=== PATIENT | female | born 1945 | race African-American/Black ===

== ENCOUNTER 2016-12-30 11:14 | Inpatient (IN) | payer MEDICARE, OTHER ==
[~2016-12-30] VITALS: Ht 170.2 cm; Wt 107.0 kg
[~2016-12-30 11:14] MED LIST: ACET325T9 PO; AMLO10TA4 PO; BENZ100C PO; CALC200T23 PO; CARV12.5 PO; CARV25TA PO; CEFP200T PO; CETI10TA16 PO; CLON0.1T PO; DEXT1DRO7 OP; DOCU100C5 PO; FLUT1DIS3 IH; FURO40TA4 PO; GUAI-66 PO; HYDR-2869 PO; HYDR12.58 PO; IPRA3AMP IH; ISOS20TA4 PO; ISOS30TA4 PO; LATA2.5D3 EACHEYE; LEVO150T PO; LORA0.5T PO; MAGN400O4 PO; METH5TAB12 PO; MULT-208 PO; NITR0.4T SL; NYST1POW2 PO; NYST1POW2 TOP; OMEP20CA9 PO; ONDA4TAB7 PO; OXYC-323 PO; PANT40TA3 PO; POLY17PO5 PO; PREG150C PO; PREG75CA PO; PROP1DRO OP; RIVA15TA PO; RIVA20TA2 PO; SENN-6 PO; SPIR25TA PO; TRAV5DRO EACHEYE; TRAZ150T55 PO; TRAZ50TA15 PO; VALS320T9 PO; VENL150C PO; VENL37.56 PO; VENTOLIN HFA18 GM IH; ZINC30OI TP
--- NOTE | 2016-12-30 11:26 | PHYS DOC ---
Past Medical History Past Medical History: COPD, GERD, Glaucoma, Hypertension, UTI Additional Past Medical Histor: pneumonia, conjunctivitis, MRSA, PVD, lymphedema, thyroid, Past Surgical History: Other Additional Past Surgical Histo: unknown Alcohol Use: None Drug Use: None Adult General Chief Complaint Chief Complaint: ALTERED MENTAL STATUS HPI HPI 71-year-old female presents from medical [place] for altered mental status that was noted yesterday. EMS also stated she may have had a low-grade temperature. Patient is normally alert and oriented 4 but today appears confused. She can answer all questions but is not oriented to place or time. She appears in no acute distress. She is satting appropriately on her usual 3 L of oxygen due to the fact that she has history of COPD. She denies any specific complaints. Review of Systems Review of Systems Constitutional: Denies fever or chills [] Eyes: Denies change in visual acuity, redness, or eye pain [] HENT: Denies nasal congestion or sore throat [] Respiratory: Denies cough or shortness of breath [] Cardiovascular: No additional information not addressed in HPI [] GI: Denies abdominal pain, nausea, vomiting, bloody stools or diarrhea [] : Denies dysuria or hematuria [] Musculoskeletal: Denies back pain or joint pain [] Integument: Denies rash or skin lesions [] Neurologic: Denies headache, focal weakness or sensory changes [] Endocrine: Denies polyuria or polydipsia [] Current Medications Current Medications Current Medications Medications (Trade) Dose Ordered Sig/Liban Start Time Stop Time Status Last Admin Dose Admin Acetaminophen (Tylenol) 650 mg PRN Q4HRS PRN 12/30/16 12:45 12/31/16 12:44 Ceftriaxone Sodium (Rocephin 1gm Ivpb For Omni) 50 ml @ 100 mls/hr 1X ONCE 12/30/16 12:30 12/30/16 12:59 Dextrose 25 gm 25 gm 1X ONCE 12/30/16 12:30 12/30/16 12:31 DC Insulin Human Regular (Novolin R Vial) 10 unit 1X ONCE 12/30/16 12:30 12/30/16 12:31 DC Ondansetron HCl 4 mg 4 mg PRN Q8HRS PRN 12/30/16 12:45 12/31/16 12:44 Sodium Bicarbonate 50 meq/Dextrose 1,050 ml @ 125 mls/hr Q8H24M 12/30/16 12:45 Sodium Chloride (Iv Sodium Chloride 0.9% 1000ml Bag) 1,000 ml @ 125 mls/hr Q8H 12/30/16 12:43 12/31/16 12:42 Allergies Allergies Allergies Coded Allergies Type Severity Reaction Last Updated Verified adhesive Allergy Intermediate 05/17/15 Yes ciprofloxacin Allergy Intermediate 05/17/15 Yes clarithromycin Allergy Intermediate 05/17/15 Yes codeine Allergy Intermediate 05/17/15 Yes fentanyl Allergy Intermediate 05/17/15 Yes meperidine Allergy Intermediate 05/17/15 Yes oyster extract Allergy Intermediate 05/17/15 Yes shellfish derived Allergy Intermediate 05/17/15 Yes strawberry Allergy Intermediate 05/17/15 Yes sulfur dioxide Allergy Intermediate 05/17/15 Yes tetracycline Allergy Intermediate 05/17/15 Yes I S O L A T I O N *CONTACT* Allergy Unknown 05/17/15 Yes Physical Exam Physical Exam Constitutional: Well developed, well nourished, no acute distress, non-toxic appearance, morbidly obese. [] HENT: Normocephalic, atraumatic, bilateral external ears normal, oropharynx moist, no oral exudates, nose normal. [] Eyes: PERRLA, EOMI, conjunctiva normal, no discharge. [] Neck: Normal range of motion, no tenderness, supple, no stridor. [] Cardiovascular:Heart rate regular rhythm, no murmur [] Lungs & Thorax: Bilateral breath sounds clear to auscultation [] Abdomen: Bowel sounds normal, soft, no tenderness, no masses, no pulsatile masses. [] Skin: Warm, dry, no erythema, no rash. [] Back: No tenderness, no CVA tenderness. [] Extremities: No tenderness, no cyanosis, no clubbing, ROM intact, bilateral 1+ edema of upper and lower extremities. [] Neurologic: Alert and oriented X 1 (person), normal motor function, normal sensory function, no focal deficits noted. [] Psychologic: Affect normal, judgement normal, mood normal. [] Current Patient Data Vital Signs Vital Signs Date Time Temp Pulse Resp B/P Pulse Ox O2 Delivery O2 Flow Rate FiO2 12/30/16 11:14 98.7 85 20 143/75 98 Nasal Cannula 3 98.7 Lab Values Laboratory Tests Test 12/30/16 11:28 12/30/16 11:43 White Blood Count 5.9x10^3/uL (4.0-11.0) Red Blood Count 3.29x10^6/uL (3.50-5.40) L Hemoglobin 9.7g/dL (12.0-15.5) L Hematocrit 30.8% (36.0-47.0) L Mean Corpuscular Volume 94fL (79-100) Mean Corpuscular Hemoglobin 30pg (25-35) Mean Corpuscular Hemoglobin Concent 32g/dL (31-37) Red Cell Distribution Width 15.4% (11.5-14.5) H Platelet Count 101x10^3/uL (140-400) L Neutrophils (%) (Auto) 43% (31-73) Lymphocytes (%) (Auto) 39% (24-48) Monocytes (%) (Auto) 14% (0-9) H Eosinophils (%) (Auto) 2% (0-3) Basophils (%) (Auto) 1% (0-3) Neutrophils # (Auto) 2.5x10^3uL (1.8-7.7) Lymphocytes # (Auto) 2.3x10^3/uL (1.0-4.8) Monocytes # (Auto) 0.8x10^3/uL (0.0-1.1) Eosinophils # (Auto) 0.1x10^3/uL (0.0-0.7) Basophils # (Auto) 0.0x10^3/uL (0.0-0.2) Sodium Level 145mmol/L (136-145) Potassium Level 5.5mmol/L (3.5-5.1) H Chloride Level 104mmol/L (98-107) Carbon Dioxide Level 40mmol/L (21-32) H Anion Gap 1 (6-14) L Blood Urea Nitrogen 31mg/dL (7-20) H Creatinine 1.1mg/dL (0.6-1.0) H Estimated GFR (Cockcroft-Gault) 59.4 Glucose Level 128mg/dL (70-99) H Lactic Acid Level 0.8mmol/L (0.4-2.0) Calcium Level 8.7mg/dL (8.5-10.1) Troponin I Quantitative < 0.017ng/mL (0.000-0.055) Urine Collection Type U cath Urine Color Yellow Urine Clarity Clear Urine pH 5.0 Urine Specific [place] 1.010 Urine Protein Negativemg/dL (NEG-TRACE) Urine Glucose (UA) Negativemg/dL (NEG) Urine Ketones (Stick) Negativemg/dL (NEG) Urine Blood Negative (NEG) Urine Nitrite Positive (NEG) Urine Bilirubin Negative (NEG) Urine Urobilinogen Dipstick 0.2mg/dL (0.2 mg/dL) Urine Leukocyte Esterase Moderate (NEG) Urine RBC 0/HPF (0-2) Urine WBC 5-10/HPF (0-4) Urine Squamous Epithelial Cells Few/LPF Urine Bacteria Moderate/HPF (0-FEW) Urine Hyaline Casts Occasional/HPF Urine Mucus Slight/LPF Laboratory Tests 12/30/16 11:28 Laboratory Tests 12/30/16 11:28 EKG EKG KG as interpreted by me showed a sinus rhythm with a leftward axis with an approximate rate of 79 bpm. There are no acute ischemic findings seen. This EKG does not meet STEMI criteria. Radiology/Procedures Radiology/Procedures CT of the head without contrast demonstrated the following: CT of the head without contrast, 12/30/2016: History: Altered mental status Comparison is made to a study from 11/07/2016. There are moderate patchy lucencies in the deep white matter bilaterally compatible with chronic ischemic change. The ventricles are within normal limits in size. There is no shift of the midline structures. There is no evidence of acute intracranial hemorrhage or mass effect. IMPRESSION: 1. Unchanged moderate bilateral deep white matter lucencies compatible with chronic ischemic change. 2. No acute intracranial abnormality is detected. Portable view of the chest demonstrates the following: Portable chest, 12/30/2016: History: Altered mental status, COPD Comparison is made to a study from 11/10/2016. The right PICC has been removed. The patient is rotated to the right. The heart is enlarged. There is tortuosity of the thoracic aorta. The pulmonary vascularity is normal. There are ongoing basilar opacities, most prominent medially. The findings suggest chronic or recurrent atelectasis/infiltrate. No pleural fluid is seen. 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 Course & Med Decision Making Course & Med Decision Making Pertinent Labs and Imaging studies reviewed. (See chart for details) This 71-year-old female has a laboratory workup that is significant for a hyperkalemia with a slightly increased BUN/creatinine as well. Patient was given a fluid bolus as well as doses of insulin and dextrose for the hyperkalemia. Her EKG was not concerning. Her chest film shows continued by basilar atelectasis. CT of her head was negative for any acute abnormality. Urinalysis was positive for nitrites. A dose of IV Rocephin was given. Patient continues to have some mild confusion and will be admitted to the hospital for her ongoing mental status changes, hyperkalemia, and UTI with nephrology consult as well. I discussed the need to admit the patient with the hospitalist , Dr. Rudolph, who agrees with this assessment and plan and will accept the patient for further evaluation and treatment. Dragon Disclaimer Dragon Disclaimer This electronic medical record was generated, in whole or in part, using a voice recognition dictation system. Departure Departure Impression: Primary Impression: Urinary tract infection Additional Impressions: Altered mental status Hyperkalemia Disposition: 09 ADMITTED INPATIENT Admitting Physician: Philomena Rudolph Condition: STABLE Referrals: ZABRINA BETANCOURT MD (PCP) Problem Qualifiers RHINA LOCO DO Dec 30, 2016 11:26
[2016-12-30] MEDS ORDERED: IV NORMAL SALINE 1000ML BAG 1,000 ML IV ONE (11:30)
[2016-12-30 11:47] LABS: BASO % 1 % (0-3); EOS % 2 % (0-3); HEMATOCRIT 30.8 % (36.0-47.0); HEMOGLOBIN 9.7 g/dL (12.0-15.5); LYMPH # 2.3 x10^3/uL (1.0-4.8); LYMPH % 39 % (24-48); MEAN CORPUSCULAR HEMOGLOBIN 30 pg (25-35); MEAN CORPUSCULAR HGB CONC 32 g/dL (31-37); MEAN CORPUSCULAR VOLUME 94 fL (79-100); MONO % 14 % (0-9); NEUT % 43 % (31-73); PLATELET COUNT 101 x10^3/uL (140-400); RED BLOOD COUNT 3.29 x10^6/uL (3.50-5.40); RED CELL DISTRIBUTION WIDTH 15.4 % (11.5-14.5); WHITE BLOOD COUNT 5.9 x10^3/uL (4.0-11.0)
[2016-12-30 11:56] LABS: BILIRUBIN,URINE NEGATIVE (NEG); GLUCOSE,URINE NEGATIVE (NEG); NITRITE,URINE POSITIVE (NEG); PROTEIN,URINE NEGATIVE (NEG-TRACE); UROBILINOGEN,URINE 0.2 mg/dL (0.2 mg/dL)
[2016-12-30 12:07] LABS: CALCIUM 8.7 mg/dL (8.5-10.1); CREATININE 1.1 mg/dL (0.6-1.0); GFR 59.4
[2016-12-30 12:09] LABS: BACTERIA,URINE MODERATE /HPF (0-FEW); RBC,URINE 0 /HPF (0-2); SQUAMOUS EPITHELIAL CELL,UR FEW /LPF
[2016-12-30 12:09] LABS: POTASSIUM 5.5 mmol/L (3.5-5.1)
--- NOTE | 2016-12-30 12:13 | EKG ---
[facility] [address] [place] [address] Test Date: 2016-12-30 Test Time: 11:21:10 Pat Name: TRAVIS SANCHEZ Department: Room: Gender: F High Value Associate: : 1945 Requested By: RHINA LOCO Order Number: [id number] Reading MD: Measurements Intervals Sand[place] Rate: 79 P: 25 NH: 174 QRS: -40 QRSD: 96 T: 31 QT: 330 QTc: 379 Interpretive Statements SINUS RHYTHM ABNORMAL LEFT AXIS DEVIATION R-S TRANSITION ZONE IN V LEADS DISPLACED TO THE LEFT LEFT ANTERIOR FASCICULAR BLOCK QRS(T) CONTOUR ABNORMALITY CONSIDER ANTEROLATERAL MYOCARDIAL DAMAGE ABNORMAL ECG RI6.01 No previous ECG available for comparison
[2016-12-30] MEDS ORDERED: DEXTROSE 50% 25 GM / 50ML DISP.SYRIN. IV ONE (12:30)
[2016-12-30] MEDS ORDERED: CEFTRIAXONE 1GM IVPB FOR OMNI 50 ML IV ONE (12:30)
[2016-12-30] MEDS ORDERED: INSULIN REGULAR 100 UNIT/ML 10ML VIAL. IV ONE (12:30)
--- NOTE | 2016-12-30 12:35 | RAD ---
CT of the head without contrast, 12/30/2016: History: Altered mental status Comparison is made to a study from 11/07/2016. There are moderate patchy lucencies in the deep white matter bilaterally compatible with chronic ischemic change. The ventricles are within normal limits in size. There is no shift of the midline structures. There is no evidence of acute intracranial hemorrhage or mass effect. IMPRESSION: 1. Unchanged moderate bilateral deep white matter lucencies compatible with chronic ischemic change. 2. No acute intracranial abnormality is detected. PQRS Compliance Statement: One or more of the following individualized dose reduction techniques were utilized for this examination: 1. Automated exposure control 2. Adjustment of the mA and/or kV according to patient size 3. Use of iterative reconstruction technique
--- NOTE | 2016-12-30 12:38 | RAD ---
Portable chest, 12/30/2016: History: Altered mental status, COPD Comparison is made to a study from 11/10/2016. The right PICC has been removed. The patient is rotated to the right. The heart is enlarged. There is tortuosity of the thoracic aorta. The pulmonary vascularity is normal. There are ongoing basilar opacities, most prominent medially. The findings suggest chronic or recurrent atelectasis/infiltrate. No pleural fluid is seen. 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 IMPRESSION: 1. Cardiomegaly. 2. Ongoing or recurrent bibasilar atelectasis/infiltrate.
[2016-12-30] MEDS ORDERED: IV NORMAL SALINE 1000ML BAG 1,000 ML IV SCH (12:43)
[2016-12-30] MEDS ORDERED: ACETAMINOPHEN 325 MG TABLET. PO PRN (12:45)
[2016-12-30] MEDS ORDERED: SODIUM BICARBONATE VIAL 50 MEQ in IV DEXTROSE 5% 1,000 ML IV SCH (12:45)
[2016-12-30] MEDS ORDERED: ONDANSETRON PF 4 MG/2 ML VIAL. IV PRN (12:45)
--- NOTE | 2016-12-30 13:14 | PHYS DOC ---
Past Medical History Past Medical History: Anemia, Anxiety, COPD, Depression, GERD, Glaucoma, Hypertension, Hypothyroid, Pneumonia, UTI, Vascular Disease Additional Past Medical Histor: conjunctivitis, MRSA, lymphedema, Acute and Chronic Respiratory Failure Past Surgical History: Other Additional Past Surgical Histo: unknown Alcohol Use: None Drug Use: None Adult General Chief Complaint Chief Complaint: ALTERED MENTAL STATUS HPI HPI Patient is a 71 year old [f__sex] who presents with [] Review of Systems Review of Systems Constitutional: Denies fever or chills [] Eyes: Denies change in visual acuity, redness, or eye pain [] HENT: Denies nasal congestion or sore throat [] Respiratory: Denies cough or shortness of breath [] Cardiovascular: No additional information not addressed in HPI [] GI: Denies abdominal pain, nausea, vomiting, bloody stools or diarrhea [] : Denies dysuria or hematuria [] Musculoskeletal: Denies back pain or joint pain [] Integument: Denies rash or skin lesions [] Neurologic: Denies headache, focal weakness or sensory changes [] Endocrine: Denies polyuria or polydipsia [] Current Medications Current Medications Current Medications Medications (Trade) Dose Ordered Sig/Liban Start Time Stop Time Status Last Admin Dose Admin Ceftriaxone Sodium (Rocephin 1gm Ivpb For Omni) 50 ml @ 100 mls/hr 1X ONCE 12/30/16 12:30 12/30/16 12:59 DC 12/30/16 13:20 100 MLS/HR Dextrose 25 gm 25 gm 1X ONCE 12/30/16 12:30 12/30/16 12:31 DC 12/30/16 13:14 25 GM Insulin Human Regular (Novolin R Vial) 10 unit 1X ONCE 12/30/16 12:30 12/30/16 12:31 DC 12/30/16 13:17 10 UNIT Sodium Chloride (Iv Sodium Chloride 0.9% 1000ml Bag) 1,000 ml @ 1,000 mls/hr 1X ONCE 12/30/16 11:30 12/30/16 12:29 DC 12/30/16 12:00 1,000 MLS/HR Allergies Allergies Allergies Coded Allergies Type Severity Reaction Last Updated Verified adhesive Allergy Intermediate 05/17/15 Yes ciprofloxacin Allergy Intermediate 05/17/15 Yes clarithromycin Allergy Intermediate 05/17/15 Yes codeine Allergy Intermediate 05/17/15 Yes fentanyl Allergy Intermediate 05/17/15 Yes meperidine Allergy Intermediate 05/17/15 Yes oyster extract Allergy Intermediate 05/17/15 Yes shellfish derived Allergy Intermediate 05/17/15 Yes strawberry Allergy Intermediate 05/17/15 Yes sulfur dioxide Allergy Intermediate 05/17/15 Yes tetracycline Allergy Intermediate 05/17/15 Yes I S O L A T I O N *CONTACT* Allergy Unknown 05/17/15 Yes Physical Exam Physical Exam Constitutional: Well developed, well nourished, no acute distress, non-toxic appearance. [] HENT: Normocephalic, atraumatic, bilateral external ears normal, oropharynx moist, no oral exudates, nose normal. [] Eyes: PERRLA, EOMI, conjunctiva normal, no discharge. [] Neck: Normal range of motion, no tenderness, supple, no stridor. [] Cardiovascular:Heart rate regular rhythm, no murmur [] Lungs & Thorax: Bilateral breath sounds clear to auscultation [] Abdomen: Bowel sounds normal, soft, no tenderness, no masses, no pulsatile masses. [] Skin: Warm, dry, no erythema, no rash. [] Back: No tenderness, no CVA tenderness. [] Extremities: No tenderness, no cyanosis, no clubbing, ROM intact, no edema. [] Neurologic: Alert and oriented X 3, normal motor function, normal sensory function, no focal deficits noted. [] Psychologic: Affect normal, judgement normal, mood normal. [] Current Patient Data Vital Signs Vital Signs Date Time Temp Pulse Resp B/P Pulse Ox O2 Delivery O2 Flow Rate FiO2 12/30/16 12:17 81 24 123/73 98 Nasal Cannula 3 12/30/16 11:14 98.7 98.7 Lab Values Laboratory Tests Test 12/30/16 11:28 12/30/16 11:43 White Blood Count 5.9x10^3/uL (4.0-11.0) Red Blood Count 3.29x10^6/uL (3.50-5.40) L Hemoglobin 9.7g/dL (12.0-15.5) L Hematocrit 30.8% (36.0-47.0) L Mean Corpuscular Volume 94fL (79-100) Mean Corpuscular Hemoglobin 30pg (25-35) Mean Corpuscular Hemoglobin Concent 32g/dL (31-37) Red Cell Distribution Width 15.4% (11.5-14.5) H Platelet Count 101x10^3/uL (140-400) L Neutrophils (%) (Auto) 43% (31-73) Lymphocytes (%) (Auto) 39% (24-48) Monocytes (%) (Auto) 14% (0-9) H Eosinophils (%) (Auto) 2% (0-3) Basophils (%) (Auto) 1% (0-3) Neutrophils # (Auto) 2.5x10^3uL (1.8-7.7) Lymphocytes # (Auto) 2.3x10^3/uL (1.0-4.8) Monocytes # (Auto) 0.8x10^3/uL (0.0-1.1) Eosinophils # (Auto) 0.1x10^3/uL (0.0-0.7) Basophils # (Auto) 0.0x10^3/uL (0.0-0.2) Sodium Level 145mmol/L (136-145) Potassium Level 5.5mmol/L (3.5-5.1) H Chloride Level 104mmol/L (98-107) Carbon Dioxide Level 40mmol/L (21-32) H Anion Gap 1 (6-14) L Blood Urea Nitrogen 31mg/dL (7-20) H Creatinine 1.1mg/dL (0.6-1.0) H Estimated GFR (Cockcroft-Gault) 59.4 Glucose Level 128mg/dL (70-99) H Lactic Acid Level 0.8mmol/L (0.4-2.0) Calcium Level 8.7mg/dL (8.5-10.1) Troponin I Quantitative < 0.017ng/mL (0.000-0.055) Urine Collection Type U cath Urine Color Yellow Urine Clarity Clear Urine pH 5.0 Urine Specific [place] 1.010 Urine Protein Negativemg/dL (NEG-TRACE) Urine Glucose (UA) Negativemg/dL (NEG) Urine Ketones (Stick) Negativemg/dL (NEG) Urine Blood Negative (NEG) Urine Nitrite Positive (NEG) Urine Bilirubin Negative (NEG) Urine Urobilinogen Dipstick 0.2mg/dL (0.2 mg/dL) Urine Leukocyte Esterase Moderate (NEG) Urine RBC 0/HPF (0-2) Urine WBC 5-10/HPF (0-4) Urine Squamous Epithelial Cells Few/LPF Urine Bacteria Moderate/HPF (0-FEW) Urine Hyaline Casts Occasional/HPF Urine Mucus Slight/LPF Laboratory Tests 12/30/16 11:28 Laboratory Tests 12/30/16 11:28 EKG EKG [] Radiology/Procedures Radiology/Procedures [] Course & Med Decision Making Course & Med Decision Making Pertinent Labs and Imaging studies reviewed. (See chart for details) This note was created in error and will not be completed. Please see the other note on this patient for coding purposes. Dragon Disclaimer Dragon Disclaimer This electronic medical record was generated, in whole or in part, using a voice recognition dictation system. Departure Departure Impression: Primary Impression: Urinary tract infection Additional Impressions: Altered mental status Hyperkalemia Disposition: ADMITTED INPATIENT Condition: STABLE Referrals: ZABRINA BETANCOURT MD (PCP) Problem Qualifiers RHINA LOCO DO Dec 30, 2016 13:14
[2016-12-30] MEDS ORDERED: SODIUM BICARB ADULT 8.4% 50 MEQ/50 ML DISP.SYRIN. IV ONE (13:15)
[2016-12-30] MEDS ORDERED: IV DEXTROSE 5 %-0.45 % NACL 1,000 ML IV ONE (13:15)
--- NOTE | 2016-12-30 14:43 | ACF ---
Admission Forms Criteria URINARY COMPLICATIONS Clinical Indications for Inpatient Care (Place 'X' for any and all applicable criteria): Ongoing inpatient care may be indicated for urinary complications with ANY ONE of the following: [X]I. Urinary tract infection requiring inpatient care as indicated by ANY ONE of the following(8)(19)(20): [ ]a) Severe symptoms (eg, high fever, severe pain) [ ]b) Vomiting or dehydration requiring ongoing inpatient care [X]c) IV antibiotic needs that cannot be managed at lower level of care [ ]d) Hemodynamic instability [ ]e) Obstruction of collecting system by stone or tumor [ ]II. Urinary retention requiring drainage or surgery (3)(4)(5)(17)(18) [ ]III. Renal failure (Use Renal Failure Criteria for further information.) [ ]IV. Oliguria(30) [ ]V. Post obstructive diuresis requiring close monitoring of urine output and intravenous compensation for excessive fluid losses(33) Extended stay beyond goal length of stay for primary condition may be needed until ALL of the following are present(3)(4)(5)(8): [ ]a) Renal function (creatinine) at baseline, or daily decreases in creatinine consistent with renal function return [ ]b) Voiding adequately or with urinary catheter or percutaneous suprapubic tube and management regimen in place that is performable at lower level of care. [ ]c) Urine output adequate [ ]d) Fever absent or resolving [ ]e) Infection absent or treatable at next level of care The original [employer] content created by [employer] has been revised. The portions of the content which have been revised are identified through the use of italic text or in bold, and [facility] has neither reviewed nor approved the modified material. All other unmodified content is copyright [facility] Please see references footnoted in the original [facility] edition 2016 Admission Criteria Met?: Yes SATNAM MONTANO Dec 30, 2016 14:43
[2016-12-30] MEDS ORDERED: DEXT15DR5 EACHEYE (14:56)
[2016-12-30] MEDS ORDERED: BUDE0.5A NEB (14:56)
[2016-12-30 14:58] VITALS: BP 102/49
[2016-12-30] MEDS ORDERED: CARV12.5 PO (14:59)
[2016-12-30] MEDS ORDERED: PREG50CA PO (15:01)
[2016-12-30] MEDS ORDERED: FURO-69 PO (15:01)
[2016-12-30] MEDS ORDERED: FERR-26 PO (15:01)
[2016-12-30] MEDS ORDERED: LATA2.5D2 EACHEYE (15:05)
[2016-12-30] MEDS ORDERED: OXYC-323 PO (15:05)
[2016-12-30] MEDS ORDERED: AMLO5TAB2 PO (15:05)
[2016-12-30] MEDS ORDERED: POTA20PA8 PO (15:05)
[2016-12-30] MEDS ORDERED: ONDA4TAB10 SL (15:05)
[2016-12-30] MEDS ORDERED: ZINC30OI TP (15:07)
[2016-12-30] MEDS ORDERED: PREG75CA PO (15:07)
--- NOTE | 2016-12-30 16:19 | PDOC1 ---
History and Physical Date of Admission Date of Admission DATE: 12/30/16 TIME: 16:12 Identification/Chief Complaint Chief Complaint confusion Source Source: Caregiver, Chart review, Patient History of Present Illness History of Present Illness Ms. Vergara, is [id number] female admit from ER for altered mental status. Change was noted yesterday at [facility],. . Patient is normally alert and oriented 4 but today appears confused. She answers questions in repetive manner, is more oriented than reported a few hours ago in ER She appears in no acute distress, and she reports feeling well currently On 3 L of oxygen due to the fact that she has history of COPD. Past Medical History Cardiovascular: AFIB, CHF, HTN GI: No pertinent hx Heme/Onc: No pertinent hx Psych: Anxiety Musculoskeletal: low back pain ENT: No pertinent hx Endocrine: No pertinent hx Family History Family History: No Significant Social History Smoke: No ALCOHOL: none Drugs: None Current Problem List Problem List Problems Medical Problems: (1) Altered mental status Status: Acute (2) Hyperkalemia Status: Acute (3) Urinary tract infection Status: Acute Problems: Current Medications Current Medications Current Medications Sodium Chloride (Iv Sodium Chloride 0.9% 1000ml Bag) 1,000 ml @ 1,000 mls/hr 1X ONCE IV Last administered on 12/30/16 12:00; Start 12/30/16 at 11:30; Stop 12/30/16 at 12:29; Status DC Insulin Human Regular (Novolin R Vial) 10 unit 1X ONCE IV Last administered on 12/30/16 13:17; Start 12/30/16 at 12:30; Stop 12/30/16 at 12:31; Status DC Dextrose 25 gm 25 gm 1X ONCE IV Last administered on 12/30/16 13:14; Start at 12:30; Stop 12/30/16 at 12:31; Status DC Sodium Bicarbonate 50 meq/Dextrose 1,050 ml @ 125 mls/hr Q8H24M IV ; Start at 12:45; Status Cancel Ceftriaxone Sodium (Rocephin 1gm Ivpb For Omni) 50 ml @ 100 mls/hr 1X ONCE IV Last administered on 12/30/16 13:20; Start 12/30/16 at 12:30; Stop 3/21/17 at 12:59; Status DC Ondansetron HCl 4 mg 4 mg PRN Q8HRS PRN IV NAUSEA/VOMITING; Start 12/30/16 at 12:45; Stop 12/31/16 at 12:44 Sodium Chloride (Iv Sodium Chloride 0.9% 1000ml Bag) 1,000 ml @ 125 mls/hr Q8H IV ; Start 12/30/16 at 12:43; Stop 12/30/16 at 13:15; Status DC Acetaminophen (Tylenol) 650 mg PRN Q4HRS PRN PO FEVER; Start 12/30/16 at 12:45 ; Stop 12/31/16 at 12:44 Sodium Bicarbonate 50 meq 50 meq 1X ONCE IV Last administered on 12/30/16t 13: 19; Start 12/30/16 at 13:15; Stop 12/30/16 at 13:16; Status DC Dextrose/Sodium Chloride (Iv D5% - 1/2 NS) 1,000 ml @ 100 mls/hr 1X ONCE IV Last administered on 12/30/16t 15:37; Start 12/30/16 at 13:15; Stop 12/30/16 at 23:14 Active Scripts Active Reported Zinc Oxide 30 Gm Oint...g. 30 Gm TP Lyrica (Pregabalin) 75 Mg Capsule 1 Cap PO BID Xalatan (Latanoprost) 2.5 Ml Drops 1 Drop EACHEYE QHS Potassium Chloride Packet (Potassium Chloride) 20 Meq Packet 20 Meq PO BID Percocet 5-325 Mg Tablet (Oxycodone/Acetaminophen) 1 Each Tablet 1 Tab PO PRN Q6HRS PRN Zofran Odt (Ondansetron) 4 Mg Tab.rapdis 1 Tab SL BID Amlodipine Besylate 5 Mg Tablet 5 Mg PO DAILY Lasix (Furosemide) 20 Mg Tablet 1 Tab PO DAILY Ferrous Sulfate 325 Mg Tablet 1 Tab PO DAILY Coreg (Carvedilol) 12.5 Mg Tablet 1 Tab PO BID Budesonide 0.5 Mg/2 Ml Ampul.neb 1 Vial NEB BID Artificial Tears Eye Drops (Dextran 70/Hypromellose) 15 Ml Drops 1 Drop EACHEYE PRN QID PRN Xarelto (Rivaroxaban) 20 Mg Tablet 20 Mg PO DAILY Cetirizine Hcl 10 Mg Tablet 1 Tab PO HS Tessalon Perle (Benzonatate) 100 Mg Capsule 100 Mg PO TID PRN Multi-Day Vitamins (Multivitamin) 1 Each Tablet 1 Tab PO DAILY Milk Of Magnesia (Magnesium Hydroxide) 400 Mg/5 Ml Oral.susp 30 Ml PO Q2HR PRN Protonix (Pantoprazole Sodium) 40 Mg Tablet.dr 1 Tab PO DAILY Duoneb 0.5-3(2.5) Mg/3 Ml (Albuterol/Ipratropium) 3 Ml Ampul.neb 3 Ml IH Q4HRS PRN Nystatin 1 Each Powder.ea. 1 Each TOP BID to groin and inner thighs, apply barrier cream with zinc and nystatin powder after cleanse with warm water and pat dry Travatan Z (Travoprost) 5 Ml Drops 1 Drop EACHEYE QHS Synthroid (Levothyroxine Sodium) 150 Mcg Tablet 1 Tab PO DAILY Senna S Tablet (Sennosides/Docusate Sodium) 1 Each Tablet 1 Each PO BID Miralax (Polyethylene Glycol 3350) 17 Gm Powd.pack 1 Packet PO DAILY Methylphenidate Hcl 5 Mg Tablet 1 Tab PO BID Docusate Sodium 100 Mg Capsule 1 Cap PO BID Calcium Carbonate 200 Mg Tab.chew 200 Mg PO PRN Q4HRS PRN Tylenol (Acetaminophen) 325 Mg Tablet 2 Tab PO PRN Q4HRS PRN for headache, generalized pain or elevated temperature Allergies Allergies: Coded Allergies: adhesive (Verified Allergy, Intermediate, 05/17/15) ciprofloxacin (Verified Allergy, Intermediate, 05/17/15) clarithromycin (Verified Allergy, Intermediate, 05/17/15) codeine (Verified Allergy, Intermediate, 05/17/15) fentanyl (Verified Allergy, Intermediate, 05/17/15) meperidine (Verified Allergy, Intermediate, 05/17/15) oyster extract (Verified Allergy, Intermediate, 05/17/15) shellfish derived (Verified Allergy, Intermediate, 05/17/15) strawberry (Verified Allergy, Intermediate, 05/17/15) sulfur dioxide (Verified Allergy, Intermediate, 05/17/15) tetracycline (Verified Allergy, Intermediate, 05/17/15) I S O L A T I O N *CONTACT* (Verified Allergy, Unknown, 05/17/15) mrsa + ROS General: No: Appetite, Chills, Fatigue, Malaise, Night Sweats, Other PSYCHOLOGICAL ROS: No: Anxiety, Behavioral Disorder, Concentration difficultie , Decreased libido, Depression, Disorientation, Hallucinations, Hostility, Irritablity, Memory difficulties, Mood Swings, Obsessive thoughts, Other, Physical abuse, Sexual abuse, Sleep disturbances, Suicidal ideation Eyes: No Blurry vision, No Decreased vision, No Double vision, No Dry eyes, No Excessive tearing, No Eye Pain, No Itchy Eyes, No Loss of vision, No Other, No Photophobia, No Scotomata, No Uses contacts, No Uses glasses HEENT: YES: Heacaches Respiratory: No: Cough, Hemoptysis, Orthopnea, Other, Pleuritic Pain, SOB with excertion, Shortness of breath, Sputum Changes, Stridor, Tachypnea, Wheezing Cardiovascular: No Chest Pain, No Edema, No Lt Headedness, No Orthopnea, No Other, No Palpitations, No Paroxysmal Noc. Dyspnea Gastrointestinal: Yes Nausea, No Abdominal Pain, No Constipation, No Diarrhea, No Hematochezia, No Melena, No Other, No Vomiting Genitourinary: No , No , No , No , No , No , No , No Discharge, No Dysuria, No Flank Pain, No Frequency, No Hematuria, No Incontinence, No Other, No Pain, No Retention, No Urgency Musculoskeletal: Yes Joint Pain, Yes Joint Stiffness, No Gait Disturbance, No Joint Swelling, No Muscle Pain, No Muscular Weakness , No Other, No Pain In:, No Swelling In: Neurological: Yes Confusion Skin: Yes Dry Skin Physical Exam General: Alert, Cooperative, mild distress, Other (2/4 oriented) HEENT: Atraumatic, PERRLA Lungs: Clear to auscultation Heart: S1S2, no murmurs Rectal Exam: deferred Extremities: Normal pulses, Other (2+ LE edema) Skin: No breakdown Neuro: Normal speech, Normal tone Psych/Mental Status: Other Vitals Vitals Vital Signs Date Time Temp Pulse Resp B/P Pulse Ox O2 Delivery O2 Flow Rate FiO2 12/30/16 14:58 99.5 78 17 102/49 94 Nasal Cannula 3.0 99.5 Labs Labs Laboratory Tests Test 12/30/16 11:28 12/30/16 11:43 White Blood Count 5.9x10^3/uL (4.0-11.0) Red Blood Count 3.29x10^6/uL (3.50-5.40) Hemoglobin 9.7g/dL (12.0-15.5) Hematocrit 30.8% (36.0-47.0) Mean Corpuscular Volume 94fL (79-100) Mean Corpuscular Hemoglobin 30pg (25-35) Mean Corpuscular Hemoglobin Concent 32g/dL (31-37) Red Cell Distribution Width 15.4% (11.5-14.5) Platelet Count 101x10^3/uL (140-400) Neutrophils (%) (Auto) 43% (31-73) Lymphocytes (%) (Auto) 39% (24-48) Monocytes (%) (Auto) 14% (0-9) Eosinophils (%) (Auto) 2% (0-3) Basophils (%) (Auto) 1% (0-3) Neutrophils # (Auto) 2.5x10^3uL (1.8-7.7) Lymphocytes # (Auto) 2.3x10^3/uL (1.0-4.8) Monocytes # (Auto) 0.8x10^3/uL (0.0-1.1) Eosinophils # (Auto) 0.1x10^3/uL (0.0-0.7) Basophils # (Auto) 0.0x10^3/uL (0.0-0.2) Sodium Level 145mmol/L (136-145) Potassium Level 5.5mmol/L (3.5-5.1) Chloride Level 104mmol/L (98-107) Carbon Dioxide Level 40mmol/L (21-32) Anion Gap 1 (6-14) Blood Urea Nitrogen 31mg/dL (7-20) Creatinine 1.1mg/dL (0.6-1.0) Estimated GFR (Cockcroft-Gault) 59.4 Glucose Level 128mg/dL (70-99) Lactic Acid Level 0.8mmol/L (0.4-2.0) Calcium Level 8.7mg/dL (8.5-10.1) Troponin I Quantitative < 0.017ng/mL (0.000-0.055) Urine Collection Type U cath Urine Color Yellow Urine Clarity Clear Urine pH 5.0 Urine Specific [place] 1.010 Urine Protein Negativemg/dL (NEG-TRACE) Urine Glucose (UA) Negativemg/dL (NEG) Urine Ketones (Stick) Negativemg/dL (NEG) Urine Blood Negative (NEG) Urine Nitrite Positive (NEG) Urine Bilirubin Negative (NEG) Urine Urobilinogen Dipstick 0.2mg/dL (0.2 mg/dL) Urine Leukocyte Esterase Moderate (NEG) Urine RBC 0/HPF (0-2) Urine WBC 5-10/HPF (0-4) Urine Squamous Epithelial Cells Few/LPF Urine Bacteria Moderate/HPF (0-FEW) Urine Hyaline Casts Occasional/HPF Urine Mucus Slight/LPF Laboratory Tests Test 12/30/16 11:28 12/30/16 11:43 White Blood Count 5.9x10^3/uL (4.0-11.0) Red Blood Count 3.29x10^6/uL (3.50-5.40) Hemoglobin 9.7g/dL (12.0-15.5) Hematocrit 30.8% (36.0-47.0) Mean Corpuscular Volume 94fL (79-100) Mean Corpuscular Hemoglobin 30pg (25-35) Mean Corpuscular Hemoglobin Concent 32g/dL (31-37) Red Cell Distribution Width 15.4% (11.5-14.5) Platelet Count 101x10^3/uL (140-400) Neutrophils (%) (Auto) 43% (31-73) Lymphocytes (%) (Auto) 39% (24-48) Monocytes (%) (Auto) 14% (0-9) Eosinophils (%) (Auto) 2% (0-3) Basophils (%) (Auto) 1% (0-3) Neutrophils # (Auto) 2.5x10^3uL (1.8-7.7) Lymphocytes # (Auto) 2.3x10^3/uL (1.0-4.8) Monocytes # (Auto) 0.8x10^3/uL (0.0-1.1) Eosinophils # (Auto) 0.1x10^3/uL (0.0-0.7) Basophils # (Auto) 0.0x10^3/uL (0.0-0.2) Sodium Level 145mmol/L (136-145) Potassium Level 5.5mmol/L (3.5-5.1) Chloride Level 104mmol/L (98-107) Carbon Dioxide Level 40mmol/L (21-32) Anion Gap 1 (6-14) Blood Urea Nitrogen 31mg/dL (7-20) Creatinine 1.1mg/dL (0.6-1.0) Estimated GFR (Cockcroft-Gault) 59.4 Glucose Level 128mg/dL (70-99) Lactic Acid Level 0.8mmol/L (0.4-2.0) Calcium Level 8.7mg/dL (8.5-10.1) Troponin I Quantitative < 0.017ng/mL (0.000-0.055) Urine Collection Type U cath Urine Color Yellow Urine Clarity Clear Urine pH 5.0 Urine Specific [place] 1.010 Urine Protein Negativemg/dL (NEG-TRACE) Urine Glucose (UA) Negativemg/dL (NEG) Urine Ketones (Stick) Negativemg/dL (NEG) Urine Blood Negative (NEG) Urine Nitrite Positive (NEG) Urine Bilirubin Negative (NEG) Urine Urobilinogen Dipstick 0.2mg/dL (0.2 mg/dL) Urine Leukocyte Esterase Moderate (NEG) Urine RBC 0/HPF (0-2) Urine WBC 5-10/HPF (0-4) Urine Squamous Epithelial Cells Few/LPF Urine Bacteria Moderate/HPF (0-FEW) Urine Hyaline Casts Occasional/HPF Urine Mucus Slight/LPF VTE Prophylaxis Ordered VTE Prophylaxis Devices: No VTE Pharmacological Prophylaxi: Yes Assessment/Plan Assessment/Plan Acute metabolic encephalopathy on chronic dementia, (may be mild) UTI obesity, BMI 35 weakness and debility ankle pain, bilat, consult physiatry hypothyroid chronic diastolic CHF, with LE edema afib, rate controlled CKD 2, w. hyperkalemia, IV fluid, recheck, renal consulted MICHEAL DAVIS MD Dec 30, 2016 16:18
[2016-12-30] MEDS ORDERED: SODIUM POLYSTYRENE SULFONATE 15 GM/60 ML ORAL.SUSP. PO PRN (18:00)
[2016-12-30 19:00] VITALS: BP 126/70
[2016-12-30 23:00] VITALS: BP 146/78
--- NOTE | 2016-12-31 02:15 | CONS ---
DATE OF CONSULTATION: 12/30/2016 ATTENDING PHYSICIAN: Dr. Rudolph. The patient was seen at the request of Dr. Rudolph for rehab evaluation. HISTORY OF PRESENT ILLNESS: This is a 71-year-old female admitted through the Emergency Room with altered mental status from residential care unit. The patient is normally awake and oriented, but appeared to be confused and answered questions in a repetitive manner. The patient uses oxygen at 3 liters per minute for her chronic obstructive pulmonary disease. Past medical history also includes atrial fibrillation, congestive heart failure, hypertension, anxiety and low back pain. The patient is status post left rotator cuff repair in the past. The patient also had surgery on her ankles. The patient admits some pain in her ankles. She apparently had left ankle foot brace, but she does not use it anymore as she does not walk. The patient since admission was found with hyperkalemia and urinary tract infection and being treated for it. She had CT scan of the brain, which revealed unchanged moderate bilateral deep white matter lucencies compatible with chronic ischemic change. Chest x-ray revealed cardiomegaly, ongoing or recurrent bibasilar atelectasis or infiltrate. PHYSICAL EXAMINATION: Today revealed an elderly female, she is awake, oriented to place, follows commands appropriately, moves all 4 extremities voluntarily where she had generalized muscle weakness. She had significant weakness of rotator cuff muscles, hand intrinsic muscles and no ____ left foot dorsiflexion. She had her right knee in a portion of hyperextension and right ankle in a portion of lateral rotation. She had tenderness to palpation over tendo Achilles bilaterally. She had a crepitus on range of motion of both knee and ankle joints. She had painful limited movements of both shoulders and hip joints and also knee joints, especially on the right side. She had decreased touch and pinprick sensation over left L5 dermatome area. Deep tendon reflexes are absent at both knees and ankles. She had deformities of both thumbs secondary to degenerative changes of thumb carpometacarpal joints and probable associated bilateral carpal tunnel syndrome as she had positive Tinel sign over median nerve at the wrist. I have not tested her mobility skills at this time. She seems to be requiring Becky lift for transfers. 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 The patient with chronic obstructive pulmonary disease, oxygen dependent, atrial fibrillation, congestive heart failure, hypertension, chronic lower back pain and anxiety. RECOMMENDATIONS: She is not a candidate for any rehab. When medically stable, transferred back to group home for continued care. Dr. Rudolph, I appreciate asking me to participate in the care of this interesting patient. I will be glad to follow her with you as needed for her rehabilitation. EMERALD NINO MD DR: TSERING/mary JOB#: [id number] / [id number]
[2016-12-31 03:00] VITALS: BP 137/71
[2016-12-31] MEDS ORDERED: ALBUTEROL SULFATE 2.5 MG/3 ML NEBU. NEB PRN (03:45)
[2016-12-31 05:49] LABS: BASO % 0 % (0-3); EOS % 3 % (0-3); HEMATOCRIT 28.2 % (36.0-47.0); HEMOGLOBIN 8.8 g/dL (12.0-15.5); LYMPH # 1.8 x10^3/uL (1.0-4.8); LYMPH % 38 % (24-48); MEAN CORPUSCULAR HEMOGLOBIN 29 pg (25-35); MEAN CORPUSCULAR HGB CONC 31 g/dL (31-37); MEAN CORPUSCULAR VOLUME 93 fL (79-100); MONO % 16 % (0-9); NEUT % 42 % (31-73); PLATELET COUNT 87 x10^3/uL (140-400); RED BLOOD COUNT 3.04 x10^6/uL (3.50-5.40); RED CELL DISTRIBUTION WIDTH 14.8 % (11.5-14.5); WHITE BLOOD COUNT 4.7 x10^3/uL (4.0-11.0)
[2016-12-31 06:05] LABS: CALCIUM 8.3 mg/dL (8.5-10.1); CREATININE 0.8 mg/dL (0.6-1.0); GFR 85.8; POTASSIUM 4.6 mmol/L (3.5-5.1)
[2016-12-31 07:00] VITALS: BP 92/47
[2016-12-31] MEDS ORDERED: MAGNESIUM HYDROXIDE 2,400 MG/30 ML ORAL.SUSP. PO PRN (09:00)
[2016-12-31] MEDS: BUDESONIDE 0.5 MG/2 ML NEBU NEB SCH ×2 (09:00→19:40)
[2016-12-31] MEDS ORDERED: ACETAMINOPHEN 325 MG TABLET. PO PRN (09:00)
[2016-12-31] MEDS ORDERED: IPRATRPIUM/ALBUTEROL 0.5/2.5MG 3 ML NEBU. IH PRN (09:00)
[2016-12-31] MEDS ORDERED: CALCIUM CARBONATE 500 MG TAB.CHEW PO PRN (09:00)
[2016-12-31] MEDS ORDERED: BENZONATATE 100 MG CAPSULE. PO PRN (09:00)
[2016-12-31] MEDS ORDERED: ONDANSETRON PF 4 MG/2 ML VIAL. IV PRN (09:15)
[2016-12-31] MEDS ORDERED: IV 1/2 NORMAL SALINE 1,000 ML IV ONE (09:15)
[2016-12-31] MEDS ORDERED: HYDROCODONE/APAP 5/325MG TABLET. PO PRN (09:15)
[2016-12-31] MEDS ORDERED: FUROSEMIDE 20 MG TABLET PO SCH (09:30)
[2016-12-31] MEDS ORDERED: POLYVINYL ALCOHOL 1.4% OPHTH SOLUTION 15ML BOTTLE. OU PRN (09:45)
[2016-12-31] MEDS: NYSTATIN TOPICAL POWDER 15GM BOTTLE. TP SCH ×2 (10:00→21:00)
[2016-12-31] MEDS ORDERED: POTASSIUM CHLORIDE 20 MEQ TABLET.ER. PO SCH (10:00)
[2016-12-31] MEDS: CEFTRIAXONE SODIUM 1 GM in IV NORMAL SALINE 50ML 50 ML IV SCH (10:08)
[2016-12-31] MEDS: MULTIVITAMIN with MINERAL TABLET. PO SCH (10:10)
[2016-12-31] MEDS: LEVOTHYROXINE 150 MCG TABLET PO SCH (10:11)
[2016-12-31] MEDS: METHYLPHENIDATE HCL 5 MG TABLET PO SCH ×2 (10:12→21:25)
[2016-12-31] MEDS: PREGABALIN 75 MG CAPSULE PO SCH ×2 (10:12→11:56)
[2016-12-31] MEDS: CARVEDILOL 12.5 MG TABLET PO SCH ×2 (10:13→17:17)
[2016-12-31] MEDS: AMLODIPINE BESYLATE 5 MG TABLET PO SCH (10:14)
[2016-12-31] MEDS: SENNOSIDES/DOCUSATE 8.6/50MG TABLET. PO SCH ×2 (10:14→21:25)
[2016-12-31] MEDS: DOCUSATE SODIUM 100 MG CAPSULE PO SCH ×2 (10:17→21:25)
[2016-12-31 10:33] VITALS: BP 149/65
--- NOTE | 2016-12-31 10:58 | PDOC ---
PROGRESS NOTES Subjective Subjective She denies any pain. Objective Objective Vital Signs Date Time Temp Pulse Resp B/P Pulse Ox O2 Delivery O2 Flow Rate FiO2 12/31/16 10:33 99.0 73 18 149/65 97 Nasal Cannula 3.0 99.0 Intake and Output 12/31/16 07:00 Intake Total 1850 ml Balance 1850 ml Intake Oral 800 ml IV Total 1050 ml # Voids 5 Physical Exam Physical Exam She is supine in bed and seems comfortable but continues with stiffness and pain on ROM of extremity joints,especially in her lower extremities and tenderness to palpation around ankles. Assessment Assessment Problems Medical Problems: (1) Altered mental status Status: Acute (2) Hyperkalemia Status: Acute (3) Urinary tract infection Status: Acute Plan Plan of Care To try diclofenac cream and to NH when medically stable. Comment Review of Relevant I have reviewed the following items vivian (where applicable) has been applied. Labs Laboratory Tests Test 12/30/16 11:28 12/30/16 11:43 12/30/16 18:10 12/31/16 05:20 White Blood Count 5.9x10^3/uL (4.0-11.0) 4.7x10^3/uL (4.0-11.0) Red Blood Count 3.29x10^6/uL (3.50-5.40) 3.04x10^6/uL (3.50-5.40) Hemoglobin 9.7g/dL (12.0-15.5) 8.8g/dL (12.0-15.5) Hematocrit 30.8% (36.0-47.0) 28.2% (36.0-47.0) Mean Corpuscular Volume 94fL (79-100) 93fL (79-100) Mean Corpuscular Hemoglobin 30pg (25-35) 29pg (25-35) Mean Corpuscular Hemoglobin Concent 32g/dL (31-37) 31g/dL (31-37) Red Cell Distribution Width 15.4% (11.5-14.5) 14.8% (11.5-14.5) Platelet Count 101x10^3/uL (140-400) 87x10^3/uL (140-400) Neutrophils (%) (Auto) 43% (31-73) 42% (31-73) Lymphocytes (%) (Auto) 39% (24-48) 38% (24-48) Monocytes (%) (Auto) 14% (0-9) 16% (0-9) Eosinophils (%) (Auto) 2% (0-3) 3% (0-3) Basophils (%) (Auto) 1% (0-3) 0% (0-3) Neutrophils # (Auto) 2.5x10^3uL (1.8-7.7) 2.0x10^3uL (1.8-7.7) Lymphocytes # (Auto) 2.3x10^3/uL (1.0-4.8) 1.8x10^3/uL (1.0-4.8) Monocytes # (Auto) 0.8x10^3/uL (0.0-1.1) 0.8x10^3/uL (0.0-1.1) Eosinophils # (Auto) 0.1x10^3/uL (0.0-0.7) 0.2x10^3/uL (0.0-0.7) Basophils # (Auto) 0.0x10^3/uL (0.0-0.2) 0.0x10^3/uL (0.0-0.2) Sodium Level 145mmol/L (136-145) 146mmol/L (136-145) Potassium Level 5.5mmol/L (3.5-5.1) 5.2mmol/L (3.5-5.1) 4.6mmol/L (3.5-5.1) Chloride Level 104mmol/L (98-107) 105mmol/L (98-107) Carbon Dioxide Level 40mmol/L (21-32) 38mmol/L (21-32) Anion Gap 1 (6-14) 3 (6-14) Blood Urea Nitrogen 31mg/dL (7-20) 24mg/dL (7-20) Creatinine 1.1mg/dL (0.6-1.0) 0.8mg/dL (0.6-1.0) Estimated GFR (Cockcroft-Gault) 59.4 85.8 Glucose Level 128mg/dL (70-99) 118mg/dL (70-99) Lactic Acid Level 0.8mmol/L (0.4-2.0) Calcium Level 8.7mg/dL (8.5-10.1) 8.3mg/dL (8.5-10.1) Troponin I Quantitative < 0.017ng/mL (0.000-0.055) Urine Collection Type U cath Urine Color Yellow Urine Clarity Clear Urine pH 5.0 Urine Specific Campbell 1.010 Urine Protein Negativemg/dL (NEG-TRACE) Urine Glucose (UA) Negativemg/dL (NEG) Urine Ketones (Stick) Negativemg/dL (NEG) Urine Blood Negative (NEG) Urine Nitrite Positive (NEG) Urine Bilirubin Negative (NEG) Urine Urobilinogen Dipstick 0.2mg/dL (0.2 mg/dL) Urine Leukocyte Esterase Moderate (NEG) Urine RBC 0/HPF (0-2) Urine WBC 5-10/HPF (0-4) Urine Squamous Epithelial Cells Few/LPF Urine Bacteria Moderate/HPF (0-FEW) Urine Hyaline Casts Occasional/HPF Urine Mucus Slight/LPF Laboratory Tests Test 12/30/16 11:28 12/30/16 11:43 12/30/16 18:10 12/31/16 05:20 White Blood Count 5.9x10^3/uL (4.0-11.0) 4.7x10^3/uL (4.0-11.0) Red Blood Count 3.29x10^6/uL (3.50-5.40) 3.04x10^6/uL (3.50-5.40) Hemoglobin 9.7g/dL (12.0-15.5) 8.8g/dL (12.0-15.5) Hematocrit 30.8% (36.0-47.0) 28.2% (36.0-47.0) Mean Corpuscular Volume 94fL (79-100) 93fL (79-100) Mean Corpuscular Hemoglobin 30pg (25-35) 29pg (25-35) Mean Corpuscular Hemoglobin Concent 32g/dL (31-37) 31g/dL (31-37) Red Cell Distribution Width 15.4% (11.5-14.5) 14.8% (11.5-14.5) Platelet Count 101x10^3/uL (140-400) 87x10^3/uL (140-400) Neutrophils (%) (Auto) 43% (31-73) 42% (31-73) Lymphocytes (%) (Auto) 39% (24-48) 38% (24-48) Monocytes (%) (Auto) 14% (0-9) 16% (0-9) Eosinophils (%) (Auto) 2% (0-3) 3% (0-3) Basophils (%) (Auto) 1% (0-3) 0% (0-3) Neutrophils # (Auto) 2.5x10^3uL (1.8-7.7) 2.0x10^3uL (1.8-7.7) Lymphocytes # (Auto) 2.3x10^3/uL (1.0-4.8) 1.8x10^3/uL (1.0-4.8) Monocytes # (Auto) 0.8x10^3/uL (0.0-1.1) 0.8x10^3/uL (0.0-1.1) Eosinophils # (Auto) 0.1x10^3/uL (0.0-0.7) 0.2x10^3/uL (0.0-0.7) Basophils # (Auto) 0.0x10^3/uL (0.0-0.2) 0.0x10^3/uL (0.0-0.2) Sodium Level 145mmol/L (136-145) 146mmol/L (136-145) Potassium Level 5.5mmol/L (3.5-5.1) 5.2mmol/L (3.5-5.1) 4.6mmol/L (3.5-5.1) Chloride Level 104mmol/L (98-107) 105mmol/L (98-107) Carbon Dioxide Level 40mmol/L (21-32) 38mmol/L (21-32) Anion Gap 1 (6-14) 3 (6-14) Blood Urea Nitrogen 31mg/dL (7-20) 24mg/dL (7-20) Creatinine 1.1mg/dL (0.6-1.0) 0.8mg/dL (0.6-1.0) Estimated GFR (Cockcroft-Gault) 59.4 85.8 Glucose Level 128mg/dL (70-99) 118mg/dL (70-99) Lactic Acid Level 0.8mmol/L (0.4-2.0) Calcium Level 8.7mg/dL (8.5-10.1) 8.3mg/dL (8.5-10.1) Troponin I Quantitative < 0.017ng/mL (0.000-0.055) Urine Collection Type U cath Urine Color Yellow Urine Clarity Clear Urine pH 5.0 Urine Specific Campbell 1.010 Urine Protein Negativemg/dL (NEG-TRACE) Urine Glucose (UA) Negativemg/dL (NEG) Urine Ketones (Stick) Negativemg/dL (NEG) Urine Blood Negative (NEG) Urine Nitrite Positive (NEG) Urine Bilirubin Negative (NEG) Urine Urobilinogen Dipstick 0.2mg/dL (0.2 mg/dL) Urine Leukocyte Esterase Moderate (NEG) Urine RBC 0/HPF (0-2) Urine WBC 5-10/HPF (0-4) Urine Squamous Epithelial Cells Few/LPF Urine Bacteria Moderate/HPF (0-FEW) Urine Hyaline Casts Occasional/HPF Urine Mucus Slight/LPF Medications Current Medications Sodium Chloride (Iv Sodium Chloride 0.9% 1000ml Bag) 1,000 ml @ 1,000 mls/hr 1X ONCE IV Last administered on 12/30/16 12:00; Start 12/30/16 at 11:30; Stop 12/30/16 at 12:29; Status DC Insulin Human Regular (Novolin R Vial) 10 unit 1X ONCE IV Last administered on 12/30/16 13:17; Start 12/30/16 at 12:30; Stop 12/30/16 at 12:31; Status DC Dextrose 25 gm 25 gm 1X ONCE IV Last administered on 12/30/16 13:14; Start at 12:30; Stop 12/30/16 at 12:31; Status DC Sodium Bicarbonate 50 meq/Dextrose 1,050 ml @ 125 mls/hr Q8H24M IV ; Start at 12:45; Status Cancel Ceftriaxone Sodium (Rocephin 1gm Ivpb For Omni) 50 ml @ 100 mls/hr 1X ONCE IV Last administered on 12/30/16 13:20; Start 12/30/16 at 12:30; Stop 12/30/16 at 12:59; Status DC Ondansetron HCl 4 mg 4 mg PRN Q8HRS PRN IV NAUSEA/VOMITING; Start 12/30/16 at 12:45; Stop 12/31/16 at 12:44 Sodium Chloride (Iv Sodium Chloride 0.9% 1000ml Bag) 1,000 ml @ 125 mls/hr Q8H IV ; Start 12/30/16 at 12:43; Stop 12/30/16 at 13:15; Status DC Acetaminophen (Tylenol) 650 mg PRN Q4HRS PRN PO FEVER; Start 12/30/16 at 12:45 ; Stop 12/31/16 at 12:44 Sodium Bicarbonate 50 meq 50 meq 1X ONCE IV Last administered on 12/30/16 13: 19; Start 12/30/16 at 13:15; Stop 12/30/16 at 13:16; Status DC Dextrose/Sodium Chloride (Iv D5% - 1/2 NS) 1,000 ml @ 100 mls/hr 1X ONCE IV Last administered on 12/30/16 15:37; Start 12/30/16 at 13:15; Stop 12/30/16 at 23:14; Status DC Sodium Polystyrene Sulfonate (Kayexalate) 30 gm 1X PRN PRN PO if repeat K > 5.2 ; Start 12/30/16 at 18:00 Albuterol Sulfate (Ventolin Neb Soln) 2.5 mg PRN Q6HRS PRN NEB SHORTNESS OF BREATH Last administered on 12/31/16 03:51; Start 12/31/16 at 03:45 Acetaminophen (Tylenol) 325 mg PRN Q4HRS PRN PO FEVER; Start 12/31/16 at 09:00 Amlodipine Besylate (Norvasc) 5 mg DAILY PO Last administered on 12/31/16 10: 14; Start 12/31/16 at 09:00 Benzonatate (Tessalon Perle) 100 mg PRN TID PRN PO COUGH; Start 12/31/16 at 09: 00 Budesonide (Pulmicort) 0.5 mg BID NEB ; Start 12/31/16 at 09:00 Calcium Carbonate/ Glycine (Tums) 250 mg PRN Q4HRS PRN PO HEARTBURN / GAS; Start 12/31/16 at 09:00 Carvedilol (Coreg) 12.5 mg BIDWMEALS PO Last administered on 12/31/16 10:13; Start 12/31/16 at 09:30 Cetirizine HCl (Zyrtec) 10 mg HS PO ; Start 12/31/16 at 21:00 Docusate Sodium (Colace) 100 mg BID PO Last administered on 12/31/16 10:17; Start 12/31/16 at 09:30 Ferrous Sulfate (Feosol) 325 mg DAILYWBKFT PO ; Start 12/31/16 at 12:00 Furosemide (Lasix) 20 mg DAILY PO Last administered on 12/31/16 10:11; Start 12/31/16 at 09:30 Albuterol/ Ipratropium (Duoneb) 3 ml PRN Q4HRS PRN IH WHEEZING; Start 12/31/16 at 09:00 Latanoprost (Xalatan) 1 drop QHS OU ; Start 12/31/16 at 21:00; Status Cancel Levothyroxine Sodium (Synthroid) 150 mcg DAILY07 PO Last administered on 10:11; Start 12/31/16 at 10:30 Magnesium Hydroxide (Milk Of Magnesia) 2,400 mg PRN Q2HR PRN PO DYSPEPSIA; Start 12/31/16 at 09:00 Methylphenidate HCl (Ritalin) 5 mg BID PO Last administered on 12/31/16 10:12 ; Start 12/31/16 at 09:30 Pantoprazole Sodium (Protonix) 40 mg DAILYAC PO ; Start 12/31/16 at 11:30 Pregabalin (Lyrica) 75 mg BID PO Last administered on 12/31/16 10:12; Start at 09:30 Senna/Docusate Sodium (Senna Plus) 1 tab BID PO Last administered on 12/31/16 10:14; Start 12/31/16 at 09:30 Artificial Tears (Artificial Tears) 1 drop PRN QID PRN OU DRY EYE; Start at 09:45 Multivitamins (Thera M Plus) 1 tab DAILY PO Last administered on 12/31/16 10: 10; Start 12/31/16 at 10:00 Nystatin (Nystop) 1 angela BID TP Last administered on 12/31/16 10:00; Start at 10:00 Potassium Chloride (Klor-Con) 20 meq BIDWMEALS PO Last administered on 10:00; Start 12/31/16 at 10:00 Rivaroxaban (Xarelto) 20 mg DAILYWSUP PO ; Start 12/31/16 at 17:00 Latanoprost 1 drop 1 drop QHS OU ; Start 12/31/16 at 21:00 Sodium Chloride 1,000 ml @ 75 mls/hr 1X ONCE IV Last administered on 10:08; Start 12/31/16 at 09:15; Stop 12/31/16 at 22:34 Ceftriaxone Sodium/Sodium Chloride (Rocephin/Iv Sodium Chloride 0.9% 50ml) 50 ml @ 100 mls/hr Q24H IV Last administered on 12/31/16 10:08; Start 12/31/16 at 10:00 Ondansetron HCl (Zofran) 4 mg PRN Q6HRS PRN IV NAUSEA/VOMITING; Start 12/31/16 at 09:15 Acetaminophen/ Hydrocodone Bitart (Lortab 5/325) 1 tab PRN Q4HRS PRN PO PAIN; Start 12/31/16 at 09:15 Info (Anti-Coagulation Monitoring By Pharmacy) 1 each PRN DAILY PRN MC SEE COMMENTS; Start 12/31/16 at 09:45 Diclofenac Sodium (Voltaren) 1 angela BID TP ; Start 12/31/16 at 21:00; Status UNV Active Scripts Active Reported Zinc Oxide 30 Gm Oint...g. 30 Gm TP Xalatan (Latanoprost) 2.5 Ml Drops 1 Drop EACHEYE QHS Potassium Chloride Packet (Potassium Chloride) 20 Meq Packet 20 Meq PO BID Percocet 5-325 Mg Tablet (Oxycodone/Acetaminophen) 1 Each Tablet 1 Tab PO PRN Q6HRS PRN Zofran Odt (Ondansetron) 4 Mg Tab.rapdis 1 Tab SL BID Amlodipine Besylate 5 Mg Tablet 5 Mg PO DAILY Lasix (Furosemide) 20 Mg Tablet 1 Tab PO DAILY Ferrous Sulfate 325 Mg Tablet 1 Tab PO DAILY Coreg (Carvedilol) 12.5 Mg Tablet 1 Tab PO BID Budesonide 0.5 Mg/2 Ml Ampul.neb 1 Vial NEB BID Artificial Tears Eye Drops (Dextran 70/Hypromellose) 15 Ml Drops 1 Drop EACHEYE PRN QID PRN Xarelto (Rivaroxaban) 20 Mg Tablet 20 Mg PO DAILY Cetirizine Hcl 10 Mg Tablet 1 Tab PO HS Tessalon Perle (Benzonatate) 100 Mg Capsule 100 Mg PO TID PRN Multi-Day Vitamins (Multivitamin) 1 Each Tablet 1 Tab PO DAILY Milk Of Magnesia (Magnesium Hydroxide) 400 Mg/5 Ml Oral.susp 30 Ml PO Q2HR PRN Protonix (Pantoprazole Sodium) 40 Mg Tablet.dr 1 Tab PO DAILY Duoneb 0.5-3(2.5) Mg/3 Ml (Albuterol/Ipratropium) 3 Ml Ampul.neb 3 Ml IH Q4HRS PRN Nystatin 1 Each Powder.ea. 1 Each TOP BID to groin and inner thighs, apply barrier cream with zinc and nystatin powder after cleanse with warm water and pat dry Travatan Z (Travoprost) 5 Ml Drops 1 Drop EACHEYE QHS Synthroid (Levothyroxine Sodium) 150 Mcg Tablet 1 Tab PO DAILY Senna S Tablet (Sennosides/Docusate Sodium) 1 Each Tablet 1 Each PO BID Miralax (Polyethylene Glycol 3350) 17 Gm Powd.pack 1 Packet PO DAILY Methylphenidate Hcl 5 Mg Tablet 1 Tab PO BID Docusate Sodium 100 Mg Capsule 1 Cap PO BID Calcium Carbonate 200 Mg Tab.chew 200 Mg PO PRN Q4HRS PRN Tylenol (Acetaminophen) 325 Mg Tablet 2 Tab PO PRN Q4HRS PRN for headache, generalized pain or elevated temperature Vitals/I & O Vital Sign - Last 24 Hours 12/30/16 12/30/16 12/30/16 12/30/16 11:14 11:36 11:47 12:17 Temp 98.7 98.7 Pulse 85 84 90 81 Resp 20 25 24 B/P 143/75 129/89 139/80 123/73 Pulse Ox 98 90 98 O2 Delivery Nasal Cannula Nasal Cannula Nasal Cannula Nasal Cannula O2 Flow Rate 3 3 3 3 12/30/16 12/30/16 12/30/1621/17 12:47 13:17 13:47 14:17 Pulse 78 87 91 87 Resp B/P 125/62 138/66 126/60 117/59 Pulse Ox 99 3 O2 Delivery Nasal Cannula Nasal Cannula Nasal Cannula Nasal Cannula O2 Flow Rate 3 3 3 12/30/16 12/30/16 12/30/16 12/30/16 14:58 15:53 19:00 20:00 Temp 99.5 98.8 99.5 98.8 Pulse 78 94 Resp 20 B/P 102/49 126/70 Pulse Ox 94 96 O2 Delivery Nasal Cannula Nasal Cannula Nasal Cannula Nasal Cannula O2 Flow Rate 3.0 3.0 2.5 3.0 12/30/16 12/31/16 12/31/16 12/31/16 23:00 03:00 03:59 04:02 Temp 98.7 98.4 98.7 98.4 Pulse 75 77 Resp 20 B/P 146/78 137/71 Pulse Ox 97 94 O2 Delivery Nasal Cannula Nasal Cannula Nasal Cannula Nasal Cannula O2 Flow Rate 4.0 3.0 3.0 12/31/16 12/31/16 12/31/16 12/31/16 07:00 08:00 10:13 10:14 Temp 97.5 97.5 Pulse 71 73 73 Resp 18 B/P 92/47 149/65 149/65 Pulse Ox 93 O2 Delivery Nasal Cannula Nasal Cannula O2 Flow Rate 3.0 3.0 12/31/16 10:33 Temp 99.0 99.0 Pulse 73 Resp 18 B/P 149/65 Pulse Ox 97 O2 Delivery Nasal Cannula O2 Flow Rate 3.0 Intake and Output 12/30/16 12/30/16 12/31/16 15:00 23:00 07:00 Intake Total 1050 ml 240 ml 560 ml Balance 1050 ml 240 ml 560 ml EMERALD NINO MD Dec 31, 2016 10:58
--- NOTE | 2016-12-31 11:30 | PDOC ---
PROGRESS NOTES Chief Complaint Chief Complaint AMS with baseline dementia, likely fluctuating dementia possible UTI obesity, BMI 35 weakness and debility ankle pain, bilat, OA hypothyroidism chronic diastolic CHF, with LE edema mild afib, rate controlled, on xarelto CIERA, vasomotor hypernatremia chronic resp failure on NC 3L SNF resident plan: 1. get neuro consult, check tsh, vitb12 fu with dr. briseno, cannot do PTOT, baseline wheel chair bound 2., cont home meds 3. on xarelto 4. cont ceftriaxone for now 1/2 NS for 1L labs tmr pt possibly has dr. Santillan as pcp, will sign off tmr History of Present Illness History of Present Illness looks calm, on NC 3 L as baseline looks demented , cannot tell me where she is and the year, doesnot complain anything tho Vitals Vitals Vital Signs Date Time Temp Pulse Resp B/P Pulse Ox O2 Delivery O2 Flow Rate FiO2 12/31/16 10:33 99.0 73 18 149/65 97 Nasal Cannula 3.0 99.0 Physical Exam Physical Exam aaox1 to person only General: Alert, Cooperative, mild distress, Other Heart: Regular rate, Normal S1, Normal S2 Lungs: Clear, Other Abdomen: Normal bowel sounds, Soft Extremities: No clubbing, No cyanosis, Normal pulses, Other Skin: No breakdown Labs LABS Laboratory Tests Test 12/30/16 11:28 12/30/16 11:43 12/30/16 18:10 12/31/16 05:20 White Blood Count 5.9x10^3/uL (4.0-11.0) 4.7x10^3/uL (4.0-11.0) Red Blood Count 3.29x10^6/uL (3.50-5.40) 3.04x10^6/uL (3.50-5.40) Hemoglobin 9.7g/dL (12.0-15.5) 8.8g/dL (12.0-15.5) Hematocrit 30.8% (36.0-47.0) 28.2% (36.0-47.0) Mean Corpuscular Volume 94fL (79-100) 93fL (79-100) Mean Corpuscular Hemoglobin 30pg (25-35) 29pg (25-35) Mean Corpuscular Hemoglobin Concent 32g/dL (31-37) 31g/dL (31-37) Red Cell Distribution Width 15.4% (11.5-14.5) 14.8% (11.5-14.5) Platelet Count 101x10^3/uL (140-400) 87x10^3/uL (140-400) Neutrophils (%) (Auto) 43% (31-73) 42% (31-73) Lymphocytes (%) (Auto) 39% (24-48) 38% (24-48) Monocytes (%) (Auto) 14% (0-9) 16% (0-9) Eosinophils (%) (Auto) 2% (0-3) 3% (0-3) Basophils (%) (Auto) 1% (0-3) 0% (0-3) Neutrophils # (Auto) 2.5x10^3uL (1.8-7.7) 2.0x10^3uL (1.8-7.7) Lymphocytes # (Auto) 2.3x10^3/uL (1.0-4.8) 1.8x10^3/uL (1.0-4.8) Monocytes # (Auto) 0.8x10^3/uL (0.0-1.1) 0.8x10^3/uL (0.0-1.1) Eosinophils # (Auto) 0.1x10^3/uL (0.0-0.7) 0.2x10^3/uL (0.0-0.7) Basophils # (Auto) 0.0x10^3/uL (0.0-0.2) 0.0x10^3/uL (0.0-0.2) Sodium Level 145mmol/L (136-145) 146mmol/L (136-145) Potassium Level 5.5mmol/L (3.5-5.1) 5.2mmol/L (3.5-5.1) 4.6mmol/L (3.5-5.1) Chloride Level 104mmol/L (98-107) 105mmol/L (98-107) Carbon Dioxide Level 40mmol/L (21-32) 38mmol/L (21-32) Anion Gap 1 (6-14) 3 (6-14) Blood Urea Nitrogen 31mg/dL (7-20) 24mg/dL (7-20) Creatinine 1.1mg/dL (0.6-1.0) 0.8mg/dL (0.6-1.0) Estimated GFR (Cockcroft-Gault) 59.4 85.8 Glucose Level 128mg/dL (70-99) 118mg/dL (70-99) Lactic Acid Level 0.8mmol/L (0.4-2.0) Calcium Level 8.7mg/dL (8.5-10.1) 8.3mg/dL (8.5-10.1) Troponin I Quantitative < 0.017ng/mL (0.000-0.055) Urine Collection Type U cath Urine Color Yellow Urine Clarity Clear Urine pH 5.0 Urine Specific Stafford 1.010 Urine Protein Negativemg/dL (NEG-TRACE) Urine Glucose (UA) Negativemg/dL (NEG) Urine Ketones (Stick) Negativemg/dL (NEG) Urine Blood Negative (NEG) Urine Nitrite Positive (NEG) Urine Bilirubin Negative (NEG) Urine Urobilinogen Dipstick 0.2mg/dL (0.2 mg/dL) Urine Leukocyte Esterase Moderate (NEG) Urine RBC 0/HPF (0-2) Urine WBC 5-10/HPF (0-4) Urine Squamous Epithelial Cells Few/LPF Urine Bacteria Moderate/HPF (0-FEW) Urine Hyaline Casts Occasional/HPF Urine Mucus Slight/LPF Review of Systems Review of Systems no fever, chills, sob or chest pain Assessment and Plan Assessmemt and Plan Problems Medical Problems: (1) Altered mental status Status: Acute (2) Hyperkalemia Status: Acute (3) Urinary tract infection Status: Acute Problems: Comment Review of Relevant I have reviewed the following items vivian (where applicable) has been applied. Labs Laboratory Tests Test 12/30/16 11:28 12/30/16 11:43 12/30/16 18:10 12/31/16 05:20 White Blood Count 5.9x10^3/uL (4.0-11.0) 4.7x10^3/uL (4.0-11.0) Red Blood Count 3.29x10^6/uL (3.50-5.40) 3.04x10^6/uL (3.50-5.40) Hemoglobin 9.7g/dL (12.0-15.5) 8.8g/dL (12.0-15.5) Hematocrit 30.8% (36.0-47.0) 28.2% (36.0-47.0) Mean Corpuscular Volume 94fL (79-100) 93fL (79-100) Mean Corpuscular Hemoglobin 30pg (25-35) 29pg (25-35) Mean Corpuscular Hemoglobin Concent 32g/dL (31-37) 31g/dL (31-37) Red Cell Distribution Width 15.4% (11.5-14.5) 14.8% (11.5-14.5) Platelet Count 101x10^3/uL (140-400) 87x10^3/uL (140-400) Neutrophils (%) (Auto) 43% (31-73) 42% (31-73) Lymphocytes (%) (Auto) 39% (24-48) 38% (24-48) Monocytes (%) (Auto) 14% (0-9) 16% (0-9) Eosinophils (%) (Auto) 2% (0-3) 3% (0-3) Basophils (%) (Auto) 1% (0-3) 0% (0-3) Neutrophils # (Auto) 2.5x10^3uL (1.8-7.7) 2.0x10^3uL (1.8-7.7) Lymphocytes # (Auto) 2.3x10^3/uL (1.0-4.8) 1.8x10^3/uL (1.0-4.8) Monocytes # (Auto) 0.8x10^3/uL (0.0-1.1) 0.8x10^3/uL (0.0-1.1) Eosinophils # (Auto) 0.1x10^3/uL (0.0-0.7) 0.2x10^3/uL (0.0-0.7) Basophils # (Auto) 0.0x10^3/uL (0.0-0.2) 0.0x10^3/uL (0.0-0.2) Sodium Level 145mmol/L (136-145) 146mmol/L (136-145) Potassium Level 5.5mmol/L (3.5-5.1) 5.2mmol/L (3.5-5.1) 4.6mmol/L (3.5-5.1) Chloride Level 104mmol/L (98-107) 105mmol/L (98-107) Carbon Dioxide Level 40mmol/L (21-32) 38mmol/L (21-32) Anion Gap 1 (6-14) 3 (6-14) Blood Urea Nitrogen 31mg/dL (7-20) 24mg/dL (7-20) Creatinine 1.1mg/dL (0.6-1.0) 0.8mg/dL (0.6-1.0) Estimated GFR (Cockcroft-Gault) 59.4 85.8 Glucose Level 128mg/dL (70-99) 118mg/dL (70-99) Lactic Acid Level 0.8mmol/L (0.4-2.0) Calcium Level 8.7mg/dL (8.5-10.1) 8.3mg/dL (8.5-10.1) Troponin I Quantitative < 0.017ng/mL (0.000-0.055) Urine Collection Type U cath Urine Color Yellow Urine Clarity Clear Urine pH 5.0 Urine Specific Stafford 1.010 Urine Protein Negativemg/dL (NEG-TRACE) Urine Glucose (UA) Negativemg/dL (NEG) Urine Ketones (Stick) Negativemg/dL (NEG) Urine Blood Negative (NEG) Urine Nitrite Positive (NEG) Urine Bilirubin Negative (NEG) Urine Urobilinogen Dipstick 0.2mg/dL (0.2 mg/dL) Urine Leukocyte Esterase Moderate (NEG) Urine RBC 0/HPF (0-2) Urine WBC 5-10/HPF (0-4) Urine Squamous Epithelial Cells Few/LPF Urine Bacteria Moderate/HPF (0-FEW) Urine Hyaline Casts Occasional/HPF Urine Mucus Slight/LPF Laboratory Tests Test 12/30/16 11:28 12/30/16 11:43 12/30/16 18:10 12/31/16 05:20 White Blood Count 5.9x10^3/uL (4.0-11.0) 4.7x10^3/uL (4.0-11.0) Red Blood Count 3.29x10^6/uL (3.50-5.40) 3.04x10^6/uL (3.50-5.40) Hemoglobin 9.7g/dL (12.0-15.5) 8.8g/dL (12.0-15.5) Hematocrit 30.8% (36.0-47.0) 28.2% (36.0-47.0) Mean Corpuscular Volume 94fL (79-100) 93fL (79-100) Mean Corpuscular Hemoglobin 30pg (25-35) 29pg (25-35) Mean Corpuscular Hemoglobin Concent 32g/dL (31-37) 31g/dL (31-37) Red Cell Distribution Width 15.4% (11.5-14.5) 14.8% (11.5-14.5) Platelet Count 101x10^3/uL (140-400) 87x10^3/uL (140-400) Neutrophils (%) (Auto) 43% (31-73) 42% (31-73) Lymphocytes (%) (Auto) 39% (24-48) 38% (24-48) Monocytes (%) (Auto) 14% (0-9) 16% (0-9) Eosinophils (%) (Auto) 2% (0-3) 3% (0-3) Basophils (%) (Auto) 1% (0-3) 0% (0-3) Neutrophils # (Auto) 2.5x10^3uL (1.8-7.7) 2.0x10^3uL (1.8-7.7) Lymphocytes # (Auto) 2.3x10^3/uL (1.0-4.8) 1.8x10^3/uL (1.0-4.8) Monocytes # (Auto) 0.8x10^3/uL (0.0-1.1) 0.8x10^3/uL (0.0-1.1) Eosinophils # (Auto) 0.1x10^3/uL (0.0-0.7) 0.2x10^3/uL (0.0-0.7) Basophils # (Auto) 0.0x10^3/uL (0.0-0.2) 0.0x10^3/uL (0.0-0.2) Sodium Level 145mmol/L (136-145) 146mmol/L (136-145) Potassium Level 5.5mmol/L (3.5-5.1) 5.2mmol/L (3.5-5.1) 4.6mmol/L (3.5-5.1) Chloride Level 104mmol/L (98-107) 105mmol/L (98-107) Carbon Dioxide Level 40mmol/L (21-32) 38mmol/L (21-32) Anion Gap 1 (6-14) 3 (6-14) Blood Urea Nitrogen 31mg/dL (7-20) 24mg/dL (7-20) Creatinine 1.1mg/dL (0.6-1.0) 0.8mg/dL (0.6-1.0) Estimated GFR (Cockcroft-Gault) 59.4 85.8 Glucose Level 128mg/dL (70-99) 118mg/dL (70-99) Lactic Acid Level 0.8mmol/L (0.4-2.0) Calcium Level 8.7mg/dL (8.5-10.1) 8.3mg/dL (8.5-10.1) Troponin I Quantitative < 0.017ng/mL (0.000-0.055) Urine Collection Type U cath Urine Color Yellow Urine Clarity Clear Urine pH 5.0 Urine Specific Stafford 1.010 Urine Protein Negativemg/dL (NEG-TRACE) Urine Glucose (UA) Negativemg/dL (NEG) Urine Ketones (Stick) Negativemg/dL (NEG) Urine Blood Negative (NEG) Urine Nitrite Positive (NEG) Urine Bilirubin Negative (NEG) Urine Urobilinogen Dipstick 0.2mg/dL (0.2 mg/dL) Urine Leukocyte Esterase Moderate (NEG) Urine RBC 0/HPF (0-2) Urine WBC 5-10/HPF (0-4) Urine Squamous Epithelial Cells Few/LPF Urine Bacteria Moderate/HPF (0-FEW) Urine Hyaline Casts Occasional/HPF Urine Mucus Slight/LPF Medications Current Medications Sodium Chloride (Iv Sodium Chloride 0.9% 1000ml Bag) 1,000 ml @ 1,000 mls/hr 1X ONCE IV Last administered on 12/30/16 12:00; Start 12/30/16 at 11:30; Stop 12/30/16 at 12:29; Status DC Insulin Human Regular (Novolin R Vial) 10 unit 1X ONCE IV Last administered on 12/30/16 13:17; Start 12/30/16 at 12:30; Stop 12/30/16 at 12:31; Status DC Dextrose 25 gm 25 gm 1X ONCE IV Last administered on 12/30/16 13:14; Start at 12:30; Stop 12/30/16 at 12:31; Status DC Sodium Bicarbonate 50 meq/Dextrose 1,050 ml @ 125 mls/hr Q8H24M IV ; Start at 12:45; Status Cancel Ceftriaxone Sodium (Rocephin 1gm Ivpb For Omni) 50 ml @ 100 mls/hr 1X ONCE IV Last administered on 12/30/16 13:20; Start 12/30/16 at 12:30; Stop 12/30/16 at 12:59; Status DC Ondansetron HCl 4 mg 4 mg PRN Q8HRS PRN IV NAUSEA/VOMITING; Start 12/30/16 at 12:45; Stop 12/31/16 at 12:44 Sodium Chloride (Iv Sodium Chloride 0.9% 1000ml Bag) 1,000 ml @ 125 mls/hr Q8H IV ; Start 12/30/16 at 12:43; Stop 12/30/16 at 13:15; Status DC Acetaminophen (Tylenol) 650 mg PRN Q4HRS PRN PO FEVER; Start 12/30/16 at 12:45 ; Stop 12/31/16 at 12:44 Sodium Bicarbonate 50 meq 50 meq 1X ONCE IV Last administered on 12/30/16 13: 19; Start 12/30/16 at 13:15; Stop 12/30/16 at 13:16; Status DC Dextrose/Sodium Chloride (Iv D5% - 1/2 NS) 1,000 ml @ 100 mls/hr 1X ONCE IV Last administered on 12/30/16 15:37; Start 12/30/16 at 13:15; Stop 12/30/16 at 23:14; Status DC Sodium Polystyrene Sulfonate (Kayexalate) 30 gm 1X PRN PRN PO if repeat K > 5.2 ; Start 12/30/16 at 18:00 Albuterol Sulfate (Ventolin Neb Soln) 2.5 mg PRN Q6HRS PRN NEB SHORTNESS OF BREATH Last administered on 12/31/16 03:51; Start 12/31/16 at 03:45 Acetaminophen (Tylenol) 325 mg PRN Q4HRS PRN PO FEVER; Start 12/31/16 at 09:00 Amlodipine Besylate (Norvasc) 5 mg DAILY PO Last administered on 12/31/16 10: 14; Start 12/31/16 at 09:00 Benzonatate (Tessalon Perle) 100 mg PRN TID PRN PO COUGH; Start 12/31/16 at 09: 00 Budesonide (Pulmicort) 0.5 mg BID NEB ; Start 12/31/16 at 09:00 Calcium Carbonate/ Glycine (Tums) 250 mg PRN Q4HRS PRN PO HEARTBURN / GAS; Start 12/31/16 at 09:00 Carvedilol (Coreg) 12.5 mg BIDWMEALS PO Last administered on 12/31/16 10:13; Start 12/31/16 at 09:30 Cetirizine HCl (Zyrtec) 10 mg HS PO ; Start 12/31/16 at 21:00 Docusate Sodium (Colace) 100 mg BID PO Last administered on 12/31/16 10:17; Start 12/31/16 at 09:30 Ferrous Sulfate (Feosol) 325 mg DAILYWBKFT PO ; Start 12/31/16 at 12:00 Furosemide (Lasix) 20 mg DAILY PO Last administered on 12/31/16 10:11; Start 12/31/16 at 09:30 Albuterol/ Ipratropium (Duoneb) 3 ml PRN Q4HRS PRN IH WHEEZING; Start 12/31/16 at 09:00 Latanoprost (Xalatan) 1 drop QHS OU ; Start 12/31/16 at 21:00; Status Cancel Levothyroxine Sodium (Synthroid) 150 mcg DAILY07 PO Last administered on 10:11; Start 12/31/16 at 10:30 Magnesium Hydroxide (Milk Of Magnesia) 2,400 mg PRN Q2HR PRN PO DYSPEPSIA; Start 12/31/16 at 09:00 Methylphenidate HCl (Ritalin) 5 mg BID PO Last administered on 12/31/16 10:12 ; Start 12/31/16 at 09:30 Pantoprazole Sodium (Protonix) 40 mg DAILYAC PO ; Start 12/31/16 at 11:30 Pregabalin (Lyrica) 75 mg BID PO Last administered on 12/31/16 10:12; Start at 09:30 Senna/Docusate Sodium (Senna Plus) 1 tab BID PO Last administered on 12/31/16 10:14; Start 12/31/16 at 09:30 Artificial Tears (Artificial Tears) 1 drop PRN QID PRN OU DRY EYE; Start at 09:45 Multivitamins (Thera M Plus) 1 tab DAILY PO Last administered on 12/31/16 10: 10; Start 12/31/16 at 10:00 Nystatin (Nystop) 1 angela BID TP Last administered on 12/31/16 10:00; Start at 10:00 Potassium Chloride (Klor-Con) 20 meq BIDWMEALS PO Last administered on 10:00; Start 12/31/16 at 10:00 Rivaroxaban (Xarelto) 20 mg DAILYWSUP PO ; Start 12/31/16 at 17:00 Latanoprost 1 drop 1 drop QHS OU ; Start 12/31/16 at 21:00 Sodium Chloride 1,000 ml @ 75 mls/hr 1X ONCE IV Last administered on 10:08; Start 12/31/16 at 09:15; Stop 12/31/16 at 22:34 Ceftriaxone Sodium/Sodium Chloride (Rocephin/Iv Sodium Chloride 0.9% 50ml) 50 ml @ 100 mls/hr Q24H IV Last administered on 12/31/16 10:08; Start 12/31/16 at 10:00 Ondansetron HCl (Zofran) 4 mg PRN Q6HRS PRN IV NAUSEA/VOMITING; Start 12/31/16 at 09:15 Acetaminophen/ Hydrocodone Bitart (Lortab 5/325) 1 tab PRN Q4HRS PRN PO PAIN; Start 12/31/16 at 09:15 Info (Anti-Coagulation Monitoring By Pharmacy) 1 each PRN DAILY PRN MC SEE COMMENTS; Start 12/31/16 at 09:45 Diclofenac Sodium (Voltaren) 1 angela BID TP ; Start 12/31/16 at 11:00 Active Scripts Active Reported Zinc Oxide 30 Gm Oint...g. 30 Gm TP Xalatan (Latanoprost) 2.5 Ml Drops 1 Drop EACHEYE QHS Potassium Chloride Packet (Potassium Chloride) 20 Meq Packet 20 Meq PO BID Percocet 5-325 Mg Tablet (Oxycodone/Acetaminophen) 1 Each Tablet 1 Tab PO PRN Q6HRS PRN Zofran Odt (Ondansetron) 4 Mg Tab.rapdis 1 Tab SL BID Amlodipine Besylate 5 Mg Tablet 5 Mg PO DAILY Lasix (Furosemide) 20 Mg Tablet 1 Tab PO DAILY Ferrous Sulfate 325 Mg Tablet 1 Tab PO DAILY Coreg (Carvedilol) 12.5 Mg Tablet 1 Tab PO BID Budesonide 0.5 Mg/2 Ml Ampul.neb 1 Vial NEB BID Artificial Tears Eye Drops (Dextran 70/Hypromellose) 15 Ml Drops 1 Drop EACHEYE PRN QID PRN Xarelto (Rivaroxaban) 20 Mg Tablet 20 Mg PO DAILY Cetirizine Hcl 10 Mg Tablet 1 Tab PO HS Tessalon Perle (Benzonatate) 100 Mg Capsule 100 Mg PO TID PRN Multi-Day Vitamins (Multivitamin) 1 Each Tablet 1 Tab PO DAILY Milk Of Magnesia (Magnesium Hydroxide) 400 Mg/5 Ml Oral.susp 30 Ml PO Q2HR PRN Protonix (Pantoprazole Sodium) 40 Mg Tablet.dr 1 Tab PO DAILY Duoneb 0.5-3(2.5) Mg/3 Ml (Albuterol/Ipratropium) 3 Ml Ampul.neb 3 Ml IH Q4HRS PRN Nystatin 1 Each Powder.ea. 1 Each TOP BID to groin and inner thighs, apply barrier cream with zinc and nystatin powder after cleanse with warm water and pat dry Travatan Z (Travoprost) 5 Ml Drops 1 Drop EACHEYE QHS Synthroid (Levothyroxine Sodium) 150 Mcg Tablet 1 Tab PO DAILY Senna S Tablet (Sennosides/Docusate Sodium) 1 Each Tablet 1 Each PO BID Miralax (Polyethylene Glycol 3350) 17 Gm Powd.pack 1 Packet PO DAILY Methylphenidate Hcl 5 Mg Tablet 1 Tab PO BID Docusate Sodium 100 Mg Capsule 1 Cap PO BID Calcium Carbonate 200 Mg Tab.chew 200 Mg PO PRN Q4HRS PRN Tylenol (Acetaminophen) 325 Mg Tablet 2 Tab PO PRN Q4HRS PRN for headache, generalized pain or elevated temperature Vitals/I & O Vital Sign - Last 24 Hours 12/30/16 12/30/16 12/30/16 12/30/16 11:36 11:47 12:17 12:47 Pulse 84 90 81 78 Resp B/P 129/89 139/80 123/73 125/62 Pulse Ox 90 98 99 O2 Delivery Nasal Cannula Nasal Cannula Nasal Cannula Nasal Cannula O2 Flow Rate 3 3 3 3 12/30/16 12/30/16 12/30/16 12/30/16 13:17 13:47 14:17 14:58 Temp 99.5 99.5 Pulse 87 91 87 78 Resp B/P 138/66 126/60 117/59 102/49 Pulse Ox 3 94 O2 Delivery Nasal Cannula Nasal Cannula Nasal Cannula Nasal Cannula O2 Flow Rate 3 3 3.0 12/30/16 12/30/16 12/30/16 12/30/16 15:53 19:00 20:00 23:00 Temp 98.8 98.7 98.8 98.7 Pulse 94 75 Resp B/P 126/70 146/78 Pulse Ox 96 O2 Delivery Nasal Cannula Nasal Cannula Nasal Cannula Nasal Cannula O2 Flow Rate 3.0 2.5 3.0 4.0 12/31/16 12/31/16 12/31/16 12/31/16 03:00 03:59 04:02 07:00 Temp 98.4 97.5 98.4 97.5 Pulse 77 71 Resp B/P 137/71 92/47 Pulse Ox 97 94 93 O2 Delivery Nasal Cannula Nasal Cannula Nasal Cannula Nasal Cannula O2 Flow Rate 3.0 3.0 3.0 12/31/16 12/31/16 12/31/16 12/31/16 08:00 10:13 10:14 10:33 Temp 99.0 99.0 Pulse 73 73 73 Resp 18 B/P 149/65 149/65 149/65 Pulse Ox 97 O2 Delivery Nasal Cannula Nasal Cannula O2 Flow Rate 3.0 3.0 Intake and Output 12/30/16 12/30/16 12/31/16 15:00 23:00 07:00 Intake Total 1050 ml 240 ml 560 ml Balance 1050 ml 240 ml 560 ml ROBERT GRAJEDA MD Dec 31, 2016 11:30
[2016-12-31] MEDS: FERROUS SULFATE 325 MG TABLET PO SCH (13:49)
[2016-12-31] MEDS: PANTOPRAZOLE 40 MG TABLET. PO SCH (13:49)
[2016-12-31] MEDS: DICLOFENAC SODIUM 1% TOPICAL GEL 100GM TUBE. TP SCH ×2 (13:49→21:00)
--- NOTE | 2016-12-31 14:49 | PDOC2 ---
CONSULT Date of Consult Date of Consult DATE: 12/31/16 TIME: 14:48 Reason for Consult Reason for Consult: ALBAN and ^ K Referring Physician Referring Physician: Dr Marcum Identification/Chief Complaint Chief Complaint Pt does not k onw why she came to the hospital Problems: Source Source: Chart review, Patient History of Present Illness Reason for Visit: as dictated Past Medical History Cardiovascular: AFIB, CHF, HTN GI: No pertinent hx Heme/Onc: No pertinent hx Psych: Anxiety Musculoskeletal: low back pain ENT: No pertinent hx Endocrine: No pertinent hx Family History Family History: No Significant, Other (non-contributory) Social History No ALCOHOL: none Drugs: None Lives: [facility] Current Problem List Problem List Problems Medical Problems: (1) Altered mental status Status: Acute (2) Hyperkalemia Status: Acute (3) Urinary tract infection Status: Acute Current Medications Current Medications Current Medications Sodium Chloride (Iv Sodium Chloride 0.9% 1000ml Bag) 1,000 ml @ 1,000 mls/hr 1X ONCE IV Last administered on 12/30/16 12:00; Start 12/30/16 at 11:30; Stop 12/30/16 at 12:29; Status DC Insulin Human Regular (Novolin R Vial) 10 unit 1X ONCE IV Last administered on 12/30/16 13:17; Start 12/30/16 at 12:30; Stop 12/30/16 at 12:31; Status DC Dextrose 25 gm 25 gm 1X ONCE IV Last administered on 12/30/16 13:14; Start at 12:30; Stop 12/30/16 at 12:31; Status DC Sodium Bicarbonate 50 meq/Dextrose 1,050 ml @ 125 mls/hr Q8H24M IV ; Start at 12:45; Status Cancel Ceftriaxone Sodium (Rocephin 1gm Ivpb For Omni) 50 ml @ 100 mls/hr 1X ONCE IV Last administered on 12/30/16 13:20; Start 12/30/16 at 12:30; Stop 12/30/16 at 12:59; Status DC Ondansetron HCl 4 mg 4 mg PRN Q8HRS PRN IV NAUSEA/VOMITING; Start 12/30/16 at 12:45; Stop 12/31/16 at 12:44; Status DC Sodium Chloride (Iv Sodium Chloride 0.9% 1000ml Bag) 1,000 ml @ 125 mls/hr Q8H IV ; Start 12/30/16 at 12:43; Stop 12/30/16 at 13:15; Status DC Acetaminophen (Tylenol) 650 mg PRN Q4HRS PRN PO FEVER; Start 12/30/16 at 12:45 ; Stop 12/31/16 at 12:44; Status DC Sodium Bicarbonate 50 meq 50 meq 1X ONCE IV Last administered on 12/30/16 13: 19; Start 12/30/16 at 13:15; Stop 12/30/16 at 13:16; Status DC Dextrose/Sodium Chloride (Iv D5% - 1/2 NS) 1,000 ml @ 100 mls/hr 1X ONCE IV Last administered on 12/30/16 15:37; Start 12/30/16 at 13:15; Stop 12/30/16 at 23:14; Status DC Sodium Polystyrene Sulfonate (Kayexalate) 30 gm 1X PRN PRN PO if repeat K > 5.2 ; Start 12/30/16 at 18:00 Albuterol Sulfate (Ventolin Neb Soln) 2.5 mg PRN Q6HRS PRN NEB SHORTNESS OF BREATH Last administered on 12/31/16 03:51; Start 12/31/16 at 03:45 Acetaminophen (Tylenol) 325 mg PRN Q4HRS PRN PO FEVER; Start 12/31/16 at 09:00 Amlodipine Besylate (Norvasc) 5 mg DAILY PO Last administered on 12/31/16 10: 14; Start 12/31/16 at 09:00 Benzonatate (Tessalon Perle) 100 mg PRN TID PRN PO COUGH; Start 12/31/16 at 09: 00 Budesonide (Pulmicort) 0.5 mg BID NEB ; Start 12/31/16 at 09:00 Calcium Carbonate/ Glycine (Tums) 250 mg PRN Q4HRS PRN PO HEARTBURN / GAS; Start 12/31/16 at 09:00 Carvedilol (Coreg) 12.5 mg BIDWMEALS PO Last administered on 12/31/16 10:13; Start 12/31/16 at 09:30 Cetirizine HCl (Zyrtec) 10 mg HS PO ; Start 12/31/16 at 21:00 Docusate Sodium (Colace) 100 mg BID PO Last administered on 12/31/16 10:17; Start 12/31/16 at 09:30 Ferrous Sulfate (Feosol) 325 mg DAILYWBKFT PO Last administered on 12/31/16 13 :49; Start 12/31/16 at 12:00 Furosemide (Lasix) 20 mg DAILY PO Last administered on 12/31/16 10:11; Start 12/31/16 at 09:30 Albuterol/ Ipratropium (Duoneb) 3 ml PRN Q4HRS PRN IH WHEEZING; Start 12/31/16 at 09:00 Latanoprost (Xalatan) 1 drop QHS OU ; Start 12/31/16 at 21:00; Status Cancel Levothyroxine Sodium (Synthroid) 150 mcg DAILY07 PO Last administered on 10:11; Start 12/31/16 at 10:30 Magnesium Hydroxide (Milk Of Magnesia) 2,400 mg PRN Q2HR PRN PO DYSPEPSIA; Start 12/31/16 at 09:00 Methylphenidate HCl (Ritalin) 5 mg BID PO Last administered on 12/31/16 10:12 ; Start 12/31/16 at 09:30 Pantoprazole Sodium (Protonix) 40 mg DAILYAC PO Last administered on 12/31/16 13:49; Start 12/31/16 at 11:30 Pregabalin (Lyrica) 75 mg BID PO Last administered on 12/31/16 10:12; Start at 09:30 Senna/Docusate Sodium (Senna Plus) 1 tab BID PO Last administered on 12/31/16 10:14; Start 12/31/16 at 09:30 Artificial Tears (Artificial Tears) 1 drop PRN QID PRN OU DRY EYE; Start at 09:45 Multivitamins (Thera M Plus) 1 tab DAILY PO Last administered on 12/31/16 10: 10; Start 12/31/16 at 10:00 Nystatin (Nystop) 1 angela BID TP Last administered on 12/31/16 10:00; Start at 10:00 Potassium Chloride (Klor-Con) 20 meq BIDWMEALS PO Last administered on 10:00; Start 12/31/16 at 10:00 Rivaroxaban (Xarelto) 20 mg DAILYWSUP PO ; Start 12/31/16 at 17:00 Latanoprost 1 drop 1 drop QHS OU ; Start 12/31/16 at 21:00 Sodium Chloride 1,000 ml @ 75 mls/hr 1X ONCE IV Last administered on 10:08; Start 12/31/16 at 09:15; Stop 12/31/16 at 22:34 Ceftriaxone Sodium/Sodium Chloride (Rocephin/Iv Sodium Chloride 0.9% 50ml) 50 ml @ 100 mls/hr Q24H IV Last administered on 12/31/16 10:08; Start 12/31/16 at 10:00 Ondansetron HCl (Zofran) 4 mg PRN Q6HRS PRN IV NAUSEA/VOMITING; Start 12/31/16 at 09:15 Acetaminophen/ Hydrocodone Bitart (Lortab 5/325) 1 tab PRN Q4HRS PRN PO PAIN; Start 12/31/16 at 09:15 Info (Anti-Coagulation Monitoring By Pharmacy) 1 each PRN DAILY PRN MC SEE COMMENTS; Start 12/31/16 at 09:45 Diclofenac Sodium (Voltaren) 1 angela BID TP Last administered on 12/31/16 13:49 ; Start 12/31/16 at 11:00 Active Scripts Active Reported Zinc Oxide 30 Gm Oint...g. 30 Gm TP Xalatan (Latanoprost) 2.5 Ml Drops 1 Drop EACHEYE QHS Potassium Chloride Packet (Potassium Chloride) 20 Meq Packet 20 Meq PO BID Percocet 5-325 Mg Tablet (Oxycodone/Acetaminophen) 1 Each Tablet 1 Tab PO PRN Q6HRS PRN Zofran Odt (Ondansetron) 4 Mg Tab.rapdis 1 Tab SL BID Amlodipine Besylate 5 Mg Tablet 5 Mg PO DAILY Lasix (Furosemide) 20 Mg Tablet 1 Tab PO DAILY Ferrous Sulfate 325 Mg Tablet 1 Tab PO DAILY Coreg (Carvedilol) 12.5 Mg Tablet 1 Tab PO BID Budesonide 0.5 Mg/2 Ml Ampul.neb 1 Vial NEB BID Artificial Tears Eye Drops (Dextran 70/Hypromellose) 15 Ml Drops 1 Drop EACHEYE PRN QID PRN Xarelto (Rivaroxaban) 20 Mg Tablet 20 Mg PO DAILY Cetirizine Hcl 10 Mg Tablet 1 Tab PO HS Tessalon Perle (Benzonatate) 100 Mg Capsule 100 Mg PO TID PRN Multi-Day Vitamins (Multivitamin) 1 Each Tablet 1 Tab PO DAILY Milk Of Magnesia (Magnesium Hydroxide) 400 Mg/5 Ml Oral.susp 30 Ml PO Q2HR PRN Protonix (Pantoprazole Sodium) 40 Mg Tablet.dr 1 Tab PO DAILY Duoneb 0.5-3(2.5) Mg/3 Ml (Albuterol/Ipratropium) 3 Ml Ampul.neb 3 Ml IH Q4HRS PRN Nystatin 1 Each Powder.ea. 1 Each TOP BID to groin and inner thighs, apply barrier cream with zinc and nystatin powder after cleanse with warm water and pat dry Travatan Z (Travoprost) 5 Ml Drops 1 Drop EACHEYE QHS Synthroid (Levothyroxine Sodium) 150 Mcg Tablet 1 Tab PO DAILY Senna S Tablet (Sennosides/Docusate Sodium) 1 Each Tablet 1 Each PO BID Miralax (Polyethylene Glycol 3350) 17 Gm Powd.pack 1 Packet PO DAILY Methylphenidate Hcl 5 Mg Tablet 1 Tab PO BID Docusate Sodium 100 Mg Capsule 1 Cap PO BID Calcium Carbonate 200 Mg Tab.chew 200 Mg PO PRN Q4HRS PRN Tylenol (Acetaminophen) 325 Mg Tablet 2 Tab PO PRN Q4HRS PRN for headache, generalized pain or elevated temperature Allergies Allergies: Coded Allergies: adhesive (Verified Allergy, Intermediate, 05/17/15) ciprofloxacin (Verified Allergy, Intermediate, 05/17/15) clarithromycin (Verified Allergy, Intermediate, 05/17/15) codeine (Verified Allergy, Intermediate, 05/17/15) fentanyl (Verified Allergy, Intermediate, 05/17/15) meperidine (Verified Allergy, Intermediate, 05/17/15) oyster extract (Verified Allergy, Intermediate, 05/17/15) shellfish derived (Verified Allergy, Intermediate, 05/17/15) strawberry (Verified Allergy, Intermediate, 05/17/15) sulfur dioxide (Verified Allergy, Intermediate, 05/17/15) tetracycline (Verified Allergy, Intermediate, 05/17/15) I S O L A T I O N *CONTACT* (Verified Allergy, Unknown, 05/17/15) mrsa + ROS Review of System answers I dont Know to a lot of Qs Physical Exam Physical Exam GEN: Awake, Oriented x 0, In no distress EYES: Vision Unchanged, Conjunctiva Normal EN: No EN Drainage, Mucous Membranes moist NECK: no JVD, no JVP, Supple, no Thyromegaly CVS: S1S2, ? Murmur, No Gallop, No Rub,+ Edema RESP: no Rales, no Rhonchi,no Acc. Muscle Use GI: BS + ve, NO Bruit, Non Tender, Non Distended : no CVA tenderness, no Suprapubic Tenderness Vital Signs Vital Signs Date Time Temp Pulse Resp B/P Pulse Ox O2 Delivery O2 Flow Rate FiO2 12/31/16 10:33 99.0 73 18 149/65 97 Nasal Cannula 3.0 99.0 Assessment & Plan [place] - resolved with IVF ^K - better with IVF ^Na - Hypotonic IVF will follow off and on Labs Labs Laboratory Tests Test 12/30/16 11:28 12/30/16 11:43 12/30/16 18:10 12/31/16 05:20 White Blood Count 5.9x10^3/uL (4.0-11.0) 4.7x10^3/uL (4.0-11.0) Red Blood Count 3.29x10^6/uL (3.50-5.40) 3.04x10^6/uL (3.50-5.40) Hemoglobin 9.7g/dL (12.0-15.5) 8.8g/dL (12.0-15.5) Hematocrit 30.8% (36.0-47.0) 28.2% (36.0-47.0) Mean Corpuscular Volume 94fL (79-100) 93fL (79-100) Mean Corpuscular Hemoglobin 30pg (25-35) 29pg (25-35) Mean Corpuscular Hemoglobin Concent 32g/dL (31-37) 31g/dL (31-37) Red Cell Distribution Width 15.4% (11.5-14.5) 14.8% (11.5-14.5) Platelet Count 101x10^3/uL (140-400) 87x10^3/uL (140-400) Neutrophils (%) (Auto) 43% (31-73) 42% (31-73) Lymphocytes (%) (Auto) 39% (24-48) 38% (24-48) Monocytes (%) (Auto) 14% (0-9) 16% (0-9) Eosinophils (%) (Auto) 2% (0-3) 3% (0-3) Basophils (%) (Auto) 1% (0-3) 0% (0-3) Neutrophils # (Auto) 2.5x10^3uL (1.8-7.7) 2.0x10^3uL (1.8-7.7) Lymphocytes # (Auto) 2.3x10^3/uL (1.0-4.8) 1.8x10^3/uL (1.0-4.8) Monocytes # (Auto) 0.8x10^3/uL (0.0-1.1) 0.8x10^3/uL (0.0-1.1) Eosinophils # (Auto) 0.1x10^3/uL (0.0-0.7) 0.2x10^3/uL (0.0-0.7) Basophils # (Auto) 0.0x10^3/uL (0.0-0.2) 0.0x10^3/uL (0.0-0.2) Sodium Level 145mmol/L (136-145) 146mmol/L (136-145) Potassium Level 5.5mmol/L (3.5-5.1) 5.2mmol/L (3.5-5.1) 4.6mmol/L (3.5-5.1) Chloride Level 104mmol/L (98-107) 105mmol/L (98-107) Carbon Dioxide Level 40mmol/L (21-32) 38mmol/L (21-32) Anion Gap 1 (6-14) 3 (6-14) Blood Urea Nitrogen 31mg/dL (7-20) 24mg/dL (7-20) Creatinine 1.1mg/dL (0.6-1.0) 0.8mg/dL (0.6-1.0) Estimated GFR (Cockcroft-Gault) 59.4 85.8 Glucose Level 128mg/dL (70-99) 118mg/dL (70-99) Lactic Acid Level 0.8mmol/L (0.4-2.0) Calcium Level 8.7mg/dL (8.5-10.1) 8.3mg/dL (8.5-10.1) Troponin I Quantitative < 0.017ng/mL (0.000-0.055) Urine Collection Type U cath Urine Color Yellow Urine Clarity Clear Urine pH 5.0 Urine Specific [place] 1.010 Urine Protein Negativemg/dL (NEG-TRACE) Urine Glucose (UA) Negativemg/dL (NEG) Urine Ketones (Stick) Negativemg/dL (NEG) Urine Blood Negative (NEG) Urine Nitrite Positive (NEG) Urine Bilirubin Negative (NEG) Urine Urobilinogen Dipstick 0.2mg/dL (0.2 mg/dL) Urine Leukocyte Esterase Moderate (NEG) Urine RBC 0/HPF (0-2) Urine WBC 5-10/HPF (0-4) Urine Squamous Epithelial Cells Few/LPF Urine Bacteria Moderate/HPF (0-FEW) Urine Hyaline Casts Occasional/HPF Urine Mucus Slight/LPF Laboratory Tests Test 12/30/16 18:10 12/31/16 05:20 Potassium Level 5.2mmol/L (3.5-5.1) 4.6mmol/L (3.5-5.1) White Blood Count 4.7x10^3/uL (4.0-11.0) Red Blood Count 3.04x10^6/uL (3.50-5.40) Hemoglobin 8.8g/dL (12.0-15.5) Hematocrit 28.2% (36.0-47.0) Mean Corpuscular Volume 93fL (79-100) Mean Corpuscular Hemoglobin 29pg (25-35) Mean Corpuscular Hemoglobin Concent 31g/dL (31-37) Red Cell Distribution Width 14.8% (11.5-14.5) Platelet Count 87x10^3/uL (140-400) Neutrophils (%) (Auto) 42% (31-73) Lymphocytes (%) (Auto) 38% (24-48) Monocytes (%) (Auto) 16% (0-9) Eosinophils (%) (Auto) 3% (0-3) Basophils (%) (Auto) 0% (0-3) Neutrophils # (Auto) 2.0x10^3uL (1.8-7.7) Lymphocytes # (Auto) 1.8x10^3/uL (1.0-4.8) Monocytes # (Auto) 0.8x10^3/uL (0.0-1.1) Eosinophils # (Auto) 0.2x10^3/uL (0.0-0.7) Basophils # (Auto) 0.0x10^3/uL (0.0-0.2) Sodium Level 146mmol/L (136-145) Chloride Level 105mmol/L (98-107) Carbon Dioxide Level 38mmol/L (21-32) Anion Gap 3 (6-14) Blood Urea Nitrogen 24mg/dL (7-20) Creatinine 0.8mg/dL (0.6-1.0) Estimated GFR (Cockcroft-Gault) 85.8 Glucose Level 118mg/dL (70-99) Calcium Level 8.3mg/dL (8.5-10.1) Images Images Portable chest, 12/30/2016: History: Altered mental status, COPD Comparison is made to a study from 11/10/2016. The right PICC has been removed. The patient is rotated to the right. The heart is enlarged. There is tortuosity of the thoracic aorta. The pulmonary vascularity is normal. There are ongoing basilar opacities, most prominent medially. The findings suggest chronic or recurrent atelectasis/infiltrate. No pleural fluid is seen. 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 IMPRESSION: 1. Cardiomegaly. 2. Ongoing or recurrent bibasilar atelectasis/infiltrate. SANDY JOHNSON MD Dec 31, 2016 14:49
--- NOTE | 2016-12-31 14:55 | PDOC2 ---
NEUROLOGY CONSULT Date of Admission Date of Admission DATE: 12/31/16 TIME: 14:34 Reason for Consult Reason for Consult: Altered mental status Referring Physician Referring Physician: Dr. Pagan PCP: Dr. Arroyo Source Source: Caregiver, Chart review, Patient History of Present Illness History of Present Illness The patient is a 71-year-old right-handed female admitted for altered mental status. According to her sister, the patient has at least a 10 year history of dementia. There is no history of stroke, seizure, or head injury. The patient is felt to have a urinary tract infection. I last saw her 10 years ago regarding a transient ischemic attack. At baseline the patient is totally immobile in the bed. 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 I spoke to the sister who says that a physician made this diagnosis based on the fact that she was falling asleep in her wheelchair at the half-way. The patient did not have excessive somnolence beginning in her 20s or 30s. The patient was here in October for encephalopathy due to hypercapnic respiratory failure. Past Medical History Cardiovascular: CAD, HTN, Other (peripheral vascular disease) Pulmonary: Asthma, COPD, Pneumonia, Other (pulmonary embolism) CENTRAL NERVOUS SYSTEM: Dementia, Periperal neuropathy, TIA, Other GI: Constipation, GERD Heme/Onc: Cancer (thyroid) Psych: Anxiety, Depression Musculoskeletal: Osteoarthritis Rheumatologic: Fibromyalgia, Rheumatoid arthritis Renal/: UTI, Urinary Incontinence Dermatology: Cellulitis Past Surgical History Past Surgical History: Cholecystectomy, Total hip replacement, Total knee replacement, Hysterectomy, Other (rotator cuff, thyroid) Family History Family History: Cancer Social History Social History , half-way resident Current Medications Current Medications Current Medications Sodium Chloride (Iv Sodium Chloride 0.9% 1000ml Bag) 1,000 ml @ 1,000 mls/hr 1X ONCE IV Last administered on 12/30/16 12:00; Start 12/30/16 at 11:30; Stop 12/30/16 at 12:29; Status DC Insulin Human Regular (Novolin R Vial) 10 unit 1X ONCE IV Last administered on 12/30/16 13:17; Start 12/30/16 at 12:30; Stop 12/30/16 at 12:31; Status DC Dextrose 25 gm 25 gm 1X ONCE IV Last administered on 12/30/16 13:14; Start at 12:30; Stop 12/30/16 at 12:31; Status DC Sodium Bicarbonate 50 meq/Dextrose 1,050 ml @ 125 mls/hr Q8H24M IV ; Start at 12:45; Status Cancel Ceftriaxone Sodium (Rocephin 1gm Ivpb For Omni) 50 ml @ 100 mls/hr 1X ONCE IV Last administered on 12/30/16 13:20; Start 12/30/16 at 12:30; Stop 12/30/16 at 12:59; Status DC Ondansetron HCl 4 mg 4 mg PRN Q8HRS PRN IV NAUSEA/VOMITING; Start 12/30/16 at 12:45; Stop 12/31/16 at 12:44; Status DC Sodium Chloride (Iv Sodium Chloride 0.9% 1000ml Bag) 1,000 ml @ 125 mls/hr Q8H IV ; Start 12/30/16 at 12:43; Stop 12/30/16 at 13:15; Status DC Acetaminophen (Tylenol) 650 mg PRN Q4HRS PRN PO FEVER; Start 12/30/16 at 12:45 ; Stop 12/31/16 at 12:44; Status DC Sodium Bicarbonate 50 meq 50 meq 1X ONCE IV Last administered on 12/30/16 13: 19; Start 12/30/16 at 13:15; Stop 12/30/16 at 13:16; Status DC Dextrose/Sodium Chloride (Iv D5% - 1/2 NS) 1,000 ml @ 100 mls/hr 1X ONCE IV Last administered on 12/30/16 15:37; Start 12/30/16 at 13:15; Stop 12/30/16 at 23:14; Status DC Sodium Polystyrene Sulfonate (Kayexalate) 30 gm 1X PRN PRN PO if repeat K > 5.2 ; Start 12/30/16 at 18:00 Albuterol Sulfate (Ventolin Neb Soln) 2.5 mg PRN Q6HRS PRN NEB SHORTNESS OF BREATH Last administered on 12/31/16 03:51; Start 12/31/16 at 03:45 Acetaminophen (Tylenol) 325 mg PRN Q4HRS PRN PO FEVER; Start 12/31/16 at 09:00 Amlodipine Besylate (Norvasc) 5 mg DAILY PO Last administered on 12/31/16 10: 14; Start 12/31/16 at 09:00 Benzonatate (Tessalon Perle) 100 mg PRN TID PRN PO COUGH; Start 12/31/16 at 09: 00 Budesonide (Pulmicort) 0.5 mg BID NEB ; Start 12/31/16 at 09:00 Calcium Carbonate/ Glycine (Tums) 250 mg PRN Q4HRS PRN PO HEARTBURN / GAS; Start 12/31/16 at 09:00 Carvedilol (Coreg) 12.5 mg BIDWMEALS PO Last administered on 12/31/16 10:13; Start 12/31/16 at 09:30 Cetirizine HCl (Zyrtec) 10 mg HS PO ; Start 12/31/16 at 21:00 Docusate Sodium (Colace) 100 mg BID PO Last administered on 12/31/16 10:17; Start 12/31/16 at 09:30 Ferrous Sulfate (Feosol) 325 mg DAILYWBKFT PO Last administered on 12/31/16 13 :49; Start 12/31/16 at 12:00 Furosemide (Lasix) 20 mg DAILY PO Last administered on 12/31/16 10:11; Start 12/31/16 at 09:30 Albuterol/ Ipratropium (Duoneb) 3 ml PRN Q4HRS PRN IH WHEEZING; Start 12/31/16 at 09:00 Latanoprost (Xalatan) 1 drop QHS OU ; Start 12/31/16 at 21:00; Status Cancel Levothyroxine Sodium (Synthroid) 150 mcg DAILY07 PO Last administered on 10:11; Start 12/31/16 at 10:30 Magnesium Hydroxide (Milk Of Magnesia) 2,400 mg PRN Q2HR PRN PO DYSPEPSIA; Start 12/31/16 at 09:00 Methylphenidate HCl (Ritalin) 5 mg BID PO Last administered on 12/31/16 10:12 ; Start 12/31/16 at 09:30 Pantoprazole Sodium (Protonix) 40 mg DAILYAC PO Last administered on 12/31/16 13:49; Start 12/31/16 at 11:30 Pregabalin (Lyrica) 75 mg BID PO Last administered on 12/31/16 10:12; Start at 09:30 Senna/Docusate Sodium (Senna Plus) 1 tab BID PO Last administered on 12/31/16 10:14; Start 12/31/16 at 09:30 Artificial Tears (Artificial Tears) 1 drop PRN QID PRN OU DRY EYE; Start at 09:45 Multivitamins (Thera M Plus) 1 tab DAILY PO Last administered on 12/31/16 10: 10; Start 12/31/16 at 10:00 Nystatin (Nystop) 1 angela BID TP Last administered on 12/31/16 10:00; Start at 10:00 Potassium Chloride (Klor-Con) 20 meq BIDWMEALS PO Last administered on 10:00; Start 12/31/16 at 10:00 Rivaroxaban (Xarelto) 20 mg DAILYWSUP PO ; Start 12/31/16 at 17:00 Latanoprost 1 drop 1 drop QHS OU ; Start 12/31/16 at 21:00 Sodium Chloride 1,000 ml @ 75 mls/hr 1X ONCE IV Last administered on 10:08; Start 12/31/16 at 09:15; Stop 12/31/16 at 22:34 Ceftriaxone Sodium/Sodium Chloride (Rocephin/Iv Sodium Chloride 0.9% 50ml) 50 ml @ 100 mls/hr Q24H IV Last administered on 12/31/16 10:08; Start 12/31/16 at 10:00 Ondansetron HCl (Zofran) 4 mg PRN Q6HRS PRN IV NAUSEA/VOMITING; Start 12/31/16 at 09:15 Acetaminophen/ Hydrocodone Bitart (Lortab 5/325) 1 tab PRN Q4HRS PRN PO PAIN; Start 12/31/16 at 09:15 Info (Anti-Coagulation Monitoring By Pharmacy) 1 each PRN DAILY PRN MC SEE COMMENTS; Start 12/31/16 at 09:45 Diclofenac Sodium (Voltaren) 1 angela BID TP Last administered on 12/31/16 13:49 ; Start 12/31/16 at 11:00 Active Scripts Active Reported Zinc Oxide 30 Gm Oint...g. 30 Gm TP Xalatan (Latanoprost) 2.5 Ml Drops 1 Drop EACHEYE QHS Potassium Chloride Packet (Potassium Chloride) 20 Meq Packet 20 Meq PO BID Percocet 5-325 Mg Tablet (Oxycodone/Acetaminophen) 1 Each Tablet 1 Tab PO PRN Q6HRS PRN Zofran Odt (Ondansetron) 4 Mg Tab.rapdis 1 Tab SL BID Amlodipine Besylate 5 Mg Tablet 5 Mg PO DAILY Lasix (Furosemide) 20 Mg Tablet 1 Tab PO DAILY Ferrous Sulfate 325 Mg Tablet 1 Tab PO DAILY Coreg (Carvedilol) 12.5 Mg Tablet 1 Tab PO BID Budesonide 0.5 Mg/2 Ml Ampul.neb 1 Vial NEB BID Artificial Tears Eye Drops (Dextran 70/Hypromellose) 15 Ml Drops 1 Drop EACHEYE PRN QID PRN Xarelto (Rivaroxaban) 20 Mg Tablet 20 Mg PO DAILY Cetirizine Hcl 10 Mg Tablet 1 Tab PO HS Tessalon Perle (Benzonatate) 100 Mg Capsule 100 Mg PO TID PRN Multi-Day Vitamins (Multivitamin) 1 Each Tablet 1 Tab PO DAILY Milk Of Magnesia (Magnesium Hydroxide) 400 Mg/5 Ml Oral.susp 30 Ml PO Q2HR PRN Protonix (Pantoprazole Sodium) 40 Mg Tablet.dr 1 Tab PO DAILY Duoneb 0.5-3(2.5) Mg/3 Ml (Albuterol/Ipratropium) 3 Ml Ampul.neb 3 Ml IH Q4HRS PRN Nystatin 1 Each Powder.ea. 1 Each TOP BID to groin and inner thighs, apply barrier cream with zinc and nystatin powder after cleanse with warm water and pat dry Travatan Z (Travoprost) 5 Ml Drops 1 Drop EACHEYE QHS Synthroid (Levothyroxine Sodium) 150 Mcg Tablet 1 Tab PO DAILY Senna S Tablet (Sennosides/Docusate Sodium) 1 Each Tablet 1 Each PO BID Miralax (Polyethylene Glycol 3350) 17 Gm Powd.pack 1 Packet PO DAILY Methylphenidate Hcl 5 Mg Tablet 1 Tab PO BID Docusate Sodium 100 Mg Capsule 1 Cap PO BID Calcium Carbonate 200 Mg Tab.chew 200 Mg PO PRN Q4HRS PRN Tylenol (Acetaminophen) 325 Mg Tablet 2 Tab PO PRN Q4HRS PRN for headache, generalized pain or elevated temperature Allergies Allergies: Coded Allergies: adhesive (Verified Allergy, Intermediate, 05/17/15) ciprofloxacin (Verified Allergy, Intermediate, 05/17/15) clarithromycin (Verified Allergy, Intermediate, 05/17/15) codeine (Verified Allergy, Intermediate, 05/17/15) fentanyl (Verified Allergy, Intermediate, 05/17/15) meperidine (Verified Allergy, Intermediate, 05/17/15) oyster extract (Verified Allergy, Intermediate, 05/17/15) shellfish derived (Verified Allergy, Intermediate, 05/17/15) strawberry (Verified Allergy, Intermediate, 05/17/15) sulfur dioxide (Verified Allergy, Intermediate, 05/17/15) tetracycline (Verified Allergy, Intermediate, 05/17/15) I S O L A T I O N *CONTACT* (Verified Allergy, Unknown, 05/17/15) mrsa + ROS Review of System Patient denies fevers, chills, weight loss, dyspnea, angina, abdominal pain, change in bowels, or dysuria. 14 point review of systems is negative. Physical Exam Physical Examination PHYSICAL EXAMINATION: Vital signs: see above. General appearance is normal and in no acute distress. HEENT: Normocephalic and nontraumatic. Eyes, nose, ears, and throat are unremarkable. Neck is supple. No lymphadenopathy. No bruits are heard over the carotid artery. No crepitus. NEUROLOGIC: She is alert, does not know the date, location, name of the president, or why she is here. Cranial nerve examination reveals full visual humphreys to threat, equally reactive pupils, and intact extraocular movements. There is no facial asymmetry. Reflexes are 1+ with silent plantar responses. She has difficult range of motion of her shoulders and hips due to arthritis, so strength is no more than 3-4/5. Tone is normal. There are bilateral grasp reflexes. She cannot perform [id number] because of limited range of motion of the shoulder. She has been bedfast for nearly 10 years so I did not check her gait. Sensory exam is intact for light touch and pinprick. Vitals VITALS Vital Signs Date Time Temp Pulse Resp B/P Pulse Ox O2 Delivery O2 Flow Rate FiO2 12/31/16 10:33 99.0 73 18 149/65 97 Nasal Cannula 3.0 99.0 Labs Labs Laboratory Tests Test 12/30/16 11:28 12/30/16 11:43 12/30/16 18:10 12/31/16 05:20 White Blood Count 5.9x10^3/uL (4.0-11.0) 4.7x10^3/uL (4.0-11.0) Red Blood Count 3.29x10^6/uL (3.50-5.40) 3.04x10^6/uL (3.50-5.40) Hemoglobin 9.7g/dL (12.0-15.5) 8.8g/dL (12.0-15.5) Hematocrit 30.8% (36.0-47.0) 28.2% (36.0-47.0) Mean Corpuscular Volume 94fL (79-100) 93fL (79-100) Mean Corpuscular Hemoglobin 30pg (25-35) 29pg (25-35) Mean Corpuscular Hemoglobin Concent 32g/dL (31-37) 31g/dL (31-37) Red Cell Distribution Width 15.4% (11.5-14.5) 14.8% (11.5-14.5) Platelet Count 101x10^3/uL (140-400) 87x10^3/uL (140-400) Neutrophils (%) (Auto) 43% (31-73) 42% (31-73) Lymphocytes (%) (Auto) 39% (24-48) 38% (24-48) Monocytes (%) (Auto) 14% (0-9) 16% (0-9) Eosinophils (%) (Auto) 2% (0-3) 3% (0-3) Basophils (%) (Auto) 1% (0-3) 0% (0-3) Neutrophils # (Auto) 2.5x10^3uL (1.8-7.7) 2.0x10^3uL (1.8-7.7) Lymphocytes # (Auto) 2.3x10^3/uL (1.0-4.8) 1.8x10^3/uL (1.0-4.8) Monocytes # (Auto) 0.8x10^3/uL (0.0-1.1) 0.8x10^3/uL (0.0-1.1) Eosinophils # (Auto) 0.1x10^3/uL (0.0-0.7) 0.2x10^3/uL (0.0-0.7) Basophils # (Auto) 0.0x10^3/uL (0.0-0.2) 0.0x10^3/uL (0.0-0.2) Sodium Level 145mmol/L (136-145) 146mmol/L (136-145) Potassium Level 5.5mmol/L (3.5-5.1) 5.2mmol/L (3.5-5.1) 4.6mmol/L (3.5-5.1) Chloride Level 104mmol/L (98-107) 105mmol/L (98-107) Carbon Dioxide Level 40mmol/L (21-32) 38mmol/L (21-32) Anion Gap 1 (6-14) 3 (6-14) Blood Urea Nitrogen 31mg/dL (7-20) 24mg/dL (7-20) Creatinine 1.1mg/dL (0.6-1.0) 0.8mg/dL (0.6-1.0) Estimated GFR (Cockcroft-Gault) 59.4 85.8 Glucose Level 128mg/dL (70-99) 118mg/dL (70-99) Lactic Acid Level 0.8mmol/L (0.4-2.0) Calcium Level 8.7mg/dL (8.5-10.1) 8.3mg/dL (8.5-10.1) Troponin I Quantitative < 0.017ng/mL (0.000-0.055) Urine Collection Type U cath Urine Color Yellow Urine Clarity Clear Urine pH 5.0 Urine Specific [place] 1.010 Urine Protein Negativemg/dL (NEG-TRACE) Urine Glucose (UA) Negativemg/dL (NEG) Urine Ketones (Stick) Negativemg/dL (NEG) Urine Blood Negative (NEG) Urine Nitrite Positive (NEG) Urine Bilirubin Negative (NEG) Urine Urobilinogen Dipstick 0.2mg/dL (0.2 mg/dL) Urine Leukocyte Esterase Moderate (NEG) Urine RBC 0/HPF (0-2) Urine WBC 5-10/HPF (0-4) Urine Squamous Epithelial Cells Few/LPF Urine Bacteria Moderate/HPF (0-FEW) Urine Hyaline Casts Occasional/HPF Urine Mucus Slight/LPF Laboratory Tests Test 12/30/16 18:10 12/31/16 05:20 Potassium Level 5.2mmol/L (3.5-5.1) 4.6mmol/L (3.5-5.1) White Blood Count 4.7x10^3/uL (4.0-11.0) Red Blood Count 3.04x10^6/uL (3.50-5.40) Hemoglobin 8.8g/dL (12.0-15.5) Hematocrit 28.2% (36.0-47.0) Mean Corpuscular Volume 93fL (79-100) Mean Corpuscular Hemoglobin 29pg (25-35) Mean Corpuscular Hemoglobin Concent 31g/dL (31-37) Red Cell Distribution Width 14.8% (11.5-14.5) Platelet Count 87x10^3/uL (140-400) Neutrophils (%) (Auto) 42% (31-73) Lymphocytes (%) (Auto) 38% (24-48) Monocytes (%) (Auto) 16% (0-9) Eosinophils (%) (Auto) 3% (0-3) Basophils (%) (Auto) 0% (0-3) Neutrophils # (Auto) 2.0x10^3uL (1.8-7.7) Lymphocytes # (Auto) 1.8x10^3/uL (1.0-4.8) Monocytes # (Auto) 0.8x10^3/uL (0.0-1.1) Eosinophils # (Auto) 0.2x10^3/uL (0.0-0.7) Basophils # (Auto) 0.0x10^3/uL (0.0-0.2) Sodium Level 146mmol/L (136-145) Chloride Level 105mmol/L (98-107) Carbon Dioxide Level 38mmol/L (21-32) Anion Gap 3 (6-14) Blood Urea Nitrogen 24mg/dL (7-20) Creatinine 0.8mg/dL (0.6-1.0) Estimated GFR (Cockcroft-Gault) 85.8 Glucose Level 118mg/dL (70-99) Calcium Level 8.3mg/dL (8.5-10.1) Images Images CT head: Comparison is made to a study from 11/07/2016. There are moderate patchy lucencies in the deep white matter bilaterally compatible with chronic ischemic change. The ventricles are within normal limits in size. There is no shift of the midline structures. There is no evidence of acute intracranial hemorrhage or mass effect. IMPRESSION: 1. Unchanged moderate bilateral deep white matter lucencies compatible with chronic ischemic change. 2. No acute intracranial abnormality is detected. Assessment/Plan Assessment/Plan Impression: Long-standing dementia, consistent with Alzheimer's, more than 10 years, with acute changes possibly due to urinary tract infection A diagnosis of narcolepsy, clearly a mistake as narcolepsy does not start an demented people who simply are falling asleep in the wheelchair, but rather is a nearly lifelong condition as diagnosed by a professional sleep specialist. Nearly immobile due to arthritis, she is bedfast. Recommendations: No need to repeat a dementia workup, no treatment possible. The diagnosis of narcolepsy should be stricken from her record I discussed with the patient's sister regarding DO NOT RESUSCITATE and she does not want to change her from full code at this time. Neurology will sign off. Thank you for letting me help with the patient's care. RICHARD SANCHEZ MD Dec 31, 2016 14:55
[2016-12-31 15:00] VITALS: BP 131/73
[2016-12-31] MEDS ORDERED: AA 2.75%/CALCIUM/LYTES/D5W 2,000 ML IV SCH (15:15)
[2016-12-31] MEDS: RIVAROXABAN 10 MG TABLET. PO SCH (17:17)
[2016-12-31 19:00] VITALS: BP 133/75
[2016-12-31] MEDS ORDERED: LATANOPROST 0.005% OPHTH SOLUTION 2.5ML BOTTLE. OU SCH (21:00)
[2016-12-31] MEDS: CETIRIZINE HCL 10 MG TABLET PO SCH (21:26)
[2016-12-31] MEDS: LATANOPROST 0.005% OPHTH SOLUTION 2.5ML BOTTLE. OU SCH (21:27)
[2016-12-31 22:32] VITALS: BP 121/76
[2017-01-01] MEDS: DICLOFENAC SODIUM 1% TOPICAL GEL 100GM TUBE. TP SCH ×2 (01:14→20:22)
[2017-01-01 02:45] VITALS: BP 121/67
--- NOTE | 2017-01-01 04:17 | CONS ---
DATE OF CONSULTATION: HISTORY OF PRESENT ILLNESS: The patient is a 71-year-old -[place] female from [facility], presented for altered mental status and possible low-grade fevers. She was previously noted to be more alert and oriented reportedly times 4 per ER note. She was increasingly confused and was brought to the hospital. We were asked to see her for a potassium of 5.5 and a creatinine of 1.1, her baseline is usually around 0.7 to 0.8. She was given IV fluids and her potassium is down to 4.6. She also got Kayexalate; and potassium supplements and Lasix are noted on our list of medications. After hydration, she is much better. She does have a history of lymphedema. For rest of the details, see electronic renal consult note. SANDY JOHNSON MD DR: BLU/mary JOB#: [id number] / [id number]
[2017-01-01 04:55] LABS: BASO % 1 % (0-3); EOS % 4 % (0-3); HEMATOCRIT 29.1 % (36.0-47.0); HEMOGLOBIN 9.4 g/dL (12.0-15.5); LYMPH # 1.2 x10^3/uL (1.0-4.8); LYMPH % 35 % (24-48); MEAN CORPUSCULAR HEMOGLOBIN 29 pg (25-35); MEAN CORPUSCULAR HGB CONC 32 g/dL (31-37); MEAN CORPUSCULAR VOLUME 91 fL (79-100); MONO % 12 % (0-9); NEUT % 49 % (31-73); PLATELET COUNT 90 x10^3/uL (140-400); WHITE BLOOD COUNT 3.4 x10^3/uL (4.0-11.0)
[2017-01-01 05:04] LABS: CALCIUM 8.5 mg/dL (8.5-10.1); CREATININE 0.7 mg/dL (0.6-1.0); GFR 100.1; POTASSIUM 4.4 mmol/L (3.5-5.1)
[2017-01-01] MEDS: LEVOTHYROXINE 150 MCG TABLET PO SCH (05:59)
[2017-01-01] MEDS: BUDESONIDE 0.5 MG/2 ML NEBU NEB SCH (07:12)
[2017-01-01 07:48] VITALS: BP 157/83
[2017-01-01] MEDS: CYANOCOBALAMIN (VITAMIN B-12) 1,000 MCG TABLET. PO SCH ×2 (09:00→13:59)
[2017-01-01] MEDS ORDERED: IV 1/2 NORMAL SALINE 1,000 ML IV ONE (09:15)
[2017-01-01] MEDS: CARVEDILOL 12.5 MG TABLET PO SCH ×2 (10:22→17:06)
[2017-01-01] MEDS: FERROUS SULFATE 325 MG TABLET PO SCH (10:22)
[2017-01-01] MEDS: PREGABALIN 75 MG CAPSULE PO SCH ×2 (10:23→20:21)
[2017-01-01] MEDS: DOCUSATE SODIUM 100 MG CAPSULE PO SCH ×2 (10:23→20:21)
[2017-01-01] MEDS: AMLODIPINE BESYLATE 5 MG TABLET PO SCH (10:23)
[2017-01-01] MEDS: PANTOPRAZOLE 40 MG TABLET. PO SCH (10:23)
[2017-01-01] MEDS: SENNOSIDES/DOCUSATE 8.6/50MG TABLET. PO SCH ×2 (10:23→20:21)
[2017-01-01] MEDS: METHYLPHENIDATE HCL 5 MG TABLET PO SCH ×2 (10:24→20:21)
[2017-01-01] MEDS: CEFTRIAXONE SODIUM 1 GM in IV NORMAL SALINE 50ML 50 ML IV SCH (10:24)
[2017-01-01] MEDS: MULTIVITAMIN with MINERAL TABLET. PO SCH (10:24)
[2017-01-01] MEDS: NYSTATIN TOPICAL POWDER 15GM BOTTLE. TP SCH ×2 (10:24→20:22)
--- NOTE | 2017-01-01 10:35 | PDOC ---
SUBJECTIVE ROS F/up ^Na Doing Same OBJECTIVE Vital Signs Vital Signs Date Time Temp Pulse Resp B/P Pulse Ox O2 Delivery O2 Flow Rate FiO2 01/01/17 10:23 73 157/83 01/01/17 07:48 98.2 17 95 Nasal Cannula 3.0 98.2 I & 0 Intake and Output 01/01/17 07:00 Intake Total 160 ml Balance 160 ml Intake Oral 160 ml # Voids 6 PHYSICAL EXAM Physical Exam General Appearance: Awake: Alert Oriented x Neck: No JVD or JVP Chest: CTA Benjamin Heart: S1 S2 Abdomen - Soft NTND Extremities - Ch Edema DIAGNOSIS/ASSESSMENT Assessment & Plan ^Na - Ct Hypotonic IVF Problems: COMMENT/RELEVANT DATA Meds Current Medications Medications (Trade) Dose Ordered Sig/Liban Start Time Stop Time Status Last Admin Dose Admin Acetaminophen (Tylenol) 325 mg PRN Q4HRS PRN 12/31/16 09:00 Acetaminophen/ Hydrocodone Bitart (Lortab 5/325) 1 tab PRN Q4HRS PRN 12/31/16 09:15 Albuterol Sulfate (Ventolin Neb Soln) 2.5 mg PRN Q6HRS PRN 12/31/16 03:45 12/31/16 03:51 2.5 MG Albuterol/ Ipratropium (Duoneb) 3 ml PRN Q4HRS PRN 12/31/16 09:00 01/01/17 03:11 3 ML Amino Acids/ Electrolytes (Clinimix E 2.75%-5% Solution) 2,000 ml @ 80 mls/hr Q24H 12/31/16 15:15 01/01/17 16:14 12/31/16 16:09 80 MLS/HR Amlodipine Besylate (Norvasc) 5 mg DAILY 12/31/16 09:00 01/01/17 10:23 5 MG Artificial Tears (Artificial Tears) 1 drop PRN QID PRN 12/31/16 09:45 Benzonatate (Tessalon Perle) 100 mg PRN TID PRN 12/31/16 09:00 Budesonide (Pulmicort) 0.5 mg BID 12/31/16 09:00 01/01/17 07:12 0.5 MG Calcium Carbonate/ Glycine (Tums) 250 mg PRN Q4HRS PRN 12/31/16 09:00 Carvedilol (Coreg) 12.5 mg BIDWMEALS 12/31/16 09:30 01/01/17 10:22 12.5 MG Ceftriaxone Sodium/Sodium Chloride (Rocephin/Iv Sodium Chloride 0.9% 50ml) 50 ml @ 100 mls/hr Q24H 12/31/16 10:00 01/01/17 10:24 100 MLS/HR Ceftriaxone Sodium (Rocephin 1gm Ivpb For Omni) 50 ml @ 100 mls/hr 1X ONCE 12/30/16 12:30 12/30/16 12:59 DC 12/30/16 13:20 100 MLS/HR Cetirizine HCl (Zyrtec) 10 mg HS 12/31/16 21:00 12/31/16 21:26 10 MG Cyanocobalamin 1000 mcg 1,000 mcg DAILY 01/01/17 08:30 Dextrose 25 gm 25 gm 1X ONCE 12/30/16 12:30 12/30/16 12:31 DC 12/30/16 13:14 25 GM Dextrose/Sodium Chloride (Iv D5% - 1/2 NS) 1,000 ml @ 100 mls/hr 1X ONCE 12/30/16 13:15 12/30/16 23:14 DC 12/30/16 15:37 100 MLS/HR Diclofenac Sodium 1 angela 1 angela BID 12/31/16 11:00 01/01/17 01:14 1 ANGELA Docusate Sodium (Colace) 100 mg BID 12/31/16 09:30 01/01/17 10:23 100 MG Ferrous Sulfate (Feosol) 325 mg DAILYWBKFT 12/31/16 12:00 01/01/17 10:22 325 MG Furosemide (Lasix) 20 mg DAILY 12/31/16 09:30 12/31/16 15:01 DC 12/31/16 10:11 20 MG Info (Anti-Coagulation Monitoring By Pharmacy) 1 each PRN DAILY PRN 12/31/16 09:45 Insulin Human Regular (Novolin R Vial) 10 unit 1X ONCE 12/30/16 12:30 12/30/16 12:31 DC 12/30/16 13:17 10 UNIT Latanoprost (Xalatan) 1 drop QHS 12/31/16 21:00 Cancel Latanoprost 1 drop 1 drop QHS 12/31/16 21:00 12/31/16 21:27 1 DROP Levothyroxine Sodium (Synthroid) 150 mcg DAILY07 12/31/16 10:30 01/01/17 05:59 150 MCG Magnesium Hydroxide (Milk Of Magnesia) 2,400 mg PRN Q2HR PRN 12/31/16 09:00 Methylphenidate HCl (Ritalin) 5 mg BID 12/31/16 09:30 01/01/17 10:24 5 MG Multivitamins (Thera M Plus) 1 tab DAILY 12/31/16 10:00 01/01/17 10:24 1 TAB Nystatin (Nystop) 1 angela BID 12/31/16 10:00 01/01/17 10:24 1 ANGELA Ondansetron HCl (Zofran) 4 mg PRN Q6HRS PRN 12/31/16 09:15 Ondansetron HCl 4 mg 4 mg PRN Q8HRS PRN 12/30/16 12:45 12/31/16 12:44 DC Pantoprazole Sodium (Protonix) 40 mg DAILYAC 12/31/16 11:30 01/01/17 10:23 40 MG Potassium Chloride (Klor-Con) 20 meq BIDWMEALS 12/31/16 10:00 12/31/16 15:01 DC 12/31/16 10:00 20 MEQ Pregabalin (Lyrica) 75 mg BID 12/31/16 09:30 01/01/17 10:23 75 MG Rivaroxaban (Xarelto) 20 mg DAILYWSUP 12/31/16 17:00 12/31/16 17:17 20 MG Senna/Docusate Sodium (Senna Plus) 1 tab BID 12/31/16 09:30 01/01/17 10:23 1 TAB Sodium Bicarbonate 50 meq/Dextrose 1,050 ml @ 125 mls/hr Q8H24M 12/30/16 12:45 Cancel Sodium Bicarbonate 50 meq 50 meq 1X ONCE 12/30/16 13:15 12/30/16 13:16 DC 12/30/16 13:19 50 MEQ Sodium Polystyrene Sulfonate (Kayexalate) 30 gm 1X PRN PRN 12/30/16 18:00 Sodium Chloride (Iv Sodium Chloride 0.45%) 1,000 ml @ 75 mls/hr 1X ONCE 01/01/17 09:15 01/01/17 22:34 Sodium Chloride (Iv Sodium Chloride 0.9% 1000ml Bag) 1,000 ml @ 125 mls/hr Q8H 12/30/16 12:43 12/30/16 13:15 DC Lab Laboratory Tests Test 01/01/17 04:20 White Blood Count 3.4x10^3/uL (4.0-11.0) Red Blood Count 3.20x10^6/uL (3.50-5.40) Hemoglobin 9.4g/dL (12.0-15.5) Hematocrit 29.1% (36.0-47.0) Mean Corpuscular Volume 91fL (79-100) Mean Corpuscular Hemoglobin 29pg (25-35) Mean Corpuscular Hemoglobin Concent 32g/dL (31-37) Red Cell Distribution Width 15.0% (11.5-14.5) Platelet Count 90x10^3/uL (140-400) Neutrophils (%) (Auto) 49% (31-73) Lymphocytes (%) (Auto) 35% (24-48) Monocytes (%) (Auto) 12% (0-9) Eosinophils (%) (Auto) 4% (0-3) Basophils (%) (Auto) 1% (0-3) Neutrophils # (Auto) 1.7x10^3uL (1.8-7.7) Lymphocytes # (Auto) 1.2x10^3/uL (1.0-4.8) Monocytes # (Auto) 0.4x10^3/uL (0.0-1.1) Eosinophils # (Auto) 0.1x10^3/uL (0.0-0.7) Basophils # (Auto) 0.0x10^3/uL (0.0-0.2) Sodium Level 146mmol/L (136-145) Potassium Level 4.4mmol/L (3.5-5.1) Chloride Level 103mmol/L (98-107) Carbon Dioxide Level 42mmol/L (21-32) Anion Gap 1 (6-14) Blood Urea Nitrogen 21mg/dL (7-20) Creatinine 0.7mg/dL (0.6-1.0) Estimated GFR (Cockcroft-Gault) 100.1 Glucose Level 167mg/dL (70-99) Calcium Level 8.5mg/dL (8.5-10.1) Vitamin B12 Level 327pg/mL (247-911) Thyroid Stimulating Hormone (TSH) 1.357uIU/mL (0.358-3.74) SANDY JOHNSON MD Jan 01, 2017 10:35
[2017-01-01 11:00] VITALS: BP 142/78
--- NOTE | 2017-01-01 11:58 | PDOC ---
PROGRESS NOTES Chief Complaint Chief Complaint AMS with baseline dementia, likely fluctuating dementia possible UTI obesity, BMI 35 weakness and debility ankle pain, bilat, OA hypothyroidism chronic diastolic CHF, with LE edema mild afib, rate controlled, on xarelto CIERA, vasomotor hypernatremia chronic resp failure on NC 3L SNF resident plan: 1. get neuro consult, check tsh, vitb12 fu with dr. briseno, cannot do PTOT, baseline wheel chair bound 2., cont home meds 3. on xarelto 4. cont ceftriaxone for now, fu ucx 1/2 NS for 1L labs tmr add vitb12 po daily pt possibly has dr. Santillan as pcp, will sign off tmr if they want her back. History of Present Illness History of Present Illness looks calm, on NC 3 L as baseline looks demented , cannot tell me where she is and the year, doesnot complain anything tho as per dpoa from nurse, pt was aaox3, now only to person, more awake , alert today Vitals Vitals Vital Signs Date Time Temp Pulse Resp B/P Pulse Ox O2 Delivery O2 Flow Rate FiO2 01/01/17 11:00 97.6 76 22 142/78 96 Nasal Cannula 3.0 97.6 Physical Exam Physical Exam aaox1 to person only General: Alert, Cooperative, mild distress, Other Heart: Regular rate, Normal S1, Normal S2 Lungs: Clear, Other Abdomen: Normal bowel sounds, Soft Extremities: No clubbing, No cyanosis, Normal pulses, Other Skin: No breakdown Labs LABS Laboratory Tests Test 01/01/17 04:20 White Blood Count 3.4x10^3/uL (4.0-11.0) Red Blood Count 3.20x10^6/uL (3.50-5.40) Hemoglobin 9.4g/dL (12.0-15.5) Hematocrit 29.1% (36.0-47.0) Mean Corpuscular Volume 91fL (79-100) Mean Corpuscular Hemoglobin 29pg (25-35) Mean Corpuscular Hemoglobin Concent 32g/dL (31-37) Red Cell Distribution Width 15.0% (11.5-14.5) Platelet Count 90x10^3/uL (140-400) Neutrophils (%) (Auto) 49% (31-73) Lymphocytes (%) (Auto) 35% (24-48) Monocytes (%) (Auto) 12% (0-9) Eosinophils (%) (Auto) 4% (0-3) Basophils (%) (Auto) 1% (0-3) Neutrophils # (Auto) 1.7x10^3uL (1.8-7.7) Lymphocytes # (Auto) 1.2x10^3/uL (1.0-4.8) Monocytes # (Auto) 0.4x10^3/uL (0.0-1.1) Eosinophils # (Auto) 0.1x10^3/uL (0.0-0.7) Basophils # (Auto) 0.0x10^3/uL (0.0-0.2) Sodium Level 146mmol/L (136-145) Potassium Level 4.4mmol/L (3.5-5.1) Chloride Level 103mmol/L (98-107) Carbon Dioxide Level 42mmol/L (21-32) Anion Gap 1 (6-14) Blood Urea Nitrogen 21mg/dL (7-20) Creatinine 0.7mg/dL (0.6-1.0) Estimated GFR (Cockcroft-Gault) 100.1 Glucose Level 167mg/dL (70-99) Calcium Level 8.5mg/dL (8.5-10.1) Vitamin B12 Level 327pg/mL (247-911) Thyroid Stimulating Hormone (TSH) 1.357uIU/mL (0.358-3.74) Review of Systems Review of Systems no fever, chills, sob or chest pain Assessment and Plan Assessmemt and Plan Problems Medical Problems: (1) Altered mental status Status: Acute (2) Hyperkalemia Status: Acute (3) Urinary tract infection Status: Acute Problems: Comment Review of Relevant I have reviewed the following items vivian (where applicable) has been applied. Labs Laboratory Tests Test 12/30/16 18:10 12/31/16 05:20 01/01/17 04:20 Potassium Level 5.2mmol/L (3.5-5.1) 4.6mmol/L (3.5-5.1) 4.4mmol/L (3.5-5.1) White Blood Count 4.7x10^3/uL (4.0-11.0) 3.4x10^3/uL (4.0-11.0) Red Blood Count 3.04x10^6/uL (3.50-5.40) 3.20x10^6/uL (3.50-5.40) Hemoglobin 8.8g/dL (12.0-15.5) 9.4g/dL (12.0-15.5) Hematocrit 28.2% (36.0-47.0) 29.1% (36.0-47.0) Mean Corpuscular Volume 93fL (79-100) 91fL (79-100) Mean Corpuscular Hemoglobin 29pg (25-35) 29pg (25-35) Mean Corpuscular Hemoglobin Concent 31g/dL (31-37) 32g/dL (31-37) Red Cell Distribution Width 14.8% (11.5-14.5) 15.0% (11.5-14.5) Platelet Count 87x10^3/uL (140-400) 90x10^3/uL (140-400) Neutrophils (%) (Auto) 42% (31-73) 49% (31-73) Lymphocytes (%) (Auto) 38% (24-48) 35% (24-48) Monocytes (%) (Auto) 16% (0-9) 12% (0-9) Eosinophils (%) (Auto) 3% (0-3) 4% (0-3) Basophils (%) (Auto) 0% (0-3) 1% (0-3) Neutrophils # (Auto) 2.0x10^3uL (1.8-7.7) 1.7x10^3uL (1.8-7.7) Lymphocytes # (Auto) 1.8x10^3/uL (1.0-4.8) 1.2x10^3/uL (1.0-4.8) Monocytes # (Auto) 0.8x10^3/uL (0.0-1.1) 0.4x10^3/uL (0.0-1.1) Eosinophils # (Auto) 0.2x10^3/uL (0.0-0.7) 0.1x10^3/uL (0.0-0.7) Basophils # (Auto) 0.0x10^3/uL (0.0-0.2) 0.0x10^3/uL (0.0-0.2) Sodium Level 146mmol/L (136-145) 146mmol/L (136-145) Chloride Level 105mmol/L (98-107) 103mmol/L (98-107) Carbon Dioxide Level 38mmol/L (21-32) 42mmol/L (21-32) Anion Gap 3 (6-14) 1 (6-14) Blood Urea Nitrogen 24mg/dL (7-20) 21mg/dL (7-20) Creatinine 0.8mg/dL (0.6-1.0) 0.7mg/dL (0.6-1.0) Estimated GFR (Cockcroft-Gault) 85.8 100.1 Glucose Level 118mg/dL (70-99) 167mg/dL (70-99) Calcium Level 8.3mg/dL (8.5-10.1) 8.5mg/dL (8.5-10.1) Vitamin B12 Level 327pg/mL (247-911) Thyroid Stimulating Hormone (TSH) 1.357uIU/mL (0.358-3.74) Laboratory Tests Test 01/01/17 04:20 White Blood Count 3.4x10^3/uL (4.0-11.0) Red Blood Count 3.20x10^6/uL (3.50-5.40) Hemoglobin 9.4g/dL (12.0-15.5) Hematocrit 29.1% (36.0-47.0) Mean Corpuscular Volume 91fL (79-100) Mean Corpuscular Hemoglobin 29pg (25-35) Mean Corpuscular Hemoglobin Concent 32g/dL (31-37) Red Cell Distribution Width 15.0% (11.5-14.5) Platelet Count 90x10^3/uL (140-400) Neutrophils (%) (Auto) 49% (31-73) Lymphocytes (%) (Auto) 35% (24-48) Monocytes (%) (Auto) 12% (0-9) Eosinophils (%) (Auto) 4% (0-3) Basophils (%) (Auto) 1% (0-3) Neutrophils # (Auto) 1.7x10^3uL (1.8-7.7) Lymphocytes # (Auto) 1.2x10^3/uL (1.0-4.8) Monocytes # (Auto) 0.4x10^3/uL (0.0-1.1) Eosinophils # (Auto) 0.1x10^3/uL (0.0-0.7) Basophils # (Auto) 0.0x10^3/uL (0.0-0.2) Sodium Level 146mmol/L (136-145) Potassium Level 4.4mmol/L (3.5-5.1) Chloride Level 103mmol/L (98-107) Carbon Dioxide Level 42mmol/L (21-32) Anion Gap 1 (6-14) Blood Urea Nitrogen 21mg/dL (7-20) Creatinine 0.7mg/dL (0.6-1.0) Estimated GFR (Cockcroft-Gault) 100.1 Glucose Level 167mg/dL (70-99) Calcium Level 8.5mg/dL (8.5-10.1) Vitamin B12 Level 327pg/mL (247-911) Thyroid Stimulating Hormone (TSH) 1.357uIU/mL (0.358-3.74) Microbiology 12/30/16 Blood Culture - Preliminary, Resulted NO GROWTH AFTER 2 DAYS 12/30/16 Urine Culture - Preliminary, Resulted 12/30/16 Urine Culture Result 1 (ALISSA) - Preliminary, Resulted Medications Current Medications Sodium Chloride (Iv Sodium Chloride 0.9% 1000ml Bag) 1,000 ml @ 1,000 mls/hr 1X ONCE IV Last administered on 12/30/16 12:00; Start 12/30/16 at 11:30; Stop 12/30/16 at 12:29; Status DC Insulin Human Regular (Novolin R Vial) 10 unit 1X ONCE IV Last administered on 12/30/16 13:17; Start 12/30/16 at 12:30; Stop 12/30/16 at 12:31; Status DC Dextrose 25 gm 25 gm 1X ONCE IV Last administered on 12/30/16 13:14; Start at 12:30; Stop 12/30/16 at 12:31; Status DC Sodium Bicarbonate 50 meq/Dextrose 1,050 ml @ 125 mls/hr Q8H24M IV ; Start at 12:45; Status Cancel Ceftriaxone Sodium (Rocephin 1gm Ivpb For Omni) 50 ml @ 100 mls/hr 1X ONCE IV Last administered on 12/30/16 13:20; Start 12/30/16 at 12:30; Stop 12/30/16 at 12:59; Status DC Ondansetron HCl 4 mg 4 mg PRN Q8HRS PRN IV NAUSEA/VOMITING; Start 12/30/16 at 12:45; Stop 12/31/16 at 12:44; Status DC Sodium Chloride (Iv Sodium Chloride 0.9% 1000ml Bag) 1,000 ml @ 125 mls/hr Q8H IV ; Start 12/30/16 at 12:43; Stop 12/30/16 at 13:15; Status DC Acetaminophen (Tylenol) 650 mg PRN Q4HRS PRN PO FEVER; Start 12/30/16 at 12:45 ; Stop 12/31/16 at 12:44; Status DC Sodium Bicarbonate 50 meq 50 meq 1X ONCE IV Last administered on 12/30/16 13: 19; Start 12/30/16 at 13:15; Stop 12/30/16 at 13:16; Status DC Dextrose/Sodium Chloride (Iv D5% - 1/2 NS) 1,000 ml @ 100 mls/hr 1X ONCE IV Last administered on 12/30/16 15:37; Start 12/30/16 at 13:15; Stop 12/30/16 at 23:14; Status DC Sodium Polystyrene Sulfonate (Kayexalate) 30 gm 1X PRN PRN PO if repeat K > 5.2 ; Start 12/30/16 at 18:00 Albuterol Sulfate (Ventolin Neb Soln) 2.5 mg PRN Q6HRS PRN NEB SHORTNESS OF BREATH Last administered on 12/31/16 03:51; Start 12/31/16 at 03:45 Acetaminophen (Tylenol) 325 mg PRN Q4HRS PRN PO FEVER; Start 12/31/16 at 09:00 Amlodipine Besylate (Norvasc) 5 mg DAILY PO Last administered on 01/01/17 10: 23; Start 12/31/16 at 09:00 Benzonatate (Tessalon Perle) 100 mg PRN TID PRN PO COUGH; Start 12/31/16 at 09: 00 Budesonide (Pulmicort) 0.5 mg BID NEB Last administered on 01/01/17 07:12; Start 12/31/16 at 09:00 Calcium Carbonate/ Glycine (Tums) 250 mg PRN Q4HRS PRN PO HEARTBURN / GAS; Start 12/31/16 at 09:00 Carvedilol (Coreg) 12.5 mg BIDWMEALS PO Last administered on 01/01/17 10:22; Start 12/31/16 at 09:30 Cetirizine HCl (Zyrtec) 10 mg HS PO Last administered on 12/31/16 21:26; Start 12/31/16 at 21:00 Docusate Sodium (Colace) 100 mg BID PO Last administered on 01/01/17 10:23; Start 12/31/16 at 09:30 Ferrous Sulfate (Feosol) 325 mg DAILYWBKFT PO Last administered on 01/01/17 10 :22; Start 12/31/16 at 12:00 Furosemide (Lasix) 20 mg DAILY PO Last administered on 12/31/16 10:11; Start 12/31/16 at 09:30; Stop 12/31/16 at 15:01; Status DC Albuterol/ Ipratropium (Duoneb) 3 ml PRN Q4HRS PRN IH WHEEZING Last administered on 01/01/17 03:11; Start 12/31/16 at 09:00 Latanoprost (Xalatan) 1 drop QHS OU ; Start 12/31/16 at 21:00; Status Cancel Levothyroxine Sodium (Synthroid) 150 mcg DAILY07 PO Last administered on 05:59; Start 12/31/16 at 10:30 Magnesium Hydroxide (Milk Of Magnesia) 2,400 mg PRN Q2HR PRN PO DYSPEPSIA; Start 12/31/16 at 09:00 Methylphenidate HCl (Ritalin) 5 mg BID PO Last administered on 01/01/17 10:24 ; Start 12/31/16 at 09:30 Pantoprazole Sodium (Protonix) 40 mg DAILYAC PO Last administered on 01/01/17 10:23; Start 12/31/16 at 11:30 Pregabalin (Lyrica) 75 mg BID PO Last administered on 01/01/17 10:23; Start at 09:30 Senna/Docusate Sodium (Senna Plus) 1 tab BID PO Last administered on 01/01/17 10:23; Start 12/31/16 at 09:30 Artificial Tears (Artificial Tears) 1 drop PRN QID PRN OU DRY EYE; Start at 09:45 Multivitamins (Thera M Plus) 1 tab DAILY PO Last administered on 01/01/17 10: 24; Start 12/31/16 at 10:00 Nystatin (Nystop) 1 angela BID TP Last administered on 01/01/17 10:24; Start at 10:00 Potassium Chloride (Klor-Con) 20 meq BIDWMEALS PO Last administered on 10:00; Start 12/31/16 at 10:00; Stop 12/31/16 at 15:01; Status DC Rivaroxaban (Xarelto) 20 mg DAILYWSUP PO Last administered on 12/31/16 17:17; Start 12/31/16 at 17:00 Latanoprost 1 drop 1 drop QHS OU Last administered on 12/31/16 21:27; Start at 21:00 Sodium Chloride 1,000 ml @ 75 mls/hr 1X ONCE IV Last administered on 10:08; Start 12/31/16 at 09:15; Stop 12/31/16 at 22:34; Status DC Ceftriaxone Sodium/Sodium Chloride (Rocephin/Iv Sodium Chloride 0.9% 50ml) 50 ml @ 100 mls/hr Q24H IV Last administered on 01/01/17 10:24; Start 12/31/16 at 10:00 Ondansetron HCl (Zofran) 4 mg PRN Q6HRS PRN IV NAUSEA/VOMITING; Start 12/31/16 at 09:15 Acetaminophen/ Hydrocodone Bitart (Lortab 5/325) 1 tab PRN Q4HRS PRN PO PAIN; Start 12/31/16 at 09:15 Info (Anti-Coagulation Monitoring By Pharmacy) 1 each PRN DAILY PRN MC SEE COMMENTS; Start 12/31/16 at 09:45 Diclofenac Sodium 1 angela 1 angela BID TP Last administered on 01/01/17 01:14; Start 12/31/16 at 11:00 Amino Acids/ Electrolytes (Clinimix E 2.75%-5% Solution) 2,000 ml @ 80 mls/hr Q24H IV Last administered on 12/31/16 16:09; Start 12/31/16 at 15:15; Stop at 16:14 Cyanocobalamin 1000 mcg 1,000 mcg DAILY PO ; Start 01/01/17 at 08:30 Sodium Chloride (Iv Sodium Chloride 0.45%) 1,000 ml @ 75 mls/hr 1X ONCE IV ; Start 01/01/17 at 09:15; Stop 01/01/17 at 22:34 Active Scripts Active Reported Zinc Oxide 30 Gm Oint...g. 30 Gm TP Xalatan (Latanoprost) 2.5 Ml Drops 1 Drop EACHEYE QHS Potassium Chloride Packet (Potassium Chloride) 20 Meq Packet 20 Meq PO BID Percocet 5-325 Mg Tablet (Oxycodone/Acetaminophen) 1 Each Tablet 1 Tab PO PRN Q6HRS PRN Zofran Odt (Ondansetron) 4 Mg Tab.rapdis 1 Tab SL BID Amlodipine Besylate 5 Mg Tablet 5 Mg PO DAILY Lasix (Furosemide) 20 Mg Tablet 1 Tab PO DAILY Ferrous Sulfate 325 Mg Tablet 1 Tab PO DAILY Coreg (Carvedilol) 12.5 Mg Tablet 1 Tab PO BID Budesonide 0.5 Mg/2 Ml Ampul.neb 1 Vial NEB BID Artificial Tears Eye Drops (Dextran 70/Hypromellose) 15 Ml Drops 1 Drop EACHEYE PRN QID PRN Xarelto (Rivaroxaban) 20 Mg Tablet 20 Mg PO DAILY Cetirizine Hcl 10 Mg Tablet 1 Tab PO HS Tessalon Perle (Benzonatate) 100 Mg Capsule 100 Mg PO TID PRN Multi-Day Vitamins (Multivitamin) 1 Each Tablet 1 Tab PO DAILY Milk Of Magnesia (Magnesium Hydroxide) 400 Mg/5 Ml Oral.susp 30 Ml PO Q2HR PRN Protonix (Pantoprazole Sodium) 40 Mg Tablet.dr 1 Tab PO DAILY Duoneb 0.5-3(2.5) Mg/3 Ml (Albuterol/Ipratropium) 3 Ml Ampul.neb 3 Ml IH Q4HRS PRN Nystatin 1 Each Powder.ea. 1 Each TOP BID to groin and inner thighs, apply barrier cream with zinc and nystatin powder after cleanse with warm water and pat dry Travatan Z (Travoprost) 5 Ml Drops 1 Drop EACHEYE QHS Synthroid (Levothyroxine Sodium) 150 Mcg Tablet 1 Tab PO DAILY Senna S Tablet (Sennosides/Docusate Sodium) 1 Each Tablet 1 Each PO BID Miralax (Polyethylene Glycol 3350) 17 Gm Powd.pack 1 Packet PO DAILY Methylphenidate Hcl 5 Mg Tablet 1 Tab PO BID Docusate Sodium 100 Mg Capsule 1 Cap PO BID Calcium Carbonate 200 Mg Tab.chew 200 Mg PO PRN Q4HRS PRN Tylenol (Acetaminophen) 325 Mg Tablet 2 Tab PO PRN Q4HRS PRN for headache, generalized pain or elevated temperature Vitals/I & O Vital Sign - Last 24 Hours 12/31/16 12/31/16 12/31/16 12/31/16 15:00 17:17 19:00 20:00 Temp 98.9 98.6 98.9 98.6 Pulse 78 78 77 Resp B/P 131/73 131/73 133/75 Pulse Ox 100 94 O2 Delivery Nasal Cannula Nasal Cannula Nasal Cannula O2 Flow Rate 3.0 3.0 3.0 12/31/16 01/01/17 01/01/17 01/01/17 22:32 02:45 03:12 07:13 Temp 97.1 98.4 97.1 98.4 Pulse 72 77 Resp 18 B/P 121/76 121/67 Pulse Ox 96 98 O2 Delivery Nasal Cannula Nasal Cannula Nasal Cannula Nasal Cannula O2 Flow Rate 3.0 3.0 3.0 3.0 01/01/17 01/01/17 01/01/17 01/01/17 07:48 10:22 10:23 11:00 Temp 98.2 97.6 98.2 97.6 Pulse 73 73 73 76 Resp B/P 157/83 157/83 157/83 142/78 Pulse Ox 95 96 O2 Delivery Nasal Cannula Nasal Cannula O2 Flow Rate 3.0 3.0 Intake and Output 12/31/16 12/31/16 01/01/17 15:00 23:00 07:00 Intake Total 60 ml 100 ml Balance 60 ml 100 ml ROBERT GRAJEDA MD Jan 01, 2017 11:58
[2017-01-01] MEDS ORDERED: BENZONATATE 100 MG CAPSULE. PO PRN (12:30)
[2017-01-01] MEDS: ANTI-COAG MONITOR BY PHARMACY. MC PRN (13:37)
[2017-01-01 15:00] VITALS: BP 146/83
--- NOTE | 2017-01-01 15:41 | PDOC ---
PROGRESS NOTES Subjective Subjective She admits some help with voltaren cream to her ankles. Objective Objective Vital Signs Date Time Temp Pulse Resp B/P Pulse Ox O2 Delivery O2 Flow Rate FiO2 01/01/17 11:00 97.6 76 22 142/78 96 Nasal Cannula 3.0 97.6 Intake and Output 01/01/17 07:00 Intake Total 160 ml Balance 160 ml Intake Oral 160 ml # Voids 6 Physical Exam Physical Exam She is awake and comfortable supine in bed and continues with generalized joint stiffness and pain on ROM. Assessment Assessment Problems Medical Problems: (1) Altered mental status Status: Acute (2) Hyperkalemia Status: Acute (3) Urinary tract infection Status: Acute Plan Plan of Care To [place] when medically stable. Comment Review of Relevant I have reviewed the following items vivian (where applicable) has been applied. Labs Laboratory Tests Test 12/30/16 18:10 12/31/16 05:20 01/01/17 04:20 Potassium Level 5.2mmol/L (3.5-5.1) 4.6mmol/L (3.5-5.1) 4.4mmol/L (3.5-5.1) White Blood Count 4.7x10^3/uL (4.0-11.0) 3.4x10^3/uL (4.0-11.0) Red Blood Count 3.04x10^6/uL (3.50-5.40) 3.20x10^6/uL (3.50-5.40) Hemoglobin 8.8g/dL (12.0-15.5) 9.4g/dL (12.0-15.5) Hematocrit 28.2% (36.0-47.0) 29.1% (36.0-47.0) Mean Corpuscular Volume 93fL (79-100) 91fL (79-100) Mean Corpuscular Hemoglobin 29pg (25-35) 29pg (25-35) Mean Corpuscular Hemoglobin Concent 31g/dL (31-37) 32g/dL (31-37) Red Cell Distribution Width 14.8% (11.5-14.5) 15.0% (11.5-14.5) Platelet Count 87x10^3/uL (140-400) 90x10^3/uL (140-400) Neutrophils (%) (Auto) 42% (31-73) 49% (31-73) Lymphocytes (%) (Auto) 38% (24-48) 35% (24-48) Monocytes (%) (Auto) 16% (0-9) 12% (0-9) Eosinophils (%) (Auto) 3% (0-3) 4% (0-3) Basophils (%) (Auto) 0% (0-3) 1% (0-3) Neutrophils # (Auto) 2.0x10^3uL (1.8-7.7) 1.7x10^3uL (1.8-7.7) Lymphocytes # (Auto) 1.8x10^3/uL (1.0-4.8) 1.2x10^3/uL (1.0-4.8) Monocytes # (Auto) 0.8x10^3/uL (0.0-1.1) 0.4x10^3/uL (0.0-1.1) Eosinophils # (Auto) 0.2x10^3/uL (0.0-0.7) 0.1x10^3/uL (0.0-0.7) Basophils # (Auto) 0.0x10^3/uL (0.0-0.2) 0.0x10^3/uL (0.0-0.2) Sodium Level 146mmol/L (136-145) 146mmol/L (136-145) Chloride Level 105mmol/L (98-107) 103mmol/L (98-107) Carbon Dioxide Level 38mmol/L (21-32) 42mmol/L (21-32) Anion Gap 3 (6-14) 1 (6-14) Blood Urea Nitrogen 24mg/dL (7-20) 21mg/dL (7-20) Creatinine 0.8mg/dL (0.6-1.0) 0.7mg/dL (0.6-1.0) Estimated GFR (Cockcroft-Gault) 85.8 100.1 Glucose Level 118mg/dL (70-99) 167mg/dL (70-99) Calcium Level 8.3mg/dL (8.5-10.1) 8.5mg/dL (8.5-10.1) Vitamin B12 Level 327pg/mL (247-911) Thyroid Stimulating Hormone (TSH) 1.357uIU/mL (0.358-3.74) Laboratory Tests Test 01/01/17 04:20 White Blood Count 3.4x10^3/uL (4.0-11.0) Red Blood Count 3.20x10^6/uL (3.50-5.40) Hemoglobin 9.4g/dL (12.0-15.5) Hematocrit 29.1% (36.0-47.0) Mean Corpuscular Volume 91fL (79-100) Mean Corpuscular Hemoglobin 29pg (25-35) Mean Corpuscular Hemoglobin Concent 32g/dL (31-37) Red Cell Distribution Width 15.0% (11.5-14.5) Platelet Count 90x10^3/uL (140-400) Neutrophils (%) (Auto) 49% (31-73) Lymphocytes (%) (Auto) 35% (24-48) Monocytes (%) (Auto) 12% (0-9) Eosinophils (%) (Auto) 4% (0-3) Basophils (%) (Auto) 1% (0-3) Neutrophils # (Auto) 1.7x10^3uL (1.8-7.7) Lymphocytes # (Auto) 1.2x10^3/uL (1.0-4.8) Monocytes # (Auto) 0.4x10^3/uL (0.0-1.1) Eosinophils # (Auto) 0.1x10^3/uL (0.0-0.7) Basophils # (Auto) 0.0x10^3/uL (0.0-0.2) Sodium Level 146mmol/L (136-145) Potassium Level 4.4mmol/L (3.5-5.1) Chloride Level 103mmol/L (98-107) Carbon Dioxide Level 42mmol/L (21-32) Anion Gap 1 (6-14) Blood Urea Nitrogen 21mg/dL (7-20) Creatinine 0.7mg/dL (0.6-1.0) Estimated GFR (Cockcroft-Gault) 100.1 Glucose Level 167mg/dL (70-99) Calcium Level 8.5mg/dL (8.5-10.1) Vitamin B12 Level 327pg/mL (247-911) Thyroid Stimulating Hormone (TSH) 1.357uIU/mL (0.358-3.74) Microbiology 12/30/16 Blood Culture - Preliminary, Resulted NO GROWTH AFTER 2 DAYS 12/30/16 Urine Culture - Final, Complete 12/30/16 Urine Culture Result 1 (ALISSA) - Final, Complete 12/30/16 Antimicrobic Susceptibility - Final, Complete Medications Current Medications Sodium Chloride (Iv Sodium Chloride 0.9% 1000ml Bag) 1,000 ml @ 1,000 mls/hr 1X ONCE IV Last administered on 12/30/16 12:00; Start 12/30/16 at 11:30; Stop 12/30/16 at 12:29; Status DC Insulin Human Regular (Novolin R Vial) 10 unit 1X ONCE IV Last administered on 12/30/16 13:17; Start 12/30/16 at 12:30; Stop 12/30/16 at 12:31; Status DC Dextrose 25 gm 25 gm 1X ONCE IV Last administered on 12/30/16 13:14; Start at 12:30; Stop 12/30/16 at 12:31; Status DC Sodium Bicarbonate 50 meq/Dextrose 1,050 ml @ 125 mls/hr Q8H24M IV ; Start at 12:45; Status Cancel Ceftriaxone Sodium (Rocephin 1gm Ivpb For Omni) 50 ml @ 100 mls/hr 1X ONCE IV Last administered on 12/30/16 13:20; Start 12/30/16 at 12:30; Stop 12/30/16 at 12:59; Status DC Ondansetron HCl 4 mg 4 mg PRN Q8HRS PRN IV NAUSEA/VOMITING; Start 12/30/16 at 12:45; Stop 12/31/16 at 12:44; Status DC Sodium Chloride (Iv Sodium Chloride 0.9% 1000ml Bag) 1,000 ml @ 125 mls/hr Q8H IV ; Start 12/30/16 at 12:43; Stop 12/30/16 at 13:15; Status DC Acetaminophen (Tylenol) 650 mg PRN Q4HRS PRN PO FEVER; Start 12/30/16 at 12:45 ; Stop 12/31/16 at 12:44; Status DC Sodium Bicarbonate 50 meq 50 meq 1X ONCE IV Last administered on 12/30/16 13: 19; Start 12/30/16 at 13:15; Stop 12/30/16 at 13:16; Status DC Dextrose/Sodium Chloride (Iv D5% - 1/2 NS) 1,000 ml @ 100 mls/hr 1X ONCE IV Last administered on 12/30/16 15:37; Start 12/30/16 at 13:15; Stop 12/30/16 at 23:14; Status DC Sodium Polystyrene Sulfonate (Kayexalate) 30 gm 1X PRN PRN PO if repeat K > 5.2 ; Start 12/30/16 at 18:00 Albuterol Sulfate (Ventolin Neb Soln) 2.5 mg PRN Q6HRS PRN NEB SHORTNESS OF BREATH Last administered on 12/31/16 03:51; Start 12/31/16 at 03:45 Acetaminophen (Tylenol) 325 mg PRN Q4HRS PRN PO FEVER; Start 12/31/16 at 09:00 Amlodipine Besylate (Norvasc) 5 mg DAILY PO Last administered on 01/01/17 10: 23; Start 12/31/16 at 09:00 Benzonatate (Tessalon Perle) 100 mg PRN TID PRN PO COUGH; Start 12/31/16 at 09: 00; Stop 01/01/17 at 12:16; Status DC Budesonide (Pulmicort) 0.5 mg BID NEB Last administered on 01/01/17 07:12; Start 12/31/16 at 09:00; Stop 01/01/17 at 14:21; Status DC Calcium Carbonate/ Glycine (Tums) 250 mg PRN Q4HRS PRN PO HEARTBURN / GAS; Start 12/31/16 at 09:00 Carvedilol (Coreg) 12.5 mg BIDWMEALS PO Last administered on 01/01/17 10:22; Start 12/31/16 at 09:30 Cetirizine HCl (Zyrtec) 10 mg HS PO Last administered on 12/31/16 21:26; Start 12/31/16 at 21:00 Docusate Sodium (Colace) 100 mg BID PO Last administered on 01/01/17 10:23; Start 12/31/16 at 09:30 Ferrous Sulfate (Feosol) 325 mg DAILYWBKFT PO Last administered on 01/01/17 10 :22; Start 12/31/16 at 12:00 Furosemide (Lasix) 20 mg DAILY PO Last administered on 12/31/16 10:11; Start 12/31/16 at 09:30; Stop 12/31/16 at 15:01; Status DC Albuterol/ Ipratropium (Duoneb) 3 ml PRN Q4HRS PRN IH WHEEZING Last administered on 01/01/17 03:11; Start 12/31/16 at 09:00 Latanoprost (Xalatan) 1 drop QHS OU ; Start 12/31/16 at 21:00; Status Cancel Levothyroxine Sodium (Synthroid) 150 mcg DAILY07 PO Last administered on 05:59; Start 12/31/16 at 10:30 Magnesium Hydroxide (Milk Of Magnesia) 2,400 mg PRN Q2HR PRN PO DYSPEPSIA; Start 12/31/16 at 09:00 Methylphenidate HCl (Ritalin) 5 mg BID PO Last administered on 01/01/17 10:24 ; Start 12/31/16 at 09:30 Pantoprazole Sodium (Protonix) 40 mg DAILYAC PO Last administered on 01/01/17 10:23; Start 12/31/16 at 11:30 Pregabalin (Lyrica) 75 mg BID PO Last administered on 01/01/17 10:23; Start at 09:30 Senna/Docusate Sodium (Senna Plus) 1 tab BID PO Last administered on 01/01/17 10:23; Start 12/31/16 at 09:30 Artificial Tears (Artificial Tears) 1 drop PRN QID PRN OU DRY EYE; Start at 09:45 Multivitamins (Thera M Plus) 1 tab DAILY PO Last administered on 01/01/17 10: 24; Start 12/31/16 at 10:00 Nystatin (Nystop) 1 angela BID TP Last administered on 01/01/17 10:24; Start at 10:00 Potassium Chloride (Klor-Con) 20 meq BIDWMEALS PO Last administered on 10:00; Start 12/31/16 at 10:00; Stop 12/31/16 at 15:01; Status DC Rivaroxaban (Xarelto) 20 mg DAILYWSUP PO Last administered on 12/31/16 17:17; Start 12/31/16 at 17:00 Latanoprost 1 drop 1 drop QHS OU Last administered on 12/31/16 21:27; Start at 21:00 Sodium Chloride 1,000 ml @ 75 mls/hr 1X ONCE IV Last administered on 10:08; Start 12/31/16 at 09:15; Stop 12/31/16 at 22:34; Status DC Ceftriaxone Sodium/Sodium Chloride (Rocephin/Iv Sodium Chloride 0.9% 50ml) 50 ml @ 100 mls/hr Q24H IV Last administered on 01/01/17 10:24; Start 12/31/16 at 10:00 Ondansetron HCl (Zofran) 4 mg PRN Q6HRS PRN IV NAUSEA/VOMITING; Start 12/31/16 at 09:15 Acetaminophen/ Hydrocodone Bitart (Lortab 5/325) 1 tab PRN Q4HRS PRN PO PAIN; Start 12/31/16 at 09:15 Info (Anti-Coagulation Monitoring By Pharmacy) 1 each PRN DAILY PRN MC SEE COMMENTS Last administered on 01/01/17 13:37; Start 12/31/16 at 09:45 Diclofenac Sodium 1 angela 1 angela BID TP Last administered on 01/01/17 01:14; Start 12/31/16 at 11:00 Amino Acids/ Electrolytes (Clinimix E 2.75%-5% Solution) 2,000 ml @ 80 mls/hr Q24H IV Last administered on 12/31/16 16:09; Start 12/31/16 at 15:15; Stop at 16:14 Cyanocobalamin 1000 mcg 1,000 mcg DAILY PO Last administered on 01/01/17 09:00 ; Start 01/01/17 at 08:30 Sodium Chloride (Iv Sodium Chloride 0.45%) 1,000 ml @ 75 mls/hr 1X ONCE IV Last administered on 3/23/17at 09:15; Start 01/01/17 at 09:15; Stop 01/01/17 at 22:34 Benzonatate (Tessalon Perle) 100 mg PRN TID PRN PO COUGH; Start 01/01/17 at 12: 30 Budesonide (Pulmicort) 0.5 mg BID NEB ; Start 01/01/17 at 21:00 Active Scripts Active Reported Zinc Oxide 30 Gm Oint...g. 30 Gm TP Xalatan (Latanoprost) 2.5 Ml Drops 1 Drop EACHEYE QHS Potassium Chloride Packet (Potassium Chloride) 20 Meq Packet 20 Meq PO BID Percocet 5-325 Mg Tablet (Oxycodone/Acetaminophen) 1 Each Tablet 1 Tab PO PRN Q6HRS PRN Zofran Odt (Ondansetron) 4 Mg Tab.rapdis 1 Tab SL BID Amlodipine Besylate 5 Mg Tablet 5 Mg PO DAILY Lasix (Furosemide) 20 Mg Tablet 1 Tab PO DAILY Ferrous Sulfate 325 Mg Tablet 1 Tab PO DAILY Coreg (Carvedilol) 12.5 Mg Tablet 1 Tab PO BID Budesonide 0.5 Mg/2 Ml Ampul.neb 1 Vial NEB BID Artificial Tears Eye Drops (Dextran 70/Hypromellose) 15 Ml Drops 1 Drop EACHEYE PRN QID PRN Xarelto (Rivaroxaban) 20 Mg Tablet 20 Mg PO DAILY Cetirizine Hcl 10 Mg Tablet 1 Tab PO HS Tessalon Perle (Benzonatate) 100 Mg Capsule 100 Mg PO TID PRN Multi-Day Vitamins (Multivitamin) 1 Each Tablet 1 Tab PO DAILY Milk Of Magnesia (Magnesium Hydroxide) 400 Mg/5 Ml Oral.susp 30 Ml PO Q2HR PRN Protonix (Pantoprazole Sodium) 40 Mg Tablet.dr 1 Tab PO DAILY Duoneb 0.5-3(2.5) Mg/3 Ml (Albuterol/Ipratropium) 3 Ml Ampul.neb 3 Ml IH Q4HRS PRN Nystatin 1 Each Powder.ea. 1 Each TOP BID to groin and inner thighs, apply barrier cream with zinc and nystatin powder after cleanse with warm water and pat dry Travatan Z (Travoprost) 5 Ml Drops 1 Drop EACHEYE QHS Synthroid (Levothyroxine Sodium) 150 Mcg Tablet 1 Tab PO DAILY Senna S Tablet (Sennosides/Docusate Sodium) 1 Each Tablet 1 Each PO BID Miralax (Polyethylene Glycol 3350) 17 Gm Powd.pack 1 Packet PO DAILY Methylphenidate Hcl 5 Mg Tablet 1 Tab PO BID Docusate Sodium 100 Mg Capsule 1 Cap PO BID Calcium Carbonate 200 Mg Tab.chew 200 Mg PO PRN Q4HRS PRN Tylenol (Acetaminophen) 325 Mg Tablet 2 Tab PO PRN Q4HRS PRN for headache, generalized pain or elevated temperature Vitals/I & O Vital Sign - Last 24 Hours 12/31/16 12/31/16 12/31/16 12/31/16 17:17 19:00 20:00 22:32 Temp 98.6 97.1 98.6 97.1 Pulse 78 77 72 Resp 18 B/P 131/73 133/75 121/76 Pulse Ox 94 96 O2 Delivery Nasal Cannula Nasal Cannula Nasal Cannula O2 Flow Rate 3.0 3.0 3.0 01/01/17 01/01/17 01/01/17 01/01/17 02:45 03:12 07:13 07:48 Temp 98.4 98.2 98.4 98.2 Pulse 77 73 Resp B/P 121/67 157/83 Pulse Ox 98 95 O2 Delivery Nasal Cannula Nasal Cannula Nasal Cannula Nasal Cannula O2 Flow Rate 3.0 3.0 3.0 3.0 01/01/17 01/01/17 01/01/17 01/01/17 08:00 10:22 10:23 11:00 Temp 97.6 97.6 Pulse 73 73 76 Resp 22 B/P 157/83 157/83 142/78 Pulse Ox 96 O2 Delivery Nasal Cannula Nasal Cannula O2 Flow Rate 3.0 3.0 Intake and Output 12/31/16 12/31/16 01/01/17 15:00 23:00 07:00 Intake Total 60 ml 100 ml Balance 60 ml 100 ml EMERALD NINO MD Jan 01, 2017 15:41
[2017-01-01] MEDS: RIVAROXABAN 10 MG TABLET. PO SCH (17:06)
[2017-01-01 19:00] VITALS: BP 131/77
[2017-01-01] MEDS: CETIRIZINE HCL 10 MG TABLET PO SCH (20:21)
[2017-01-01] MEDS: LATANOPROST 0.005% OPHTH SOLUTION 2.5ML BOTTLE. OU SCH (20:22)
[2017-01-01] MEDS: BUDESONIDE 0.5 MG/2 ML NEBU. NEB SCH (20:26)
[2017-01-01 23:00] VITALS: BP 149/83
[2017-01-02 04:39] LABS: BASO % 0 % (0-3); EOS % 4 % (0-3); HEMATOCRIT 28.9 % (36.0-47.0); HEMOGLOBIN 9.1 g/dL (12.0-15.5); LYMPH # 1.3 x10^3/uL (1.0-4.8); LYMPH % 37 % (24-48); MEAN CORPUSCULAR HEMOGLOBIN 29 pg (25-35); MEAN CORPUSCULAR HGB CONC 32 g/dL (31-37); MEAN CORPUSCULAR VOLUME 92 fL (79-100); MONO % 15 % (0-9); NEUT % 44 % (31-73); PLATELET COUNT 86 x10^3/uL (140-400); RED BLOOD COUNT 3.14 x10^6/uL (3.50-5.40); WHITE BLOOD COUNT 3.5 x10^3/uL (4.0-11.0)
[2017-01-02 05:06] LABS: BLOOD UREA NITROGEN 19 mg/dL (7-20); CALCIUM 8.6 mg/dL (8.5-10.1); CARBON DIOXIDE 41 mmol/L (21-32); CHLORIDE 105 mmol/L (98-107); CREATININE 0.6 mg/dL (0.6-1.0); GFR 119.6; GLUCOSE 119 mg/dL (70-99); POTASSIUM 4.5 mmol/L (3.5-5.1); SODIUM 145 mmol/L (136-145)
[2017-01-02] MEDS: LEVOTHYROXINE 150 MCG TABLET PO SCH (05:44)
[2017-01-02 07:50] VITALS: BP 148/71
[2017-01-02] MEDS: BUDESONIDE 0.5 MG/2 ML NEBU. NEB SCH ×3 (07:54→20:41)
[2017-01-02] MEDS: FERROUS SULFATE 325 MG TABLET PO SCH (08:33)
[2017-01-02] MEDS: PANTOPRAZOLE 40 MG TABLET. PO SCH (08:33)
[2017-01-02] MEDS: CYANOCOBALAMIN (VITAMIN B-12) 1,000 MCG TABLET. PO SCH (08:34)
[2017-01-02] MEDS: DOCUSATE SODIUM 100 MG CAPSULE PO SCH ×2 (08:34→21:41)
[2017-01-02] MEDS: AMLODIPINE BESYLATE 5 MG TABLET PO SCH (08:34)
[2017-01-02] MEDS: METHYLPHENIDATE HCL 5 MG TABLET PO SCH ×2 (08:34→21:41)
[2017-01-02] MEDS: MULTIVITAMIN with MINERAL TABLET. PO SCH (08:34)
[2017-01-02] MEDS: SENNOSIDES/DOCUSATE 8.6/50MG TABLET. PO SCH ×2 (08:36→21:41)
[2017-01-02] MEDS: CARVEDILOL 12.5 MG TABLET PO SCH ×2 (08:36→17:19)
[2017-01-02] MEDS: PREGABALIN 75 MG CAPSULE PO SCH ×2 (08:37→21:42)
[2017-01-02] MEDS: DICLOFENAC SODIUM 1% TOPICAL GEL 100GM TUBE. TP SCH ×2 (08:45→21:45)
[2017-01-02] MEDS: NYSTATIN TOPICAL POWDER 15GM BOTTLE. TP SCH ×2 (08:45→21:45)
--- NOTE | 2017-01-02 09:33 | PDOC ---
PROGRESS NOTES Subjective Subjective No new complaints. Objective Objective Vital Signs Date Time Temp Pulse Resp B/P Pulse Ox O2 Delivery O2 Flow Rate FiO2 01/02/17 08:36 75 148/71 01/02/17 07:55 Nasal Cannula 3.0 01/02/17 07:50 98.2 20 95 98.2 Intake and Output 01/02/17 07:00 Intake Total 2620 ml Balance 2620 ml Intake Oral 2620 ml # Voids 11 Physical Exam Physical Exam She is alert and seems to be in no acute distress,supine in bed but continues with stiffness and pain on ROM of extremity joints with generalized muscle weakness. Assessment Assessment Problems Medical Problems: (1) Altered mental status Status: Acute (2) Hyperkalemia Status: Acute (3) Urinary tract infection Status: Acute Plan Plan of Care To NH when medically stable. Comment Review of Relevant I have reviewed the following items vivian (where applicable) has been applied. Labs Laboratory Tests Test 01/01/17 04:20 01/01/17 08:40 01/02/17 04:15 White Blood Count 3.4x10^3/uL (4.0-11.0) 3.5x10^3/uL (4.0-11.0) Red Blood Count 3.20x10^6/uL (3.50-5.40) 3.14x10^6/uL (3.50-5.40) Hemoglobin 9.4g/dL (12.0-15.5) 9.1g/dL (12.0-15.5) Hematocrit 29.1% (36.0-47.0) 28.9% (36.0-47.0) Mean Corpuscular Volume 91fL (79-100) 92fL (79-100) Mean Corpuscular Hemoglobin 29pg (25-35) 29pg (25-35) Mean Corpuscular Hemoglobin Concent 32g/dL (31-37) 32g/dL (31-37) Red Cell Distribution Width 15.0% (11.5-14.5) 15.0% (11.5-14.5) Platelet Count 90x10^3/uL (140-400) 86x10^3/uL (140-400) Neutrophils (%) (Auto) 49% (31-73) 44% (31-73) Lymphocytes (%) (Auto) 35% (24-48) 37% (24-48) Monocytes (%) (Auto) 12% (0-9) 15% (0-9) Eosinophils (%) (Auto) 4% (0-3) 4% (0-3) Basophils (%) (Auto) 1% (0-3) 0% (0-3) Neutrophils # (Auto) 1.7x10^3uL (1.8-7.7) 1.5x10^3uL (1.8-7.7) Lymphocytes # (Auto) 1.2x10^3/uL (1.0-4.8) 1.3x10^3/uL (1.0-4.8) Monocytes # (Auto) 0.4x10^3/uL (0.0-1.1) 0.5x10^3/uL (0.0-1.1) Eosinophils # (Auto) 0.1x10^3/uL (0.0-0.7) 0.1x10^3/uL (0.0-0.7) Basophils # (Auto) 0.0x10^3/uL (0.0-0.2) 0.0x10^3/uL (0.0-0.2) Sodium Level 146mmol/L (136-145) 145mmol/L (136-145) Potassium Level 4.4mmol/L (3.5-5.1) 4.5mmol/L (3.5-5.1) Chloride Level 103mmol/L (98-107) 105mmol/L (98-107) Carbon Dioxide Level 42mmol/L (21-32) 41mmol/L (21-32) Anion Gap 1 (6-14) (6-14) Blood Urea Nitrogen 21mg/dL (7-20) 19mg/dL (7-20) Creatinine 0.7mg/dL (0.6-1.0) 0.6mg/dL (0.6-1.0) Estimated GFR (Cockcroft-Gault) 100.1 119.6 Glucose Level 167mg/dL (70-99) 119mg/dL (70-99) Calcium Level 8.5mg/dL (8.5-10.1) 8.6mg/dL (8.5-10.1) Vitamin B12 Level 327pg/mL (247-911) Thyroid Stimulating Hormone (TSH) 1.357uIU/mL (0.358-3.74) Nasal Screen MRSA (PCR) Negative (Negative) Laboratory Tests Test 01/02/17 04:15 White Blood Count 3.5x10^3/uL (4.0-11.0) Red Blood Count 3.14x10^6/uL (3.50-5.40) Hemoglobin 9.1g/dL (12.0-15.5) Hematocrit 28.9% (36.0-47.0) Mean Corpuscular Volume 92fL (79-100) Mean Corpuscular Hemoglobin 29pg (25-35) Mean Corpuscular Hemoglobin Concent 32g/dL (31-37) Red Cell Distribution Width 15.0% (11.5-14.5) Platelet Count 86x10^3/uL (140-400) Neutrophils (%) (Auto) 44% (31-73) Lymphocytes (%) (Auto) 37% (24-48) Monocytes (%) (Auto) 15% (0-9) Eosinophils (%) (Auto) 4% (0-3) Basophils (%) (Auto) 0% (0-3) Neutrophils # (Auto) 1.5x10^3uL (1.8-7.7) Lymphocytes # (Auto) 1.3x10^3/uL (1.0-4.8) Monocytes # (Auto) 0.5x10^3/uL (0.0-1.1) Eosinophils # (Auto) 0.1x10^3/uL (0.0-0.7) Basophils # (Auto) 0.0x10^3/uL (0.0-0.2) Sodium Level 145mmol/L (136-145) Potassium Level 4.5mmol/L (3.5-5.1) Chloride Level 105mmol/L (98-107) Carbon Dioxide Level 41mmol/L (21-32) Anion Gap (6-14) Blood Urea Nitrogen 19mg/dL (7-20) Creatinine 0.6mg/dL (0.6-1.0) Estimated GFR (Cockcroft-Gault) 119.6 Glucose Level 119mg/dL (70-99) Calcium Level 8.6mg/dL (8.5-10.1) Microbiology 12/30/16 Blood Culture - Preliminary, Resulted NO GROWTH AFTER 2 DAYS 12/30/16 Urine Culture - Final, Complete 12/30/16 Urine Culture Result 1 (ALISSA) - Final, Complete 12/30/16 Antimicrobic Susceptibility - Final, Complete Medications Current Medications Sodium Chloride (Iv Sodium Chloride 0.9% 1000ml Bag) 1,000 ml @ 1,000 mls/hr 1X ONCE IV Last administered on 12/30/16 12:00; Start 12/30/16 at 11:30; Stop 12/30/16 at 12:29; Status DC Insulin Human Regular (Novolin R Vial) 10 unit 1X ONCE IV Last administered on 12/30/16 13:17; Start 12/30/16 at 12:30; Stop 12/30/16 at 12:31; Status DC Dextrose 25 gm 25 gm 1X ONCE IV Last administered on 12/30/16 13:14; Start at 12:30; Stop 12/30/16 at 12:31; Status DC Sodium Bicarbonate 50 meq/Dextrose 1,050 ml @ 125 mls/hr Q8H24M IV ; Start at 12:45; Status Cancel Ceftriaxone Sodium (Rocephin 1gm Ivpb For Omni) 50 ml @ 100 mls/hr 1X ONCE IV Last administered on 12/30/16 13:20; Start 12/30/16 at 12:30; Stop 12/30/16 at 12:59; Status DC Ondansetron HCl 4 mg 4 mg PRN Q8HRS PRN IV NAUSEA/VOMITING; Start 12/30/16 at 12:45; Stop 12/31/16 at 12:44; Status DC Sodium Chloride (Iv Sodium Chloride 0.9% 1000ml Bag) 1,000 ml @ 125 mls/hr Q8H IV ; Start 12/30/16 at 12:43; Stop 12/30/16 at 13:15; Status DC Acetaminophen (Tylenol) 650 mg PRN Q4HRS PRN PO FEVER; Start 12/30/16 at 12:45 ; Stop 12/31/16 at 12:44; Status DC Sodium Bicarbonate 50 meq 50 meq 1X ONCE IV Last administered on 12/30/16 13: 19; Start 12/30/16 at 13:15; Stop 12/30/16 at 13:16; Status DC Dextrose/Sodium Chloride (Iv D5% - 1/2 NS) 1,000 ml @ 100 mls/hr 1X ONCE IV Last administered on 12/30/16 15:37; Start 12/30/16 at 13:15; Stop 12/30/16 at 23:14; Status DC Sodium Polystyrene Sulfonate (Kayexalate) 30 gm 1X PRN PRN PO if repeat K > 5.2 ; Start 12/30/16 at 18:00 Albuterol Sulfate (Ventolin Neb Soln) 2.5 mg PRN Q6HRS PRN NEB SHORTNESS OF BREATH Last administered on 12/31/16 03:51; Start 12/31/16 at 03:45 Acetaminophen (Tylenol) 325 mg PRN Q4HRS PRN PO FEVER; Start 12/31/16 at 09:00 Amlodipine Besylate (Norvasc) 5 mg DAILY PO Last administered on 01/02/17 08: 34; Start 12/31/16 at 09:00 Benzonatate (Tessalon Perle) 100 mg PRN TID PRN PO COUGH; Start 12/31/16 at 09: 00; Stop 01/01/17 at 12:16; Status DC Budesonide (Pulmicort) 0.5 mg BID NEB Last administered on 01/01/17 07:12; Start 12/31/16 at 09:00; Stop 01/01/17 at 14:21; Status DC Calcium Carbonate/ Glycine (Tums) 250 mg PRN Q4HRS PRN PO HEARTBURN / GAS; Start 12/31/16 at 09:00 Carvedilol (Coreg) 12.5 mg BIDWMEALS PO Last administered on 01/02/17 08:36; Start 12/31/16 at 09:30 Cetirizine HCl (Zyrtec) 10 mg HS PO Last administered on 01/01/17 20:21; Start 12/31/16 at 21:00 Docusate Sodium (Colace) 100 mg BID PO Last administered on 01/02/17 08:34; Start 12/31/16 at 09:30 Ferrous Sulfate (Feosol) 325 mg DAILYWBKFT PO Last administered on 01/02/17 08 :33; Start 12/31/16 at 12:00 Furosemide (Lasix) 20 mg DAILY PO Last administered on 12/31/16 10:11; Start 12/31/16 at 09:30; Stop 12/31/16 at 15:01; Status DC Albuterol/ Ipratropium (Duoneb) 3 ml PRN Q4HRS PRN IH WHEEZING Last administered on 01/01/17 03:11; Start 12/31/16 at 09:00 Latanoprost (Xalatan) 1 drop QHS OU ; Start 12/31/16 at 21:00; Status Cancel Levothyroxine Sodium (Synthroid) 150 mcg DAILY07 PO Last administered on 05:44; Start 12/31/16 at 10:30 Magnesium Hydroxide (Milk Of Magnesia) 2,400 mg PRN Q2HR PRN PO DYSPEPSIA; Start 12/31/16 at 09:00 Methylphenidate HCl (Ritalin) 5 mg BID PO Last administered on 01/02/17 08:34 ; Start 12/31/16 at 09:30 Pantoprazole Sodium (Protonix) 40 mg DAILYAC PO Last administered on 01/02/17 08:33; Start 12/31/16 at 11:30 Pregabalin (Lyrica) 75 mg BID PO Last administered on 01/02/17 08:37; Start at 09:30 Senna/Docusate Sodium (Senna Plus) 1 tab BID PO Last administered on 01/02/17 08:36; Start 12/31/16 at 09:30 Artificial Tears (Artificial Tears) 1 drop PRN QID PRN OU DRY EYE; Start at 09:45 Multivitamins (Thera M Plus) 1 tab DAILY PO Last administered on 01/02/17 08: 34; Start 12/31/16 at 10:00 Nystatin (Nystop) 1 angela BID TP Last administered on 01/02/17 08:45; Start at 10:00 Potassium Chloride (Klor-Con) 20 meq BIDWMEALS PO Last administered on 10:00; Start 12/31/16 at 10:00; Stop 12/31/16 at 15:01; Status DC Rivaroxaban (Xarelto) 20 mg DAILYWSUP PO Last administered on 01/01/17 17:06; Start 12/31/16 at 17:00 Latanoprost 1 drop 1 drop QHS OU Last administered on 01/01/17 20:22; Start at 21:00 Sodium Chloride 1,000 ml @ 75 mls/hr 1X ONCE IV Last administered on 10:08; Start 12/31/16 at 09:15; Stop 12/31/16 at 22:34; Status DC Ceftriaxone Sodium/Sodium Chloride (Rocephin/Iv Sodium Chloride 0.9% 50ml) 50 ml @ 100 mls/hr Q24H IV Last administered on 01/01/17 10:24; Start 12/31/16 at 10:00 Ondansetron HCl (Zofran) 4 mg PRN Q6HRS PRN IV NAUSEA/VOMITING; Start 12/31/16 at 09:15 Acetaminophen/ Hydrocodone Bitart (Lortab 5/325) 1 tab PRN Q4HRS PRN PO PAIN; Start 12/31/16 at 09:15 Info (Anti-Coagulation Monitoring By Pharmacy) 1 each PRN DAILY PRN MC SEE COMMENTS Last administered on 01/01/17 13:37; Start 12/31/16 at 09:45 Diclofenac Sodium 1 angela 1 angela BID TP Last administered on 01/02/17 08:45; Start 12/31/16 at 11:00 Amino Acids/ Electrolytes (Clinimix E 2.75%-5% Solution) 2,000 ml @ 80 mls/hr Q24H IV Last administered on 12/31/16 16:09; Start 12/31/16 at 15:15; Stop at 16:14; Status DC Cyanocobalamin 1000 mcg 1,000 mcg DAILY PO Last administered on 01/02/17 08:34 ; Start 01/01/17 at 08:30 Sodium Chloride (Iv Sodium Chloride 0.45%) 1,000 ml @ 75 mls/hr 1X ONCE IV Last administered on 01/01/17 09:15; Start 01/01/17 at 09:15; Stop 3/23/17 at 22:34; Status DC Benzonatate (Tessalon Perle) 100 mg PRN TID PRN PO COUGH; Start 01/01/17 at 12: 30 Budesonide (Pulmicort) 0.5 mg BID NEB Last administered on 01/02/17t 07:54; Start 01/01/17 at 21:00 Active Scripts Active Reported Zinc Oxide 30 Gm Oint...g. 30 Gm TP Xalatan (Latanoprost) 2.5 Ml Drops 1 Drop EACHEYE QHS Potassium Chloride Packet (Potassium Chloride) 20 Meq Packet 20 Meq PO BID Percocet 5-325 Mg Tablet (Oxycodone/Acetaminophen) 1 Each Tablet 1 Tab PO PRN Q6HRS PRN Zofran Odt (Ondansetron) 4 Mg Tab.rapdis 1 Tab SL BID Amlodipine Besylate 5 Mg Tablet 5 Mg PO DAILY Lasix (Furosemide) 20 Mg Tablet 1 Tab PO DAILY Ferrous Sulfate 325 Mg Tablet 1 Tab PO DAILY Coreg (Carvedilol) 12.5 Mg Tablet 1 Tab PO BID Budesonide 0.5 Mg/2 Ml Ampul.neb 1 Vial NEB BID Artificial Tears Eye Drops (Dextran 70/Hypromellose) 15 Ml Drops 1 Drop EACHEYE PRN QID PRN Xarelto (Rivaroxaban) 20 Mg Tablet 20 Mg PO DAILY Cetirizine Hcl 10 Mg Tablet 1 Tab PO HS Tessalon Perle (Benzonatate) 100 Mg Capsule 100 Mg PO TID PRN Multi-Day Vitamins (Multivitamin) 1 Each Tablet 1 Tab PO DAILY Milk Of Magnesia (Magnesium Hydroxide) 400 Mg/5 Ml Oral.susp 30 Ml PO Q2HR PRN Protonix (Pantoprazole Sodium) 40 Mg Tablet.dr 1 Tab PO DAILY Duoneb 0.5-3(2.5) Mg/3 Ml (Albuterol/Ipratropium) 3 Ml Ampul.neb 3 Ml IH Q4HRS PRN Nystatin 1 Each Powder.ea. 1 Each TOP BID to groin and inner thighs, apply barrier cream with zinc and nystatin powder after cleanse with warm water and pat dry Travatan Z (Travoprost) 5 Ml Drops 1 Drop EACHEYE QHS Synthroid (Levothyroxine Sodium) 150 Mcg Tablet 1 Tab PO DAILY Senna S Tablet (Sennosides/Docusate Sodium) 1 Each Tablet 1 Each PO BID Miralax (Polyethylene Glycol 3350) 17 Gm Powd.pack 1 Packet PO DAILY Methylphenidate Hcl 5 Mg Tablet 1 Tab PO BID Docusate Sodium 100 Mg Capsule 1 Cap PO BID Calcium Carbonate 200 Mg Tab.chew 200 Mg PO PRN Q4HRS PRN Tylenol (Acetaminophen) 325 Mg Tablet 2 Tab PO PRN Q4HRS PRN for headache, generalized pain or elevated temperature Vitals/I & O Vital Sign - Last 24 Hours 01/01/17 01/01/17 01/01/17 01/01/17 10:22 10:23 11:00 15:00 Temp 97.6 98.4 97.6 98.4 Pulse 73 73 76 86 Resp 24 B/P 157/83 157/83 142/78 146/83 Pulse Ox 96 97 O2 Delivery Nasal Cannula Nasal Cannula O2 Flow Rate 3.0 3.0 01/01/17 01/01/17 01/01/17 01/01/17 17:06 19:00 20:25 20:41 Temp 97.6 97.6 Pulse 86 75 Resp 20 B/P 146/83 131/77 Pulse Ox 99 O2 Delivery Nasal Cannula Nasal Cannula Nasal Cannula O2 Flow Rate 3.0 3.0 3.0 01/01/17 01/02/17 01/02/17 01/02/17 23:00 07:50 07:55 08:34 Temp 98.2 98.2 98.2 98.2 Pulse 74 75 75 Resp 20 20 B/P 149/83 148/71 148/71 Pulse Ox 100 95 O2 Delivery Room Air Nasal Cannula Nasal Cannula O2 Flow Rate 3.0 3.0 01/02/17 08:36 Pulse 75 B/P 148/71 Intake and Output 01/01/17 01/01/17 01/02/17 15:00 23:00 07:00 Intake Total 360 ml 1560 ml 700 ml Balance 360 ml 1560 ml 700 ml EMERALD NINO MD Jan 02, 2017 09:33
--- NOTE | 2017-01-02 10:05 | PDOC ---
PROGRESS NOTES Assessment Problems Medical Problems: (1) Altered mental status Status: Acute (2) Hyperkalemia Status: Acute (3) Urinary tract infection Status: Acute Long-standing dementia, consistent with Alzheimer's, more than 10 years, with acute changes possibly due to urinary tract infection A diagnosis of narcolepsy, clearly a mistake as narcolepsy does not start an demented people who simply are falling asleep in the wheelchair, but rather is a nearly lifelong condition as diagnosed by a professional sleep specialist. Nearly immobile due to arthritis, she is bedfast. Plan Discussed with Latasha No additional neurological studies needed Okay for discharge back to [place] Subjective no complaints Objective Vital Signs Date Time Temp Pulse Resp B/P Pulse Ox O2 Delivery O2 Flow Rate FiO2 01/02/17 08:36 75 148/71 01/02/17 07:55 Nasal Cannula 3.0 01/02/17 07:50 98.2 20 95 98.2 Intake and Output 01/02/17 07:00 Intake Total 2620 ml Balance 2620 ml Intake Oral 2620 ml # Voids 11 PHYSICAL EXAM Alert. Oriented to person, remembers seeing me. PERRL. EOMI. CN: no focal findings. Muscle tone: normal. Muscle strength: 4/5 DTR: 1+ Plantar reflex: flexor Gait: not examined in bed. Sensory exam: no abnormal findings. No cerebellar signs elicited. Review of Relevant I have reviewed the following items vivian (where applicable) has been applied. Labs Laboratory Tests Test 01/01/17 04:20 01/01/17 08:40 01/02/17 04:15 White Blood Count 3.4x10^3/uL (4.0-11.0) 3.5x10^3/uL (4.0-11.0) Red Blood Count 3.20x10^6/uL (3.50-5.40) 3.14x10^6/uL (3.50-5.40) Hemoglobin 9.4g/dL (12.0-15.5) 9.1g/dL (12.0-15.5) Hematocrit 29.1% (36.0-47.0) 28.9% (36.0-47.0) Mean Corpuscular Volume 91fL (79-100) 92fL (79-100) Mean Corpuscular Hemoglobin 29pg (25-35) 29pg (25-35) Mean Corpuscular Hemoglobin Concent 32g/dL (31-37) 32g/dL (31-37) Red Cell Distribution Width 15.0% (11.5-14.5) 15.0% (11.5-14.5) Platelet Count 90x10^3/uL (140-400) 86x10^3/uL (140-400) Neutrophils (%) (Auto) 49% (31-73) 44% (31-73) Lymphocytes (%) (Auto) 35% (24-48) 37% (24-48) Monocytes (%) (Auto) 12% (0-9) 15% (0-9) Eosinophils (%) (Auto) 4% (0-3) 4% (0-3) Basophils (%) (Auto) 1% (0-3) 0% (0-3) Neutrophils # (Auto) 1.7x10^3uL (1.8-7.7) 1.5x10^3uL (1.8-7.7) Lymphocytes # (Auto) 1.2x10^3/uL (1.0-4.8) 1.3x10^3/uL (1.0-4.8) Monocytes # (Auto) 0.4x10^3/uL (0.0-1.1) 0.5x10^3/uL (0.0-1.1) Eosinophils # (Auto) 0.1x10^3/uL (0.0-0.7) 0.1x10^3/uL (0.0-0.7) Basophils # (Auto) 0.0x10^3/uL (0.0-0.2) 0.0x10^3/uL (0.0-0.2) Sodium Level 146mmol/L (136-145) 145mmol/L (136-145) Potassium Level 4.4mmol/L (3.5-5.1) 4.5mmol/L (3.5-5.1) Chloride Level 103mmol/L (98-107) 105mmol/L (98-107) Carbon Dioxide Level 42mmol/L (21-32) 41mmol/L (21-32) Anion Gap 1 (6-14) (6-14) Blood Urea Nitrogen 21mg/dL (7-20) 19mg/dL (7-20) Creatinine 0.7mg/dL (0.6-1.0) 0.6mg/dL (0.6-1.0) Estimated GFR (Cockcroft-Gault) 100.1 119.6 Glucose Level 167mg/dL (70-99) 119mg/dL (70-99) Calcium Level 8.5mg/dL (8.5-10.1) 8.6mg/dL (8.5-10.1) Vitamin B12 Level 327pg/mL (247-911) Thyroid Stimulating Hormone (TSH) 1.357uIU/mL (0.358-3.74) Nasal Screen MRSA (PCR) Negative (Negative) Laboratory Tests Test 01/02/17 04:15 White Blood Count 3.5x10^3/uL (4.0-11.0) Red Blood Count 3.14x10^6/uL (3.50-5.40) Hemoglobin 9.1g/dL (12.0-15.5) Hematocrit 28.9% (36.0-47.0) Mean Corpuscular Volume 92fL (79-100) Mean Corpuscular Hemoglobin 29pg (25-35) Mean Corpuscular Hemoglobin Concent 32g/dL (31-37) Red Cell Distribution Width 15.0% (11.5-14.5) Platelet Count 86x10^3/uL (140-400) Neutrophils (%) (Auto) 44% (31-73) Lymphocytes (%) (Auto) 37% (24-48) Monocytes (%) (Auto) 15% (0-9) Eosinophils (%) (Auto) 4% (0-3) Basophils (%) (Auto) 0% (0-3) Neutrophils # (Auto) 1.5x10^3uL (1.8-7.7) Lymphocytes # (Auto) 1.3x10^3/uL (1.0-4.8) Monocytes # (Auto) 0.5x10^3/uL (0.0-1.1) Eosinophils # (Auto) 0.1x10^3/uL (0.0-0.7) Basophils # (Auto) 0.0x10^3/uL (0.0-0.2) Sodium Level 145mmol/L (136-145) Potassium Level 4.5mmol/L (3.5-5.1) Chloride Level 105mmol/L (98-107) Carbon Dioxide Level 41mmol/L (21-32) Anion Gap (6-14) Blood Urea Nitrogen 19mg/dL (7-20) Creatinine 0.6mg/dL (0.6-1.0) Estimated GFR (Cockcroft-Gault) 119.6 Glucose Level 119mg/dL (70-99) Calcium Level 8.6mg/dL (8.5-10.1) Microbiology 12/30/16 Blood Culture - Preliminary, Resulted NO GROWTH AFTER 2 DAYS 12/30/16 Urine Culture - Final, Complete 12/30/16 Urine Culture Result 1 (ALISSA) - Final, Complete 12/30/16 Antimicrobic Susceptibility - Final, Complete Medications Current Medications Sodium Chloride (Iv Sodium Chloride 0.9% 1000ml Bag) 1,000 ml @ 1,000 mls/hr 1X ONCE IV Last administered on 12/30/16 12:00; Start 12/30/16 at 11:30; Stop 12/30/16 at 12:29; Status DC Insulin Human Regular (Novolin R Vial) 10 unit 1X ONCE IV Last administered on 12/30/16 13:17; Start 12/30/16 at 12:30; Stop 12/30/16 at 12:31; Status DC Dextrose 25 gm 25 gm 1X ONCE IV Last administered on 12/30/16 13:14; Start at 12:30; Stop 12/30/16 at 12:31; Status DC Sodium Bicarbonate 50 meq/Dextrose 1,050 ml @ 125 mls/hr Q8H24M IV ; Start at 12:45; Status Cancel Ceftriaxone Sodium (Rocephin 1gm Ivpb For Omni) 50 ml @ 100 mls/hr 1X ONCE IV Last administered on 12/30/16 13:20; Start 12/30/16 at 12:30; Stop 12/30/16 at 12:59; Status DC Ondansetron HCl 4 mg 4 mg PRN Q8HRS PRN IV NAUSEA/VOMITING; Start 12/30/16 at 12:45; Stop 12/31/16 at 12:44; Status DC Sodium Chloride (Iv Sodium Chloride 0.9% 1000ml Bag) 1,000 ml @ 125 mls/hr Q8H IV ; Start 12/30/16 at 12:43; Stop 12/30/16 at 13:15; Status DC Acetaminophen (Tylenol) 650 mg PRN Q4HRS PRN PO FEVER; Start 12/30/16 at 12:45 ; Stop 12/31/16 at 12:44; Status DC Sodium Bicarbonate 50 meq 50 meq 1X ONCE IV Last administered on 12/30/16 13: 19; Start 12/30/16 at 13:15; Stop 12/30/16 at 13:16; Status DC Dextrose/Sodium Chloride (Iv D5% - 1/2 NS) 1,000 ml @ 100 mls/hr 1X ONCE IV Last administered on 12/30/16 15:37; Start 12/30/16 at 13:15; Stop 12/30/16 at 23:14; Status DC Sodium Polystyrene Sulfonate (Kayexalate) 30 gm 1X PRN PRN PO if repeat K > 5.2 ; Start 12/30/16 at 18:00 Albuterol Sulfate (Ventolin Neb Soln) 2.5 mg PRN Q6HRS PRN NEB SHORTNESS OF BREATH Last administered on 12/31/16 03:51; Start 12/31/16 at 03:45 Acetaminophen (Tylenol) 325 mg PRN Q4HRS PRN PO FEVER; Start 12/31/16 at 09:00 Amlodipine Besylate (Norvasc) 5 mg DAILY PO Last administered on 01/02/17 08: 34; Start 12/31/16 at 09:00 Benzonatate (Tessalon Perle) 100 mg PRN TID PRN PO COUGH; Start 12/31/16 at 09: 00; Stop 01/01/17 at 12:16; Status DC Budesonide (Pulmicort) 0.5 mg BID NEB Last administered on 01/01/17 07:12; Start 12/31/16 at 09:00; Stop 01/01/17 at 14:21; Status DC Calcium Carbonate/ Glycine (Tums) 250 mg PRN Q4HRS PRN PO HEARTBURN / GAS; Start 12/31/16 at 09:00 Carvedilol (Coreg) 12.5 mg BIDWMEALS PO Last administered on 01/02/17 08:36; Start 12/31/16 at 09:30 Cetirizine HCl (Zyrtec) 10 mg HS PO Last administered on 01/01/17 20:21; Start 12/31/16 at 21:00 Docusate Sodium (Colace) 100 mg BID PO Last administered on 01/02/17 08:34; Start 12/31/16 at 09:30 Ferrous Sulfate (Feosol) 325 mg DAILYWBKFT PO Last administered on 01/02/17 08 :33; Start 12/31/16 at 12:00 Furosemide (Lasix) 20 mg DAILY PO Last administered on 12/31/16 10:11; Start 12/31/16 at 09:30; Stop 12/31/16 at 15:01; Status DC Albuterol/ Ipratropium (Duoneb) 3 ml PRN Q4HRS PRN IH WHEEZING Last administered on 01/01/17 03:11; Start 12/31/16 at 09:00 Latanoprost (Xalatan) 1 drop QHS OU ; Start 12/31/16 at 21:00; Status Cancel Levothyroxine Sodium (Synthroid) 150 mcg DAILY07 PO Last administered on 05:44; Start 12/31/16 at 10:30 Magnesium Hydroxide (Milk Of Magnesia) 2,400 mg PRN Q2HR PRN PO DYSPEPSIA; Start 12/31/16 at 09:00 Methylphenidate HCl (Ritalin) 5 mg BID PO Last administered on 01/02/17 08:34 ; Start 12/31/16 at 09:30 Pantoprazole Sodium (Protonix) 40 mg DAILYAC PO Last administered on 01/02/17 08:33; Start 12/31/16 at 11:30 Pregabalin (Lyrica) 75 mg BID PO Last administered on 01/02/17 08:37; Start at 09:30 Senna/Docusate Sodium (Senna Plus) 1 tab BID PO Last administered on 01/02/17 08:36; Start 12/31/16 at 09:30 Artificial Tears (Artificial Tears) 1 drop PRN QID PRN OU DRY EYE; Start at 09:45 Multivitamins (Thera M Plus) 1 tab DAILY PO Last administered on 01/02/17 08: 34; Start 12/31/16 at 10:00 Nystatin (Nystop) 1 angela BID TP Last administered on 01/02/17 08:45; Start at 10:00 Potassium Chloride (Klor-Con) 20 meq BIDWMEALS PO Last administered on 10:00; Start 12/31/16 at 10:00; Stop 12/31/16 at 15:01; Status DC Rivaroxaban (Xarelto) 20 mg DAILYWSUP PO Last administered on 01/01/17 17:06; Start 12/31/16 at 17:00 Latanoprost 1 drop 1 drop QHS OU Last administered on 01/01/17 20:22; Start at 21:00 Sodium Chloride 1,000 ml @ 75 mls/hr 1X ONCE IV Last administered on 10:08; Start 12/31/16 at 09:15; Stop 12/31/16 at 22:34; Status DC Ceftriaxone Sodium/Sodium Chloride (Rocephin/Iv Sodium Chloride 0.9% 50ml) 50 ml @ 100 mls/hr Q24H IV Last administered on 01/01/17 10:24; Start 12/31/16 at 10:00 Ondansetron HCl (Zofran) 4 mg PRN Q6HRS PRN IV NAUSEA/VOMITING; Start 12/31/16 at 09:15 Acetaminophen/ Hydrocodone Bitart (Lortab 5/325) 1 tab PRN Q4HRS PRN PO PAIN; Start 12/31/16 at 09:15 Info (Anti-Coagulation Monitoring By Pharmacy) 1 each PRN DAILY PRN MC SEE COMMENTS Last administered on 01/01/17 13:37; Start 12/31/16 at 09:45 Diclofenac Sodium 1 angela 1 angela BID TP Last administered on 01/02/17 08:45; Start 12/31/16 at 11:00 Amino Acids/ Electrolytes (Clinimix E 2.75%-5% Solution) 2,000 ml @ 80 mls/hr Q24H IV Last administered on 12/31/16 16:09; Start 12/31/16 at 15:15; Stop at 16:14; Status DC Cyanocobalamin 1000 mcg 1,000 mcg DAILY PO Last administered on 01/02/17 08:34 ; Start 01/01/17 at 08:30 Sodium Chloride (Iv Sodium Chloride 0.45%) 1,000 ml @ 75 mls/hr 1X ONCE IV Last administered on 01/01/17 09:15; Start 01/01/17 at 09:15; Stop 01/01/17 at 22:34; Status DC Benzonatate (Tessalon Perle) 100 mg PRN TID PRN PO COUGH; Start 01/01/17 at 12: 30 Budesonide (Pulmicort) 0.5 mg BID NEB Last administered on 01/02/17 07:54; Start 01/01/17 at 21:00 Active Scripts Active Reported Zinc Oxide 30 Gm Oint...g. 30 Gm TP Xalatan (Latanoprost) 2.5 Ml Drops 1 Drop EACHEYE QHS Potassium Chloride Packet (Potassium Chloride) 20 Meq Packet 20 Meq PO BID Percocet 5-325 Mg Tablet (Oxycodone/Acetaminophen) 1 Each Tablet 1 Tab PO PRN Q6HRS PRN Zofran Odt (Ondansetron) 4 Mg Tab.rapdis 1 Tab SL BID Amlodipine Besylate 5 Mg Tablet 5 Mg PO DAILY Lasix (Furosemide) 20 Mg Tablet 1 Tab PO DAILY Ferrous Sulfate 325 Mg Tablet 1 Tab PO DAILY Coreg (Carvedilol) 12.5 Mg Tablet 1 Tab PO BID Budesonide 0.5 Mg/2 Ml Ampul.neb 1 Vial NEB BID Artificial Tears Eye Drops (Dextran 70/Hypromellose) 15 Ml Drops 1 Drop EACHEYE PRN QID PRN Xarelto (Rivaroxaban) 20 Mg Tablet 20 Mg PO DAILY Cetirizine Hcl 10 Mg Tablet 1 Tab PO HS Tessalon Perle (Benzonatate) 100 Mg Capsule 100 Mg PO TID PRN Multi-Day Vitamins (Multivitamin) 1 Each Tablet 1 Tab PO DAILY Milk Of Magnesia (Magnesium Hydroxide) 400 Mg/5 Ml Oral.susp 30 Ml PO Q2HR PRN Protonix (Pantoprazole Sodium) 40 Mg Tablet.dr 1 Tab PO DAILY Duoneb 0.5-3(2.5) Mg/3 Ml (Albuterol/Ipratropium) 3 Ml Ampul.neb 3 Ml IH Q4HRS PRN Nystatin 1 Each Powder.ea. 1 Each TOP BID to groin and inner thighs, apply barrier cream with zinc and nystatin powder after cleanse with warm water and pat dry Travatan Z (Travoprost) 5 Ml Drops 1 Drop EACHEYE QHS Synthroid (Levothyroxine Sodium) 150 Mcg Tablet 1 Tab PO DAILY Senna S Tablet (Sennosides/Docusate Sodium) 1 Each Tablet 1 Each PO BID Miralax (Polyethylene Glycol 3350) 17 Gm Powd.pack 1 Packet PO DAILY Methylphenidate Hcl 5 Mg Tablet 1 Tab PO BID Docusate Sodium 100 Mg Capsule 1 Cap PO BID Calcium Carbonate 200 Mg Tab.chew 200 Mg PO PRN Q4HRS PRN Tylenol (Acetaminophen) 325 Mg Tablet 2 Tab PO PRN Q4HRS PRN for headache, generalized pain or elevated temperature Vitals/I & O Vital Sign - Last 24 Hours 01/01/17 01/01/17 01/01/17 01/01/17 10:22 10:23 11:00 15:00 Temp 97.6 98.4 97.6 98.4 Pulse 73 73 76 86 Resp 24 B/P 157/83 157/83 142/78 146/83 Pulse Ox 96 97 O2 Delivery Nasal Cannula Nasal Cannula O2 Flow Rate 3.0 3.0 01/01/17 01/01/17 01/01/17 01/01/17 17:06 19:00 20:25 20:41 Temp 97.6 97.6 Pulse 86 75 Resp 20 B/P 146/83 131/77 Pulse Ox 99 O2 Delivery Nasal Cannula Nasal Cannula Nasal Cannula O2 Flow Rate 3.0 3.0 3.0 01/01/17 01/02/17 01/02/17 01/02/17 23:00 07:50 07:55 08:34 Temp 98.2 98.2 98.2 98.2 Pulse 74 75 75 Resp 20 20 B/P 149/83 148/71 148/71 Pulse Ox 100 95 O2 Delivery Room Air Nasal Cannula Nasal Cannula O2 Flow Rate 3.0 3.0 01/02/17 08:36 Pulse 75 B/P 148/71 Intake and Output 01/01/17 01/01/17 01/02/17 15:00 23:00 07:00 Intake Total 360 ml 1560 ml 700 ml Balance 360 ml 1560 ml 700 ml RICHARD SANCHEZ MD Jan 02, 2017 10:05
--- NOTE | 2017-01-02 10:16 | PDOC ---
PROGRESS NOTES Chief Complaint Chief Complaint AMS with baseline dementia, likely fluctuating dementia possible UTI obesity, BMI 35 weakness and debility ankle pain, bilat, OA hypothyroidism chronic diastolic CHF, with LE edema mild afib, rate controlled, on xarelto CIERA, vasomotor hypernatremia chronic resp failure on NC 3L SNF resident plan: 1. get neuro consult, check tsh, vitb12 fu with dr. briseno, cannot do PTOT, baseline wheel chair bound 2., cont home meds 3. on xarelto 4. cont ceftriaxone for now, fu ucx labs tmr add vitb12 po daily dc tmr History of Present Illness History of Present Illness looks calm, on NC 3 L as baseline as per dpoa from nurse, pt was aaox4 more awake ,alert today, aaox3 Vitals Vitals Vital Signs Date Time Temp Pulse Resp B/P Pulse Ox O2 Delivery O2 Flow Rate FiO2 01/02/17 08:36 75 148/71 01/02/17 07:55 Nasal Cannula 3.0 01/02/17 07:50 98.2 20 95 98.2 Physical Exam Physical Exam aaox1 to person only General: Alert, Cooperative, mild distress, Other Heart: Regular rate, Normal S1, Normal S2 Lungs: Clear, Other Abdomen: Normal bowel sounds, Soft Extremities: No clubbing, No cyanosis, Normal pulses, Other Skin: No breakdown Labs LABS Laboratory Tests Test 01/02/17 04:15 White Blood Count 3.5x10^3/uL (4.0-11.0) Red Blood Count 3.14x10^6/uL (3.50-5.40) Hemoglobin 9.1g/dL (12.0-15.5) Hematocrit 28.9% (36.0-47.0) Mean Corpuscular Volume 92fL (79-100) Mean Corpuscular Hemoglobin 29pg (25-35) Mean Corpuscular Hemoglobin Concent 32g/dL (31-37) Red Cell Distribution Width 15.0% (11.5-14.5) Platelet Count 86x10^3/uL (140-400) Neutrophils (%) (Auto) 44% (31-73) Lymphocytes (%) (Auto) 37% (24-48) Monocytes (%) (Auto) 15% (0-9) Eosinophils (%) (Auto) 4% (0-3) Basophils (%) (Auto) 0% (0-3) Neutrophils # (Auto) 1.5x10^3uL (1.8-7.7) Lymphocytes # (Auto) 1.3x10^3/uL (1.0-4.8) Monocytes # (Auto) 0.5x10^3/uL (0.0-1.1) Eosinophils # (Auto) 0.1x10^3/uL (0.0-0.7) Basophils # (Auto) 0.0x10^3/uL (0.0-0.2) Sodium Level 145mmol/L (136-145) Potassium Level 4.5mmol/L (3.5-5.1) Chloride Level 105mmol/L (98-107) Carbon Dioxide Level 41mmol/L (21-32) Anion Gap (6-14) Blood Urea Nitrogen 19mg/dL (7-20) Creatinine 0.6mg/dL (0.6-1.0) Estimated GFR (Cockcroft-Gault) 119.6 Glucose Level 119mg/dL (70-99) Calcium Level 8.6mg/dL (8.5-10.1) Review of Systems Review of Systems no fever, chills, sob or chest pain Assessment and Plan Assessmemt and Plan Problems Medical Problems: (1) Altered mental status Status: Acute (2) Hyperkalemia Status: Acute (3) Urinary tract infection Status: Acute Problems: Comment Review of Relevant I have reviewed the following items vivian (where applicable) has been applied. Labs Laboratory Tests Test 01/01/17 04:20 01/01/17 08:40 01/02/17 04:15 White Blood Count 3.4x10^3/uL (4.0-11.0) 3.5x10^3/uL (4.0-11.0) Red Blood Count 3.20x10^6/uL (3.50-5.40) 3.14x10^6/uL (3.50-5.40) Hemoglobin 9.4g/dL (12.0-15.5) 9.1g/dL (12.0-15.5) Hematocrit 29.1% (36.0-47.0) 28.9% (36.0-47.0) Mean Corpuscular Volume 91fL (79-100) 92fL (79-100) Mean Corpuscular Hemoglobin 29pg (25-35) 29pg (25-35) Mean Corpuscular Hemoglobin Concent 32g/dL (31-37) 32g/dL (31-37) Red Cell Distribution Width 15.0% (11.5-14.5) 15.0% (11.5-14.5) Platelet Count 90x10^3/uL (140-400) 86x10^3/uL (140-400) Neutrophils (%) (Auto) 49% (31-73) 44% (31-73) Lymphocytes (%) (Auto) 35% (24-48) 37% (24-48) Monocytes (%) (Auto) 12% (0-9) 15% (0-9) Eosinophils (%) (Auto) 4% (0-3) 4% (0-3) Basophils (%) (Auto) 1% (0-3) 0% (0-3) Neutrophils # (Auto) 1.7x10^3uL (1.8-7.7) 1.5x10^3uL (1.8-7.7) Lymphocytes # (Auto) 1.2x10^3/uL (1.0-4.8) 1.3x10^3/uL (1.0-4.8) Monocytes # (Auto) 0.4x10^3/uL (0.0-1.1) 0.5x10^3/uL (0.0-1.1) Eosinophils # (Auto) 0.1x10^3/uL (0.0-0.7) 0.1x10^3/uL (0.0-0.7) Basophils # (Auto) 0.0x10^3/uL (0.0-0.2) 0.0x10^3/uL (0.0-0.2) Sodium Level 146mmol/L (136-145) 145mmol/L (136-145) Potassium Level 4.4mmol/L (3.5-5.1) 4.5mmol/L (3.5-5.1) Chloride Level 103mmol/L (98-107) 105mmol/L (98-107) Carbon Dioxide Level 42mmol/L (21-32) 41mmol/L (21-32) Anion Gap 1 (6-14) (6-14) Blood Urea Nitrogen 21mg/dL (7-20) 19mg/dL (7-20) Creatinine 0.7mg/dL (0.6-1.0) 0.6mg/dL (0.6-1.0) Estimated GFR (Cockcroft-Gault) 100.1 119.6 Glucose Level 167mg/dL (70-99) 119mg/dL (70-99) Calcium Level 8.5mg/dL (8.5-10.1) 8.6mg/dL (8.5-10.1) Vitamin B12 Level 327pg/mL (247-911) Thyroid Stimulating Hormone (TSH) 1.357uIU/mL (0.358-3.74) Nasal Screen MRSA (PCR) Negative (Negative) Laboratory Tests Test 01/02/17 04:15 White Blood Count 3.5x10^3/uL (4.0-11.0) Red Blood Count 3.14x10^6/uL (3.50-5.40) Hemoglobin 9.1g/dL (12.0-15.5) Hematocrit 28.9% (36.0-47.0) Mean Corpuscular Volume 92fL (79-100) Mean Corpuscular Hemoglobin 29pg (25-35) Mean Corpuscular Hemoglobin Concent 32g/dL (31-37) Red Cell Distribution Width 15.0% (11.5-14.5) Platelet Count 86x10^3/uL (140-400) Neutrophils (%) (Auto) 44% (31-73) Lymphocytes (%) (Auto) 37% (24-48) Monocytes (%) (Auto) 15% (0-9) Eosinophils (%) (Auto) 4% (0-3) Basophils (%) (Auto) 0% (0-3) Neutrophils # (Auto) 1.5x10^3uL (1.8-7.7) Lymphocytes # (Auto) 1.3x10^3/uL (1.0-4.8) Monocytes # (Auto) 0.5x10^3/uL (0.0-1.1) Eosinophils # (Auto) 0.1x10^3/uL (0.0-0.7) Basophils # (Auto) 0.0x10^3/uL (0.0-0.2) Sodium Level 145mmol/L (136-145) Potassium Level 4.5mmol/L (3.5-5.1) Chloride Level 105mmol/L (98-107) Carbon Dioxide Level 41mmol/L (21-32) Anion Gap (6-14) Blood Urea Nitrogen 19mg/dL (7-20) Creatinine 0.6mg/dL (0.6-1.0) Estimated GFR (Cockcroft-Gault) 119.6 Glucose Level 119mg/dL (70-99) Calcium Level 8.6mg/dL (8.5-10.1) Microbiology 12/30/16 Blood Culture - Preliminary, Resulted NO GROWTH AFTER 2 DAYS 12/30/16 Urine Culture - Final, Complete 12/30/16 Urine Culture Result 1 (ALISSA) - Final, Complete 12/30/16 Antimicrobic Susceptibility - Final, Complete Medications Current Medications Sodium Chloride (Iv Sodium Chloride 0.9% 1000ml Bag) 1,000 ml @ 1,000 mls/hr 1X ONCE IV Last administered on 12/30/16 12:00; Start 12/30/16 at 11:30; Stop 12/30/16 at 12:29; Status DC Insulin Human Regular (Novolin R Vial) 10 unit 1X ONCE IV Last administered on 12/30/16 13:17; Start 12/30/16 at 12:30; Stop 12/30/16 at 12:31; Status DC Dextrose 25 gm 25 gm 1X ONCE IV Last administered on 12/30/16 13:14; Start at 12:30; Stop 12/30/16 at 12:31; Status DC Sodium Bicarbonate 50 meq/Dextrose 1,050 ml @ 125 mls/hr Q8H24M IV ; Start at 12:45; Status Cancel Ceftriaxone Sodium (Rocephin 1gm Ivpb For Omni) 50 ml @ 100 mls/hr 1X ONCE IV Last administered on 12/30/16 13:20; Start 12/30/16 at 12:30; Stop 12/30/16 at 12:59; Status DC Ondansetron HCl 4 mg 4 mg PRN Q8HRS PRN IV NAUSEA/VOMITING; Start 12/30/16 at 12:45; Stop 12/31/16 at 12:44; Status DC Sodium Chloride (Iv Sodium Chloride 0.9% 1000ml Bag) 1,000 ml @ 125 mls/hr Q8H IV ; Start 12/30/16 at 12:43; Stop 12/30/16 at 13:15; Status DC Acetaminophen (Tylenol) 650 mg PRN Q4HRS PRN PO FEVER; Start 12/30/16 at 12:45 ; Stop 12/31/16 at 12:44; Status DC Sodium Bicarbonate 50 meq 50 meq 1X ONCE IV Last administered on 12/30/16 13: 19; Start 12/30/16 at 13:15; Stop 12/30/16 at 13:16; Status DC Dextrose/Sodium Chloride (Iv D5% - 1/2 NS) 1,000 ml @ 100 mls/hr 1X ONCE IV Last administered on 12/30/16 15:37; Start 12/30/16 at 13:15; Stop 12/30/16 at 23:14; Status DC Sodium Polystyrene Sulfonate (Kayexalate) 30 gm 1X PRN PRN PO if repeat K > 5.2 ; Start 12/30/16 at 18:00 Albuterol Sulfate (Ventolin Neb Soln) 2.5 mg PRN Q6HRS PRN NEB SHORTNESS OF BREATH Last administered on 12/31/16 03:51; Start 12/31/16 at 03:45 Acetaminophen (Tylenol) 325 mg PRN Q4HRS PRN PO FEVER; Start 12/31/16 at 09:00 Amlodipine Besylate (Norvasc) 5 mg DAILY PO Last administered on 01/02/17 08: 34; Start 12/31/16 at 09:00 Benzonatate (Tessalon Perle) 100 mg PRN TID PRN PO COUGH; Start 12/31/16 at 09: 00; Stop 01/01/17 at 12:16; Status DC Budesonide (Pulmicort) 0.5 mg BID NEB Last administered on 01/01/17 07:12; Start 12/31/16 at 09:00; Stop 01/01/17 at 14:21; Status DC Calcium Carbonate/ Glycine (Tums) 250 mg PRN Q4HRS PRN PO HEARTBURN / GAS; Start 12/31/16 at 09:00 Carvedilol (Coreg) 12.5 mg BIDWMEALS PO Last administered on 01/02/17 08:36; Start 12/31/16 at 09:30 Cetirizine HCl (Zyrtec) 10 mg HS PO Last administered on 01/01/17 20:21; Start 12/31/16 at 21:00 Docusate Sodium (Colace) 100 mg BID PO Last administered on 01/02/17 08:34; Start 12/31/16 at 09:30 Ferrous Sulfate (Feosol) 325 mg DAILYWBKFT PO Last administered on 01/02/17 08 :33; Start 12/31/16 at 12:00 Furosemide (Lasix) 20 mg DAILY PO Last administered on 12/31/16 10:11; Start 12/31/16 at 09:30; Stop 12/31/16 at 15:01; Status DC Albuterol/ Ipratropium (Duoneb) 3 ml PRN Q4HRS PRN IH WHEEZING Last administered on 01/01/17 03:11; Start 12/31/16 at 09:00 Latanoprost (Xalatan) 1 drop QHS OU ; Start 12/31/16 at 21:00; Status Cancel Levothyroxine Sodium (Synthroid) 150 mcg DAILY07 PO Last administered on 05:44; Start 12/31/16 at 10:30 Magnesium Hydroxide (Milk Of Magnesia) 2,400 mg PRN Q2HR PRN PO DYSPEPSIA; Start 12/31/16 at 09:00 Methylphenidate HCl (Ritalin) 5 mg BID PO Last administered on 01/02/17 08:34 ; Start 12/31/16 at 09:30 Pantoprazole Sodium (Protonix) 40 mg DAILYAC PO Last administered on 01/02/17 08:33; Start 12/31/16 at 11:30 Pregabalin (Lyrica) 75 mg BID PO Last administered on 01/02/17 08:37; Start at 09:30 Senna/Docusate Sodium (Senna Plus) 1 tab BID PO Last administered on 01/02/17 08:36; Start 12/31/16 at 09:30 Artificial Tears (Artificial Tears) 1 drop PRN QID PRN OU DRY EYE; Start at 09:45 Multivitamins (Thera M Plus) 1 tab DAILY PO Last administered on 01/02/17 08: 34; Start 12/31/16 at 10:00 Nystatin (Nystop) 1 angela BID TP Last administered on 01/02/17 08:45; Start at 10:00 Potassium Chloride (Klor-Con) 20 meq BIDWMEALS PO Last administered on 10:00; Start 12/31/16 at 10:00; Stop 12/31/16 at 15:01; Status DC Rivaroxaban (Xarelto) 20 mg DAILYWSUP PO Last administered on 01/01/17 17:06; Start 12/31/16 at 17:00 Latanoprost 1 drop 1 drop QHS OU Last administered on 01/01/17 20:22; Start at 21:00 Sodium Chloride 1,000 ml @ 75 mls/hr 1X ONCE IV Last administered on 10:08; Start 12/31/16 at 09:15; Stop 12/31/16 at 22:34; Status DC Ceftriaxone Sodium/Sodium Chloride (Rocephin/Iv Sodium Chloride 0.9% 50ml) 50 ml @ 100 mls/hr Q24H IV Last administered on 01/01/17 10:24; Start 12/31/16 at 10:00 Ondansetron HCl (Zofran) 4 mg PRN Q6HRS PRN IV NAUSEA/VOMITING; Start 12/31/16 at 09:15 Acetaminophen/ Hydrocodone Bitart (Lortab 5/325) 1 tab PRN Q4HRS PRN PO PAIN; Start 12/31/16 at 09:15 Info (Anti-Coagulation Monitoring By Pharmacy) 1 each PRN DAILY PRN MC SEE COMMENTS Last administered on 01/01/17 13:37; Start 12/31/16 at 09:45 Diclofenac Sodium 1 angela 1 angela BID TP Last administered on 01/02/17 08:45; Start 12/31/16 at 11:00 Amino Acids/ Electrolytes (Clinimix E 2.75%-5% Solution) 2,000 ml @ 80 mls/hr Q24H IV Last administered on 12/31/16 16:09; Start 12/31/16 at 15:15; Stop at 16:14; Status DC Cyanocobalamin 1000 mcg 1,000 mcg DAILY PO Last administered on 01/02/17 08:34 ; Start 01/01/17 at 08:30 Sodium Chloride (Iv Sodium Chloride 0.45%) 1,000 ml @ 75 mls/hr 1X ONCE IV Last administered on 01/01/17 09:15; Start 01/01/17 at 09:15; Stop 01/01/17 at 22:34; Status DC Benzonatate (Tessalon Perle) 100 mg PRN TID PRN PO COUGH; Start 01/01/17 at 12: 30 Budesonide (Pulmicort) 0.5 mg BID NEB Last administered on 01/02/17 07:54; Start 01/01/17 at 21:00 Active Scripts Active Reported Zinc Oxide 30 Gm Oint...g. 30 Gm TP Xalatan (Latanoprost) 2.5 Ml Drops 1 Drop EACHEYE QHS Potassium Chloride Packet (Potassium Chloride) 20 Meq Packet 20 Meq PO BID Percocet 5-325 Mg Tablet (Oxycodone/Acetaminophen) 1 Each Tablet 1 Tab PO PRN Q6HRS PRN Zofran Odt (Ondansetron) 4 Mg Tab.rapdis 1 Tab SL BID Amlodipine Besylate 5 Mg Tablet 5 Mg PO DAILY Lasix (Furosemide) 20 Mg Tablet 1 Tab PO DAILY Ferrous Sulfate 325 Mg Tablet 1 Tab PO DAILY Coreg (Carvedilol) 12.5 Mg Tablet 1 Tab PO BID Budesonide 0.5 Mg/2 Ml Ampul.neb 1 Vial NEB BID Artificial Tears Eye Drops (Dextran 70/Hypromellose) 15 Ml Drops 1 Drop EACHEYE PRN QID PRN Xarelto (Rivaroxaban) 20 Mg Tablet 20 Mg PO DAILY Cetirizine Hcl 10 Mg Tablet 1 Tab PO HS Tessalon Perle (Benzonatate) 100 Mg Capsule 100 Mg PO TID PRN Multi-Day Vitamins (Multivitamin) 1 Each Tablet 1 Tab PO DAILY Milk Of Magnesia (Magnesium Hydroxide) 400 Mg/5 Ml Oral.susp 30 Ml PO Q2HR PRN Protonix (Pantoprazole Sodium) 40 Mg Tablet.dr 1 Tab PO DAILY Duoneb 0.5-3(2.5) Mg/3 Ml (Albuterol/Ipratropium) 3 Ml Ampul.neb 3 Ml IH Q4HRS PRN Nystatin 1 Each Powder.ea. 1 Each TOP BID to groin and inner thighs, apply barrier cream with zinc and nystatin powder after cleanse with warm water and pat dry Travatan Z (Travoprost) 5 Ml Drops 1 Drop EACHEYE QHS Synthroid (Levothyroxine Sodium) 150 Mcg Tablet 1 Tab PO DAILY Senna S Tablet (Sennosides/Docusate Sodium) 1 Each Tablet 1 Each PO BID Miralax (Polyethylene Glycol 3350) 17 Gm Powd.pack 1 Packet PO DAILY Methylphenidate Hcl 5 Mg Tablet 1 Tab PO BID Docusate Sodium 100 Mg Capsule 1 Cap PO BID Calcium Carbonate 200 Mg Tab.chew 200 Mg PO PRN Q4HRS PRN Tylenol (Acetaminophen) 325 Mg Tablet 2 Tab PO PRN Q4HRS PRN for headache, generalized pain or elevated temperature Vitals/I & O Vital Sign - Last 24 Hours 01/01/17 01/01/17 01/01/17 01/01/17 10:22 10:23 11:00 15:00 Temp 97.6 98.4 97.6 98.4 Pulse 73 73 76 86 Resp 24 B/P 157/83 157/83 142/78 146/83 Pulse Ox 96 97 O2 Delivery Nasal Cannula Nasal Cannula O2 Flow Rate 3.0 3.0 01/01/17 01/01/17 01/01/17 01/01/17 17:06 19:00 20:25 20:41 Temp 97.6 97.6 Pulse 86 75 Resp 20 B/P 146/83 131/77 Pulse Ox 99 O2 Delivery Nasal Cannula Nasal Cannula Nasal Cannula O2 Flow Rate 3.0 3.0 3.0 01/01/17 01/02/17 01/02/17 01/02/17 23:00 07:50 07:55 08:34 Temp 98.2 98.2 98.2 98.2 Pulse 74 75 75 Resp 20 20 B/P 149/83 148/71 148/71 Pulse Ox 100 95 O2 Delivery Room Air Nasal Cannula Nasal Cannula O2 Flow Rate 3.0 3.0 01/02/17 08:36 Pulse 75 B/P 148/71 Intake and Output 01/01/17 01/01/17 01/02/17 15:00 23:00 07:00 Intake Total 360 ml 1560 ml 700 ml Balance 360 ml 1560 ml 700 ml ROBERT GRAJEDA MD Jan 02, 2017 10:16
--- NOTE | 2017-01-02 11:07 | PDOC ---
SUBJECTIVE ROS ^Na doing better OBJECTIVE Vital Signs Vital Signs Date Time Temp Pulse Resp B/P Pulse Ox O2 Delivery O2 Flow Rate FiO2 01/02/17 08:36 75 148/71 01/02/17 07:55 Nasal Cannula 3.0 01/02/17 07:50 98.2 20 95 98.2 I & 0 Intake and Output 01/02/17 07:00 Intake Total 2620 ml Balance 2620 ml Intake Oral 2620 ml # Voids 11 PHYSICAL EXAM Physical Exam General Appearance: Awake: Alert Oriented x Neck: No JVD or JVP Chest: CTA Benjamin Heart: S1 S2 Abdomen - Soft NTND Extremities - Ch Edema DIAGNOSIS/ASSESSMENT Assessment & Plan ^Na - resolved after Hypotonic IVF will sign off - pl call prn COMMENT/RELEVANT DATA Meds Current Medications Medications (Trade) Dose Ordered Sig/Liban Start Time Stop Time Status Last Admin Dose Admin Acetaminophen (Tylenol) 325 mg PRN Q4HRS PRN 12/31/16 09:00 Acetaminophen/ Hydrocodone Bitart (Lortab 5/325) 1 tab PRN Q4HRS PRN 12/31/16 09:15 Albuterol Sulfate (Ventolin Neb Soln) 2.5 mg PRN Q6HRS PRN 12/31/16 03:45 12/31/16 03:51 2.5 MG Albuterol/ Ipratropium (Duoneb) 3 ml PRN Q4HRS PRN 12/31/16 09:00 01/01/17 03:11 3 ML Amino Acids/ Electrolytes (Clinimix E 2.75%-5% Solution) 2,000 ml @ 80 mls/hr Q24H 12/31/16 15:15 01/01/17 16:14 DC 12/31/16 16:09 80 MLS/HR Amlodipine Besylate (Norvasc) 5 mg DAILY 12/31/16 09:00 01/02/17 08:34 5 MG Artificial Tears (Artificial Tears) 1 drop PRN QID PRN 12/31/16 09:45 Benzonatate (Tessalon Perle) 100 mg PRN TID PRN 01/01/17 12:30 Budesonide (Pulmicort) 0.5 mg BID 01/01/17 21:00 01/02/17 07:54 0.5 MG Calcium Carbonate/ Glycine (Tums) 250 mg PRN Q4HRS PRN 12/31/16 09:00 Carvedilol (Coreg) 12.5 mg BIDWMEALS 12/31/16 09:30 01/02/17 08:36 12.5 MG Ceftriaxone Sodium/Sodium Chloride (Rocephin/Iv Sodium Chloride 0.9% 50ml) 50 ml @ 100 mls/hr Q24H 12/31/16 10:00 01/01/17 10:24 100 MLS/HR Ceftriaxone Sodium (Rocephin 1gm Ivpb For Omni) 50 ml @ 100 mls/hr 1X ONCE 12/30/16 12:30 12/30/16 12:59 DC 12/30/16 13:20 100 MLS/HR Cetirizine HCl (Zyrtec) 10 mg HS 12/31/16 21:00 01/01/17 20:21 10 MG Cyanocobalamin 1000 mcg 1,000 mcg DAILY 01/01/17 08:30 01/02/17 08:34 1,000 MCG Dextrose 25 gm 25 gm 1X ONCE 12/30/16 12:30 12/30/16 12:31 DC 12/30/16 13:14 25 GM Dextrose/Sodium Chloride (Iv D5% - 1/2 NS) 1,000 ml @ 100 mls/hr 1X ONCE 12/30/16 13:15 12/30/16 23:14 DC 12/30/16 15:37 100 MLS/HR Diclofenac Sodium 1 angela 1 angela BID 12/31/16 11:00 01/02/17 08:45 1 ANGELA Docusate Sodium (Colace) 100 mg BID 12/31/16 09:30 01/02/17 08:34 100 MG Ferrous Sulfate (Feosol) 325 mg DAILYWBKFT 12/31/16 12:00 01/02/17 08:33 325 MG Furosemide (Lasix) 20 mg DAILY 12/31/16 09:30 12/31/16 15:01 DC 12/31/16 10:11 20 MG Info (Anti-Coagulation Monitoring By Pharmacy) 1 each PRN DAILY PRN 12/31/16 09:45 01/01/17 13:37 1 EACH Insulin Human Regular (Novolin R Vial) 10 unit 1X ONCE 12/30/16 12:30 12/30/16 12:31 DC 12/30/16 13:17 10 UNIT Latanoprost (Xalatan) 1 drop QHS 12/31/16 21:00 Cancel Latanoprost 1 drop 1 drop QHS 12/31/16 21:00 01/01/17 20:22 1 DROP Levothyroxine Sodium (Synthroid) 150 mcg DAILY07 12/31/16 10:30 01/02/17 05:44 150 MCG Magnesium Hydroxide (Milk Of Magnesia) 2,400 mg PRN Q2HR PRN 12/31/16 09:00 Methylphenidate HCl (Ritalin) 5 mg BID 12/31/16 09:30 01/02/17 08:34 5 MG Multivitamins (Thera M Plus) 1 tab DAILY 12/31/16 10:00 01/02/17 08:34 1 TAB Nystatin (Nystop) 1 angela BID 12/31/16 10:00 01/02/17 08:45 1 ANGELA Ondansetron HCl (Zofran) 4 mg PRN Q6HRS PRN 12/31/16 09:15 Ondansetron HCl 4 mg 4 mg PRN Q8HRS PRN 12/30/16 12:45 12/31/16 12:44 DC Pantoprazole Sodium (Protonix) 40 mg DAILYAC 12/31/16 11:30 01/02/17 08:33 40 MG Potassium Chloride (Klor-Con) 20 meq BIDWMEALS 12/31/16 10:00 12/31/16 15:01 DC 12/31/16 10:00 20 MEQ Pregabalin (Lyrica) 75 mg BID 12/31/16 09:30 01/02/17 08:37 75 MG Rivaroxaban (Xarelto) 20 mg DAILYWSUP 12/31/16 17:00 01/01/17 17:06 20 MG Senna/Docusate Sodium (Senna Plus) 1 tab BID 12/31/16 09:30 01/02/17 08:36 1 TAB Sodium Bicarbonate 50 meq/Dextrose 1,050 ml @ 125 mls/hr Q8H24M 12/30/16 12:45 Cancel Sodium Bicarbonate 50 meq 50 meq 1X ONCE 12/30/16 13:15 12/30/16 13:16 DC 12/30/16 13:19 50 MEQ Sodium Polystyrene Sulfonate (Kayexalate) 30 gm 1X PRN PRN 12/30/16 18:00 Sodium Chloride (Iv Sodium Chloride 0.45%) 1,000 ml @ 75 mls/hr 1X ONCE 01/01/17 09:15 01/01/17 22:34 DC 01/01/17 09:15 75 MLS/HR Sodium Chloride (Iv Sodium Chloride 0.9% 1000ml Bag) 1,000 ml @ 125 mls/hr Q8H 12/30/16 12:43 12/30/16 13:15 DC Lab Laboratory Tests Test 01/02/17 04:15 White Blood Count 3.5x10^3/uL (4.0-11.0) Red Blood Count 3.14x10^6/uL (3.50-5.40) Hemoglobin 9.1g/dL (12.0-15.5) Hematocrit 28.9% (36.0-47.0) Mean Corpuscular Volume 92fL (79-100) Mean Corpuscular Hemoglobin 29pg (25-35) Mean Corpuscular Hemoglobin Concent 32g/dL (31-37) Red Cell Distribution Width 15.0% (11.5-14.5) Platelet Count 86x10^3/uL (140-400) Neutrophils (%) (Auto) 44% (31-73) Lymphocytes (%) (Auto) 37% (24-48) Monocytes (%) (Auto) 15% (0-9) Eosinophils (%) (Auto) 4% (0-3) Basophils (%) (Auto) 0% (0-3) Neutrophils # (Auto) 1.5x10^3uL (1.8-7.7) Lymphocytes # (Auto) 1.3x10^3/uL (1.0-4.8) Monocytes # (Auto) 0.5x10^3/uL (0.0-1.1) Eosinophils # (Auto) 0.1x10^3/uL (0.0-0.7) Basophils # (Auto) 0.0x10^3/uL (0.0-0.2) Sodium Level 145mmol/L (136-145) Potassium Level 4.5mmol/L (3.5-5.1) Chloride Level 105mmol/L (98-107) Carbon Dioxide Level 41mmol/L (21-32) Anion Gap (6-14) Blood Urea Nitrogen 19mg/dL (7-20) Creatinine 0.6mg/dL (0.6-1.0) Estimated GFR (Cockcroft-Gault) 119.6 Glucose Level 119mg/dL (70-99) Calcium Level 8.6mg/dL (8.5-10.1) SANDY JOHNSON MD Jan 02, 2017 11:07
[2017-01-02] MEDS: CEFTRIAXONE SODIUM 1 GM in IV NORMAL SALINE 50ML 50 ML IV SCH (11:18)
[2017-01-02 11:30] VITALS: BP 148/79
[2017-01-02 12:25] VITALS: BP 148/79
[2017-01-02] MEDS: ANTI-COAG MONITOR BY PHARMACY. MC PRN (14:03)
[2017-01-02 15:16] VITALS: BP 119/67
[2017-01-02] MEDS: RIVAROXABAN 10 MG TABLET. PO SCH (17:19)
[2017-01-02 19:00] VITALS: BP 137/54
[2017-01-02] MEDS ORDERED: CETIRIZINE HCL 10 MG TABLET. PO SCH (21:00)
[2017-01-02] MEDS: LATANOPROST 0.005% OPHTH SOLUTION 2.5ML BOTTLE. OU SCH (21:43)
[2017-01-02 23:27] VITALS: BP 108/59
[2017-01-03 03:41] VITALS: BP 137/72
[2017-01-03 07:00] VITALS: BP 116/63
[2017-01-03] MEDS: LEVOTHYROXINE 150 MCG TABLET PO SCH (07:35)
[2017-01-03] MEDS: NYSTATIN TOPICAL POWDER 15GM BOTTLE. TP SCH (09:00)
[2017-01-03] MEDS: DICLOFENAC SODIUM 1% TOPICAL GEL 100GM TUBE. TP SCH (09:00)
--- NOTE | 2017-01-03 10:22 | PDOC ---
PROGRESS NOTES Subjective Subjective No new complaints. Objective Objective Vital Signs Date Time Temp Pulse Resp B/P Pulse Ox O2 Delivery O2 Flow Rate FiO2 01/03/17 07:00 98.6 65 24 116/63 97 98.6 01/03/17 06:59 Room Air 01/03/17 03:41 3.0 Intake and Output 01/03/17 07:00 Intake Total 1160 ml Balance 1160 ml Intake Oral 1160 ml # Voids 3 Physical Exam Physical Exam She is supine in bed and comfortable but continues with generalized muscle weakness and joint stiffness. Assessment Assessment Problems Medical Problems: (1) Altered mental status Status: Acute (2) Hyperkalemia Status: Acute (3) Urinary tract infection Status: Acute Plan Plan of Care To [place] when medically stable. Comment Review of Relevant I have reviewed the following items vivian (where applicable) has been applied. Labs Laboratory Tests Test 01/02/17 04:15 White Blood Count 3.5x10^3/uL (4.0-11.0) Red Blood Count 3.14x10^6/uL (3.50-5.40) Hemoglobin 9.1g/dL (12.0-15.5) Hematocrit 28.9% (36.0-47.0) Mean Corpuscular Volume 92fL (79-100) Mean Corpuscular Hemoglobin 29pg (25-35) Mean Corpuscular Hemoglobin Concent 32g/dL (31-37) Red Cell Distribution Width 15.0% (11.5-14.5) Platelet Count 86x10^3/uL (140-400) Neutrophils (%) (Auto) 44% (31-73) Lymphocytes (%) (Auto) 37% (24-48) Monocytes (%) (Auto) 15% (0-9) Eosinophils (%) (Auto) 4% (0-3) Basophils (%) (Auto) 0% (0-3) Neutrophils # (Auto) 1.5x10^3uL (1.8-7.7) Lymphocytes # (Auto) 1.3x10^3/uL (1.0-4.8) Monocytes # (Auto) 0.5x10^3/uL (0.0-1.1) Eosinophils # (Auto) 0.1x10^3/uL (0.0-0.7) Basophils # (Auto) 0.0x10^3/uL (0.0-0.2) Sodium Level 145mmol/L (136-145) Potassium Level 4.5mmol/L (3.5-5.1) Chloride Level 105mmol/L (98-107) Carbon Dioxide Level 41mmol/L (21-32) Anion Gap (6-14) Blood Urea Nitrogen 19mg/dL (7-20) Creatinine 0.6mg/dL (0.6-1.0) Estimated GFR (Cockcroft-Gault) 119.6 Glucose Level 119mg/dL (70-99) Calcium Level 8.6mg/dL (8.5-10.1) Microbiology 12/30/16 Blood Culture - Preliminary, Resulted NO GROWTH AFTER 3 DAYS 12/30/16 Urine Culture - Final, Complete 12/30/16 Urine Culture Result 1 (ALISSA) - Final, Complete 12/30/16 Antimicrobic Susceptibility - Final, Complete Medications Current Medications Sodium Chloride (Iv Sodium Chloride 0.9% 1000ml Bag) 1,000 ml @ 1,000 mls/hr 1X ONCE IV Last administered on 12/30/16 12:00; Start 12/30/16 at 11:30; Stop 12/30/16 at 12:29; Status DC Insulin Human Regular (Novolin R Vial) 10 unit 1X ONCE IV Last administered on 12/30/16 13:17; Start 12/30/16 at 12:30; Stop 12/30/16 at 12:31; Status DC Dextrose 25 gm 25 gm 1X ONCE IV Last administered on 12/30/16 13:14; Start at 12:30; Stop 12/30/16 at 12:31; Status DC Sodium Bicarbonate 50 meq/Dextrose 1,050 ml @ 125 mls/hr Q8H24M IV ; Start at 12:45; Status Cancel Ceftriaxone Sodium (Rocephin 1gm Ivpb For Omni) 50 ml @ 100 mls/hr 1X ONCE IV Last administered on 12/30/16 13:20; Start 12/30/16 at 12:30; Stop 12/30/16 at 12:59; Status DC Ondansetron HCl 4 mg 4 mg PRN Q8HRS PRN IV NAUSEA/VOMITING; Start 12/30/16 at 12:45; Stop 12/31/16 at 12:44; Status DC Sodium Chloride (Iv Sodium Chloride 0.9% 1000ml Bag) 1,000 ml @ 125 mls/hr Q8H IV ; Start 12/30/16 at 12:43; Stop 12/30/16 at 13:15; Status DC Acetaminophen (Tylenol) 650 mg PRN Q4HRS PRN PO FEVER; Start 12/30/16 at 12:45 ; Stop 12/31/16 at 12:44; Status DC Sodium Bicarbonate 50 meq 50 meq 1X ONCE IV Last administered on 12/30/16 13: 19; Start 12/30/16 at 13:15; Stop 12/30/16 at 13:16; Status DC Dextrose/Sodium Chloride (Iv D5% - 1/2 NS) 1,000 ml @ 100 mls/hr 1X ONCE IV Last administered on 12/30/16 15:37; Start 12/30/16 at 13:15; Stop 12/30/16 at 23:14; Status DC Sodium Polystyrene Sulfonate (Kayexalate) 30 gm 1X PRN PRN PO if repeat K > 5.2 ; Start 12/30/16 at 18:00 Albuterol Sulfate (Ventolin Neb Soln) 2.5 mg PRN Q6HRS PRN NEB SHORTNESS OF BREATH Last administered on 12/31/16 03:51; Start 12/31/16 at 03:45 Acetaminophen (Tylenol) 325 mg PRN Q4HRS PRN PO FEVER; Start 12/31/16 at 09:00 Amlodipine Besylate (Norvasc) 5 mg DAILY PO Last administered on 01/02/17 08: 34; Start 12/31/16 at 09:00 Benzonatate (Tessalon Perle) 100 mg PRN TID PRN PO COUGH; Start 12/31/16 at 09: 00; Stop 01/01/17 at 12:16; Status DC Budesonide (Pulmicort) 0.5 mg BID NEB Last administered on 01/01/17 07:12; Start 12/31/16 at 09:00; Stop 01/01/17 at 14:21; Status DC Calcium Carbonate/ Glycine (Tums) 250 mg PRN Q4HRS PRN PO HEARTBURN / GAS; Start 12/31/16 at 09:00 Carvedilol (Coreg) 12.5 mg BIDWMEALS PO Last administered on 01/02/17 17:19; Start 12/31/16 at 09:30 Cetirizine HCl (Zyrtec) 10 mg HS PO Last administered on 01/01/17 20:21; Start 12/31/16 at 21:00; Stop 01/02/17 at 13:13; Status DC Docusate Sodium (Colace) 100 mg BID PO Last administered on 01/02/17 21:41; Start 12/31/16 at 09:30 Ferrous Sulfate (Feosol) 325 mg DAILYWBKFT PO Last administered on 01/02/17 08 :33; Start 12/31/16 at 12:00 Furosemide (Lasix) 20 mg DAILY PO Last administered on 12/31/16 10:11; Start 12/31/16 at 09:30; Stop 12/31/16 at 15:01; Status DC Albuterol/ Ipratropium (Duoneb) 3 ml PRN Q4HRS PRN IH WHEEZING Last administered on 01/01/17 03:11; Start 12/31/16 at 09:00 Latanoprost (Xalatan) 1 drop QHS OU ; Start 12/31/16 at 21:00; Status Cancel Levothyroxine Sodium (Synthroid) 150 mcg DAILY07 PO Last administered on 07:35; Start 12/31/16 at 10:30 Magnesium Hydroxide (Milk Of Magnesia) 2,400 mg PRN Q2HR PRN PO DYSPEPSIA; Start 12/31/16 at 09:00 Methylphenidate HCl (Ritalin) 5 mg BID PO Last administered on 01/02/17 21:41 ; Start 12/31/16 at 09:30 Pantoprazole Sodium (Protonix) 40 mg DAILYAC PO Last administered on 01/02/17 08:33; Start 12/31/16 at 11:30 Pregabalin (Lyrica) 75 mg BID PO Last administered on 01/02/17 21:42; Start at 09:30 Senna/Docusate Sodium (Senna Plus) 1 tab BID PO Last administered on 01/02/17 21:41; Start 12/31/16 at 09:30 Artificial Tears (Artificial Tears) 1 drop PRN QID PRN OU DRY EYE; Start at 09:45 Multivitamins (Thera M Plus) 1 tab DAILY PO Last administered on 01/02/17 08: 34; Start 12/31/16 at 10:00 Nystatin (Nystop) 1 angela BID TP Last administered on 01/02/17 21:45; Start at 10:00 Potassium Chloride (Klor-Con) 20 meq BIDWMEALS PO Last administered on 10:00; Start 12/31/16 at 10:00; Stop 12/31/16 at 15:01; Status DC Rivaroxaban (Xarelto) 20 mg DAILYWSUP PO Last administered on 01/02/17 17:19; Start 12/31/16 at 17:00 Latanoprost 1 drop 1 drop QHS OU Last administered on 01/02/17 21:43; Start at 21:00 Sodium Chloride 1,000 ml @ 75 mls/hr 1X ONCE IV Last administered on 10:08; Start 12/31/16 at 09:15; Stop 12/31/16 at 22:34; Status DC Ceftriaxone Sodium/Sodium Chloride (Rocephin/Iv Sodium Chloride 0.9% 50ml) 50 ml @ 100 mls/hr Q24H IV Last administered on 01/02/17 11:18; Start 12/31/16 at 10:00 Ondansetron HCl (Zofran) 4 mg PRN Q6HRS PRN IV NAUSEA/VOMITING; Start 12/31/16 at 09:15 Acetaminophen/ Hydrocodone Bitart (Lortab 5/325) 1 tab PRN Q4HRS PRN PO PAIN; Start 12/31/16 at 09:15 Info (Anti-Coagulation Monitoring By Pharmacy) 1 each PRN DAILY PRN MC SEE COMMENTS Last administered on 01/02/17 14:03; Start 12/31/16 at 09:45 Diclofenac Sodium 1 angela 1 angela BID TP Last administered on 01/02/17 21:45; Start 12/31/16 at 11:00 Amino Acids/ Electrolytes (Clinimix E 2.75%-5% Solution) 2,000 ml @ 80 mls/hr Q24H IV Last administered on 12/31/16 16:09; Start 12/31/16 at 15:15; Stop at 16:14; Status DC Cyanocobalamin 1000 mcg 1,000 mcg DAILY PO Last administered on 01/02/17 08:34 ; Start 01/01/17 at 08:30 Sodium Chloride (Iv Sodium Chloride 0.45%) 1,000 ml @ 75 mls/hr 1X ONCE IV Last administered on 01/01/17 09:15; Start 01/01/17 at 09:15; Stop 01/01/17 at 22:34; Status DC Benzonatate (Tessalon Perle) 100 mg PRN TID PRN PO COUGH Last administered on 01:08; Start 01/01/17 at 12:30 Budesonide (Pulmicort) 0.5 mg BID NEB Last administered on 01/02/17 20:41; Start 01/01/17 at 21:00 Cetirizine HCl (Zyrtec) 10 mg HS PO Last administered on 01/02/17 21:41; Start 01/02/17 at 21:00 Active Scripts Active Reported Zinc Oxide 30 Gm Oint...g. 30 Gm TP Lyrica (Pregabalin) 75 Mg Capsule 1 Cap PO BID Xalatan (Latanoprost) 2.5 Ml Drops 1 Drop EACHEYE QHS Potassium Chloride Packet (Potassium Chloride) 20 Meq Packet 20 Meq PO BID Percocet 5-325 Mg Tablet (Oxycodone/Acetaminophen) 1 Each Tablet 1 Tab PO PRN Q6HRS PRN Zofran Odt (Ondansetron) 4 Mg Tab.rapdis 1 Tab SL BID Amlodipine Besylate 5 Mg Tablet 5 Mg PO DAILY Lasix (Furosemide) 20 Mg Tablet 1 Tab PO DAILY Ferrous Sulfate 325 Mg Tablet 1 Tab PO DAILY Coreg (Carvedilol) 12.5 Mg Tablet 1 Tab PO BID Budesonide 0.5 Mg/2 Ml Ampul.neb 1 Vial NEB BID Artificial Tears Eye Drops (Dextran 70/Hypromellose) 15 Ml Drops 1 Drop EACHEYE PRN QID PRN Xarelto (Rivaroxaban) 20 Mg Tablet 20 Mg PO DAILY Cetirizine Hcl 10 Mg Tablet 1 Tab PO HS Tessalon Perle (Benzonatate) 100 Mg Capsule 100 Mg PO TID PRN Multi-Day Vitamins (Multivitamin) 1 Each Tablet 1 Tab PO DAILY Milk Of Magnesia (Magnesium Hydroxide) 400 Mg/5 Ml Oral.susp 30 Ml PO Q2HR PRN Protonix (Pantoprazole Sodium) 40 Mg Tablet.dr 1 Tab PO DAILY Duoneb 0.5-3(2.5) Mg/3 Ml (Albuterol/Ipratropium) 3 Ml Ampul.neb 3 Ml IH Q4HRS PRN Nystatin 1 Each Powder.ea. 1 Each TOP BID to groin and inner thighs, apply barrier cream with zinc and nystatin powder after cleanse with warm water and pat dry Travatan Z (Travoprost) 5 Ml Drops 1 Drop EACHEYE QHS Synthroid (Levothyroxine Sodium) 150 Mcg Tablet 1 Tab PO DAILY Senna S Tablet (Sennosides/Docusate Sodium) 1 Each Tablet 1 Each PO BID Miralax (Polyethylene Glycol 3350) 17 Gm Powd.pack 1 Packet PO DAILY Methylphenidate Hcl 5 Mg Tablet 1 Tab PO BID Docusate Sodium 100 Mg Capsule 1 Cap PO BID Calcium Carbonate 200 Mg Tab.chew 200 Mg PO PRN Q4HRS PRN Tylenol (Acetaminophen) 325 Mg Tablet 2 Tab PO PRN Q4HRS PRN for headache, generalized pain or elevated temperature Vitals/I & O Vital Sign - Last 24 Hours 01/02/17 01/02/17 01/02/17 01/02/17 11:30 12:25 15:16 17:19 Temp 98.4 98.4 98.1 98.4 98.4 98.1 Pulse 70 70 69 69 Resp 20 20 20 B/P 148/79 148/79 119/67 129/80 Pulse Ox 96 96 96 O2 Delivery Room Air Room Air Nasal Cannula O2 Flow Rate 3.0 01/02/17 01/02/17 01/02/17 01/02/17 18:22 19:00 20:00 20:41 Temp 98.6 98.6 Pulse 68 Resp 18 B/P 137/54 Pulse Ox 96 94 O2 Delivery Nasal Cannula Room Air Nasal Cannula Nasal Cannula O2 Flow Rate 3.0 3.0 3.0 01/02/17 01/03/17 01/03/17 01/03/17 23:27 03:41 06:59 07:00 Temp 98.0 98.7 98.6 98.0 98.7 98.6 Pulse 68 76 65 Resp 18 18 24 B/P 108/59 137/72 116/63 Pulse Ox 98 96 84 97 O2 Delivery Room Air Nasal Cannula Room Air O2 Flow Rate 3.0 Intake and Output 01/02/17 01/02/17 01/03/17 15:00 23:00 07:00 Intake Total 1060 ml 100 ml Balance 1060 ml 100 ml EMERALD NINO MD Jan 03, 2017 10:22
[2017-01-03] MEDS: SENNOSIDES/DOCUSATE 8.6/50MG TABLET. PO SCH (10:25)
[2017-01-03] MEDS: CEFTRIAXONE SODIUM 1 GM in IV NORMAL SALINE 50ML 50 ML IV SCH (10:25)
[2017-01-03] MEDS: METHYLPHENIDATE HCL 5 MG TABLET PO SCH (10:26)
[2017-01-03] MEDS: FERROUS SULFATE 325 MG TABLET PO SCH (10:26)
[2017-01-03] MEDS: DOCUSATE SODIUM 100 MG CAPSULE PO SCH (10:26)
[2017-01-03] MEDS: PREGABALIN 75 MG CAPSULE PO SCH (10:26)
[2017-01-03] MEDS: PANTOPRAZOLE 40 MG TABLET. PO SCH (10:26)
[2017-01-03] MEDS: CYANOCOBALAMIN (VITAMIN B-12) 1,000 MCG TABLET. PO SCH (10:26)
[2017-01-03] MEDS: MULTIVITAMIN with MINERAL TABLET. PO SCH (10:26)
[2017-01-03] MEDS: CARVEDILOL 12.5 MG TABLET PO SCH (10:27)
[2017-01-03] MEDS: AMLODIPINE BESYLATE 5 MG TABLET PO SCH (10:27)
[2017-01-03 11:00] VITALS: BP 138/69
--- NOTE | 2017-01-03 12:55 | PDOC3 ---
Discharge Summary [facility] Date of Admission: Dec 30, 2016 Discharge Date: Jan 03, 2017 Admitting Diagnosis AMS with baseline dementia, likely fluctuating dementia possible UTI obesity, BMI 35 weakness and debility ankle pain, bilat, OA hypothyroidism chronic diastolic CHF, with LE edema mild afib, rate controlled, on xarelto CIERA, vasomotor hypernatremia chronic resp failure on NC 3L SNF resident Problems: Final Diagnosis CONSULTS neuro finn Brief Hospital Course Ms. Vergara is a 71 oldF, from SNF, 10ys of dementia, for AMS. pt possibly has UTI, with 50-100k UCX. pt baseline is aaox3. she was very confused at admisioin, back to normal now. no PTOTsince severe OA. got cefriaxone for 5ds. dc time 35min aaox3 to person only General: Alert, Cooperative, mild distress, Other Heart: Regular rate, Normal S1, Normal S2 Lungs: Clear, Other Abdomen: Normal bowel sounds, Soft Extremities: No clubbing, No cyanosis, Normal pulses, Other Skin: No breakdown Patient History: Family history: Cardiovascular disease (situation) 33 FATHER, 32 MOTHER, Family history: Diabetes mellitus (situation) 32 MOTHER, Problems: Disposition snf CONDITION AT DISCHARGE: Improved Diet regular Scheduled Amlodipine Besylate (Amlodipine Besylate) 5 MG PO DAILY (Reported) Budesonide (Budesonide) 1 VIAL NEB BID (Reported) Carvedilol (Coreg) 1 TAB PO BID (Reported) Cetirizine Hcl (Cetirizine Hcl) 1 TAB PO HS (Reported) Docusate Sodium (Docusate Sodium) 1 CAP PO BID (Reported) Ferrous Sulfate (Ferrous Sulfate) 1 TAB PO DAILY (Reported) Furosemide (Lasix) 1 TAB PO DAILY (Reported) Latanoprost (Xalatan) 1 DROP EACHEYE QHS (Reported) Levothyroxine Sodium (Synthroid) 1 TAB PO DAILY (Reported) Methylphenidate Hcl (Methylphenidate Hcl) 1 TAB PO BID (Reported) Multivitamin (Multi-Day Vitamins) 1 TAB PO DAILY (Reported) Nystatin (Nystatin) 1 EACH TOP BID (Reported) Ondansetron (Zofran Odt) 1 TAB SL BID (Reported) Pantoprazole Sodium (Protonix) 1 TAB PO DAILY (Reported) Polyethylene Glycol 3350 (Miralax) 1 PACKET PO DAILY (Reported) Potassium Chloride (Potassium Chloride Packet) 20 MEQ PO BID (Reported) Pregabalin (Lyrica) 1 CAP PO BID (Reported) Rivaroxaban (Xarelto) 20 MG PO DAILY (Reported) Sennosides/Docusate Sodium (Senna S Tablet) 1 EACH PO BID (Reported) Travoprost (Travatan Z) 1 DROP EACHEYE QHS (Reported) Scheduled PRN Acetaminophen (Tylenol) 2 TAB PO PRN Q4HRS PRN PRN FEVER (Reported) Benzonatate (Tessalon Perle) 100 MG PO TID PRN PRN COUGH (Reported) Calcium Carbonate (Calcium Carbonate) 200 MG PO PRN Q4HRS PRN PRN HEARTBURN / GAS (Reported) Dextran 70/Hypromellose (Artificial Tears Eye Drops) 1 DROP EACHEYE PRN QID PRN PRN DRY EYE (Reported) Ipratropium/Albuterol Sulfate (Duoneb 0.5-3(2.5) Mg/3 Ml) 3 ML IH Q4HRS PRN PRN WHEEZING (Reported) Magnesium Hydroxide (Milk Of Magnesia) 30 ML PO Q2HR PRN PRN DYSPEPSIA (Reported ) Oxycodone/Apap 5-325 (Percocet 5-325 Mg Tablet) 1 TAB PO PRN Q6HRS PRN PRN PAIN (Reported) Miscellaneous Medications Zinc Oxide (Zinc Oxide) 30 GM TP (Reported) Discontinued Medications Amlodipine Besylate (Norvasc) 1 TAB PO DAILY (Reported) Carvedilol (Coreg) 1 TAB PO BID (Reported) Dextran 70/Hypromellose (Artificial Tears) 1 EACH OP QID (Reported) Fluticasone/Salmeterol (Advair 250-50 Diskus) 1 PUFF IH BID (Reported) Hydrochlorothiazide (Hydrochlorothiazide Tablet) 25 MG PO DAILY (Reported) Latanoprost (Latanoprost) 1 DROP EACHEYE QHS (Reported) Pregabalin (Lyrica) 1 CAP PO BID (Reported) Pregabalin (Lyrica) 1 CAP PO BID (Reported) Rivaroxaban (Xarelto) 15 MG PO BID (Reported) Follow Up pcp in 2 ws ROBERT GRAJEDA MD Jan 03, 2017 12:55
== END 2017-01-03 14:30 | DRG 682 ==
LOC: ER 11:14 → 5 SOUTH 12:37
PROVIDERS: ADMIT Internal Medicine; ATTEND Internal Medicine
DX: N17.0 Acute kidney failure with tubular necrosis (principal); G93.41 Metabolic encephalopathy; N39.0 Urinary tract infection, site not specified; I50.32 Chronic diastolic (congestive) heart failure; J96.10 Chronic respiratory failure, unspecified whether with hypoxia or hypercapnia; R65.10 Systemic inflammatory response syndrome (SIRS) of non-infectious origin without acute organ dysfunction; E87.0 Hyperosmolality and hypernatremia; J98.11 Atelectasis; E66.9 Obesity, unspecified; Z68.35 Body mass index [BMI] 35.0-35.9, adult; N18.2 Chronic kidney disease, stage 2 (mild); E03.9 Hypothyroidism, unspecified; E87.5 Hyperkalemia; F02.80 Dementia in other diseases classified elsewhere, unspecified severity, without behavioral disturbance, psychotic disturbance, mood disturbance, and anxiety; F41.9 Anxiety disorder, unspecified; G30.9 Alzheimer's disease, unspecified; G47.419 Narcolepsy without cataplexy; G89.29 Other chronic pain; H40.9 Unspecified glaucoma; I12.9 Hypertensive chronic kidney disease with stage 1 through stage 4 chronic kidney disease, or unspecified chronic kidney disease; I25.10 Atherosclerotic heart disease of native coronary artery without angina pectoris; I48.91 Unspecified atrial fibrillation; I73.9 Peripheral vascular disease, unspecified; J44.9 Chronic obstructive pulmonary disease, unspecified; J45.909 Unspecified asthma, uncomplicated; K21.9 Gastro-esophageal reflux disease without esophagitis; M06.9 Rheumatoid arthritis, unspecified; M19.90 Unspecified osteoarthritis, unspecified site; Z96.649 Presence of unspecified artificial hip joint; Z96.659 Presence of unspecified artificial knee joint; Z74.01 Bed confinement status; Z82.49 Family history of ischemic heart disease and other diseases of the circulatory system; Z83.3 Family history of diabetes mellitus; Z86.711 Personal history of pulmonary embolism; Z86.73 Personal history of transient ischemic attack (TIA), and cerebral infarction without residual deficits; Z99.81 Dependence on supplemental oxygen; Z90.49 Acquired absence of other specified parts of digestive tract; Z90.710 Acquired absence of both cervix and uterus; Z88.6 Allergy status to analgesic agent; Z88.1 Allergy status to other antibiotic agents; Z91.013 Allergy to seafood; Z88.2 Allergy status to sulfonamides; Z88.8 Allergy status to other drugs, medicaments and biological substances; Z91.018 Allergy to other foods; Z91.048 Other nonmedicinal substance allergy status
CPT/HCPCS: 36415; 51701; 70450; 71010; 80048; 81001; 82607; 83605; 84132; 84443; 84484; 85027; 87040; 87086; 87186; 87641; 93005; 94250; 94640; 94760; 96361; 96365; 96375; J0690; J0696; J1815; J7030; J7042; J7620; 99285-25

== ENCOUNTER 2017-01-13 10:32 | Emergency (ER) | payer MEDICARE, OTHER ==
[~2017-01-13 10:32] MED LIST changes: +AMLO5TAB2 PO; +BUDE0.5A NEB; +DEXT15DR5 EACHEYE; +FERR-26 PO; +FURO-69 PO; +LATA2.5D2 EACHEYE; +ONDA4TAB10 SL; +POTA20PA8 PO; +PREG50CA PO
--- NOTE | 2017-01-13 11:38 | PHYS DOC ---
Past Medical History Past Medical History: Anemia, Anxiety, COPD, Depression, GERD, Glaucoma, Hypertension, Hypothyroid, Pneumonia, UTI, Vascular Disease Additional Past Medical Histor: conjunctivitis, MRSA, lymphedema, Acute and Chronic Respiratory Failure Past Surgical History: Other Additional Past Surgical Histo: unknown Alcohol Use: None Drug Use: None Adult General Chief Complaint Chief Complaint: ALTERED MENTAL STATUS HPI HPI Patient is a 71 year old female who presents with altered mental status. The patient was brought to the emergency department from ophthalmology office where the patient presented in an altered state. The patient was brought to [facility] from [facility] reportedly for an eye appointment. The patient was transferred at her baseline neuro functioning. Upon arrival, the patient appeared to be lethargic and agitated. Patient brought to the emergency department for immediate evaluation. The patient currently is able to respond to her name and commands and answer questions, however patient does not remember any events of the day. Per chart review, patient has history of dementia, COPD, chronic lymphedema, and is bedbound. Patient denies any pain and denies feeling sick at this time. [] Review of Systems Review of Systems Patient denies all complaints, patient does not remember events of the day Constitutional: Denies fever or chills [] Eyes: Denies change in visual acuity, redness, or eye pain [] HENT: Denies nasal congestion or sore throat [] Respiratory: Denies cough or shortness of breath [] Cardiovascular: Denies chest pain or edema [] GI: Denies abdominal pain, nausea, vomiting, bloody stools or diarrhea [] : Denies dysuria or hematuria [] Musculoskeletal: Denies back pain or joint pain [] Integument: Denies rash or skin lesions [] Neurologic: Denies headache, focal weakness or sensory changes [] Endocrine: Denies polyuria or polydipsia [] Allergies Allergies Allergies Coded Allergies Type Severity Reaction Last Updated Verified adhesive Allergy Intermediate 05/17/15 Yes ciprofloxacin Allergy Intermediate 05/17/15 Yes clarithromycin Allergy Intermediate 05/17/15 Yes codeine Allergy Intermediate 05/17/15 Yes fentanyl Allergy Intermediate 05/17/15 Yes meperidine Allergy Intermediate 05/17/15 Yes oyster extract Allergy Intermediate 05/17/15 Yes shellfish derived Allergy Intermediate 05/17/15 Yes strawberry Allergy Intermediate 05/17/15 Yes sulfur dioxide Allergy Intermediate 05/17/15 Yes tetracycline Allergy Intermediate 05/17/15 Yes I S O L A T I O N *CONTACT* Allergy Unknown 05/17/15 Yes Physical Exam Physical Exam Constitutional: Alert, afebrile, no acute distress, appears in chronically poor health. [] HENT: Normocephalic, atraumatic, bilateral external ears normal, oropharynx moist, no oral exudates, nose normal. [] Eyes: PERRLA, EOMI, conjunctiva normal, no discharge. [] Neck: Normal range of motion, no tenderness, supple, no stridor. [] Cardiovascular:Heart rate regular rhythm, no murmur [] Lungs & Thorax: Bilateral breath sounds clear to auscultation [] Abdomen: Bowel sounds normal, soft, no tenderness, no masses, no pulsatile masses. [] Skin: Warm, dry, no erythema, no rash. [] Back: No tenderness, no CVA tenderness. [] Extremities: No tenderness, no cyanosis, no clubbing, ROM intact, chronic lymphedema. [] Neurologic: Alert, disoriented to events, normal motor function, normal sensory function. [] Current Patient Data Vital Signs Vital Signs Date Time Temp Pulse Resp B/P Pulse Ox O2 Delivery O2 Flow Rate FiO2 01/13/17 11:00 97.7 88 24 124/66 97 Nasal Cannula 3 97.7 Lab Values Laboratory Tests Test 01/13/17 12:00 01/13/17 12:52 White Blood Count 6.4x10^3/uL (4.0-11.0) Red Blood Count 3.12x10^6/uL (3.50-5.40) L Hemoglobin 9.1g/dL (12.0-15.5) L Hematocrit 29.4% (36.0-47.0) L Mean Corpuscular Volume 94fL (79-100) Mean Corpuscular Hemoglobin 29pg (25-35) Mean Corpuscular Hemoglobin Concent 31g/dL (31-37) Red Cell Distribution Width 14.9% (11.5-14.5) H Platelet Count 121x10^3/uL (140-400) L Neutrophils (%) (Auto) 50% (31-73) Lymphocytes (%) (Auto) 31% (24-48) Monocytes (%) (Auto) 17% (0-9) H Eosinophils (%) (Auto) 2% (0-3) Basophils (%) (Auto) 0% (0-3) Neutrophils # (Auto) 3.2x10^3uL (1.8-7.7) Lymphocytes # (Auto) 2.0x10^3/uL (1.0-4.8) Monocytes # (Auto) 1.1x10^3/uL (0.0-1.1) Eosinophils # (Auto) 0.1x10^3/uL (0.0-0.7) Basophils # (Auto) 0.0x10^3/uL (0.0-0.2) Sodium Level 145mmol/L (136-145) Potassium Level 4.7mmol/L (3.5-5.1) Chloride Level 102mmol/L (98-107) Carbon Dioxide Level 42mmol/L (21-32) H Anion Gap 1 (6-14) L Blood Urea Nitrogen 26mg/dL (7-20) H Creatinine 1.4mg/dL (0.6-1.0) H Estimated GFR (Cockcroft-Gault) 45.0 BUN/Creatinine Ratio 19 (6-20) Glucose Level 146mg/dL (70-99) H Calcium Level 8.5mg/dL (8.5-10.1) Magnesium Level 2.1mg/dL (1.8-2.4) Total Bilirubin 0.3mg/dL (0.2-1.0) Aspartate Amino Transferase (AST) 30U/L (15-37) Alanine Aminotransferase (ALT) 15U/L (14-59) Alkaline Phosphatase 63U/L (46-116) Total Protein 7.0g/dL (6.4-8.2) Albumin 3.0g/dL (3.4-5.0) L Albumin/Globulin Ratio 0.8 (1.0-1.7) L Urine Collection Type U cath Urine Color Yellow Urine Clarity Clear Urine pH 5.0 Urine Specific [place] 1.010 Urine Protein Negativemg/dL (NEG-TRACE) Urine Glucose (UA) Negativemg/dL (NEG) Urine Ketones (Stick) Negativemg/dL (NEG) Urine Blood Negative (NEG) Urine Nitrite Negative (NEG) Urine Bilirubin Negative (NEG) Urine Urobilinogen Dipstick 0.2mg/dL (0.2 mg/dL) Urine Leukocyte Esterase Negative (NEG) Urine RBC 0/HPF (0-2) Urine WBC 0/HPF (0-4) Urine Amorphous Sediment Present/HPF Urine Bacteria 0/HPF (0-FEW) Urine Hyaline Casts Moderate/HPF Laboratory Tests 01/13/17 12:00 Laboratory Tests 01/13/17 12:00 EKG EKG Interpreted by me: Heart rate 85, sinus rhythm, normal intervals, left axis deviation, no acute ST/T-wave abnormalities present [] Radiology/Procedures Radiology/Procedures [facility] [address] [place] [address] IMAGING REPORT Signed PATIENT: TRAVIS SANCHEZ ACCOUNT: [id number] : 1945 LOCATION: ER AGE: 71 SEX: F EXAM STATUS: REG ER ORD. PHYSICIAN: STEVE CHAN MD REASON: altered mental status, rule out acute cardiopulmonary process PROCEDURE: PORTABLE CHEST 1V Portable chest, 01/13/2017: History: Shortness of breath, altered mental status Comparison is made to a study from 12/30/2016. The heart is enlarged. The pulmonary vascularity is within normal limits. There are mild streaky bibasilar opacities partially obscuring the hemidiaphragms. The upper lung humphreys are clear. The bony structures are demineralized. 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 IMPRESSION: 1. Cardiomegaly. 2. Mild bibasilar atelectasis and/or infiltrate. DICTATED and SIGNED BY: ALEKSANDRA SHARPE MD DATE: 01/13/17 1153 CC: ZABRINA BETANCOURT MD; STEVE CHAN MD ~ [] Course & Med Decision Making Course & Med Decision Making Pertinent Labs and Imaging studies reviewed. (See chart for details) Patient's vital signs are stable and patient has no complaints in the emergency department. Nursing staff was contacted at the patient's alf facility and they state that the patient did not display any signs of altered mental status. The patient has history of dementia and it sounds that her confusion is somewhat at her baseline. Patient's lab work shows stable findings and patient does not show any evidence of acute infection. At this time the patient is stable to be returned back to [facility] for further care. Advised return to the emergency department for any worsening symptoms. Dragon Disclaimer Dragon Disclaimer This electronic medical record was generated, in whole or in part, using a voice recognition dictation system. Departure Departure Impression: Primary Impression: Dementia Disposition: 05 TRANSFER OTHER Condition: STABLE Referrals: ZABRINA BETANCOURT MD (PCP) Patient Instructions: Dementia Additional Instructions: Follow-up with your primary doctor in the next 2-3 days. Return to emergency department for any worsening symptoms. Problem Qualifiers Primary Impression: Dementia Dementia type: unspecified type Dementia behavioral disturbance: without behavioral disturbance Qualified Code: F03.90 - Unspecified dementia without behavioral disturbance STEVE CHAN MD Jan 13, 2017 11:38
--- NOTE | 2017-01-13 11:53 | EKG ---
[facility] [address] [place] [address] Test Date: 2017-01-13 Test Time: 11:39:30 Pat Name: TRAVIS SANCHEZ Department: Room: Gender: F Single Resource Boss: : 1945 Requested By: STEVE CHAN Order Number: [id number] Reading MD: Measurements Intervals [place] Rate: 85 P: 25 RI: 164 QRS: -39 QRSD: 98 T: 38 QT: 358 QTc: 426 Interpretive Statements SINUS RHYTHM ABNORMAL LEFT AXIS DEVIATION R-S TRANSITION ZONE IN V LEADS DISPLACED TO THE LEFT LEFT ANTERIOR FASCICULAR BLOCK INCOMPLETE RIGHT BUNDLE BRANCH BLOCK ABNORMAL ECG RI6.01 No previous ECG available for comparison
--- NOTE | 2017-01-13 11:57 | RAD ---
Portable chest, 01/13/2017: History: Shortness of breath, altered mental status Comparison is made to a study from 12/30/2016. The heart is enlarged. The pulmonary vascularity is within normal limits. There are mild streaky bibasilar opacities partially obscuring the hemidiaphragms. The upper lung humphreys are clear. The bony structures are demineralized. 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 IMPRESSION: 1. Cardiomegaly. 2. Mild bibasilar atelectasis and/or infiltrate.
[2017-01-13 12:17] LABS: BASO % 0 % (0-3); EOS % 2 % (0-3); HEMATOCRIT 29.4 % (36.0-47.0); HEMOGLOBIN 9.1 g/dL (12.0-15.5); LYMPH % 31 % (24-48); MEAN CORPUSCULAR HEMOGLOBIN 29 pg (25-35); MEAN CORPUSCULAR HGB CONC 31 g/dL (31-37); MEAN CORPUSCULAR VOLUME 94 fL (79-100); MONO % 17 % (0-9); NEUT % 50 % (31-73); PLATELET COUNT 121 x10^3/uL (140-400); RED BLOOD COUNT 3.12 x10^6/uL (3.50-5.40); RED CELL DISTRIBUTION WIDTH 14.9 % (11.5-14.5); WHITE BLOOD COUNT 6.4 x10^3/uL (4.0-11.0)
[2017-01-13 12:32] LABS: CALCIUM 8.5 mg/dL (8.5-10.1); CREATININE 1.4 mg/dL (0.6-1.0); POTASSIUM 4.7 mmol/L (3.5-5.1)
[2017-01-13 12:37] LABS: ALBUMIN/GLOBULIN RATIO 0.8 (1.0-1.7); MAGNESIUM 2.1 mg/dL (1.8-2.4); TOTAL BILIRUBIN 0.3 mg/dL (0.2-1.0)
[2017-01-13 13:05] LABS: BILIRUBIN,URINE NEGATIVE (NEG); GLUCOSE,URINE NEGATIVE (NEG); NITRITE,URINE NEGATIVE (NEG); PROTEIN,URINE NEGATIVE (NEG-TRACE); UROBILINOGEN,URINE 0.2 mg/dL (0.2 mg/dL)
[2017-01-13 13:15] LABS: BACTERIA,URINE 0 /HPF (0-FEW); RBC,URINE 0 /HPF (0-2); WBC,URINE 0 /HPF (0-4)
[2017-01-13 14:30] VITALS: BP 136/80
== END 2017-01-13 14:30 | disposition home or self-care (01) ==
LOC: ER 10:32
DX: F03.90 Unspecified dementia, unspecified severity, without behavioral disturbance, psychotic disturbance, mood disturbance, and anxiety (principal); E03.9 Hypothyroidism, unspecified; F41.9 Anxiety disorder, unspecified; I10 Essential (primary) hypertension; J44.9 Chronic obstructive pulmonary disease, unspecified; K21.9 Gastro-esophageal reflux disease without esophagitis; I89.0 Lymphedema, not elsewhere classified; F32.9 Major depressive disorder, single episode, unspecified; Z87.09 Personal history of other diseases of the respiratory system; Z86.2 Personal history of diseases of the blood and blood-forming organs and certain disorders involving the immune mechanism; Z86.14 Personal history of Methicillin resistant Staphylococcus aureus infection; Z88.1 Allergy status to other antibiotic agents; Z88.6 Allergy status to analgesic agent; Z88.2 Allergy status to sulfonamides; Z91.041 Radiographic dye allergy status; Z91.013 Allergy to seafood; Z88.8 Allergy status to other drugs, medicaments and biological substances; Z91.018 Allergy to other foods
CPT/HCPCS: 36415; 71010; 80053; 81001; 83735; 85027; 93005; 99285-25

== ENCOUNTER 2017-01-22 00:18 | Emergency (ER) | payer MEDICARE, OTHER ==
[~2017-01-22] VITALS: Ht 167.6 cm; Wt 112.0 kg
[~2017-01-22 00:18] MED LIST changes: +PRED20TA PO
[2017-01-22] MEDS ORDERED: CLONIDINE HCL 0.1 MG TABLET PO ONE (02:00)
[2017-01-22 02:06] LABS: BASO % 0 % (0-3); EOS % 1 % (0-3); LYMPH # 2.1 x10^3/uL (1.0-4.8); LYMPH % 24 % (24-48); MEAN CORPUSCULAR HEMOGLOBIN 29 pg (25-35); MEAN CORPUSCULAR HGB CONC 31 g/dL (31-37); MEAN CORPUSCULAR VOLUME 93 fL (79-100); MONO % 9 % (0-9); NEUT % 67 % (31-73); PLATELET COUNT 162 x10^3/uL (140-400); RED BLOOD COUNT 3.44 x10^6/uL (3.50-5.40); RED CELL DISTRIBUTION WIDTH 15.7 % (11.5-14.5); WHITE BLOOD COUNT 9.1 x10^3/uL (4.0-11.0)
[2017-01-22 02:23] LABS: CALCIUM 8.7 mg/dL (8.5-10.1); CREATININE 1.5 mg/dL (0.6-1.0); GFR 41.5; POTASSIUM 5.8 mmol/L (3.5-5.1)
[2017-01-22 02:29] LABS: ALBUMIN 3.2 g/dL (3.4-5.0); DIRECT BILIRUBIN 0.1 mg/dL (0.0-0.2); TOTAL BILIRUBIN 0.3 mg/dL (0.2-1.0)
--- NOTE | 2017-01-22 03:33 | PHYS DOC ---
Past Medical History Past Medical History: Anemia, Anxiety, COPD, Depression, GERD, Glaucoma, Hypertension, Hypothyroid, Pneumonia, UTI, Vascular Disease Additional Past Medical Histor: conjunctivitis, MRSA, lymphedema, Acute and Chronic Respiratory Failure Past Surgical History: Hysterectomy, Other Additional Past Surgical Histo: left shoulder Alcohol Use: None Drug Use: None Adult General Chief Complaint Chief Complaint: CHEST PAIN HPI HPI Patient is a 71 year old female with a history significant for hypertension and COPD who presents here today complaining of sharp midsternal chest pain that lasted for approximately 10 minutes. Patient reports there was just a "touch of pain "patient reports that she is a transfer from [facility]. Patient portion was just sitting there when the pain started lasted for about 10 minutes and then resolved on its own and has been pain-free in the ED since she's been here. Patient denies any fevers shakes chills nausea vomiting diarrhea. Patient has any shortness of breath. Patient reports that the pain occurred while she was coughing and then resolved. Patient reports that the pain increased while she was coughing and taking a deep breath and however upon arrival to the ER reports that the pain is completely resolved. Patient's physical exam was grossly unremarkable. Patient's heart was regular rate. Lungs were clear with no wheezing rales or rhonchi. Her abdomen was soft nontender no rebound or guarding. Patient is alert awake and oriented 3 and in good spirits. Patient reports that she feels much better now and is requesting to be discharged back to [facility]. Patient reports that she's had 2 prolonged stays here at [facility] and would prefer to return back to her room. Patient apparently was admitted here approximately 2 weeks ago secondary to hypercapnic respiratory failure. She reports that at [facility] she is currently using her CPAP machine at night and has not had any further issues. Patient's ER course was significant for normal labs, normal x-rays, patient had an elevated blood pressure upon arrival of the ER however prior to discharge patient's blood pressure significantly improved. A/P #1 atypical chest pain. Patient's pain is most likely secondary to mechanical chest wall pain secondary to coughing. Review of Systems Review of Systems Constitutional: Denies fever or chills [] Eyes: Denies change in visual acuity, redness, or eye pain [] All other review systems are negative except as documented in the history of present illness portion. Current Medications Current Medications Current Medications Medications (Trade) Dose Ordered Sig/Liban Start Time Stop Time Status Last Admin Dose Admin Clonidine HCl (Catapres) 0.2 mg 1X ONCE 01/22/17 02:00 01/22/17 02:01 DC 01/22/17 02:06 0.2 MG Allergies Allergies Allergies Coded Allergies Type Severity Reaction Last Updated Verified adhesive Allergy Intermediate 05/17/15 Yes ciprofloxacin Allergy Intermediate 05/17/15 Yes clarithromycin Allergy Intermediate 05/17/15 Yes codeine Allergy Intermediate 05/17/15 Yes fentanyl Allergy Intermediate 05/17/15 Yes meperidine Allergy Intermediate 05/17/15 Yes oyster extract Allergy Intermediate 05/17/15 Yes shellfish derived Allergy Intermediate 05/17/15 Yes strawberry Allergy Intermediate 05/17/15 Yes sulfur dioxide Allergy Intermediate 05/17/15 Yes tetracycline Allergy Intermediate 05/17/15 Yes Physical Exam Physical Exam Constitutional: Well developed, well nourished, no acute distress, non-toxic appearance. [] HENT: Normocephalic, atraumatic, bilateral external ears normal, oropharynx moist, no oral exudates, nose normal. [] Eyes: PERRLA, EOMI, conjunctiva normal, no discharge. [] Neck: Normal range of motion, no tenderness, supple, no stridor. [] Cardiovascular:Heart rate regular rhythm Lungs & Thorax: Bilateral breath sounds clear to auscultation reproducible tenderness to palpation to her anterior chest wall. Patient does have tenderness when I palpate and when she takes deep breath and coughs. [] Abdomen: Bowel sounds normal, soft, no tenderness, no masses, no pulsatile masses. [] Skin: Warm, dry, no erythema, no rash. [] Back: No tenderness, no CVA tenderness. [] Extremities: No tenderness, no cyanosis, no clubbing, ROM intact, no edema. [] Neurologic: Alert and oriented X 3, Psychologic: Affect normal, judgement normal, mood normal. [] Current Patient Data Vital Signs Vital Signs Date Time Temp Pulse Resp B/P Pulse Ox O2 Delivery O2 Flow Rate FiO2 01/22/17 04:19 66 18 98/61 98 Nasal Cannula 3 01/22/17 00:20 98.9 98.9 Lab Values Laboratory Tests Test 01/22/17 01:50 White Blood Count 9.1x10^3/uL (4.0-11.0) # Red Blood Count 3.44x10^6/uL (3.50-5.40) L Hemoglobin 10.0g/dL (12.0-15.5) L Hematocrit 32.0% (36.0-47.0) L Mean Corpuscular Volume 93fL (79-100) Mean Corpuscular Hemoglobin 29pg (25-35) Mean Corpuscular Hemoglobin Concent 31g/dL (31-37) Red Cell Distribution Width 15.7% (11.5-14.5) H Platelet Count 162x10^3/uL (140-400) Neutrophils (%) (Auto) 67% (31-73) Lymphocytes (%) (Auto) 24% (24-48) Monocytes (%) (Auto) 9% (0-9) Eosinophils (%) (Auto) 1% (0-3) Basophils (%) (Auto) 0% (0-3) Neutrophils # (Auto) 6.1x10^3uL (1.8-7.7) Lymphocytes # (Auto) 2.1x10^3/uL (1.0-4.8) Monocytes # (Auto) 0.8x10^3/uL (0.0-1.1) Eosinophils # (Auto) 0.1x10^3/uL (0.0-0.7) Basophils # (Auto) 0.0x10^3/uL (0.0-0.2) Sodium Level 143mmol/L (136-145) Potassium Level 5.8mmol/L (3.5-5.1) H Chloride Level 100mmol/L (98-107) Carbon Dioxide Level 44mmol/L (21-32) H Anion Gap -1 (6-14) L Blood Urea Nitrogen 44mg/dL (7-20) H Creatinine 1.5mg/dL (0.6-1.0) H Estimated GFR (Cockcroft-Gault) 41.5 Glucose Level 115mg/dL (70-99) H Calcium Level 8.7mg/dL (8.5-10.1) Total Bilirubin 0.3mg/dL (0.2-1.0) Direct Bilirubin 0.1mg/dL (0.0-0.2) Aspartate Amino Transferase (AST) 17U/L (15-37) Alanine Aminotransferase (ALT) 15U/L (14-59) Alkaline Phosphatase 45U/L (46-116) L Troponin I Quantitative < 0.017ng/mL (0.000-0.055) HN-Ute-R-Type Natriuretic Peptide 828pg/mL (0-124) H Total Protein 7.0g/dL (6.4-8.2) Albumin 3.2g/dL (3.4-5.0) L Lipase 113U/L (73-393) Laboratory Tests 01/22/17 01:50 Laboratory Tests 01/22/17 01:50 EKG EKG [] Interpretation Time: EKG revealed normal sinus rhythm without any evidence of hyperacute T waves. There was no evidence of hyperkalemic changes on EKG. Radiology/Procedures Radiology/Procedures [] Course & Med Decision Making Course & Med Decision Making Laboratory Tests Test 01/22/17 01:50 White Blood Count 9.1x10^3/uL Red Blood Count 3.44x10^6/uL Hemoglobin 10.0g/dL Hematocrit 32.0% Mean Corpuscular Volume 93fL Mean Corpuscular Hemoglobin 29pg Mean Corpuscular Hemoglobin Concent 31g/dL Red Cell Distribution Width 15.7% Platelet Count 162x10^3/uL Neutrophils (%) (Auto) 67% Lymphocytes (%) (Auto) 24% Monocytes (%) (Auto) 9% Eosinophils (%) (Auto) 1% Basophils (%) (Auto) 0% Neutrophils # (Auto) 6.1x10^3uL Lymphocytes # (Auto) 2.1x10^3/uL Monocytes # (Auto) 0.8x10^3/uL Eosinophils # (Auto) 0.1x10^3/uL Basophils # (Auto) 0.0x10^3/uL Sodium Level 143mmol/L Potassium Level 5.8mmol/L Chloride Level 100mmol/L Carbon Dioxide Level 44mmol/L Anion Gap -1 Blood Urea Nitrogen 44mg/dL Creatinine 1.5mg/dL Estimated GFR (Cockcroft-Gault) 41.5 Glucose Level 115mg/dL Calcium Level 8.7mg/dL Total Bilirubin 0.3mg/dL Direct Bilirubin 0.1mg/dL Aspartate Amino Transf (AST/SGOT) 17U/L Alanine Aminotransferase (ALT/SGPT) 15U/L Alkaline Phosphatase 45U/L Troponin I Quantitative < 0.017ng/mL EI-Pwp-A-Type Natriuretic Peptide 828pg/mL Total Protein 7.0g/dL Albumin 3.2g/dL Lipase 113U/L Current Medications Medications (Trade) Dose Ordered Sig/Liban Route PRN Reason Start Time Stop Time Status Last Admin Dose Admin Clonidine HCl (Catapres) 0.2 mg 1X ONCE PO 01/22/17 02:00 01/22/17 02:01 DC 01/22/17 02:06 0.2 MG Pertinent Labs and Imaging studies reviewed. (See chart for details) [] Dragon Disclaimer Dragon Disclaimer This electronic medical record was generated, in whole or in part, using a voice recognition dictation system. Departure Departure Impression: Primary Impression: Nonspecific chest pain Additional Impression: Hyperkalemia Disposition: HOME, SELF-CARE Condition: IMPROVED Referrals: ZABRINA BETANCOURT MD (PCP) Patient Instructions: Chest Pain (Nonspecific), [id number], Hyperkalemia Additional Instructions: Your potassium level was slightly elevated today in the ER. Your EKG however looks normal. Please have her doctor repeat her potassium level in 1-2 days for comparison. Problem Qualifiers IZA CARDONA MD Jan 22, 2017 03:33
[2017-01-22 04:19] VITALS: BP 98/61
--- NOTE | 2017-01-22 05:57 | EKG ---
[facility] [address] [place] [address] Test Date: 2017-01-22 Test Time: 00:27:25 Pat Name: TRAVIS SANCHEZ Department: Room: Gender: F Medical Laboratory Technicians: : 1945 Requested By: IZA CARDONA Order Number: [id number] Reading MD: Lam Bolden Measurements Intervals [place] Rate: 82 P: 34 IA: 146 QRS: -53 QRSD: 94 T: 56 QT: 346 QTc: 407 Interpretive Statements SINUS RHYTHM LEFT ATRIAL ABNORMALITY ABNORMAL LEFT AXIS DEVIATION LEFT ANTERIOR FASCICULAR BLOCK QRS(T) CONTOUR ABNORMALITY CONSISTENT WITH ANTEROSEPTAL INFARCT Electronically Signed On 01-22-2017 8:44:56 CDT by Lam Bolden
--- NOTE | 2017-01-22 07:38 | RAD ---
AP portable chest radiograph 01/22/2017 Clinical History: Chest pain. An AP portable erect digital radiograph of the chest was obtained. Comparison study is dated 01/14/2017. The cardiac silhouette is mildly enlarged. The thoracic aorta is mildly tortuous. Mild elevation of the right hemidiaphragm is noted. Left lower lobe atelectasis and/or infiltrate is seen essentially unchanged. No pneumothorax or pleural effusion is noted. The osseous structures are unchanged. Impression: Left lower lobe atelectasis and/ or infiltrate.
== END 2017-01-22 05:06 | disposition home or self-care (01) ==
LOC: ER 00:18
DX: R07.89 Other chest pain (principal); E87.5 Hyperkalemia; R05 Cough; F41.9 Anxiety disorder, unspecified; J44.9 Chronic obstructive pulmonary disease, unspecified; F32.9 Major depressive disorder, single episode, unspecified; K21.9 Gastro-esophageal reflux disease without esophagitis; H40.9 Unspecified glaucoma; I10 Essential (primary) hypertension; E03.9 Hypothyroidism, unspecified; Z87.01 Personal history of pneumonia (recurrent); Z87.440 Personal history of urinary (tract) infections; Z91.048 Other nonmedicinal substance allergy status; Z91.018 Allergy to other foods; Z88.4 Allergy status to anesthetic agent; Z88.1 Allergy status to other antibiotic agents; Z88.5 Allergy status to narcotic agent; Z91.013 Allergy to seafood; Z88.2 Allergy status to sulfonamides; Z88.8 Allergy status to other drugs, medicaments and biological substances
CPT/HCPCS: 36415; 71010; 80048; 80076; 83690; 83880; 84484; 85027; 93005; 99285-25

== ENCOUNTER 2017-02-11 22:41 | Inpatient (IN) | payer MEDICARE, MEDICAID ==
[~2017-02-11] VITALS: Ht 167.6 cm; Wt 101.7 kg
[~2017-02-11 22:41] MED LIST changes: +POLY17PO29 PO; -POLY17PO5 PO
[2017-02-11 23:07] LABS: BASO % 0 % (0-3); EOS % 1 % (0-3); HEMATOCRIT 30.6 % (36.0-47.0); HEMOGLOBIN 9.5 g/dL (12.0-15.5); LYMPH # 0.9 x10^3/uL (1.0-4.8); LYMPH % 15 % (24-48); MEAN CORPUSCULAR HEMOGLOBIN 30 pg (25-35); MEAN CORPUSCULAR HGB CONC 31 g/dL (31-37); MEAN CORPUSCULAR VOLUME 95 fL (79-100); MONO % 10 % (0-9); NEUT % 74 % (31-73); PLATELET COUNT 123 x10^3/uL (140-400); RED BLOOD COUNT 3.22 x10^6/uL (3.50-5.40); RED CELL DISTRIBUTION WIDTH 15.1 % (11.5-14.5); WHITE BLOOD COUNT 6.2 x10^3/uL (4.0-11.0)
--- NOTE | 2017-02-11 23:10 | PHYS DOC ---
Past Medical History Past Medical History: Anemia, Anxiety, COPD, Depression, GERD, Glaucoma, Hypertension, Hypothyroid, Pneumonia, UTI, Vascular Disease Additional Past Medical Histor: conjunctivitis, MRSA, lymphedema, Acute and Chronic Respiratory Failure Past Surgical History: Hysterectomy, Other Additional Past Surgical Histo: left shoulder Alcohol Use: None Drug Use: None Adult General Chief Complaint Chief Complaint: DYSPNEA/RESPIRATOY DISTRESS HPI HPI Patient is a 71 year old female presenting to the emergency department for evaluation of altered mental status. Patient patient reportedly was hypoxic and placed on high flow oxygen is afternoon and has continued to become more obtunded. Review of Systems Review of Systems Unable to be obtained due to mental status Current Medications Current Medications Current Medications Medications (Trade) Dose Ordered Sig/Liban Start Time Stop Time Status Last Admin Dose Admin Ondansetron HCl (Zofran) 4 mg PRN Q8HRS PRN 02/11/17 23:30 02/12/17 23:29 Allergies Allergies Allergies Coded Allergies Type Severity Reaction Last Updated Verified adhesive Allergy Intermediate 05/17/15 Yes ciprofloxacin Allergy Intermediate 05/17/15 Yes clarithromycin Allergy Intermediate 05/17/15 Yes codeine Allergy Intermediate 05/17/15 Yes fentanyl Allergy Intermediate 05/17/15 Yes meperidine Allergy Intermediate 05/17/15 Yes oyster extract Allergy Intermediate 05/17/15 Yes shellfish derived Allergy Intermediate 05/17/15 Yes strawberry Allergy Intermediate 05/17/15 Yes sulfur dioxide Allergy Intermediate 05/17/15 Yes tetracycline Allergy Intermediate 05/17/15 Yes Physical Exam Physical Exam Constitutional: Chronically ill-appearing female patient is lethargic HENT: Normocephalic, atraumatic Eyes: PERRL Neck: Normal range of motion, no tenderness, supple, no stridor. [] Cardiovascular:Heart rate regular rhythm, no murmur [] Lungs & Thorax: Coarse breath sounds with good aeration Abdomen: Bowel sounds normal, soft, no tenderness, no masses, no pulsatile masses. [] Skin: Warm, dry, no erythema, no rash. [] Back: No tenderness, no CVA tenderness. [] Extremities: No tenderness, no cyanosis, no clubbing, ROM intact, no edema. [] Neurologic: Alert and oriented X 0 Current Patient Data Vital Signs Vital Signs Date Time Temp Pulse Resp B/P Pulse Ox O2 Delivery O2 Flow Rate FiO2 02/11/17 23:12 40 Lab Values Laboratory Tests Test 02/11/17 22:58 White Blood Count 6.2x10^3/uL (4.0-11.0) Red Blood Count 3.22x10^6/uL (3.50-5.40) L Hemoglobin 9.5g/dL (12.0-15.5) L Hematocrit 30.6% (36.0-47.0) L Mean Corpuscular Volume 95fL (79-100) Mean Corpuscular Hemoglobin 30pg (25-35) Mean Corpuscular Hemoglobin Concent 31g/dL (31-37) Red Cell Distribution Width 15.1% (11.5-14.5) H Platelet Count 123x10^3/uL (140-400) L Neutrophils (%) (Auto) 74% (31-73) H Lymphocytes (%) (Auto) 15% (24-48) L Monocytes (%) (Auto) 10% (0-9) H Eosinophils (%) (Auto) 1% (0-3) Basophils (%) (Auto) 0% (0-3) Neutrophils # (Auto) 4.6x10^3uL (1.8-7.7) Lymphocytes # (Auto) 0.9x10^3/uL (1.0-4.8) L Monocytes # (Auto) 0.6x10^3/uL (0.0-1.1) Eosinophils # (Auto) 0.1x10^3/uL (0.0-0.7) Basophils # (Auto) 0.0x10^3/uL (0.0-0.2) Prothrombin Time 21.9SEC (11.7-14.0) H Prothrombin Time INR 2.1 (0.8-1.1) H PTT 39SEC (24-38) H Ethyl Alcohol Level < 10mg/dL (0-10) Laboratory Tests 02/11/17 22:58 EKG EKG Normal sinus rhythm at 89 bpm with leftward axis and no obvious ST elevation or depression with normal T waves. Radiology/Procedures Radiology/Procedures Poor inspiratory effort with normal-appearing mediastinum and heart size with no obvious free air or pneumothorax or opacity Course & Med Decision Making Course & Med Decision Making Patient has severe CO2 retention likely related to her unwillingness to wear CPAP at her [facility]. She then received high flow oxygen which drove down her respiratory drive. She is placed on BiPAP currently and I spoke to her sister and she said the patient does not want to be intubated ever. Patient will be admitted to the ICU in serious condition. Critical care time of 35 minutes. Dragon Disclaimer Dragon Disclaimer This electronic medical record was generated, in whole or in part, using a voice recognition dictation system. Departure Departure Impression: Primary Impression: Acute hypercapnic respiratory failure Additional Impression: Metabolic encephalopathy Disposition: ADMITTED INPATIENT Admitting Physician: Philomena Rudolph Condition: GUARDED Referrals: ZABRINA BETANCOURT MD (PCP) Problem Qualifiers SRIRAM COOK DO February 11, 2017 23:10
[2017-02-11 23:15] LABS: INR 2.1 (0.8-1.1); PROTHROMBIN TIME PATIENT 21.9 SEC (11.7-14.0)
[2017-02-11 23:22] LABS: CALCIUM 8.7 mg/dL (8.5-10.1); CREATININE 0.9 mg/dL (0.6-1.0); GFR 74.9
[2017-02-11] MEDS ORDERED: ONDANSETRON PF 4 MG/2 ML VIAL. IV PRN (23:30)
[2017-02-11 23:31] LABS: ALBUMIN 2.9 g/dL (3.4-5.0); ALBUMIN/GLOBULIN RATIO 0.7 (1.0-1.7); MAGNESIUM 1.8 mg/dL (1.8-2.4); TOTAL BILIRUBIN 0.4 mg/dL (0.2-1.0); TOTAL PROTEIN 7.3 g/dL (6.4-8.2)
[2017-02-11 23:36] LABS: POTASSIUM 5.5 mmol/L (3.5-5.1)
[2017-02-11 23:52] LABS: BASE EXCESS COOX 16 mmol/L (-3-3); CARBON MONOXIDE 0.6 % (0.0-1.9); HCO3 COOX 49 mmol/L (21-28); METHEMOGLOBIN 0.5 % (0.0-1.9); OXYHEMOGLOBIN 81.9 %; PO2 COOX 53 mmHg (65-108); SAT O2 COOX 83 % (92-99); TOTAL HEMOGLOBIN 10.5 g/dL
[2017-02-11 23:53] LABS: PCO2 COOX 140 mmHg (35-46); PH COOX 7.16 (7.35-7.45)
[2017-02-12] VITALS (22 sets, daily range): BP systolic 85–182; BP diastolic 64–107
[2017-02-12] MEDS ORDERED: OMEP20CA9 PO (01:19)
[2017-02-12] MEDS ORDERED: ALBUTEROL SULFATE 2.5 MG/3 ML NEBU. NEB PRN (02:00)
[2017-02-12 03:04] LABS: BASO % 0 % (0-3); EOS % 1 % (0-3); HEMATOCRIT 31.1 % (36.0-47.0); HEMOGLOBIN 9.6 g/dL (12.0-15.5); LYMPH # 1.2 x10^3/uL (1.0-4.8); LYMPH % 17 % (24-48); MEAN CORPUSCULAR HEMOGLOBIN 30 pg (25-35); MEAN CORPUSCULAR HGB CONC 31 g/dL (31-37); MEAN CORPUSCULAR VOLUME 96 fL (79-100); MONO % 12 % (0-9); NEUT % 69 % (31-73); PLATELET COUNT 134 x10^3/uL (140-400); RED BLOOD COUNT 3.24 x10^6/uL (3.50-5.40); RED CELL DISTRIBUTION WIDTH 15.1 % (11.5-14.5)
[2017-02-12 03:18] LABS: CALCIUM 8.8 mg/dL (8.5-10.1); CREATININE 0.8 mg/dL (0.6-1.0); GFR 85.8; POTASSIUM 5.9 mmol/L (3.5-5.1)
--- NOTE | 2017-02-12 06:48 | EKG ---
[facility] [address] [place] [address] Test Date: 2017-02-11 Test Time: 22:53:28 Pat Name: TRAVIS SANCHEZ Department: Room: 104 1 Gender: F [employer] Manager: : 1945 Requested By: SRIRAM COOK Order Number: [id number] Reading MD: Kerry Escobar Measurements Intervals [place] Rate: 89 P: 28 [place]: 162 QRS: -44 QRSD: 94 T: 69 QT: 350 QTc: 427 Interpretive Statements SINUS RHYTHM ABNORMAL LEFT AXIS DEVIATION LEFT ANTERIOR FASCICULAR BLOCK ABNORMAL ECG Electronically Signed On 02-15-2017 17:37:12 CDT by Kerry Escobar
--- NOTE | 2017-02-12 06:49 | ACF ---
Admission Forms Criteria RESPIRATORY FAILURE [facility] Clinical Indications for Admission to Inpatient Care (Place 'X' for any and all applicable criteria): Hospital admission is needed for appropriate care of the patient because of acute respiratory failure or insufficiency as indicated by ANY ONE of the following(1)(2)(3)(4)(5)(6)(7)(8): [X]I. Mechanical ventilation needed (acute invasive or noninvasive) [ ]II. Severe ventilation deficit as indicated by ANY ONE of the following (9) [ ]a) Respiratory acidosis (pH less than 7.32 and partial pressure of carbon dioxide greater than 40 mm Hg (5.3 kPa)) [ ]b) Partial pressure of carbon dioxide greater than 44 mm Hg (5.9 kPa ) (new) [ ]c) Airflow measurements less than 25% of predicted (eg, peak expiratory flow rate less than 100 L/minute) [ ]d) Forced vital capacity less than 15 mL/kg of ideal body weight, or 50% decrease in vital capacity from baseline [ ]III. Noncardiac pulmonary edema not resolving with rapid emergency treatment (8) [ ]IV. Severe respiratory distress as indicated by ANY ONE of the following: [ ]a) Severe tachypnea (respiratory rate greater than 30, greater than 45 for 6-month-old, greater than 60 for ) [ ]b) Severe hypoxemia (partial pressure of oxygen less than 50 mm Hg ( 6.7 kPa) on greater than 50% oxygen or partial pressure of oxygen to FIO2 ratio less than 200) [ ]c) Mental status deterioration from respiratory disease [ ]V. Airway obstruction or inadequate protection [A](10)(11) The original [employer] content created by [employer] has been revised. The portions of the content which have been revised are identified through the use of italic text or in bold, and [employer] has neither reviewed nor approved the modified material. All other unmodified content is copyright [employer]. Please see references footnoted in the original [employer] edition 2016 Admission Criteria Met?: Yes MIMI DEMARCO February 12, 2017 06:49
[2017-02-12 07:04] LABS: HCO3 ABG 45 mmol/L (21-28); PO2 ABG 76 mmHg (65-108); SAT O2 ABG 94 % (92-99)
--- NOTE | 2017-02-12 07:25 | RAD ---
Portable chest, 02/11/2017: History: Shortness of breath Comparison is made to a study from 01/22/2017. The heart is mildly enlarged. There is dense calcification of the mitral annulus. The aorta is tortuous. The pulmonary vascularity is normal. There is mild linear atelectasis in the left base. There is also mild right basilar atelectasis partially obscuring the hemidiaphragm. The upper lung humphreys are clear. There is no evidence of pleural fluid. Severe degenerative changes are present at both shoulders. IMPRESSION: 1. Mild cardiomegaly. 2. Mild to moderate bibasilar atelectasis.
[2017-02-12 07:30] LABS: PH ABG 7.32 (7.35-7.45)
[2017-02-12 07:32] LABS: PCO2 ABG 89 mmHg (35-46)
--- NOTE | 2017-02-12 09:06 | PDOC1 ---
History and Physical Date of Admission Date of Admission DATE: 02/12/17 TIME: 09:06 Identification/Chief Complaint Chief Complaint obtunded Problems: Source Source: Chart review History of Present Illness History of Present Illness Patient is a 71 yo female, amdit for lethargy, obtunded and altered mental status. Patient patient reportedly was hypoxic and placed on high flow oxygen is afternoon and has continued to become more obtunded. Past Medical History Cardiovascular: CAD, HTN, Other Pulmonary: Asthma, COPD, Pneumonia, Other CENTRAL NERVOUS SYSTEM: Dementia, Periperal neuropathy, TIA, Other GI: Constipation, GERD Heme/Onc: Cancer Psych: Anxiety, Depression Musculoskeletal: Osteoarthritis Rheumatologic: Fibromyalgia, Rheumatoid arthritis Renal/: UTI, Urinary Incontinence Endocrine: No pertinent hx Past Surgical History Past Surgical History: Cholecystectomy, Total hip replacement, Total knee replacement, Hysterectomy, Other Family History Family History: No Significant, Other Social History Smoke: Quit ALCOHOL: none Drugs: None Current Problem List Problem List Problems Medical Problems: (1) Acute hypercapnic respiratory failure Status: Acute (2) Metabolic encephalopathy Status: Acute Problems: Current Medications Current Medications Current Medications Ondansetron HCl (Zofran) 4 mg PRN Q8HRS PRN IV NAUSEA/VOMITING; Start 02/11/17 at 23:30; Stop 02/12/17 at 23:29 Albuterol Sulfate (Ventolin Neb Soln) 2.5 mg PRN Q4HRS PRN NEB SHORTNESS OF BREATH; Start 02/12/17 at 02:00 Active Scripts Active Prednisone 20 Mg Tablet 40 Mg PO DAILY Reported Omeprazole 20 Mg Capsule.dr 1 Cap PO DAILY Zinc Oxide 30 Gm Oint...g. 30 Gm TP Lyrica (Pregabalin) 75 Mg Capsule 1 Cap PO BID Xalatan (Latanoprost) 2.5 Ml Drops 1 Drop EACHEYE QHS Potassium Chloride Packet (Potassium Chloride) 20 Meq Packet 20 Meq PO BID Percocet 5-325 Mg Tablet (Oxycodone/Acetaminophen) 1 Each Tablet 1 Tab PO PRN Q6HRS PRN Zofran Odt (Ondansetron) 4 Mg Tab.rapdis 1 Tab SL BID Amlodipine Besylate 5 Mg Tablet 5 Mg PO DAILY Lasix (Furosemide) 20 Mg Tablet 1 Tab PO DAILY Ferrous Sulfate 325 Mg Tablet 1 Tab PO BID Coreg (Carvedilol) 12.5 Mg Tablet 1 Tab PO BID Budesonide 0.5 Mg/2 Ml Ampul.neb 1 Vial NEB BID Artificial Tears Eye Drops (Dextran 70/Hypromellose) 15 Ml Drops 1 Drop EACHEYE PRN QID PRN Xarelto (Rivaroxaban) 20 Mg Tablet 20 Mg PO DAILY Cetirizine Hcl 10 Mg Tablet 1 Tab PO HS Tessalon Perle (Benzonatate) 100 Mg Capsule 100 Mg PO TID PRN Multi-Day Vitamins (Multivitamin) 1 Each Tablet 1 Tab PO DAILY Milk Of Magnesia (Magnesium Hydroxide) 400 Mg/5 Ml Oral.susp 30 Ml PO Q2HR PRN Protonix (Pantoprazole Sodium) 40 Mg Tablet.dr 1 Tab PO DAILY Duoneb 0.5-3(2.5) Mg/3 Ml (Albuterol/Ipratropium) 3 Ml Ampul.neb 3 Ml IH Q4HRS PRN Nystatin 1 Each Powder.ea. 1 Each TOP BID to groin and inner thighs, apply barrier cream with zinc and nystatin powder after cleanse with warm water and pat dry Travatan Z (Travoprost) 5 Ml Drops 1 Drop EACHEYE QHS Synthroid (Levothyroxine Sodium) 150 Mcg Tablet 1 Tab PO DAILY Senna S Tablet (Sennosides/Docusate Sodium) 1 Each Tablet 1 Each PO BID Miralax (Polyethylene Glycol 3350) 17 Gm Powd.pack 1 Packet PO DAILY Methylphenidate Hcl 5 Mg Tablet 1 Tab PO BID Docusate Sodium 100 Mg Capsule 1 Cap PO BID Calcium Carbonate 200 Mg Tab.chew 200 Mg PO PRN Q4HRS PRN Tylenol (Acetaminophen) 325 Mg Tablet 2 Tab PO PRN Q4HRS PRN for headache, generalized pain or elevated temperature Allergies Allergies: Coded Allergies: adhesive (Verified Allergy, Intermediate, 05/17/15) ciprofloxacin (Verified Allergy, Intermediate, 05/17/15) clarithromycin (Verified Allergy, Intermediate, 05/17/15) codeine (Verified Allergy, Intermediate, 05/17/15) fentanyl (Verified Allergy, Intermediate, 05/17/15) meperidine (Verified Allergy, Intermediate, 05/17/15) oyster extract (Verified Allergy, Intermediate, 05/17/15) shellfish derived (Verified Allergy, Intermediate, 05/17/15) strawberry (Verified Allergy, Intermediate, 05/17/15) sulfur dioxide (Verified Allergy, Intermediate, 05/17/15) tetracycline (Verified Allergy, Intermediate, 05/17/15) ROS Review of System unable, pt obtunded on BIPAP, Physical Exam General: Alert HEENT: Atraumatic, PERRLA Lungs: Other (low volume, no wheeze, some rale, ) Heart: no murmurs Abdomen: Normal bowel sounds, Soft, No tenderness Rectal Exam: not examined Extremities: Other (2+ Le edema, muscle wasting) Skin: No breakdown Neuro: Other (poor musculature) Psych/Mental Status: Other (lethargic, trying to move and talk) Vitals Vitals Vital Signs Date Time Temp Pulse Resp B/P (MAP) Pulse Ox O2 Delivery O2 Flow Rate FiO2 02/12/17 08:48 99 BiPAP/CPAP 02/12/17 08:00 5.0 02/12/17 03:00 92 25 142/92 (109) 02/12/17 00:35 96.9 96.9 Labs Labs Laboratory Tests Test 02/11/17 22:47 02/11/17 22:58 02/12/17 02:40 02/12/17 04:30 O2 Saturation 83 % (92-99) 94 % (92-99) Arterial Blood pH 7.16 (7.35-7.45) 7.32 (7.35-7.45) Arterial Blood pCO2 at Patient Temp 140 mmHg (35-46) 89 mmHg (35-46) Arterial Blood pO2 at Patient Temp 53 mmHg (65-108) 76 mmHg (65-108) Arterial Blood HCO3 49 mmol/L (21-28) 45 mmol/L (21-28) Arterial Blood Base Excess 16 mmol/L (-3-3) 16 mmol/L (-3-3) Oxyhemoglobin 81.9 % Methemoglobin 0.5 % (0.0-1.9) Carbon Monoxide, Quantitative 0.6 % (0.0-1.9) FiO2 100.0 White Blood Count 6.2 x10^3/uL (4.0-11.0) 7.0 x10^3/uL (4.0-11.0) Red Blood Count 3.22 x10^6/uL (3.50-5.40) 3.24 x10^6/uL (3.50-5.40) Hemoglobin 9.5 g/dL (12.0-15.5) 9.6 g/dL (12.0-15.5) Hematocrit 30.6 % (36.0-47.0) 31.1 % (36.0-47.0) Mean Corpuscular Volume 95 fL (79-100) 96 fL (79-100) Mean Corpuscular Hemoglobin 30 pg (25-35) 30 pg (25-35) Mean Corpuscular Hemoglobin Concent 31 g/dL (31-37) 31 g/dL (31-37) Red Cell Distribution Width 15.1 % (11.5-14.5) 15.1 % (11.5-14.5) Platelet Count 123 x10^3/uL (140-400) 134 x10^3/uL (140-400) Neutrophils (%) (Auto) 74 % (31-73) 69 % (31-73) Lymphocytes (%) (Auto) 15 % (24-48) 17 % (24-48) Monocytes (%) (Auto) 10 % (0-9) 12 % (0-9) Eosinophils (%) (Auto) 1 % (0-3) 1 % (0-3) Basophils (%) (Auto) 0 % (0-3) 0 % (0-3) Neutrophils # (Auto) 4.6 x10^3uL (1.8-7.7) 4.9 x10^3uL (1.8-7.7) Lymphocytes # (Auto) 0.9 x10^3/uL (1.0-4.8) 1.2 x10^3/uL (1.0-4.8) Monocytes # (Auto) 0.6 x10^3/uL (0.0-1.1) 0.9 x10^3/uL (0.0-1.1) Eosinophils # (Auto) 0.1 x10^3/uL (0.0-0.7) 0.0 x10^3/uL (0.0-0.7) Basophils # (Auto) 0.0 x10^3/uL (0.0-0.2) 0.0 x10^3/uL (0.0-0.2) Prothrombin Time 21.9 SEC (11.7-14.0) Prothromb Time International Ratio 2.1 (0.8-1.1) Activated Partial Thromboplast Time 39 SEC (24-38) Sodium Level 146 mmol/L (136-145) 147 mmol/L (136-145) Potassium Level 5.5 mmol/L (3.5-5.1) 5.9 mmol/L (3.5-5.1) Chloride Level 103 mmol/L (98-107) 105 mmol/L (98-107) Carbon Dioxide Level 41 mmol/L (21-32) 42 mmol/L (21-32) Anion Gap 2 (6-14) 0 (6-14) Blood Urea Nitrogen 22 mg/dL (7-20) 23 mg/dL (7-20) Creatinine 0.9 mg/dL (0.6-1.0) 0.8 mg/dL (0.6-1.0) Estimated GFR (Cockcroft-Gault) 74.9 85.8 BUN/Creatinine Ratio 24 (6-20) Glucose Level 158 mg/dL (70-99) 116 mg/dL (70-99) Lactic Acid Level 0.4 mmol/L (0.4-2.0) Calcium Level 8.7 mg/dL (8.5-10.1) 8.8 mg/dL (8.5-10.1) Magnesium Level 1.8 mg/dL (1.8-2.4) Total Bilirubin 0.4 mg/dL (0.2-1.0) Aspartate Amino Transf (AST/SGOT) 35 U/L (15-37) Alanine Aminotransferase (ALT/SGPT) 12 U/L (14-59) Alkaline Phosphatase 59 U/L (46-116) Creatine Kinase 108 U/L (26-192) Troponin I Quantitative < 0.017 ng/mL (0.000-0.055) AB-Xvi-J-Type Natriuretic Peptide 2199 pg/mL (0-124) Total Protein 7.3 g/dL (6.4-8.2) Albumin 2.9 g/dL (3.4-5.0) Albumin/Globulin Ratio 0.7 (1.0-1.7) Lipase 92 U/L (73-393) Thyroid Stimulating Hormone (TSH) 0.978 uIU/mL (0.358-3.74) Ethyl Alcohol Level < 10 mg/dL (0-10) Laboratory Tests Test 02/11/17 22:47 02/11/17 22:58 02/12/17 02:40 02/12/17 04:30 O2 Saturation 83 % (92-99) 94 % (92-99) Arterial Blood pH 7.16 (7.35-7.45) 7.32 (7.35-7.45) Arterial Blood pCO2 at Patient Temp 140 mmHg (35-46) 89 mmHg (35-46) Arterial Blood pO2 at Patient Temp 53 mmHg (65-108) 76 mmHg (65-108) Arterial Blood HCO3 49 mmol/L (21-28) 45 mmol/L (21-28) Arterial Blood Base Excess 16 mmol/L (-3-3) 16 mmol/L (-3-3) Oxyhemoglobin 81.9 % Methemoglobin 0.5 % (0.0-1.9) Carbon Monoxide, Quantitative 0.6 % (0.0-1.9) FiO2 100.0 White Blood Count 6.2 x10^3/uL (4.0-11.0) 7.0 x10^3/uL (4.0-11.0) Red Blood Count 3.22 x10^6/uL (3.50-5.40) 3.24 x10^6/uL (3.50-5.40) Hemoglobin 9.5 g/dL (12.0-15.5) 9.6 g/dL (12.0-15.5) Hematocrit 30.6 % (36.0-47.0) 31.1 % (36.0-47.0) Mean Corpuscular Volume 95 fL (79-100) 96 fL (79-100) Mean Corpuscular Hemoglobin 30 pg (25-35) 30 pg (25-35) Mean Corpuscular Hemoglobin Concent 31 g/dL (31-37) 31 g/dL (31-37) Red Cell Distribution Width 15.1 % (11.5-14.5) 15.1 % (11.5-14.5) Platelet Count 123 x10^3/uL (140-400) 134 x10^3/uL (140-400) Neutrophils (%) (Auto) 74 % (31-73) 69 % (31-73) Lymphocytes (%) (Auto) 15 % (24-48) 17 % (24-48) Monocytes (%) (Auto) 10 % (0-9) 12 % (0-9) Eosinophils (%) (Auto) 1 % (0-3) 1 % (0-3) Basophils (%) (Auto) 0 % (0-3) 0 % (0-3) Neutrophils # (Auto) 4.6 x10^3uL (1.8-7.7) 4.9 x10^3uL (1.8-7.7) Lymphocytes # (Auto) 0.9 x10^3/uL (1.0-4.8) 1.2 x10^3/uL (1.0-4.8) Monocytes # (Auto) 0.6 x10^3/uL (0.0-1.1) 0.9 x10^3/uL (0.0-1.1) Eosinophils # (Auto) 0.1 x10^3/uL (0.0-0.7) 0.0 x10^3/uL (0.0-0.7) Basophils # (Auto) 0.0 x10^3/uL (0.0-0.2) 0.0 x10^3/uL (0.0-0.2) Prothrombin Time 21.9 SEC (11.7-14.0) Prothromb Time International Ratio 2.1 (0.8-1.1) Activated Partial Thromboplast Time 39 SEC (24-38) Sodium Level 146 mmol/L (136-145) 147 mmol/L (136-145) Potassium Level 5.5 mmol/L (3.5-5.1) 5.9 mmol/L (3.5-5.1) Chloride Level 103 mmol/L (98-107) 105 mmol/L (98-107) Carbon Dioxide Level 41 mmol/L (21-32) 42 mmol/L (21-32) Anion Gap 2 (6-14) 0 (6-14) Blood Urea Nitrogen 22 mg/dL (7-20) 23 mg/dL (7-20) Creatinine 0.9 mg/dL (0.6-1.0) 0.8 mg/dL (0.6-1.0) Estimated GFR (Cockcroft-Gault) 74.9 85.8 BUN/Creatinine Ratio 24 (6-20) Glucose Level 158 mg/dL (70-99) 116 mg/dL (70-99) Lactic Acid Level 0.4 mmol/L (0.4-2.0) Calcium Level 8.7 mg/dL (8.5-10.1) 8.8 mg/dL (8.5-10.1) Magnesium Level 1.8 mg/dL (1.8-2.4) Total Bilirubin 0.4 mg/dL (0.2-1.0) Aspartate Amino Transf (AST/SGOT) 35 U/L (15-37) Alanine Aminotransferase (ALT/SGPT) 12 U/L (14-59) Alkaline Phosphatase 59 U/L (46-116) Creatine Kinase 108 U/L (26-192) Troponin I Quantitative < 0.017 ng/mL (0.000-0.055) XS-Mul-H-Type Natriuretic Peptide 2199 pg/mL (0-124) Total Protein 7.3 g/dL (6.4-8.2) Albumin 2.9 g/dL (3.4-5.0) Albumin/Globulin Ratio 0.7 (1.0-1.7) Lipase 92 U/L (73-393) Thyroid Stimulating Hormone (TSH) 0.978 uIU/mL (0.358-3.74) Ethyl Alcohol Level < 10 mg/dL (0-10) VTE Prophylaxis Ordered VTE Prophylaxis Devices: Contraindicated VTE Pharmacological Prophylaxi: No Assessment/Plan Assessment/Plan acute hypercarbic respiratory failure acute metabolic encephalopathy, COPD, AE, CO2 narcosis noncompliant with bipap at [place] hyperkalemia, IV lasix, and NS iv fluid hypernatremia anemia moderate malnutrition , obesity, BMI 36 admitted to ICU, on BIPAP pt in DNR MICHEAL DAVIS MD February 12, 2017 09:06
[2017-02-12] MEDS ORDERED: IV NORMAL SALINE 1000ML BAG 1,000 ML IV ONE (09:30)
[2017-02-12] MEDS ORDERED: DOXYCYCLINE HYCLATE 100 MG in IV DEXTROSE 5% 100 ML IV SCH (09:30)
[2017-02-12] MEDS ORDERED: FUROSEMIDE 20 MG/2 ML VIAL. IVP ONE (09:30)
[2017-02-12] MEDS ORDERED: BUDESONIDE 0.5 MG/2 ML NEBU. NEB ONE (09:30)
--- NOTE | 2017-02-12 09:59 | PDOC2 ---
CONSULT Date of Consult Date of Consult DATE: 02/12/17 TIME: 09:57 Reason for Consult Reason for Consult: HyperKalmeia Referring Physician Referring Physician: Dr Rudolph Identification/Chief Complaint Chief Complaint AMS after pt refused biPAP for 3 nocs Problems: Source Source: Chart review, Patient History of Present Illness Reason for Visit: as dictated Past Medical History Cardiovascular: CAD, HTN, Other Pulmonary: Asthma, COPD, Pneumonia, Other CENTRAL NERVOUS SYSTEM: Dementia, Periperal neuropathy, TIA, Other GI: Constipation, GERD Heme/Onc: Cancer Psych: Anxiety, Depression Musculoskeletal: Osteoarthritis Rheumatologic: Fibromyalgia, Rheumatoid arthritis Renal/: UTI, Urinary Incontinence Endocrine: No pertinent hx Past Surgical History Past Surgical History: Cholecystectomy, Total hip replacement, Total knee replacement, Hysterectomy, Other Family History Family History: No Significant, Other Social History Quit ALCOHOL: none Drugs: None Lives: Snf Current Problem List Problem List Problems Medical Problems: (1) Acute hypercapnic respiratory failure Status: Acute (2) Metabolic encephalopathy Status: Acute Current Medications Current Medications Current Medications Ondansetron HCl (Zofran) 4 mg PRN Q8HRS PRN IV NAUSEA/VOMITING; Start 02/11/17 at 23:30; Stop 02/12/17 at 23:29 Albuterol Sulfate (Ventolin Neb Soln) 2.5 mg PRN Q4HRS PRN NEB SHORTNESS OF BREATH; Start 02/12/17 at 02:00 Sodium Chloride 1,000 ml @ 125 mls/hr 1X ONCE IV ; Start 02/12/17 at 09:30; Stop 02/12/17 at 17:29 Furosemide (Lasix) 20 mg 1X ONCE IVP ; Start 02/12/17 at 09:30; Stop 02/12/17 at 09:31; Status DC Methylprednisolone Sodium Succinate (Solu-Medrol 40mg Vial) 40 mg Q12HR IV ; Start 02/12/17 at 09:30 Budesonide (Pulmicort) 0.5 mg 1X ONCE NEB ; Start 02/12/17 at 09:30; Stop at 09:31; Status DC Budesonide (Pulmicort) 0.5 mg RTBID NEB ; Start 02/12/17 at 20:00 Albuterol/ Ipratropium (Duoneb) 3 ml Q4HRS W/A NEB ; Start 02/12/17 at 10:00 Ceftriaxone Sodium 1 gm/ Sodium Chloride 50 ml @ 100 mls/hr Q24H IV ; Start 02/12/17 at 10:00 Doxycycline Hyclate 100 mg/ Dextrose 100 ml @ 50 mls/hr Q12HR IV ; Start at 09:30; Status UNV Active Scripts Active Prednisone 20 Mg Tablet 40 Mg PO DAILY Reported Omeprazole 20 Mg Capsule.dr 1 Cap PO DAILY Zinc Oxide 30 Gm Oint...g. 30 Gm TP Lyrica (Pregabalin) 75 Mg Capsule 1 Cap PO BID Xalatan (Latanoprost) 2.5 Ml Drops 1 Drop EACHEYE QHS Potassium Chloride Packet (Potassium Chloride) 20 Meq Packet 20 Meq PO BID Percocet 5-325 Mg Tablet (Oxycodone/Acetaminophen) 1 Each Tablet 1 Tab PO PRN Q6HRS PRN Zofran Odt (Ondansetron) 4 Mg Tab.rapdis 1 Tab SL BID Amlodipine Besylate 5 Mg Tablet 5 Mg PO DAILY Lasix (Furosemide) 20 Mg Tablet 1 Tab PO DAILY Ferrous Sulfate 325 Mg Tablet 1 Tab PO BID Coreg (Carvedilol) 12.5 Mg Tablet 1 Tab PO BID Budesonide 0.5 Mg/2 Ml Ampul.neb 1 Vial NEB BID Artificial Tears Eye Drops (Dextran 70/Hypromellose) 15 Ml Drops 1 Drop EACHEYE PRN QID PRN Xarelto (Rivaroxaban) 20 Mg Tablet 20 Mg PO DAILY Cetirizine Hcl 10 Mg Tablet 1 Tab PO HS Tessalon Perle (Benzonatate) 100 Mg Capsule 100 Mg PO TID PRN Multi-Day Vitamins (Multivitamin) 1 Each Tablet 1 Tab PO DAILY Milk Of Magnesia (Magnesium Hydroxide) 400 Mg/5 Ml Oral.susp 30 Ml PO Q2HR PRN Protonix (Pantoprazole Sodium) 40 Mg Tablet.dr 1 Tab PO DAILY Duoneb 0.5-3(2.5) Mg/3 Ml (Albuterol/Ipratropium) 3 Ml Ampul.neb 3 Ml IH Q4HRS PRN Nystatin 1 Each Powder.ea. 1 Each TOP BID to groin and inner thighs, apply barrier cream with zinc and nystatin powder after cleanse with warm water and pat dry Travatan Z (Travoprost) 5 Ml Drops 1 Drop EACHEYE QHS Synthroid (Levothyroxine Sodium) 150 Mcg Tablet 1 Tab PO DAILY Senna S Tablet (Sennosides/Docusate Sodium) 1 Each Tablet 1 Each PO BID Miralax (Polyethylene Glycol 3350) 17 Gm Powd.pack 1 Packet PO DAILY Methylphenidate Hcl 5 Mg Tablet 1 Tab PO BID Docusate Sodium 100 Mg Capsule 1 Cap PO BID Calcium Carbonate 200 Mg Tab.chew 200 Mg PO PRN Q4HRS PRN Tylenol (Acetaminophen) 325 Mg Tablet 2 Tab PO PRN Q4HRS PRN for headache, generalized pain or elevated temperature Allergies Allergies: Coded Allergies: adhesive (Verified Allergy, Intermediate, 05/17/15) ciprofloxacin (Verified Allergy, Intermediate, 05/17/15) clarithromycin (Verified Allergy, Intermediate, 05/17/15) codeine (Verified Allergy, Intermediate, 05/17/15) fentanyl (Verified Allergy, Intermediate, 05/17/15) meperidine (Verified Allergy, Intermediate, 05/17/15) oyster extract (Verified Allergy, Intermediate, 05/17/15) shellfish derived (Verified Allergy, Intermediate, 05/17/15) strawberry (Verified Allergy, Intermediate, 05/17/15) sulfur dioxide (Verified Allergy, Intermediate, 05/17/15) tetracycline (Verified Allergy, Intermediate, 05/17/15) ROS Review of System Unable to reliably obtain from the pt due to bipap and underlying dementia; Family in Room do not know either Physical Exam Physical Exam General Appearance: Awake more Alert Oriented x ? In mod resp Distress while on BiPAP Eyes: VIsion Unchanged Conjunctiva Normal EN: No EN Drainage Mucous Memb. dryish Neck: no JVD min JVP Supple no Thyromegaly CVS: S1 S2 no audible Murmur No Gallop No Rub + Edema Resp: no Rales no Rhonchi no Acc. Muscle use; barely audible BS while on BiPAP GI: BAS +ve NO Bruit + Tender Non Distended - obese : no CVA tenderness; no Suprapubic Tenderness SKIN: no Rashes Breast Exam deferred Mu.Sk: very limited ROM min Muscle Atrophy Heme: Unable to palpate Obvious LAD [ ] Splenomegaly NEURO: min Strength and Tone amari in lower ext no asterixis Psych: Unable to assess while on BiPAP Vital Signs Vital Signs Date Time Temp Pulse Resp B/P (MAP) Pulse Ox O2 Delivery O2 Flow Rate FiO2 02/12/17 08:48 99 BiPAP/CPAP 02/12/17 08:00 5.0 02/12/17 03:00 92 25 142/92 (109) 02/12/17 00:35 96.9 96.9 Assessment & Plan ^K - suspect due to Ac Resp Acidosis asso with biPap noncompliance. Currently on biPAP and should help with correction of same. check serial K and IV lasix prn Oliguria - Suspect vol depleiton - IVF as ordered ^Na - Hypotonic IVF as ordered Anemia: will check Iron levels ? CHF - IV Lasix prn amari to help with K also. Oliguria suggests pre-renal state.. Discussed Plan of Care and prognosis etc. at length with family. Labs Labs Laboratory Tests Test 02/11/17 22:47 02/11/17 22:58 02/12/17 02:40 02/12/17 04:30 O2 Saturation 83 % (92-99) 94 % (92-99) Arterial Blood pH 7.16 (7.35-7.45) 7.32 (7.35-7.45) Arterial Blood pCO2 at Patient Temp 140 mmHg (35-46) 89 mmHg (35-46) Arterial Blood pO2 at Patient Temp 53 mmHg (65-108) 76 mmHg (65-108) Arterial Blood HCO3 49 mmol/L (21-28) 45 mmol/L (21-28) Arterial Blood Base Excess 16 mmol/L (-3-3) 16 mmol/L (-3-3) Oxyhemoglobin 81.9 % Methemoglobin 0.5 % (0.0-1.9) Carbon Monoxide, Quantitative 0.6 % (0.0-1.9) FiO2 100.0 White Blood Count 6.2 x10^3/uL (4.0-11.0) 7.0 x10^3/uL (4.0-11.0) Red Blood Count 3.22 x10^6/uL (3.50-5.40) 3.24 x10^6/uL (3.50-5.40) Hemoglobin 9.5 g/dL (12.0-15.5) 9.6 g/dL (12.0-15.5) Hematocrit 30.6 % (36.0-47.0) 31.1 % (36.0-47.0) Mean Corpuscular Volume 95 fL (79-100) 96 fL (79-100) Mean Corpuscular Hemoglobin 30 pg (25-35) 30 pg (25-35) Mean Corpuscular Hemoglobin Concent 31 g/dL (31-37) 31 g/dL (31-37) Red Cell Distribution Width 15.1 % (11.5-14.5) 15.1 % (11.5-14.5) Platelet Count 123 x10^3/uL (140-400) 134 x10^3/uL (140-400) Neutrophils (%) (Auto) 74 % (31-73) 69 % (31-73) Lymphocytes (%) (Auto) 15 % (24-48) 17 % (24-48) Monocytes (%) (Auto) 10 % (0-9) 12 % (0-9) Eosinophils (%) (Auto) 1 % (0-3) 1 % (0-3) Basophils (%) (Auto) 0 % (0-3) 0 % (0-3) Neutrophils # (Auto) 4.6 x10^3uL (1.8-7.7) 4.9 x10^3uL (1.8-7.7) Lymphocytes # (Auto) 0.9 x10^3/uL (1.0-4.8) 1.2 x10^3/uL (1.0-4.8) Monocytes # (Auto) 0.6 x10^3/uL (0.0-1.1) 0.9 x10^3/uL (0.0-1.1) Eosinophils # (Auto) 0.1 x10^3/uL (0.0-0.7) 0.0 x10^3/uL (0.0-0.7) Basophils # (Auto) 0.0 x10^3/uL (0.0-0.2) 0.0 x10^3/uL (0.0-0.2) Prothrombin Time 21.9 SEC (11.7-14.0) Prothromb Time International Ratio 2.1 (0.8-1.1) Activated Partial Thromboplast Time 39 SEC (24-38) Sodium Level 146 mmol/L (136-145) 147 mmol/L (136-145) Potassium Level 5.5 mmol/L (3.5-5.1) 5.9 mmol/L (3.5-5.1) Chloride Level 103 mmol/L (98-107) 105 mmol/L (98-107) Carbon Dioxide Level 41 mmol/L (21-32) 42 mmol/L (21-32) Anion Gap 2 (6-14) 0 (6-14) Blood Urea Nitrogen 22 mg/dL (7-20) 23 mg/dL (7-20) Creatinine 0.9 mg/dL (0.6-1.0) 0.8 mg/dL (0.6-1.0) Estimated GFR (Cockcroft-Gault) 74.9 85.8 BUN/Creatinine Ratio 24 (6-20) Glucose Level 158 mg/dL (70-99) 116 mg/dL (70-99) Lactic Acid Level 0.4 mmol/L (0.4-2.0) Calcium Level 8.7 mg/dL (8.5-10.1) 8.8 mg/dL (8.5-10.1) Magnesium Level 1.8 mg/dL (1.8-2.4) Total Bilirubin 0.4 mg/dL (0.2-1.0) Aspartate Amino Transf (AST/SGOT) 35 U/L (15-37) Alanine Aminotransferase (ALT/SGPT) 12 U/L (14-59) Alkaline Phosphatase 59 U/L (46-116) Creatine Kinase 108 U/L (26-192) Troponin I Quantitative < 0.017 ng/mL (0.000-0.055) KQ-Gly-C-Type Natriuretic Peptide 2199 pg/mL (0-124) Total Protein 7.3 g/dL (6.4-8.2) Albumin 2.9 g/dL (3.4-5.0) Albumin/Globulin Ratio 0.7 (1.0-1.7) Lipase 92 U/L (73-393) Thyroid Stimulating Hormone (TSH) 0.978 uIU/mL (0.358-3.74) Ethyl Alcohol Level < 10 mg/dL (0-10) Laboratory Tests Test 02/11/17 22:47 02/11/17 22:58 02/12/17 02:40 02/12/17 04:30 O2 Saturation 83 % (92-99) 94 % (92-99) Arterial Blood pH 7.16 (7.35-7.45) 7.32 (7.35-7.45) Arterial Blood pCO2 at Patient Temp 140 mmHg (35-46) 89 mmHg (35-46) Arterial Blood pO2 at Patient Temp 53 mmHg (65-108) 76 mmHg (65-108) Arterial Blood HCO3 49 mmol/L (21-28) 45 mmol/L (21-28) Arterial Blood Base Excess 16 mmol/L (-3-3) 16 mmol/L (-3-3) Oxyhemoglobin 81.9 % Methemoglobin 0.5 % (0.0-1.9) Carbon Monoxide, Quantitative 0.6 % (0.0-1.9) FiO2 100.0 White Blood Count 6.2 x10^3/uL (4.0-11.0) 7.0 x10^3/uL (4.0-11.0) Red Blood Count 3.22 x10^6/uL (3.50-5.40) 3.24 x10^6/uL (3.50-5.40) Hemoglobin 9.5 g/dL (12.0-15.5) 9.6 g/dL (12.0-15.5) Hematocrit 30.6 % (36.0-47.0) 31.1 % (36.0-47.0) Mean Corpuscular Volume 95 fL (79-100) 96 fL (79-100) Mean Corpuscular Hemoglobin 30 pg (25-35) 30 pg (25-35) Mean Corpuscular Hemoglobin Concent 31 g/dL (31-37) 31 g/dL (31-37) Red Cell Distribution Width 15.1 % (11.5-14.5) 15.1 % (11.5-14.5) Platelet Count 123 x10^3/uL (140-400) 134 x10^3/uL (140-400) Neutrophils (%) (Auto) 74 % (31-73) 69 % (31-73) Lymphocytes (%) (Auto) 15 % (24-48) 17 % (24-48) Monocytes (%) (Auto) 10 % (0-9) 12 % (0-9) Eosinophils (%) (Auto) 1 % (0-3) 1 % (0-3) Basophils (%) (Auto) 0 % (0-3) 0 % (0-3) Neutrophils # (Auto) 4.6 x10^3uL (1.8-7.7) 4.9 x10^3uL (1.8-7.7) Lymphocytes # (Auto) 0.9 x10^3/uL (1.0-4.8) 1.2 x10^3/uL (1.0-4.8) Monocytes # (Auto) 0.6 x10^3/uL (0.0-1.1) 0.9 x10^3/uL (0.0-1.1) Eosinophils # (Auto) 0.1 x10^3/uL (0.0-0.7) 0.0 x10^3/uL (0.0-0.7) Basophils # (Auto) 0.0 x10^3/uL (0.0-0.2) 0.0 x10^3/uL (0.0-0.2) Prothrombin Time 21.9 SEC (11.7-14.0) Prothromb Time International Ratio 2.1 (0.8-1.1) Activated Partial Thromboplast Time 39 SEC (24-38) Sodium Level 146 mmol/L (136-145) 147 mmol/L (136-145) Potassium Level 5.5 mmol/L (3.5-5.1) 5.9 mmol/L (3.5-5.1) Chloride Level 103 mmol/L (98-107) 105 mmol/L (98-107) Carbon Dioxide Level 41 mmol/L (21-32) 42 mmol/L (21-32) Anion Gap 2 (6-14) 0 (6-14) Blood Urea Nitrogen 22 mg/dL (7-20) 23 mg/dL (7-20) Creatinine 0.9 mg/dL (0.6-1.0) 0.8 mg/dL (0.6-1.0) Estimated GFR (Cockcroft-Gault) 74.9 85.8 BUN/Creatinine Ratio 24 (6-20) Glucose Level 158 mg/dL (70-99) 116 mg/dL (70-99) Lactic Acid Level 0.4 mmol/L (0.4-2.0) Calcium Level 8.7 mg/dL (8.5-10.1) 8.8 mg/dL (8.5-10.1) Magnesium Level 1.8 mg/dL (1.8-2.4) Total Bilirubin 0.4 mg/dL (0.2-1.0) Aspartate Amino Transf (AST/SGOT) 35 U/L (15-37) Alanine Aminotransferase (ALT/SGPT) 12 U/L (14-59) Alkaline Phosphatase 59 U/L (46-116) Creatine Kinase 108 U/L (26-192) Troponin I Quantitative < 0.017 ng/mL (0.000-0.055) [id number]-[id number]-Type Natriuretic Peptide 2199 pg/mL (0-124) Total Protein 7.3 g/dL (6.4-8.2) Albumin 2.9 g/dL (3.4-5.0) Albumin/Globulin Ratio 0.7 (1.0-1.7) Lipase 92 U/L (73-393) Thyroid Stimulating Hormone (TSH) 0.978 uIU/mL (0.358-3.74) Ethyl Alcohol Level < 10 mg/dL (0-10) SANDY JOHNSON MD February 12, 2017 09:59
[2017-02-12] MEDS ORDERED: FUROSEMIDE 40 MG/4 ML VIAL. IVP PRN (10:00)
--- NOTE | 2017-02-12 10:12 | PDOC2 ---
CARDIAC CONSULT DATE OF CONSULT Date of Consult DATE: 02/12/17 TIME: 09:53 REASON FOR CONSULT Reason for Consult: CHF REFERRING PHYSICIAN Referring Physician: Ronni SOURCE Source: Chart review HISTORY OF PRESENT ILLNESS HISTORY OF PRESENT ILLNESS This is a 71 yo female admitted for noted altered mental status at the [facility] [facility]. Sister (Camelia) at the bedside, her DPOA, reported that pt baseline mental status is Ox3. Pt has a tendency to refuse her CPAP at night which she did from Thursday to Thursday. Also sometimes she refuses some of her medications. By history she does have hx of alzheimers dementia and since she was 60 and her husbands passing, her health has deteriorated because she mainly stopped caring for herself and sister told me that she gave up and basically decided to just stay at the [facility] [place] [facility] home. She has failed to take care of herself and was depressed which runs in her family. At the [facility] [place] [facility] she was noted with progressively decreasing mentation and was obtunded which prompted her hospitalization. Her sister was informed and there was no mention of CP, SOA issues prelude to her changes in her mentation, falls or any injury. She is bed /WC bound with notable quadriparesis. No prior hx of CVA, CAD, arrhythmias, nor PE but positive for multiple DVTs in the past. Currently she is lethargic and on bipap. PAST MEDICAL HISTORY Cardiovascular: HTN, Other (chronic lymphedema) Pulmonary: COPD, Pneumonia, Other (chronic hypoxic respiratory failure; ELISHA) CENTRAL NERVOUS SYSTEM: Dementia (Alzheimers), Periperal neuropathy, Other ( narcolepsy) GI: GERD Heme/Onc: Other (Multiple DVTs) Hepatobiliary: No pertinent hx Psych: Anxiety, Depression Musculoskeletal: Osteoarthritis, Other (obesity; quadraparesis) Rheumatologic: Fibromyalgia, Rheumatoid arthritis Infectious disease: Other (MRSA) ENT: Other (glaucoma) Renal/: UTI Endocrine: Hypothyroidism Dermatology: No pertinent hx PAST SURGICAL HISTORY Past Surgical History: Arthroscopy (left RTC repair), Cholecystectomy, Total hip replacement, Tonsillectomy, Hysterectomy, Other (bronchoscopy) FAMILY HISTORY Family History: Coronary Artery Disease (mother and father), Diabetes (sister) , Other (depression sister ) SOCIAL HISTORY Smoke: No (quit remotely) ALCOHOL: none Drugs: None [place] ALLERGIES ALLERGIES: Coded Allergies: adhesive (Verified Allergy, Intermediate, 05/17/15) ciprofloxacin (Verified Allergy, Intermediate, 05/17/15) clarithromycin (Verified Allergy, Intermediate, 05/17/15) codeine (Verified Allergy, Intermediate, 05/17/15) fentanyl (Verified Allergy, Intermediate, 05/17/15) meperidine (Verified Allergy, Intermediate, 05/17/15) oyster extract (Verified Allergy, Intermediate, 05/17/15) shellfish derived (Verified Allergy, Intermediate, 05/17/15) strawberry (Verified Allergy, Intermediate, 05/17/15) sulfur dioxide (Verified Allergy, Intermediate, 05/17/15) tetracycline (Verified Allergy, Intermediate, 05/17/15) ROS Review of System unreliable, lethargic and on bipap PHYSICAL EXAM General: mild distress HEENT: Atraumatic, Mucous membr. moist/pink Lungs: Other (diminished bases, on bipap) Heart: Regular rate (SR/ST), Other (3/6 systolic murmur to LUCIE border otherwise unable to fully appreciate heart sounds due to bipap use) Extremities: No cyanosis, Other (chronic LE lymphedema; Skin is warm and dry no pitting edema) Skin: No breakdown, No significant lesion Neuro: Other (lethargic) MUSCULOSKELETAL: Osteoarthritic changes both hands, Other (quadraparesis) VITALS VITALS Vital Signs Date Time Temp Pulse Resp B/P (MAP) Pulse Ox O2 Delivery O2 Flow Rate FiO2 02/12/17 08:48 99 BiPAP/CPAP 02/12/17 08:00 5.0 02/12/17 03:00 92 25 142/92 (109) 02/12/17 00:35 96.9 96.9 LABS Lab: Laboratory Tests Test 02/11/17 22:47 02/11/17 22:58 02/12/17 02:40 02/12/17 04:30 O2 Saturation 83 % (92-99) 94 % (92-99) Arterial Blood pH 7.16 (7.35-7.45) 7.32 (7.35-7.45) Arterial Blood pCO2 at Patient Temp 140 mmHg (35-46) 89 mmHg (35-46) Arterial Blood pO2 at Patient Temp 53 mmHg (65-108) 76 mmHg (65-108) Arterial Blood HCO3 49 mmol/L (21-28) 45 mmol/L (21-28) Arterial Blood Base Excess 16 mmol/L (-3-3) 16 mmol/L (-3-3) Oxyhemoglobin 81.9 % Methemoglobin 0.5 % (0.0-1.9) Carbon Monoxide, Quantitative 0.6 % (0.0-1.9) FiO2 100.0 White Blood Count 6.2 x10^3/uL (4.0-11.0) 7.0 x10^3/uL (4.0-11.0) Red Blood Count 3.22 x10^6/uL (3.50-5.40) 3.24 x10^6/uL (3.50-5.40) Hemoglobin 9.5 g/dL (12.0-15.5) 9.6 g/dL (12.0-15.5) Hematocrit 30.6 % (36.0-47.0) 31.1 % (36.0-47.0) Mean Corpuscular Volume 95 fL (79-100) 96 fL (79-100) Mean Corpuscular Hemoglobin 30 pg (25-35) 30 pg (25-35) Mean Corpuscular Hemoglobin Concent 31 g/dL (31-37) 31 g/dL (31-37) Red Cell Distribution Width 15.1 % (11.5-14.5) 15.1 % (11.5-14.5) Platelet Count 123 x10^3/uL (140-400) 134 x10^3/uL (140-400) Neutrophils (%) (Auto) 74 % (31-73) 69 % (31-73) Lymphocytes (%) (Auto) 15 % (24-48) 17 % (24-48) Monocytes (%) (Auto) 10 % (0-9) 12 % (0-9) Eosinophils (%) (Auto) 1 % (0-3) 1 % (0-3) Basophils (%) (Auto) 0 % (0-3) 0 % (0-3) Neutrophils # (Auto) 4.6 x10^3uL (1.8-7.7) 4.9 x10^3uL (1.8-7.7) Lymphocytes # (Auto) 0.9 x10^3/uL (1.0-4.8) 1.2 x10^3/uL (1.0-4.8) Monocytes # (Auto) 0.6 x10^3/uL (0.0-1.1) 0.9 x10^3/uL (0.0-1.1) Eosinophils # (Auto) 0.1 x10^3/uL (0.0-0.7) 0.0 x10^3/uL (0.0-0.7) Basophils # (Auto) 0.0 x10^3/uL (0.0-0.2) 0.0 x10^3/uL (0.0-0.2) Prothrombin Time 21.9 SEC (11.7-14.0) Prothromb Time International Ratio 2.1 (0.8-1.1) Activated Partial Thromboplast Time 39 SEC (24-38) Sodium Level 146 mmol/L (136-145) 147 mmol/L (136-145) Potassium Level 5.5 mmol/L (3.5-5.1) 5.9 mmol/L (3.5-5.1) Chloride Level 103 mmol/L (98-107) 105 mmol/L (98-107) Carbon Dioxide Level 41 mmol/L (21-32) 42 mmol/L (21-32) Anion Gap 2 (6-14) 0 (6-14) Blood Urea Nitrogen 22 mg/dL (7-20) 23 mg/dL (7-20) Creatinine 0.9 mg/dL (0.6-1.0) 0.8 mg/dL (0.6-1.0) Estimated GFR (Cockcroft-Gault) 74.9 85.8 BUN/Creatinine Ratio 24 (6-20) Glucose Level 158 mg/dL (70-99) 116 mg/dL (70-99) Lactic Acid Level 0.4 mmol/L (0.4-2.0) Calcium Level 8.7 mg/dL (8.5-10.1) 8.8 mg/dL (8.5-10.1) Magnesium Level 1.8 mg/dL (1.8-2.4) Total Bilirubin 0.4 mg/dL (0.2-1.0) Aspartate Amino Transf (AST/SGOT) 35 U/L (15-37) Alanine Aminotransferase (ALT/SGPT) 12 U/L (14-59) Alkaline Phosphatase 59 U/L (46-116) Creatine Kinase 108 U/L (26-192) Troponin I Quantitative < 0.017 ng/mL (0.000-0.055) CC-Mfp-C-Type Natriuretic Peptide 2199 pg/mL (0-124) Total Protein 7.3 g/dL (6.4-8.2) Albumin 2.9 g/dL (3.4-5.0) Albumin/Globulin Ratio 0.7 (1.0-1.7) Lipase 92 U/L (73-393) Thyroid Stimulating Hormone (TSH) 0.978 uIU/mL (0.358-3.74) Ethyl Alcohol Level < 10 mg/dL (0-10) ASSESSMENT/PLAN ASSESSMENT/PLAN 1. Hypoxic encephalopathy: baseline mentation Ox3. 2. Acute on chronic respiratory failure/COPD/ELISHA: refused to use CPAP from Thursday to Thursday. 3. Suspect mild acute diastolic CHF: mainly due to #2. Continue with bipap 4. CIERA/hyperkalemia: Suspect prerenal. nephrology following 5. Hypothyroidism: TSH on goal 6. Chronic lymphedema 7. Chronic quadriparesis: mainly due to severe deconditioning 8. Alzheimers dementia 9. 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 No prior hx of arrhytmias, CVA or CAD accdg to her sister. 10. Hx of narcolepsy: on Ritalin 11. HTN: controlled Recommendations 1. Prerenal state with dehydration, received x1 low dose lasix in ED, NO further lasix 2. Agree with IVF, Defer further to nephrology 3. Follow pulmonary recommendations 4. EKG SR with LAFB, no acute changes. TTE today, lipid panel, Mg. 5. Discussed significantly with sister her DPOA, and no invasive procedures and will maintain conservative management. 5. Supportive care. Problems: JORDY HO GLASS PRESSER February 12, 2017 10:12
[2017-02-12 10:37] LABS: CHOLESTEROL/HDL RATIO 4.7; MAGNESIUM 1.9 mg/dL (1.8-2.4)
[2017-02-12] MEDS: IPRATRPIUM/ALBUTEROL 0.5/2.5MG 3 ML NEBU. NEB SCH ×4 (10:54→22:00)
--- NOTE | 2017-02-12 11:19 | PDOC ---
Provider Note Provider Note dictated EDUARDO ROUSSEAU MD February 12, 2017 11:19
[2017-02-12 12:04] LABS: HCO3 ABG 41 mmol/L (21-28); PH ABG 7.37 (7.35-7.45); PO2 ABG 63 mmHg (65-108); SAT O2 ABG 92 % (92-99)
[2017-02-12 12:06] LABS: FIO2 ABG 30; PCO2 ABG 72 mmHg (35-46)
--- NOTE | 2017-02-12 12:12 | CONS ---
DATE OF CONSULTATION: ATTENDING PHYSICIAN: Dr. Rudolph. REASON FOR CONSULTATION: Respiratory failure. HISTORY OF PRESENT ILLNESS: The patient is a 71-year-old morbidly obese patient who is very well known to us. She has a BMI of 36. She has multiple hospitalizations on a regular basis with acute on chronic hypercapnic respiratory failure. The patient lives at [facility]. She uses a CPAP over there. She was brought into the hospital with lethargy. She was obtunded and had altered mental status. She stopped using her CPAP for the last 3 days. She was also reportedly hypoxic and was placed on high flow oxygen in the afternoon at the [facility] and her mental status became progressively worse. In the ER when she was evaluated, her initial arterial blood gases revealed a pH of 7.16, pCO2 of 140 and a pO2 of 53 while on 100% FIO2. Since she has been on BiPAP overnight, her recent blood gases showed a pH of 7.32, pCO2 of 89, pO2 of 76 with a bicarbonate of 45. She is currently on 40% FIO2. Saturation of 99%. She is starting to arouse. She is a DNR. Her chest x-ray was reviewed, it showed some basilar atelectasis. Pts mother was at the bedside who gave much of the history. She states that she is no longer taking pain medications. PAST MEDICAL HISTORY: Significant for history of obstructive sleep apnea/obesity hypoventilation syndrome. On CPAP. History of COPD, history of chronic hypoxia and chronic hypercapnia. 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 PAST SURGICAL HISTORY: Cholecystectomy, total hip replacement, total knee replacement and hysterectomy. MEDICATIONS: All reviewed as listed in the MRAD. REVIEW OF SYSTEMS: Unable to obtain from the patient. ALLERGIES: All reviewed as listed in the MRAD. PHYSICAL EXAMINATION: GENERAL: She is arousable. VITAL SIGNS: Blood pressure is 142/92, pulse ox was 99% on 40% FIO2. HEENT: Sclerae are nonicteric. NECK: Supple. LUNGS: With few anterior rhonchi. ABDOMEN: Soft. EXTREMITIES: With no significant pitting edema. LABORATORY DATA: Reviewed. ABGs as discussed in my history of present illness. BUN 23, creatinine 0.8. White cell count 7.0, hemoglobin 9.6 and platelets are 134. IMPRESSION: 1. Acute on chronic hypercapnic respiratory failure secondary to noncompliance to home CPAP and possible cor pulmonale. She has moderate basal atelectasis from poor inspiratory effort contributing to her symptoms as well. 2. History of obstructive sleep apnea/obesity hypoventilation syndrome. 3. History of chronic deep venous thrombosis and has been on Xarelto chronically. 4. Abnormal chest x-ray with bibasilar atelectasis due to poor inspiratory effort. 5. Acute encephalopathy secondary to hypercapnia. 6. h/o recurrent DVT,s . On chronic anticoagulation RECOMMENDATIONS: 1. Continue with present BiPAP. I have made adjustments with the IPAP and respiratory rate, and I would avoid hyperoxia. 2. Follow ABGs and make necessary adjustments. Once the pH normalizes, then we will give her a break from the BiPAP. 3. Continue BiPAP at bedtime and p.r.n. during the day once ABGs show stabilization. 4. Avoid any narcotics. 5. Continue Xarelto. 6. Continue with levothyroxine. Her TSH was 0.978. 7. Nebulizer treatments. 8. Lasix. 9. Empiric antibiotics were initiated. We will leave it for now. 10. IV steroids. 11. Discussed with Cardiology nurse practitioner. Discussed with Patients mother Critical care time 40 minutes. We will follow along with you. EDUARDO ROUSSEAU MD DR: ESTELA/mary JOB#: [id number] / [id number] KOREY
[2017-02-12] MEDS: IV 1/2 NORMAL SALINE 1,000 ML IV SCH (13:04)
[2017-02-12] MEDS: methylPREDNISolone SOD SUCC PF 40 MG/ML VIAL. IV SCH ×2 (13:05→21:12)
[2017-02-12] MEDS: ANTI-COAG MONITOR BY PHARMACY. MC PRN (13:40)
--- NOTE | 2017-02-12 14:26 | CARD ---
APPROVED REPORT EXAM: Two-dimensional and M-mode echocardiogram with Doppler and color Doppler. Other Information Quality : FairHR: 117bpm Rhythm : Tachycardia INDICATION Congestive Heart Failure RISK FACTORS Obesity 2D DIMENSIONS RVDd2.5 (2.9-3.5cm)Left Atrium(2D)2.9 (1.6-4.0cm) IVSd1.3 (0.7-1.1cm)Aortic Root(2D)2.3 (2.0-3.7cm) LVDd4.3 (3.9-5.9cm)LVOT Diameter2.2 (1.8-2.4cm) PWd0.1 (0.7-1.1cm)LVDs2.5 (2.5-4.0cm) FS (%) 41.2 %SV59.7 ml LVEF(%)72.4 (>50%) Aortic Valve AoV Peak Jose Juan.146.9cm/sAoV VTI20.3cm AO Peak GR.8.6mmHgAO Mean GR.4mmHg Pulmonary Valve PV Peak [id number]/s Tricuspid Valve TR P. [id number]/sTR Peak Gr.63mmHg LEFT VENTRICLE The left ventricle is normal size. There is mild concentric left ventricular hypertrophy. The left ve ntricular systolic function is normal. The Ejection Fraction is 70%. There is normal LV segmental wal l motion. Transmitral Doppler flow pattern is Grade I-abnormal relaxation pattern. RIGHT VENTRICLE The right ventricle is normal size. There is normal right ventricular wall thickness. The right ventr icular systolic function is normal. ATRIA The left atrium is mildly dilated. The right atrium size is normal. The interatrial septum is intact with no evidence for an atrial septal defect or patent foramen ovale as noted on 2-D or Doppler imagi ng. AORTIC VALVE The aortic valve is mildly sclerotic. The aortic valve is trileaflet. Doppler and Color Flow revealed no significant aortic regurgitation. There is no significant aortic valvular stenosis. MITRAL VALVE There is no evidence of mitral valve prolapse. There is no mitral valve stenosis. Doppler and Color F low revealed trace mitral regurgitation. TRICUSPID VALVE Doppler and Color Flow revealed moderate tricuspid regurgitation. The pulmonary artery systolic press ure is estimated at 71 mmHg. There is severe pulmonary hypertension. PULMONIC VALVE Doppler and Color Flow revealed trace pulmonic valvular regurgitation. There is no pulmonic valvular stenosis. GREAT VESSELS The aortic root is normal in size. The ascending aorta is normal in size. The pulmonary artery is nor mal. The IVC collapses <50% with inspiration. PERICARDIAL EFFUSION There is no evidence of significant pericardial effusion. Critical Notification Critical Value: No <Conclusion> The left ventricular systolic function is normal. The Ejection Fraction is 70%. There is normal LV segmental wall motion. Trace mitral regurgitation. Moderate tricuspid regurgitation. The pulmonary artery systolic pressure is estimated at 71 mmHg. There is no evidence of significant pericardial effusion.
[2017-02-12] MEDS: RIVAROXABAN 10 MG TABLET. PO SCH (17:00)
[2017-02-12] MEDS: BUDESONIDE 0.5 MG/2 ML NEBU. NEB SCH (20:02)
[2017-02-12] MEDS: ATORVASTATIN CALCIUM 40 MG TABLET. PO SCH (21:00)
--- NOTE | 2017-02-12 21:39 | CONS ---
DATE OF CONSULTATION: REASON FOR CONSULTATION: Hyperkalemia. HISTORY OF PRESENT ILLNESS: The patient is a 71-year-old -[place] female, who resides in a detention. She was found to be in respiratory distress, dyspnea and altered mental status. She was also noted to be hypoxemic and was brought to the ER for further evaluation. She was noted to be obtunded. She was placed on BiPAP and appears to be a little more awake and arousable now. She is noted to be very verbal ____ at this time. She remains on BiPAP and ____ when the abdomen is palpated, otherwise does not offer any obvious verbal responses. On arrival, she was noted to have an elevated potassium. Also, she is noted to be on prednisone as well as Lasix. She is now on Methylprednisone. Her potassium was 5.5 at presentation and 5.9 this morning. ABGs were 7.16 with a pCO2 of 140 at presentation and have now going to 7.32 with a pCO2 of 89. Given her elevated potassium, IV Lasix will be ordered with IV fluids. She is noted to be somewhat oliguric also. For rest of details, see electronic records. SANDY JOHNSON MD DR: BLU/mary JOB#: [id number] / [id number]
[2017-02-12] MEDS: hydrALAZINE 20 MG/ML VIAL. IVP PRN (23:01)
[2017-02-13] VITALS (11 sets, daily range): BP systolic 137–186; BP diastolic 81–114
[2017-02-13] MEDS: IV 1/2 NORMAL SALINE 1,000 ML IV SCH ×2 (01:47→12:55)
[2017-02-13 04:41] LABS: BASO % 0 % (0-3); EOS % 0 % (0-3); HEMOGLOBIN 9.6 g/dL (12.0-15.5); LYMPH # 0.9 x10^3/uL (1.0-4.8); LYMPH % 14 % (24-48); MEAN CORPUSCULAR HEMOGLOBIN 30 pg (25-35); MEAN CORPUSCULAR HGB CONC 32 g/dL (31-37); MEAN CORPUSCULAR VOLUME 94 fL (79-100); MONO % 4 % (0-9); NEUT % 82 % (31-73); PLATELET COUNT 150 x10^3/uL (140-400); RED BLOOD COUNT 3.21 x10^6/uL (3.50-5.40); RED CELL DISTRIBUTION WIDTH 15.3 % (11.5-14.5); WHITE BLOOD COUNT 6.4 x10^3/uL (4.0-11.0)
[2017-02-13 05:10] LABS: ALBUMIN 3.1 g/dL (3.4-5.0); ALBUMIN/GLOBULIN RATIO 0.7 (1.0-1.7); CALCIUM 9.1 mg/dL (8.5-10.1); CREATININE 0.8 mg/dL (0.6-1.0); GFR 85.8; TOTAL BILIRUBIN 0.7 mg/dL (0.2-1.0); TOTAL PROTEIN 7.8 g/dL (6.4-8.2)
[2017-02-13] MEDS: hydrALAZINE 20 MG/ML VIAL. IVP PRN (06:21)
[2017-02-13] MEDS: IPRATRPIUM/ALBUTEROL 0.5/2.5MG 3 ML NEBU. NEB SCH (07:27)
[2017-02-13] MEDS: BUDESONIDE 0.5 MG/2 ML NEBU. NEB SCH ×2 (07:27→20:14)
[2017-02-13 08:16] LABS: HCO3 ABG 28 mmol/L (21-28); PCO2 ABG 42 mmHg (35-46); PH ABG 7.45 (7.35-7.45); PO2 ABG 61 mmHg (65-108); SAT O2 ABG 91 % (92-99)
[2017-02-13 08:44] LABS: FIO2 ABG 28
--- NOTE | 2017-02-13 09:32 | PDOC ---
SUBJECTIVE ROS F/up ^K and ^Na doing OK "I'm doing fine" unable to get ROS OBJECTIVE Vital Signs Vital Signs Date Time Temp Pulse Resp B/P (MAP) Pulse Ox O2 Delivery O2 Flow Rate FiO2 02/13/17 07:30 98 Venturi Mask 12.0 02/13/17 06:21 114 186/93 02/13/17 06:00 33 02/13/17 04:00 98.7 98.7 I & 0 Intake and Output 02/13/17 07:00 Intake Total 885 ml Output Total 2845 ml Balance -1960 ml Intake IV Total 885 ml Output Urine Total 2845 ml PHYSICAL EXAM Physical Exam General Appearance: Awake more Alert Oriented x ? In mod resp Distress while on BiPAP Eyes: VIsion Unchanged Conjunctiva Normal EN: No EN Drainage Mucous Memb. dryish Neck: no JVD min JVP Supple no Thyromegaly CVS: S1 S2 no audible Murmur No Gallop No Rub + Edema Resp: no Rales no Rhonchi no Acc. Muscle use; barely audible BS while on BiPAP GI: BAS +ve NO Bruit + Tender Non Distended - obese : no CVA tenderness; no Suprapubic Tenderness Assessment & Plan ^K - suspect due to Ac Resp Acidosis asso with biPap noncompliance. now corrected; TSh WNL Oliguria - Suspect vol depleiton - resolve with IVF as ordered; Ct IVF for 1 more liter then D/c ^Na - resolved with Hypotonic IVF as ordered Anemia: may need to check Iron levels ? CHF as previously diagnosed. LV EF 70% ion ECHO ^ed Uric Acid - suspect due to voldepltion. will sign off - pl call with Qs COMMENT/RELEVANT DATA Meds Current Medications Medications (Trade) Dose Ordered Sig/Liban Start Time Stop Time Status Last Admin Dose Admin Albuterol Sulfate (Ventolin Neb Soln) 2.5 mg PRN Q4HRS PRN 02/12/17 02:00 Albuterol/ Ipratropium (Duoneb) 3 ml Q4HRS W/A 02/12/17 10:00 02/13/17 07:27 3 ML Atorvastatin Calcium (Lipitor) 40 mg QHS 02/12/17 21:00 Budesonide (Pulmicort) 0.5 mg RTBID 02/12/17 20:00 02/13/17 07:27 0.5 MG Ceftriaxone Sodium 1 gm/ Sodium Chloride 50 ml @ 100 mls/hr Q24H 02/12/17 10:00 02/12/17 13:04 100 MLS/HR Doxycycline Hyclate 100 mg/ Dextrose 100 ml @ 50 mls/hr Q12HR 02/12/17 09:30 UNV Furosemide (Lasix) 40 mg PRN Q6HRS PRN 02/12/17 10:00 Hydralazine HCl (Apresoline) 10 mg PRN Q4HRS PRN 02/12/17 20:30 02/13/17 06:21 10 MG Info (Anti-Coagulation Monitoring By Pharmacy) 1 each PRN DAILY PRN 02/12/17 11:30 02/12/17 13:40 1 EACH Methylprednisolone Sodium Succinate (Solu-Medrol 40mg Vial) 40 mg Q12HR 02/12/17 09:30 02/12/17 21:12 40 MG Ondansetron HCl (Zofran) 4 mg PRN Q8HRS PRN 02/11/17 23:30 02/12/17 23:29 DC Rivaroxaban (Xarelto) 20 mg [id number] 02/12/17 17:00 Sodium Chloride 1,000 ml @ 75 mls/hr [id number] 02/12/17 10:15 02/13/17 01:47 75 MLS/HR Lab Laboratory Tests Test 02/12/17 11:55 02/12/17 12:00 02/12/17 17:55 02/13/17 04:10 O2 Saturation 92 % (92-99) Arterial Blood pH 7.37 (7.35-7.45) Arterial Blood pCO2 at Patient Temp 72 mmHg (35-46) Arterial Blood pO2 at Patient Temp 63 mmHg (65-108) Arterial Blood HCO3 41 mmol/L (21-28) Arterial Blood Base Excess 14 mmol/L (-3-3) FiO2 30 Potassium Level 5.5 mmol/L (3.5-5.1) 5.0 mmol/L (3.5-5.1) 5.0 mmol/L (3.5-5.1) White Blood Count 6.4 x10^3/uL (4.0-11.0) Red Blood Count 3.21 x10^6/uL (3.50-5.40) Hemoglobin 9.6 g/dL (12.0-15.5) Hematocrit 30.0 % (36.0-47.0) Mean Corpuscular Volume 94 fL (79-100) Mean Corpuscular Hemoglobin 30 pg (25-35) Mean Corpuscular Hemoglobin Concent 32 g/dL (31-37) Red Cell Distribution Width 15.3 % (11.5-14.5) Platelet Count 150 x10^3/uL (140-400) Neutrophils (%) (Auto) 82 % (31-73) Lymphocytes (%) (Auto) 14 % (24-48) Monocytes (%) (Auto) 4 % (0-9) Eosinophils (%) (Auto) 0 % (0-3) Basophils (%) (Auto) 0 % (0-3) Neutrophils # (Auto) 5.2 x10^3uL (1.8-7.7) Lymphocytes # (Auto) 0.9 x10^3/uL (1.0-4.8) Monocytes # (Auto) 0.2 x10^3/uL (0.0-1.1) Eosinophils # (Auto) 0.0 x10^3/uL (0.0-0.7) Basophils # (Auto) 0.0 x10^3/uL (0.0-0.2) Sodium Level 144 mmol/L (136-145) Chloride Level 100 mmol/L (98-107) Carbon Dioxide Level 35 mmol/L (21-32) Anion Gap 9 (6-14) Blood Urea Nitrogen 24 mg/dL (7-20) Creatinine 0.8 mg/dL (0.6-1.0) Estimated GFR (Cockcroft-Gault) 85.8 BUN/Creatinine Ratio 30 (6-20) Glucose Level 147 mg/dL (70-99) Calcium Level 9.1 mg/dL (8.5-10.1) Total Bilirubin 0.7 mg/dL (0.2-1.0) Aspartate Amino Transf (AST/SGOT) 31 U/L (15-37) Alanine Aminotransferase (ALT/SGPT) 12 U/L (14-59) Alkaline Phosphatase 60 U/L (46-116) Total Protein 7.8 g/dL (6.4-8.2) Albumin 3.1 g/dL (3.4-5.0) Albumin/Globulin Ratio 0.7 (1.0-1.7) Test 02/13/17 08:00 O2 Saturation 91 % (92-99) Arterial Blood pH 7.45 (7.35-7.45) Arterial Blood pCO2 at Patient Temp 42 mmHg (35-46) Arterial Blood pO2 at Patient Temp 61 mmHg (65-108) Arterial Blood HCO3 28 mmol/L (21-28) Arterial Blood Base Excess 4 mmol/L (-3-3) FiO2 28 SANDY JOHNSON MD February 13, 2017 09:32
--- NOTE | 2017-02-13 10:47 | PDOC ---
CARDIO Progress Notes Date and Time Date of Service 02/13/2017 Time of Evaluation 1020 Subjective Subjective: Other (mumbles but alert, unable to carry out conversation) Vitals Vitals Vital Signs Date Time Temp Pulse Resp B/P (MAP) Pulse Ox O2 Delivery O2 Flow Rate FiO2 02/13/17 07:30 98 Venturi Mask 12.0 02/13/17 06:21 114 186/93 02/13/17 06:00 33 02/13/17 04:00 98.7 98.7 Weight Weight [ ] Input and Output Intake and Output Intake and Output 02/13/17 07:00 Intake Total 885 ml Output Total 2845 ml Balance -1960 ml Intake IV Total 885 ml Output Urine Total 2845 ml Laboratory Labs Laboratory Tests Test 02/12/17 11:55 02/12/17 12:00 02/12/17 17:55 02/13/17 04:10 O2 Saturation 92 % (92-99) Arterial Blood pH 7.37 (7.35-7.45) Arterial Blood pCO2 at Patient Temp 72 mmHg (35-46) Arterial Blood pO2 at Patient Temp 63 mmHg (65-108) Arterial Blood HCO3 41 mmol/L (21-28) Arterial Blood Base Excess 14 mmol/L (-3-3) FiO2 30 Potassium Level 5.5 mmol/L (3.5-5.1) 5.0 mmol/L (3.5-5.1) 5.0 mmol/L (3.5-5.1) White Blood Count 6.4 x10^3/uL (4.0-11.0) Red Blood Count 3.21 x10^6/uL (3.50-5.40) Hemoglobin 9.6 g/dL (12.0-15.5) Hematocrit 30.0 % (36.0-47.0) Mean Corpuscular Volume 94 fL (79-100) Mean Corpuscular Hemoglobin 30 pg (25-35) Mean Corpuscular Hemoglobin Concent 32 g/dL (31-37) Red Cell Distribution Width 15.3 % (11.5-14.5) Platelet Count 150 x10^3/uL (140-400) Neutrophils (%) (Auto) 82 % (31-73) Lymphocytes (%) (Auto) 14 % (24-48) Monocytes (%) (Auto) 4 % (0-9) Eosinophils (%) (Auto) 0 % (0-3) Basophils (%) (Auto) 0 % (0-3) Neutrophils # (Auto) 5.2 x10^3uL (1.8-7.7) Lymphocytes # (Auto) 0.9 x10^3/uL (1.0-4.8) Monocytes # (Auto) 0.2 x10^3/uL (0.0-1.1) Eosinophils # (Auto) 0.0 x10^3/uL (0.0-0.7) Basophils # (Auto) 0.0 x10^3/uL (0.0-0.2) Sodium Level 144 mmol/L (136-145) Chloride Level 100 mmol/L (98-107) Carbon Dioxide Level 35 mmol/L (21-32) Anion Gap 9 (6-14) Blood Urea Nitrogen 24 mg/dL (7-20) Creatinine 0.8 mg/dL (0.6-1.0) Estimated GFR (Cockcroft-Gault) 85.8 BUN/Creatinine Ratio 30 (6-20) Glucose Level 147 mg/dL (70-99) Calcium Level 9.1 mg/dL (8.5-10.1) Total Bilirubin 0.7 mg/dL (0.2-1.0) Aspartate Amino Transf (AST/SGOT) 31 U/L (15-37) Alanine Aminotransferase (ALT/SGPT) 12 U/L (14-59) Alkaline Phosphatase 60 U/L (46-116) Total Protein 7.8 g/dL (6.4-8.2) Albumin 3.1 g/dL (3.4-5.0) Albumin/Globulin Ratio 0.7 (1.0-1.7) Test 02/13/17 08:00 O2 Saturation 91 % (92-99) Arterial Blood pH 7.45 (7.35-7.45) Arterial Blood pCO2 at Patient Temp 42 mmHg (35-46) Arterial Blood pO2 at Patient Temp 61 mmHg (65-108) Arterial Blood HCO3 28 mmol/L (21-28) Arterial Blood Base Excess 4 mmol/L (-3-3) FiO2 28 Physical Exam HEENT: Neck Supple W Full Motion Chest: Symmetric LUNGS: Other (bibasilar crackles) Heart: S1S2, RRR (Sinus tachycardia) Abdomen: Soft N/T, Other (obese) Extremities: Other (chornic lymphedema; skin is warm and dry) Neurology: alert, other (cooperative; notable attentiveness while talking to her but mumbles only) Assessment Assessment 1. Hypoxic encephalopathy: improved. 2. Acute on chronic respiratory failure/COPD/LEISHA: due to Bipap refusal at [facility], improved overnight with bipap 3. Severe pulmonary HTN: per pulmonary. PAP 71 mmHg 4. Mild acute diastolic CHF: mainly due to #2. Much better. TTE with EF 70% normal wall motion 5. Arrhythmia: x1 NSVT today. Currently sinus tach with possible atrial tach vs PAFIB. predisposed by respiratory issues. 4. CIERA/hyperkalemia: improved 5. Chronic lymphedema 6. Chronic quadriparesis: mainly due to severe deconditioning 7. Alzheimers dementia 8. 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 9. Hx of narcolepsy: on Ritalin 11. HTN: labile 12. HLP: uncontrolled Recommendations 1. IVF, Once hydration is adequate and consistent PO arroyo then low dose po lasix advisable unless erratic po hydration 2. Follow pulmonary recommendations 3. Continue with xarelto. On coreg at [facility]. Will start metoprolol 50 mg po bid. DC hydralazine IV 4. No ACEI/ARB. Start on amlodipine 5 mg and titrate up per BP trend. Lipitor started 5. Discussed significantly with sister her DPOA, and wishes no invasive procedures and will maintain conservative management. 6. DNR. Supportive care. 7. K better, Mg pending, will replace if low. JORDY HO SENIOR CLINICAL CONSULTANT February 13, 2017 10:47
--- NOTE | 2017-02-13 10:54 | PDOC ---
PULMONARY PROGRESS NOTES Subjective more alert, not following my commands, used bipap last night, on 02 now. had short run on vtach vs afib w rvr, Vitals Vital Signs Date Time Temp Pulse Resp B/P (MAP) Pulse Ox O2 Delivery O2 Flow Rate FiO2 02/13/17 07:30 98 Venturi Mask 12.0 02/13/17 06:21 114 186/93 02/13/17 06:00 33 02/13/17 04:00 98.7 98.7 General: Alert, No acute distress HEENT: Other Lungs: Crackles, Other (dull at bases) Cardiovascular: S1, S2 Abdomen: Soft, Non-tender, Other Extremities: Other Labs Laboratory Tests Test 02/11/17 22:47 02/11/17 22:58 02/12/17 02:40 02/12/17 04:30 O2 Saturation 83 % (92-99) 94 % (92-99) Arterial Blood pH 7.16 (7.35-7.45) 7.32 (7.35-7.45) Arterial Blood pCO2 at Patient Temp 140 mmHg (35-46) 89 mmHg (35-46) Arterial Blood pO2 at Patient Temp 53 mmHg (65-108) 76 mmHg (65-108) Arterial Blood HCO3 49 mmol/L (21-28) 45 mmol/L (21-28) Arterial Blood Base Excess 16 mmol/L (-3-3) 16 mmol/L (-3-3) Oxyhemoglobin 81.9 % Methemoglobin 0.5 % (0.0-1.9) Carbon Monoxide, Quantitative 0.6 % (0.0-1.9) FiO2 100.0 White Blood Count 6.2 x10^3/uL (4.0-11.0) 7.0 x10^3/uL (4.0-11.0) Red Blood Count 3.22 x10^6/uL (3.50-5.40) 3.24 x10^6/uL (3.50-5.40) Hemoglobin 9.5 g/dL (12.0-15.5) 9.6 g/dL (12.0-15.5) Hematocrit 30.6 % (36.0-47.0) 31.1 % (36.0-47.0) Mean Corpuscular Volume 95 fL (79-100) 96 fL (79-100) Mean Corpuscular Hemoglobin 30 pg (25-35) 30 pg (25-35) Mean Corpuscular Hemoglobin Concent 31 g/dL (31-37) 31 g/dL (31-37) Red Cell Distribution Width 15.1 % (11.5-14.5) 15.1 % (11.5-14.5) Platelet Count 123 x10^3/uL (140-400) 134 x10^3/uL (140-400) Neutrophils (%) (Auto) 74 % (31-73) 69 % (31-73) Lymphocytes (%) (Auto) 15 % (24-48) 17 % (24-48) Monocytes (%) (Auto) 10 % (0-9) 12 % (0-9) Eosinophils (%) (Auto) 1 % (0-3) 1 % (0-3) Basophils (%) (Auto) 0 % (0-3) 0 % (0-3) Neutrophils # (Auto) 4.6 x10^3uL (1.8-7.7) 4.9 x10^3uL (1.8-7.7) Lymphocytes # (Auto) 0.9 x10^3/uL (1.0-4.8) 1.2 x10^3/uL (1.0-4.8) Monocytes # (Auto) 0.6 x10^3/uL (0.0-1.1) 0.9 x10^3/uL (0.0-1.1) Eosinophils # (Auto) 0.1 x10^3/uL (0.0-0.7) 0.0 x10^3/uL (0.0-0.7) Basophils # (Auto) 0.0 x10^3/uL (0.0-0.2) 0.0 x10^3/uL (0.0-0.2) Prothrombin Time 21.9 SEC (11.7-14.0) Prothromb Time International Ratio 2.1 (0.8-1.1) Activated Partial Thromboplast Time 39 SEC (24-38) Sodium Level 146 mmol/L (136-145) 147 mmol/L (136-145) Potassium Level 5.5 mmol/L (3.5-5.1) 5.9 mmol/L (3.5-5.1) Chloride Level 103 mmol/L (98-107) 105 mmol/L (98-107) Carbon Dioxide Level 41 mmol/L (21-32) 42 mmol/L (21-32) Anion Gap 2 (6-14) 0 (6-14) Blood Urea Nitrogen 22 mg/dL (7-20) 23 mg/dL (7-20) Creatinine 0.9 mg/dL (0.6-1.0) 0.8 mg/dL (0.6-1.0) Estimated GFR (Cockcroft-Gault) 74.9 85.8 BUN/Creatinine Ratio 24 (6-20) Glucose Level 158 mg/dL (70-99) 116 mg/dL (70-99) Lactic Acid Level 0.4 mmol/L (0.4-2.0) Calcium Level 8.7 mg/dL (8.5-10.1) 8.8 mg/dL (8.5-10.1) Magnesium Level 1.8 mg/dL (1.8-2.4) 1.9 mg/dL (1.8-2.4) Total Bilirubin 0.4 mg/dL (0.2-1.0) Aspartate Amino Transf (AST/SGOT) 35 U/L (15-37) Alanine Aminotransferase (ALT/SGPT) 12 U/L (14-59) Alkaline Phosphatase 59 U/L (46-116) Creatine Kinase 108 U/L (26-192) Troponin I Quantitative < 0.017 ng/mL (0.000-0.055) SS-[id number]-[id number]-Type Natriuretic Peptide 2199 pg/mL (0-124) Total Protein 7.3 g/dL (6.4-8.2) Albumin 2.9 g/dL (3.4-5.0) Albumin/Globulin Ratio 0.7 (1.0-1.7) Lipase 92 U/L (73-393) Thyroid Stimulating Hormone (TSH) 0.978 uIU/mL (0.358-3.74) Ethyl Alcohol Level < 10 mg/dL (0-10) Uric Acid 10.3 mg/dL (2.6-6.0) Triglycerides Level 200 mg/dL (0-150) Cholesterol Level 254 mg/dL (0-200) LDL Cholesterol, Calculated 160 mg/dL (0-100) VLDL Cholesterol, Calculated 40 mg/dL (0-40) Non-HDL Cholesterol Calculated 200 mg/dL (0-129) HDL Cholesterol 54 mg/dL (40-60) Cholesterol/HDL Ratio 4.7 Test 02/12/17 11:55 02/12/17 12:00 02/12/17 17:55 02/13/17 04:10 O2 Saturation 92 % (92-99) Arterial Blood pH 7.37 (7.35-7.45) Arterial Blood pCO2 at Patient Temp 72 mmHg (35-46) Arterial Blood pO2 at Patient Temp 63 mmHg (65-108) Arterial Blood HCO3 41 mmol/L (21-28) Arterial Blood Base Excess 14 mmol/L (-3-3) FiO2 30 Potassium Level 5.5 mmol/L (3.5-5.1) 5.0 mmol/L (3.5-5.1) 5.0 mmol/L (3.5-5.1) White Blood Count 6.4 x10^3/uL (4.0-11.0) Red Blood Count 3.21 x10^6/uL (3.50-5.40) Hemoglobin 9.6 g/dL (12.0-15.5) Hematocrit 30.0 % (36.0-47.0) Mean Corpuscular Volume 94 fL (79-100) Mean Corpuscular Hemoglobin 30 pg (25-35) Mean Corpuscular Hemoglobin Concent 32 g/dL (31-37) Red Cell Distribution Width 15.3 % (11.5-14.5) Platelet Count 150 x10^3/uL (140-400) Neutrophils (%) (Auto) 82 % (31-73) Lymphocytes (%) (Auto) 14 % (24-48) Monocytes (%) (Auto) 4 % (0-9) Eosinophils (%) (Auto) 0 % (0-3) Basophils (%) (Auto) 0 % (0-3) Neutrophils # (Auto) 5.2 x10^3uL (1.8-7.7) Lymphocytes # (Auto) 0.9 x10^3/uL (1.0-4.8) Monocytes # (Auto) 0.2 x10^3/uL (0.0-1.1) Eosinophils # (Auto) 0.0 x10^3/uL (0.0-0.7) Basophils # (Auto) 0.0 x10^3/uL (0.0-0.2) Sodium Level 144 mmol/L (136-145) Chloride Level 100 mmol/L (98-107) Carbon Dioxide Level 35 mmol/L (21-32) Anion Gap 9 (6-14) Blood Urea Nitrogen 24 mg/dL (7-20) Creatinine 0.8 mg/dL (0.6-1.0) Estimated GFR (Cockcroft-Gault) 85.8 BUN/Creatinine Ratio 30 (6-20) Glucose Level 147 mg/dL (70-99) Calcium Level 9.1 mg/dL (8.5-10.1) Total Bilirubin 0.7 mg/dL (0.2-1.0) Aspartate Amino Transf (AST/SGOT) 31 U/L (15-37) Alanine Aminotransferase (ALT/SGPT) 12 U/L (14-59) Alkaline Phosphatase 60 U/L (46-116) Total Protein 7.8 g/dL (6.4-8.2) Albumin 3.1 g/dL (3.4-5.0) Albumin/Globulin Ratio 0.7 (1.0-1.7) Test 02/13/17 08:00 O2 Saturation 91 % (92-99) Arterial Blood pH 7.45 (7.35-7.45) Arterial Blood pCO2 at Patient Temp 42 mmHg (35-46) Arterial Blood pO2 at Patient Temp 61 mmHg (65-108) Arterial Blood HCO3 28 mmol/L (21-28) Arterial Blood Base Excess 4 mmol/L (-3-3) FiO2 28 Laboratory Tests Test 02/12/17 11:55 02/12/17 12:00 02/12/17 17:55 02/13/17 04:10 O2 Saturation 92 % (92-99) Arterial Blood pH 7.37 (7.35-7.45) Arterial Blood pCO2 at Patient Temp 72 mmHg (35-46) Arterial Blood pO2 at Patient Temp 63 mmHg (65-108) Arterial Blood HCO3 41 mmol/L (21-28) Arterial Blood Base Excess 14 mmol/L (-3-3) FiO2 30 Potassium Level 5.5 mmol/L (3.5-5.1) 5.0 mmol/L (3.5-5.1) 5.0 mmol/L (3.5-5.1) White Blood Count 6.4 x10^3/uL (4.0-11.0) Red Blood Count 3.21 x10^6/uL (3.50-5.40) Hemoglobin 9.6 g/dL (12.0-15.5) Hematocrit 30.0 % (36.0-47.0) Mean Corpuscular Volume 94 fL (79-100) Mean Corpuscular Hemoglobin 30 pg (25-35) Mean Corpuscular Hemoglobin Concent 32 g/dL (31-37) Red Cell Distribution Width 15.3 % (11.5-14.5) Platelet Count 150 x10^3/uL (140-400) Neutrophils (%) (Auto) 82 % (31-73) Lymphocytes (%) (Auto) 14 % (24-48) Monocytes (%) (Auto) 4 % (0-9) Eosinophils (%) (Auto) 0 % (0-3) Basophils (%) (Auto) 0 % (0-3) Neutrophils # (Auto) 5.2 x10^3uL (1.8-7.7) Lymphocytes # (Auto) 0.9 x10^3/uL (1.0-4.8) Monocytes # (Auto) 0.2 x10^3/uL (0.0-1.1) Eosinophils # (Auto) 0.0 x10^3/uL (0.0-0.7) Basophils # (Auto) 0.0 x10^3/uL (0.0-0.2) Sodium Level 144 mmol/L (136-145) Chloride Level 100 mmol/L (98-107) Carbon Dioxide Level 35 mmol/L (21-32) Anion Gap 9 (6-14) Blood Urea Nitrogen 24 mg/dL (7-20) Creatinine 0.8 mg/dL (0.6-1.0) Estimated GFR (Cockcroft-Gault) 85.8 BUN/Creatinine Ratio 30 (6-20) Glucose Level 147 mg/dL (70-99) Calcium Level 9.1 mg/dL (8.5-10.1) Total Bilirubin 0.7 mg/dL (0.2-1.0) Aspartate Amino Transf (AST/SGOT) 31 U/L (15-37) Alanine Aminotransferase (ALT/SGPT) 12 U/L (14-59) Alkaline Phosphatase 60 U/L (46-116) Total Protein 7.8 g/dL (6.4-8.2) Albumin 3.1 g/dL (3.4-5.0) Albumin/Globulin Ratio 0.7 (1.0-1.7) Test 02/13/17 08:00 O2 Saturation 91 % (92-99) Arterial Blood pH 7.45 (7.35-7.45) Arterial Blood pCO2 at Patient Temp 42 mmHg (35-46) Arterial Blood pO2 at Patient Temp 61 mmHg (65-108) Arterial Blood HCO3 28 mmol/L (21-28) Arterial Blood Base Excess 4 mmol/L (-3-3) FiO2 28 Medications Active Scripts Medications Dose Route/Sig Max Daily Dose Days Date Category Dose Instructions Omeprazole 20 Mg Capsule.dr 1 Cap PO DAILY 02/12/17 Reported Prednisone 20 Mg Tablet 40 Mg PO DAILY 01/17/17 Rx Zinc Oxide 30 Gm Oint...g. 30 Gm TP 12/30/16 Reported Lyrica (Pregabalin) 75 Mg Capsule 1 Cap PO BID 12/30/16 Reported Xalatan (Latanoprost) 2.5 Ml Drops 1 Drop EACHEYE QHS 12/30/16 Reported Potassium Chloride Packet (Potassium Chloride) 20 Meq Packet 20 Meq PO BID 12/30/16 Reported Percocet 5-325 Mg Tablet (Oxycodone/Acetaminophen) 1 Each Tablet 1 Tab PO PRN Q6HRS PRN 12/30/16 Reported Zofran Odt (Ondansetron) 4 Mg Tab.rapdis 1 Tab SL BID 12/30/16 Reported Amlodipine Besylate 5 Mg Tablet 5 Mg PO DAILY 12/30/16 Reported Lasix (Furosemide) 20 Mg Tablet 1 Tab PO DAILY 12/30/16 Reported Ferrous Sulfate 325 Mg Tablet 1 Tab PO BID 12/30/16 Reported Coreg (Carvedilol) 12.5 Mg Tablet 1 Tab PO BID 12/30/16 Reported Budesonide 0.5 Mg/2 Ml Ampul.neb 1 Vial NEB BID 12/30/16 Reported Artificial Tears Eye Drops (Dextran 70/Hypromellose) 15 Ml Drops 1 Drop EACHEYE PRN QID PRN 12/30/16 Reported Xarelto (Rivaroxaban) 20 Mg Tablet 20 Mg PO DAILY 11/12/16 Reported Cetirizine Hcl 10 Mg Tablet 1 Tab PO HS 11/07/16 Reported Tessalon Perle (Benzonatate) 100 Mg Capsule 100 Mg PO TID PRN 11/07/16 Reported Multi-Day Vitamins (Multivitamin) 1 Each Tablet 1 Tab PO DAILY 11/07/16 Reported Milk Of Magnesia (Magnesium Hydroxide) 400 Mg/5 Ml Oral.susp 30 Ml PO Q2HR PRN 05/31/15 Reported Protonix (Pantoprazole Sodium) 40 Mg Tablet.dr 1 Tab PO DAILY 05/30/15 Reported Duoneb 0.5-3(2.5) Mg/3 Ml (Albuterol/Ipratropium) 3 Ml Ampul.neb 3 Ml IH Q4HRS PRN 05/30/15 Reported Nystatin 1 Each Powder.ea. 1 Each TOP BID 05/14/15 Reported to groin and inner thighs, apply barrier cream with zinc and nystatin powder after cleanse with warm water and pat dry Travatan Z (Travoprost) 5 Ml Drops 1 Drop EACHEYE QHS 05/01/15 Reported Synthroid (Levothyroxine Sodium) 150 Mcg Tablet 1 Tab PO DAILY 05/01/15 Reported Senna S Tablet (Sennosides/Docusate Sodium) 1 Each Tablet 1 Each PO BID 05/01/15 Reported Miralax (Polyethylene Glycol 3350) 17 Gm Powd.pack 1 Packet PO DAILY 05/01/15 Reported Methylphenidate Hcl 5 Mg Tablet 1 Tab PO BID 05/01/15 Reported Docusate Sodium 100 Mg Capsule 1 Cap PO BID 05/01/15 Reported Calcium Carbonate 200 Mg Tab.chew 200 Mg PO PRN Q4HRS PRN 05/01/15 Reported Tylenol (Acetaminophen) 325 Mg Tablet 2 Tab PO PRN Q4HRS PRN 05/01/15 Reported for headache, generalized pain or elevated temperature Comments cxr reviewed, atelectasis Impression . IMPRESSION: 1. Acute on chronic hypercapnic respiratory failure secondary to noncompliance to home CPAP and possible cor pulmonale. She has moderate basal atelectasis from poor inspiratory effort contributing to her symptoms as well. 2. History of obstructive sleep apnea/obesity hypoventilation syndrome. 3. History of chronic deep venous thrombosis and has been on Xarelto chronically. 4. Abnormal chest x-ray with bibasilar atelectasis due to poor inspiratory effort. 5. Acute encephalopathy secondary to hypercapnia. 6. h/o recurrent DVT,s . On chronic anticoagulation 7. copd w ae Plan . RECOMMENDATIONS: 1. Continue with present BiPAP prn during day, cont at night. 2. abg reviewed 3. avoid over sedation 4. elevate hob 5. Continue Xarelto, monitor for bleeding. 6. Continue with levothyroxine. Her TSH was 0.978. 7. Nebulizer treatments. 8. Lasix, monitor k cr. 9. Empiric antibiotics 10. change IV steroids to daily. 11. start bronchodilator Atrovent only had arrhythmia Discussed with Cardiology, rn, rt ALLYSON WU MD February 13, 2017 10:54
[2017-02-13] MEDS: IPRATROPIUM BROMIDE 0.5 MG/2.5 ML NEBU. NEB SCH ×3 (11:34→20:14)
[2017-02-13] MEDS: METOPROLOL TART IMMED RELEASE 50 MG TABLET. PO SCH ×2 (11:41→20:48)
[2017-02-13] MEDS: methylPREDNISolone SOD SUCC PF 40 MG/ML VIAL. IV SCH ×2 (11:41→20:49)
[2017-02-13] MEDS: amLODIPine BESYLATE 5 MG TABLET PO SCH (11:42)
[2017-02-13] MEDS ORDERED: MAGNESIUM SULFATE 2GM 50 ML IV ONE (12:00)
--- NOTE | 2017-02-13 15:26 | PDOC ---
PROGRESS NOTES Chief Complaint Chief Complaint acute hypercarbic respiratory failure acute metabolic encephalopathy, COPD, AE, CO2 narcosis noncompliant with bipap at [place] hyperkalemia, IV lasix, and NS iv fluid hypernatremia anemia moderate malnutrition , obesity, BMI 36 admitted to ICU, on BIPAP pt in DNR History of Present Illness History of Present Illness no nv.d.' Vitals Vitals Vital Signs Date Time Temp Pulse Resp B/P (MAP) Pulse Ox O2 Delivery O2 Flow Rate FiO2 02/13/17 12:00 Nasal Cannula 2.0 02/13/17 12:00 99.2 88 33 175/105 (128) 94 99.2 Physical Exam General: Alert, Cooperative, No acute distress Heart: Regular rate (SR/ST), Other (3/6 systolic murmur to LUCIE border otherwise unable to fully appreciate heart sounds due to bipap use) Lungs: Crackles, Other (dull at bases) Abdomen: Normal bowel sounds, Soft, No tenderness Extremities: No cyanosis, Other (chronic LE lymphedema; Skin is warm and dry no pitting edema) Skin: No breakdown, No significant lesion Labs LABS Laboratory Tests Test 02/12/17 17:55 02/13/17 04:10 02/13/17 08:00 Potassium Level 5.0 mmol/L (3.5-5.1) 5.0 mmol/L (3.5-5.1) White Blood Count 6.4 x10^3/uL (4.0-11.0) Red Blood Count 3.21 x10^6/uL (3.50-5.40) Hemoglobin 9.6 g/dL (12.0-15.5) Hematocrit 30.0 % (36.0-47.0) Mean Corpuscular Volume 94 fL (79-100) Mean Corpuscular Hemoglobin 30 pg (25-35) Mean Corpuscular Hemoglobin Concent 32 g/dL (31-37) Red Cell Distribution Width 15.3 % (11.5-14.5) Platelet Count 150 x10^3/uL (140-400) Neutrophils (%) (Auto) 82 % (31-73) Lymphocytes (%) (Auto) 14 % (24-48) Monocytes (%) (Auto) 4 % (0-9) Eosinophils (%) (Auto) 0 % (0-3) Basophils (%) (Auto) 0 % (0-3) Neutrophils # (Auto) 5.2 x10^3uL (1.8-7.7) Lymphocytes # (Auto) 0.9 x10^3/uL (1.0-4.8) Monocytes # (Auto) 0.2 x10^3/uL (0.0-1.1) Eosinophils # (Auto) 0.0 x10^3/uL (0.0-0.7) Basophils # (Auto) 0.0 x10^3/uL (0.0-0.2) Sodium Level 144 mmol/L (136-145) Chloride Level 100 mmol/L (98-107) Carbon Dioxide Level 35 mmol/L (21-32) Anion Gap 9 (6-14) Blood Urea Nitrogen 24 mg/dL (7-20) Creatinine 0.8 mg/dL (0.6-1.0) Estimated GFR (Cockcroft-Gault) 85.8 BUN/Creatinine Ratio 30 (6-20) Glucose Level 147 mg/dL (70-99) Calcium Level 9.1 mg/dL (8.5-10.1) Magnesium Level 1.7 mg/dL (1.8-2.4) Total Bilirubin 0.7 mg/dL (0.2-1.0) Aspartate Amino Transf (AST/SGOT) 31 U/L (15-37) Alanine Aminotransferase (ALT/SGPT) 12 U/L (14-59) Alkaline Phosphatase 60 U/L (46-116) Total Protein 7.8 g/dL (6.4-8.2) Albumin 3.1 g/dL (3.4-5.0) Albumin/Globulin Ratio 0.7 (1.0-1.7) O2 Saturation 91 % (92-99) Arterial Blood pH 7.45 (7.35-7.45) Arterial Blood pCO2 at Patient Temp 42 mmHg (35-46) Arterial Blood pO2 at Patient Temp 61 mmHg (65-108) Arterial Blood HCO3 28 mmol/L (21-28) Arterial Blood Base Excess 4 mmol/L (-3-3) FiO2 28 Review of Systems Review of Systems no nv/d.d breathing easier discussed with family, she has refused Bipap HS for 3 days before admit, consider palliative Assessment and Plan Assessmemt and Plan Problems Medical Problems: (1) Acute hypercapnic respiratory failure Status: Acute (2) Metabolic encephalopathy Status: Acute Problems: Comment Review of Relevant I have reviewed the following items vivian (where applicable) has been applied. Labs Laboratory Tests Test 02/11/17 22:47 02/11/17 22:58 02/12/17 02:40 02/12/17 04:30 O2 Saturation 83 % (92-99) 94 % (92-99) Arterial Blood pH 7.16 (7.35-7.45) 7.32 (7.35-7.45) Arterial Blood pCO2 at Patient Temp 140 mmHg (35-46) 89 mmHg (35-46) Arterial Blood pO2 at Patient Temp 53 mmHg (65-108) 76 mmHg (65-108) Arterial Blood HCO3 49 mmol/L (21-28) 45 mmol/L (21-28) Arterial Blood Base Excess 16 mmol/L (-3-3) 16 mmol/L (-3-3) Oxyhemoglobin 81.9 % Methemoglobin 0.5 % (0.0-1.9) Carbon Monoxide, Quantitative 0.6 % (0.0-1.9) FiO2 100.0 White Blood Count 6.2 x10^3/uL (4.0-11.0) 7.0 x10^3/uL (4.0-11.0) Red Blood Count 3.22 x10^6/uL (3.50-5.40) 3.24 x10^6/uL (3.50-5.40) Hemoglobin 9.5 g/dL (12.0-15.5) 9.6 g/dL (12.0-15.5) Hematocrit 30.6 % (36.0-47.0) 31.1 % (36.0-47.0) Mean Corpuscular Volume 95 fL (79-100) 96 fL (79-100) Mean Corpuscular Hemoglobin 30 pg (25-35) 30 pg (25-35) Mean Corpuscular Hemoglobin Concent 31 g/dL (31-37) 31 g/dL (31-37) Red Cell Distribution Width 15.1 % (11.5-14.5) 15.1 % (11.5-14.5) Platelet Count 123 x10^3/uL (140-400) 134 x10^3/uL (140-400) Neutrophils (%) (Auto) 74 % (31-73) 69 % (31-73) Lymphocytes (%) (Auto) 15 % (24-48) 17 % (24-48) Monocytes (%) (Auto) 10 % (0-9) 12 % (0-9) Eosinophils (%) (Auto) 1 % (0-3) 1 % (0-3) Basophils (%) (Auto) 0 % (0-3) 0 % (0-3) Neutrophils # (Auto) 4.6 x10^3uL (1.8-7.7) 4.9 x10^3uL (1.8-7.7) Lymphocytes # (Auto) 0.9 x10^3/uL (1.0-4.8) 1.2 x10^3/uL (1.0-4.8) Monocytes # (Auto) 0.6 x10^3/uL (0.0-1.1) 0.9 x10^3/uL (0.0-1.1) Eosinophils # (Auto) 0.1 x10^3/uL (0.0-0.7) 0.0 x10^3/uL (0.0-0.7) Basophils # (Auto) 0.0 x10^3/uL (0.0-0.2) 0.0 x10^3/uL (0.0-0.2) Prothrombin Time 21.9 SEC (11.7-14.0) Prothromb Time International Ratio 2.1 (0.8-1.1) Activated Partial Thromboplast Time 39 SEC (24-38) Sodium Level 146 mmol/L (136-145) 147 mmol/L (136-145) Potassium Level 5.5 mmol/L (3.5-5.1) 5.9 mmol/L (3.5-5.1) Chloride Level 103 mmol/L (98-107) 105 mmol/L (98-107) Carbon Dioxide Level 41 mmol/L (21-32) 42 mmol/L (21-32) Anion Gap 2 (6-14) 0 (6-14) Blood Urea Nitrogen 22 mg/dL (7-20) 23 mg/dL (7-20) Creatinine 0.9 mg/dL (0.6-1.0) 0.8 mg/dL (0.6-1.0) Estimated GFR (Cockcroft-Gault) 74.9 85.8 BUN/Creatinine Ratio 24 (6-20) Glucose Level 158 mg/dL (70-99) 116 mg/dL (70-99) Lactic Acid Level 0.4 mmol/L (0.4-2.0) Calcium Level 8.7 mg/dL (8.5-10.1) 8.8 mg/dL (8.5-10.1) Magnesium Level 1.8 mg/dL (1.8-2.4) 1.9 mg/dL (1.8-2.4) Total Bilirubin 0.4 mg/dL (0.2-1.0) Aspartate Amino Transf (AST/SGOT) 35 U/L (15-37) Alanine Aminotransferase (ALT/SGPT) 12 U/L (14-59) Alkaline Phosphatase 59 U/L (46-116) Creatine Kinase 108 U/L (26-192) Troponin I Quantitative < 0.017 ng/mL (0.000-0.055) XT-Mbx-Y-Type Natriuretic Peptide 2199 pg/mL (0-124) Total Protein 7.3 g/dL (6.4-8.2) Albumin 2.9 g/dL (3.4-5.0) Albumin/Globulin Ratio 0.7 (1.0-1.7) Lipase 92 U/L (73-393) Thyroid Stimulating Hormone (TSH) 0.978 uIU/mL (0.358-3.74) Ethyl Alcohol Level < 10 mg/dL (0-10) Uric Acid 10.3 mg/dL (2.6-6.0) Triglycerides Level 200 mg/dL (0-150) Cholesterol Level 254 mg/dL (0-200) LDL Cholesterol, Calculated 160 mg/dL (0-100) VLDL Cholesterol, Calculated 40 mg/dL (0-40) Non-HDL Cholesterol Calculated 200 mg/dL (0-129) HDL Cholesterol 54 mg/dL (40-60) Cholesterol/HDL Ratio 4.7 Test 02/12/17 11:55 02/12/17 12:00 02/12/17 17:55 02/13/17 04:10 O2 Saturation 92 % (92-99) Arterial Blood pH 7.37 (7.35-7.45) Arterial Blood pCO2 at Patient Temp 72 mmHg (35-46) Arterial Blood pO2 at Patient Temp 63 mmHg (65-108) Arterial Blood HCO3 41 mmol/L (21-28) Arterial Blood Base Excess 14 mmol/L (-3-3) FiO2 30 Potassium Level 5.5 mmol/L (3.5-5.1) 5.0 mmol/L (3.5-5.1) 5.0 mmol/L (3.5-5.1) White Blood Count 6.4 x10^3/uL (4.0-11.0) Red Blood Count 3.21 x10^6/uL (3.50-5.40) Hemoglobin 9.6 g/dL (12.0-15.5) Hematocrit 30.0 % (36.0-47.0) Mean Corpuscular Volume 94 fL (79-100) Mean Corpuscular Hemoglobin 30 pg (25-35) Mean Corpuscular Hemoglobin Concent 32 g/dL (31-37) Red Cell Distribution Width 15.3 % (11.5-14.5) Platelet Count 150 x10^3/uL (140-400) Neutrophils (%) (Auto) 82 % (31-73) Lymphocytes (%) (Auto) 14 % (24-48) Monocytes (%) (Auto) 4 % (0-9) Eosinophils (%) (Auto) 0 % (0-3) Basophils (%) (Auto) 0 % (0-3) Neutrophils # (Auto) 5.2 x10^3uL (1.8-7.7) Lymphocytes # (Auto) 0.9 x10^3/uL (1.0-4.8) Monocytes # (Auto) 0.2 x10^3/uL (0.0-1.1) Eosinophils # (Auto) 0.0 x10^3/uL (0.0-0.7) Basophils # (Auto) 0.0 x10^3/uL (0.0-0.2) Sodium Level 144 mmol/L (136-145) Chloride Level 100 mmol/L (98-107) Carbon Dioxide Level 35 mmol/L (21-32) Anion Gap 9 (6-14) Blood Urea Nitrogen 24 mg/dL (7-20) Creatinine 0.8 mg/dL (0.6-1.0) Estimated GFR (Cockcroft-Gault) 85.8 BUN/Creatinine Ratio 30 (6-20) Glucose Level 147 mg/dL (70-99) Calcium Level 9.1 mg/dL (8.5-10.1) Magnesium Level 1.7 mg/dL (1.8-2.4) Total Bilirubin 0.7 mg/dL (0.2-1.0) Aspartate Amino Transf (AST/SGOT) 31 U/L (15-37) Alanine Aminotransferase (ALT/SGPT) 12 U/L (14-59) Alkaline Phosphatase 60 U/L (46-116) Total Protein 7.8 g/dL (6.4-8.2) Albumin 3.1 g/dL (3.4-5.0) Albumin/Globulin Ratio 0.7 (1.0-1.7) Test 02/13/17 08:00 O2 Saturation 91 % (92-99) Arterial Blood pH 7.45 (7.35-7.45) Arterial Blood pCO2 at Patient Temp 42 mmHg (35-46) Arterial Blood pO2 at Patient Temp 61 mmHg (65-108) Arterial Blood HCO3 28 mmol/L (21-28) Arterial Blood Base Excess 4 mmol/L (-3-3) FiO2 28 Laboratory Tests Test 02/12/17 17:55 02/13/17 04:10 02/13/17 08:00 Potassium Level 5.0 mmol/L (3.5-5.1) 5.0 mmol/L (3.5-5.1) White Blood Count 6.4 x10^3/uL (4.0-11.0) Red Blood Count 3.21 x10^6/uL (3.50-5.40) Hemoglobin 9.6 g/dL (12.0-15.5) Hematocrit 30.0 % (36.0-47.0) Mean Corpuscular Volume 94 fL (79-100) Mean Corpuscular Hemoglobin 30 pg (25-35) Mean Corpuscular Hemoglobin Concent 32 g/dL (31-37) Red Cell Distribution Width 15.3 % (11.5-14.5) Platelet Count 150 x10^3/uL (140-400) Neutrophils (%) (Auto) 82 % (31-73) Lymphocytes (%) (Auto) 14 % (24-48) Monocytes (%) (Auto) 4 % (0-9) Eosinophils (%) (Auto) 0 % (0-3) Basophils (%) (Auto) 0 % (0-3) Neutrophils # (Auto) 5.2 x10^3uL (1.8-7.7) Lymphocytes # (Auto) 0.9 x10^3/uL (1.0-4.8) Monocytes # (Auto) 0.2 x10^3/uL (0.0-1.1) Eosinophils # (Auto) 0.0 x10^3/uL (0.0-0.7) Basophils # (Auto) 0.0 x10^3/uL (0.0-0.2) Sodium Level 144 mmol/L (136-145) Chloride Level 100 mmol/L (98-107) Carbon Dioxide Level 35 mmol/L (21-32) Anion Gap 9 (6-14) Blood Urea Nitrogen 24 mg/dL (7-20) Creatinine 0.8 mg/dL (0.6-1.0) Estimated GFR (Cockcroft-Gault) 85.8 BUN/Creatinine Ratio 30 (6-20) Glucose Level 147 mg/dL (70-99) Calcium Level 9.1 mg/dL (8.5-10.1) Magnesium Level 1.7 mg/dL (1.8-2.4) Total Bilirubin 0.7 mg/dL (0.2-1.0) Aspartate Amino Transf (AST/SGOT) 31 U/L (15-37) Alanine Aminotransferase (ALT/SGPT) 12 U/L (14-59) Alkaline Phosphatase 60 U/L (46-116) Total Protein 7.8 g/dL (6.4-8.2) Albumin 3.1 g/dL (3.4-5.0) Albumin/Globulin Ratio 0.7 (1.0-1.7) O2 Saturation 91 % (92-99) Arterial Blood pH 7.45 (7.35-7.45) Arterial Blood pCO2 at Patient Temp 42 mmHg (35-46) Arterial Blood pO2 at Patient Temp 61 mmHg (65-108) Arterial Blood HCO3 28 mmol/L (21-28) Arterial Blood Base Excess 4 mmol/L (-3-3) FiO2 28 Medications Current Medications Ondansetron HCl (Zofran) 4 mg PRN Q8HRS PRN IV NAUSEA/VOMITING; Start 02/11/17 at 23:30; Stop 02/12/17 at 23:29; Status DC Albuterol Sulfate (Ventolin Neb Soln) 2.5 mg PRN Q4HRS PRN NEB SHORTNESS OF BREATH; Start 02/12/17 at 02:00 Sodium Chloride 1,000 ml @ 125 mls/hr 1X ONCE IV ; Start 02/12/17 at 09:30; Stop 02/12/17 at 17:29; Status DC Furosemide (Lasix) 20 mg 1X ONCE IVP Last administered on 02/12/17 13:05; Start 02/12/17 at 09:30; Stop 02/12/17 at 09:31; Status DC Methylprednisolone Sodium Succinate (Solu-Medrol 40mg Vial) 40 mg Q12HR IV Last administered on 02/13/17 11:41; Start 02/12/17 at 09:30 Budesonide (Pulmicort) 0.5 mg 1X ONCE NEB Last administered on 02/12/17 09:30 ; Start 02/12/17 at 09:30; Stop 02/12/17 at 09:31; Status DC Budesonide (Pulmicort) 0.5 mg RTBID NEB Last administered on 02/13/17 07:27; Start 02/12/17 at 20:00 Albuterol/ Ipratropium (Duoneb) 3 ml Q4HRS W/A NEB Last administered on 07:27; Start 02/12/17 at 10:00; Stop 02/13/17 at 11:13; Status DC Ceftriaxone Sodium 1 gm/ Sodium Chloride 50 ml @ 100 mls/hr Q24H IV Last administered on 02/13/17 11:42; Start 02/12/17 at 10:00 Doxycycline Hyclate 100 mg/ Dextrose 100 ml @ 50 mls/hr Q12HR IV ; Start at 09:30; Status UNV Furosemide (Lasix) 40 mg PRN Q6HRS PRN IVP if K > 5.3 on serial checks; Start 02/12/17 at 10:00 Sodium Chloride 1,000 ml @ 75 mls/hr [id number] IV Last administered on 02/13/17 01:47; Start 02/12/17 at 10:15 Rivaroxaban (Xarelto) 20 mg DAILYWSUP PO ; Start 02/12/17 at 17:00 Info (Anti-Coagulation Monitoring By Pharmacy) 1 each PRN DAILY PRN MC SEE COMMENTS Last administered on 02/12/17 13:40; Start 02/12/17 at 11:30 Atorvastatin Calcium (Lipitor) 40 mg QHS PO ; Start 02/12/17 at 21:00 Hydralazine HCl (Apresoline) 10 mg PRN Q4HRS PRN IVP ELEVATED BP, SEE COMMENTS Last administered on 02/13/17 06:21; Start 02/12/17 at 20:30; Stop 02/13/17 at 10: 48; Status DC Metoprolol Tartrate (Lopressor) 50 mg BID PO Last administered on 02/13/17 11: 41; Start 02/13/17 at 11:00 Amlodipine Besylate (Norvasc) 5 mg DAILY PO Last administered on 02/13/17 11:42 ; Start 02/13/17 at 11:00 Labetalol HCl (Normodyne) 20 mg PRN Q2HR PRN IVP HYPERTENSION, SEE COMMENTS; Start 02/13/17 at 10:45 Ipratropium [place] (Atrovent) 0.5 mg RTQID NEB Last administered on 02/13/17 11:34; Start 02/13/17 at 12:00 Magnesium Sulfate/ Dextrose 50 ml @ 25 mls/hr 1X ONCE IV Last administered on 02/13/17 12:24; Start 02/13/17 at 12:00; Stop 02/13/17 at 13:59; Status DC Active Scripts Active Prednisone 20 Mg Tablet 40 Mg PO DAILY Reported Omeprazole 20 Mg Capsule.dr 1 Cap PO DAILY Zinc Oxide 30 Gm Oint...g. 30 Gm TP Lyrica (Pregabalin) 75 Mg Capsule 1 Cap PO BID Xalatan (Latanoprost) 2.5 Ml Drops 1 Drop EACHEYE QHS Potassium Chloride Packet (Potassium Chloride) 20 Meq Packet 20 Meq PO BID Percocet 5-325 Mg Tablet (Oxycodone/Acetaminophen) 1 Each Tablet 1 Tab PO PRN Q6HRS PRN Zofran Odt (Ondansetron) 4 Mg Tab.rapdis 1 Tab SL BID Amlodipine Besylate 5 Mg Tablet 5 Mg PO DAILY Lasix (Furosemide) 20 Mg Tablet 1 Tab PO DAILY Ferrous Sulfate 325 Mg Tablet 1 Tab PO BID Coreg (Carvedilol) 12.5 Mg Tablet 1 Tab PO BID Budesonide 0.5 Mg/2 Ml Ampul.neb 1 Vial NEB BID Artificial Tears Eye Drops (Dextran 70/Hypromellose) 15 Ml Drops 1 Drop EACHEYE PRN QID PRN Xarelto (Rivaroxaban) 20 Mg Tablet 20 Mg PO DAILY Cetirizine Hcl 10 Mg Tablet 1 Tab PO HS Tessalon Perle (Benzonatate) 100 Mg Capsule 100 Mg PO TID PRN Multi-Day Vitamins (Multivitamin) 1 Each Tablet 1 Tab PO DAILY Milk Of Magnesia (Magnesium Hydroxide) 400 Mg/5 Ml Oral.susp 30 Ml PO Q2HR PRN Protonix (Pantoprazole Sodium) 40 Mg Tablet.dr 1 Tab PO DAILY Duoneb 0.5-3(2.5) Mg/3 Ml (Albuterol/Ipratropium) 3 Ml Ampul.neb 3 Ml IH Q4HRS PRN Nystatin 1 Each Powder.ea. 1 Each TOP BID to groin and inner thighs, apply barrier cream with zinc and nystatin powder after cleanse with warm water and pat dry Travatan Z (Travoprost) 5 Ml Drops 1 Drop EACHEYE QHS Synthroid (Levothyroxine Sodium) 150 Mcg Tablet 1 Tab PO DAILY Senna S Tablet (Sennosides/Docusate Sodium) 1 Each Tablet 1 Each PO BID Miralax (Polyethylene Glycol 3350) 17 Gm Powd.pack 1 Packet PO DAILY Methylphenidate Hcl 5 Mg Tablet 1 Tab PO BID Docusate Sodium 100 Mg Capsule 1 Cap PO BID Calcium Carbonate 200 Mg Tab.chew 200 Mg PO PRN Q4HRS PRN Tylenol (Acetaminophen) 325 Mg Tablet 2 Tab PO PRN Q4HRS PRN for headache, generalized pain or elevated temperature Vitals/I & O Vital Sign - Last 24 Hours 02/12/17 02/12/17 02/12/17 02/12/17 16:00 16:00 17:00 18:00 Temp 97.6 97.6 Pulse 92 92 92 Resp 25 25 25 B/P (MAP) 173/99 (123) 163/88 (113) 142/92 (109) Pulse Ox 97 97 97 O2 Delivery Venturi Mask Venturi Mask Venturi Mask Venturi Mask 02/12/17 02/12/17//02/12/17 19:00 20:00 20:00 20:01 Temp 100.1 100.1 Pulse 120 125 Resp 20 19 B/P (MAP) 137/95 (109) 155/107 (123) Pulse Ox 95 98 95 O2 Delivery Venturi Mask Venturi Mask Venturi Mask Venturi Mask O2 Flow Rate 12.0 12.0 02/12/17 02/12/17/01/26/01/26 21:00 21:05 22:00 23:00 Pulse 129 112 110 Resp 22 32 22 B/P (MAP) 155/107 (123) 174/80 (111) 182/93 (122) Pulse Ox 95 96 95 96 O2 Delivery Venturi Mask BiPAP/CPAP Venturi Mask BiPAP/CPAP 02/12/17 02/13/17//02/13/17 23:01 00:00 00:00 01:00 Temp 99.6 99.6 Pulse 122 109 117 Resp 27 30 B/P (MAP) 182/93 158/94 (115) 137/81 (99) Pulse Ox 96 97 O2 Delivery Bi-pap BiPAP/CPAP BiPAP/CPAP 02/13/17 02/13/17//02/13/17 01:25 02:00 03:00 03:28 Pulse 113 112 Resp 32 25 B/P (MAP) 165/106 (125) 175/103 (127) Pulse Ox 97 98 98 97 O2 Delivery BiPAP/CPAP BiPAP/CPAP BiPAP/CPAP BiPAP/CPAP 02/13/17//25 02//25 02/02/25 04:00 04:00 05:00 05:39 Temp 98.7 98.7 Pulse 110 126 Resp 39 26 B/P (MAP) 175/92 (119) 162/114 (130) Pulse Ox 97 98 97 O2 Delivery BiPAP/CPAP Bi-pap BiPAP/CPAP BiPAP/CPAP 02/13/17 02/13/17//17 5/5/17 06:00 06:21 07:30 08:00 Temp 98.4 98.4 Pulse 117 114 144 Resp 33 33 B/P (MAP) 186/93 (124) 186/93 169/93 (118) Pulse Ox 98 98 94 O2 Delivery BiPAP/CPAP Venturi Mask Nasal Cannula O2 Flow Rate 12.0 3.0 02/13/17 02/13/17 02/13/17 02/13/17 08:00 11:35 11:41 11:42 Pulse 114 114 B/P (MAP) 186/93 186/93 Pulse Ox 94 O2 Delivery Nasal Cannula Nasal Cannula O2 Flow Rate 2.0 2.0 02/13/17 02/13/17 12:00 12:00 Temp 99.2 99.2 Pulse 88 Resp 33 B/P (MAP) 175/105 (128) Pulse Ox 94 O2 Delivery Nasal Cannula Nasal Cannula O2 Flow Rate 3.0 2.0 Intake and Output 02/12/17 02/12/17 02/13/17 15:00 23:00 07:00 Intake Total 885 ml Output Total 1990 ml 855 ml Balance -1990 ml 30 ml MICHEAL DAVIS MD February 13, 2017 15:26
[2017-02-13] MEDS: RIVAROXABAN 10 MG TABLET. PO SCH (17:10)
[2017-02-13] MEDS ORDERED: MORPHINE SULFATE 2 MG/ML DISP.SYRIN. IV PRN (20:45)
[2017-02-13] MEDS ORDERED: HALOPERIDOL LACTATE 5 MG/ML VIAL. IVP PRN (20:45)
[2017-02-13] MEDS: ATORVASTATIN CALCIUM 40 MG TABLET. PO SCH (20:48)
[2017-02-14] MEDS: IV 1/2 NORMAL SALINE 1,000 ML IV SCH ×2 (02:15→12:48)
[2017-02-14 02:49] VITALS: BP 149/106
[2017-02-14 07:28] VITALS: BP 194/86
[2017-02-14] MEDS: IPRATROPIUM BROMIDE 0.5 MG/2.5 ML NEBU. NEB SCH ×4 (07:52→19:32)
[2017-02-14] MEDS: BUDESONIDE 0.5 MG/2 ML NEBU. NEB SCH ×2 (07:52→19:32)
[2017-02-14] MEDS: methylPREDNISolone SOD SUCC PF 40 MG/ML VIAL. IV SCH (08:51)
[2017-02-14] MEDS: amLODIPine BESYLATE 5 MG TABLET PO SCH (08:52)
[2017-02-14] MEDS: METOPROLOL TART IMMED RELEASE 50 MG TABLET. PO SCH ×2 (08:53→21:00)
[2017-02-14] MEDS: LABETALOL 20 MG/4 ML DISP.SYRIN. IVP PRN (08:54)
--- NOTE | 2017-02-14 09:18 | PDOC ---
PULMONARY PROGRESS NOTES Subjective more alert, answers most Qs, sob, better, has cough, no pain, used bipap last night for 3-4 hrs, on 02 now. Vitals Vital Signs Date Time Temp Pulse Resp B/P (MAP) Pulse Ox O2 Delivery O2 Flow Rate FiO2 02/14/17 08:54 85 209/95 02/14/17 07:52 98 Nasal Cannula 3.0 02/14/17 07:28 99.2 32 99.2 General: Alert, No acute distress HEENT: Other Lungs: Crackles, Other (dull at bases) Cardiovascular: S1, S2 Abdomen: Soft, Non-tender, Other Extremities: Other Labs Laboratory Tests Test 02/12/17 11:55 02/12/17 12:00 02/12/17 17:55 02/13/17 04:10 O2 Saturation 92 % (92-99) Arterial Blood pH 7.37 (7.35-7.45) Arterial Blood pCO2 at Patient Temp 72 mmHg (35-46) Arterial Blood pO2 at Patient Temp 63 mmHg (65-108) Arterial Blood HCO3 41 mmol/L (21-28) Arterial Blood Base Excess 14 mmol/L (-3-3) FiO2 30 Potassium Level 5.5 mmol/L (3.5-5.1) 5.0 mmol/L (3.5-5.1) 5.0 mmol/L (3.5-5.1) White Blood Count 6.4 x10^3/uL (4.0-11.0) Red Blood Count 3.21 x10^6/uL (3.50-5.40) Hemoglobin 9.6 g/dL (12.0-15.5) Hematocrit 30.0 % (36.0-47.0) Mean Corpuscular Volume 94 fL (79-100) Mean Corpuscular Hemoglobin 30 pg (25-35) Mean Corpuscular Hemoglobin Concent 32 g/dL (31-37) Red Cell Distribution Width 15.3 % (11.5-14.5) Platelet Count 150 x10^3/uL (140-400) Neutrophils (%) (Auto) 82 % (31-73) Lymphocytes (%) (Auto) 14 % (24-48) Monocytes (%) (Auto) 4 % (0-9) Eosinophils (%) (Auto) 0 % (0-3) Basophils (%) (Auto) 0 % (0-3) Neutrophils # (Auto) 5.2 x10^3uL (1.8-7.7) Lymphocytes # (Auto) 0.9 x10^3/uL (1.0-4.8) Monocytes # (Auto) 0.2 x10^3/uL (0.0-1.1) Eosinophils # (Auto) 0.0 x10^3/uL (0.0-0.7) Basophils # (Auto) 0.0 x10^3/uL (0.0-0.2) Sodium Level 144 mmol/L (136-145) Chloride Level 100 mmol/L (98-107) Carbon Dioxide Level 35 mmol/L (21-32) Anion Gap 9 (6-14) Blood Urea Nitrogen 24 mg/dL (7-20) Creatinine 0.8 mg/dL (0.6-1.0) Estimated GFR (Cockcroft-Gault) 85.8 BUN/Creatinine Ratio 30 (6-20) Glucose Level 147 mg/dL (70-99) Calcium Level 9.1 mg/dL (8.5-10.1) Magnesium Level 1.7 mg/dL (1.8-2.4) Total Bilirubin 0.7 mg/dL (0.2-1.0) Aspartate Amino Transf (AST/SGOT) 31 U/L (15-37) Alanine Aminotransferase (ALT/SGPT) 12 U/L (14-59) Alkaline Phosphatase 60 U/L (46-116) Total Protein 7.8 g/dL (6.4-8.2) Albumin 3.1 g/dL (3.4-5.0) Albumin/Globulin Ratio 0.7 (1.0-1.7) Test 02/13/17 08:00 02/14/17 05:46 O2 Saturation 91 % (92-99) Arterial Blood pH 7.45 (7.35-7.45) Arterial Blood pCO2 at Patient Temp 42 mmHg (35-46) Arterial Blood pO2 at Patient Temp 61 mmHg (65-108) Arterial Blood HCO3 28 mmol/L (21-28) Arterial Blood Base Excess 4 mmol/L (-3-3) FiO2 28 Magnesium Level 2.2 mg/dL (1.8-2.4) Laboratory Tests Test 02/14/17 05:46 Magnesium Level 2.2 mg/dL (1.8-2.4) Medications Active Scripts Medications Dose Route/Sig Max Daily Dose Days Date Category Dose Instructions Omeprazole 20 Mg Capsule.dr 1 Cap PO DAILY 02/12/17 Reported Prednisone 20 Mg Tablet 40 Mg PO DAILY 01/17/17 Rx Zinc Oxide 30 Gm Oint...g. 30 Gm TP 12/30/16 Reported Lyrica (Pregabalin) 75 Mg Capsule 1 Cap PO BID 12/30/16 Reported Xalatan (Latanoprost) 2.5 Ml Drops 1 Drop EACHEYE QHS 12/30/16 Reported Potassium Chloride Packet (Potassium Chloride) 20 Meq Packet 20 Meq PO BID 12/30/16 Reported Percocet 5-325 Mg Tablet (Oxycodone/Acetaminophen) 1 Each Tablet 1 Tab PO PRN Q6HRS PRN 12/30/16 Reported Zofran Odt (Ondansetron) 4 Mg Tab.rapdis 1 Tab SL BID 12/30/16 Reported Amlodipine Besylate 5 Mg Tablet 5 Mg PO DAILY 12/30/16 Reported Lasix (Furosemide) 20 Mg Tablet 1 Tab PO DAILY 12/30/16 Reported Ferrous Sulfate 325 Mg Tablet 1 Tab PO BID 12/30/16 Reported Coreg (Carvedilol) 12.5 Mg Tablet 1 Tab PO BID 12/30/16 Reported Budesonide 0.5 Mg/2 Ml Ampul.neb 1 Vial NEB BID 12/30/16 Reported Artificial Tears Eye Drops (Dextran 70/Hypromellose) 15 Ml Drops 1 Drop EACHEYE PRN QID PRN 12/30/16 Reported Xarelto (Rivaroxaban) 20 Mg Tablet 20 Mg PO DAILY 11/12/16 Reported Cetirizine Hcl 10 Mg Tablet 1 Tab PO HS 11/07/16 Reported Tessalon Perle (Benzonatate) 100 Mg Capsule 100 Mg PO TID PRN 11/07/16 Reported Multi-Day Vitamins (Multivitamin) 1 Each Tablet 1 Tab PO DAILY 11/07/16 Reported Milk Of Magnesia (Magnesium Hydroxide) 400 Mg/5 Ml Oral.susp 30 Ml PO Q2HR PRN 05/31/15 Reported Protonix (Pantoprazole Sodium) 40 Mg Tablet. 1 Tab PO DAILY 05/30/15 Reported Duoneb 0.5-3(2.5) Mg/3 Ml (Albuterol/Ipratropium) 3 Ml Ampul.neb 3 Ml IH Q4HRS PRN 05/30/15 Reported Nystatin 1 Each Powder.ea. 1 Each TOP BID 05/14/15 Reported to groin and inner thighs, apply barrier cream with zinc and nystatin powder after cleanse with warm water and pat dry Travatan Z (Travoprost) 5 Ml Drops 1 Drop EACHEYE QHS 05/01/15 Reported Synthroid (Levothyroxine Sodium) 150 Mcg Tablet 1 Tab PO DAILY 05/01/15 Reported Senna S Tablet (Sennosides/Docusate Sodium) 1 Each Tablet 1 Each PO BID 05/01/15 Reported Miralax (Polyethylene Glycol 3350) 17 Gm Powd.pack 1 Packet PO DAILY 05/01/15 Reported Methylphenidate Hcl 5 Mg Tablet 1 Tab PO BID 05/01/15 Reported Docusate Sodium 100 Mg Capsule 1 Cap PO BID 05/01/15 Reported Calcium Carbonate 200 Mg Tab.chew 200 Mg PO PRN Q4HRS PRN 05/01/15 Reported Tylenol (Acetaminophen) 325 Mg Tablet 2 Tab PO PRN Q4HRS PRN 05/01/15 Reported for headache, generalized pain or elevated temperature Comments cxr reviewed, atelectasis Impression . IMPRESSION: 1. Acute on chronic hypercapnic respiratory failure secondary to noncompliance to home CPAP and possible cor pulmonale. She has moderate basal atelectasis from poor inspiratory effort contributing to her symptoms as well. 2. History of obstructive sleep apnea/obesity hypoventilation syndrome. 3. History of chronic deep venous thrombosis and has been on Xarelto chronically. 4. Abnormal chest x-ray with bibasilar atelectasis due to poor inspiratory effort. 5. Acute encephalopathy secondary to hypercapnia. 6. h/o recurrent DVT,s . On chronic anticoagulation 7. copd w ae Plan . RECOMMENDATIONS: 1. Continu BiPAP prn during day, cont at night. 2. abg reviewed 3. avoid over sedation 4. elevate hob 5. Continue Xarelto, monitor for bleeding. 6. Continue with levothyroxine. Her TSH was 0.978. 7. Nebulizer treatments. 8. Lasix, monitor k cr. 9. Empiric antibiotics 10. change IV steroids to prednisone 40 mg daily. 11. bronchodilator Atrovent only had arrhythmia Discussed with Cardiology, rn, rt ALLYSON WU MD February 14, 2017 09:17
[2017-02-14 11:10] VITALS: BP 138/85
--- NOTE | 2017-02-14 11:10 | PDOC ---
PROGRESS NOTES Chief Complaint Chief Complaint acute hypercarbic respiratory failure acute metabolic encephalopathy, COPD, AE, CO2 narcosis [place]compliant with bipap at [place] hyperkalemia, IV lasix, and NS iv fluid hypernatremia anemia moderate malnutrition , obesity, BMI 36 admitted to ICU, on BIPAP pt in DNR History of Present Illness History of Present Illness improving cont current still dyspneic and weak plan return to [place] soon Vitals Vitals Vital Signs Date Time Temp Pulse Resp B/P (MAP) Pulse Ox O2 Delivery O2 Flow Rate FiO2 02/14/17 08:54 85 209/95 02/14/17 07:52 98 Nasal Cannula 3.0 02/14/17 07:28 99.2 32 99.2 Physical Exam General: Alert, Cooperative, No acute distress Heart: Regular rate (SR/ST), Other (3/6 systolic murmur to LUCIE border otherwise unable to fully appreciate heart sounds due to bipap use) Lungs: Crackles, Other (dull at bases) Abdomen: Normal bowel sounds, Soft, No tenderness Extremities: No cyanosis, Other (chronic LE lymphedema; Skin is warm and dry no pitting edema) Skin: No breakdown, No significant lesion Labs LABS Laboratory Tests Test 02/14/17 05:46 Magnesium Level 2.2 mg/dL (1.8-2.4) Review of Systems Review of Systems dysphonia no n.v.d needs assistance with ADL's Assessment and Plan Assessmemt and Plan Problems Medical Problems: (1) Acute hypercapnic respiratory failure Status: Acute (2) Metabolic encephalopathy Status: Acute Problems: Comment Review of Relevant I have reviewed the following items vivian (where applicable) has been applied. Labs Laboratory Tests Test 02/12/17 11:55 02/12/17 12:00 02/12/17 17:55 02/13/17 04:10 O2 Saturation 92 % (92-99) Arterial Blood pH 7.37 (7.35-7.45) Arterial Blood pCO2 at Patient Temp 72 mmHg (35-46) Arterial Blood pO2 at Patient Temp 63 mmHg (65-108) Arterial Blood HCO3 41 mmol/L (21-28) Arterial Blood Base Excess 14 mmol/L (-3-3) FiO2 30 Potassium Level 5.5 mmol/L (3.5-5.1) 5.0 mmol/L (3.5-5.1) 5.0 mmol/L (3.5-5.1) White Blood Count 6.4 x10^3/uL (4.0-11.0) Red Blood Count 3.21 x10^6/uL (3.50-5.40) Hemoglobin 9.6 g/dL (12.0-15.5) Hematocrit 30.0 % (36.0-47.0) Mean Corpuscular Volume 94 fL (79-100) Mean Corpuscular Hemoglobin 30 pg (25-35) Mean Corpuscular Hemoglobin Concent 32 g/dL (31-37) Red Cell Distribution Width 15.3 % (11.5-14.5) Platelet Count 150 x10^3/uL (140-400) Neutrophils (%) (Auto) 82 % (31-73) Lymphocytes (%) (Auto) 14 % (24-48) Monocytes (%) (Auto) 4 % (0-9) Eosinophils (%) (Auto) 0 % (0-3) Basophils (%) (Auto) 0 % (0-3) Neutrophils # (Auto) 5.2 x10^3uL (1.8-7.7) Lymphocytes # (Auto) 0.9 x10^3/uL (1.0-4.8) Monocytes # (Auto) 0.2 x10^3/uL (0.0-1.1) Eosinophils # (Auto) 0.0 x10^3/uL (0.0-0.7) Basophils # (Auto) 0.0 x10^3/uL (0.0-0.2) Sodium Level 144 mmol/L (136-145) Chloride Level 100 mmol/L (98-107) Carbon Dioxide Level 35 mmol/L (21-32) Anion Gap 9 (6-14) Blood Urea Nitrogen 24 mg/dL (7-20) Creatinine 0.8 mg/dL (0.6-1.0) Estimated GFR (Cockcroft-Gault) 85.8 BUN/Creatinine Ratio 30 (6-20) Glucose Level 147 mg/dL (70-99) Calcium Level 9.1 mg/dL (8.5-10.1) Magnesium Level 1.7 mg/dL (1.8-2.4) Total Bilirubin 0.7 mg/dL (0.2-1.0) Aspartate Amino Transf (AST/SGOT) 31 U/L (15-37) Alanine Aminotransferase (ALT/SGPT) 12 U/L (14-59) Alkaline Phosphatase 60 U/L (46-116) Total Protein 7.8 g/dL (6.4-8.2) Albumin 3.1 g/dL (3.4-5.0) Albumin/Globulin Ratio 0.7 (1.0-1.7) Test 02/13/17 08:00 02/14/17 05:46 O2 Saturation 91 % (92-99) Arterial Blood pH 7.45 (7.35-7.45) Arterial Blood pCO2 at Patient Temp 42 mmHg (35-46) Arterial Blood pO2 at Patient Temp 61 mmHg (65-108) Arterial Blood HCO3 28 mmol/L (21-28) Arterial Blood Base Excess 4 mmol/L (-3-3) FiO2 28 Magnesium Level 2.2 mg/dL (1.8-2.4) Laboratory Tests Test 02/14/17 05:46 Magnesium Level 2.2 mg/dL (1.8-2.4) Medications Current Medications Ondansetron HCl (Zofran) 4 mg PRN Q8HRS PRN IV NAUSEA/VOMITING; Start 02/11/17 at 23:30; Stop 02/12/17 at 23:29; Status DC Albuterol Sulfate (Ventolin Neb Soln) 2.5 mg PRN Q4HRS PRN NEB SHORTNESS OF BREATH; Start 02/12/17 at 02:00 Sodium Chloride 1,000 ml @ 125 mls/hr 1X ONCE IV ; Start 02/12/17 at 09:30; Stop 02/12/17 at 17:29; Status DC Furosemide (Lasix) 20 mg 1X ONCE IVP Last administered on 02/12/17 13:05; Start 02/12/17 at 09:30; Stop 02/12/17 at 09:31; Status DC Methylprednisolone Sodium Succinate (Solu-Medrol 40mg Vial) 40 mg Q12HR IV Last administered on 02/14/17 08:51; Start 02/12/17 at 09:30; Stop 02/14/17 at 09: 18; Status DC Budesonide (Pulmicort) 0.5 mg 1X ONCE NEB Last administered on 02/12/17 09:30 ; Start 02/12/17 at 09:30; Stop 02/12/17 at 09:31; Status DC Budesonide (Pulmicort) 0.5 mg RTBID NEB Last administered on 02/14/17 07:52; Start 02/12/17 at 20:00 Albuterol/ Ipratropium (Duoneb) 3 ml Q4HRS W/A NEB Last administered on 07:27; Start 02/12/17 at 10:00; Stop 02/13/17 at 11:13; Status DC Ceftriaxone Sodium 1 gm/ Sodium Chloride 50 ml @ 100 mls/hr Q24H IV Last administered on 02/13/17 11:42; Start 02/12/17 at 10:00 Doxycycline Hyclate 100 mg/ Dextrose 100 ml @ 50 mls/hr Q12HR IV ; Start at 09:30; Status UNV Furosemide (Lasix) 40 mg PRN Q6HRS PRN IVP if K > 5.3 on serial checks; Start 02/12/17 at 10:00 Sodium Chloride 1,000 ml @ 75 mls/hr [id number] IV Last administered on 02/14/17 02:15; Start 02/12/17 at 10:15 Rivaroxaban (Xarelto) 20 mg DAILYWSUP PO Last administered on 02/13/17 17:10; Start 02/12/17 at 17:00 Info (Anti-Coagulation Monitoring By Pharmacy) 1 each PRN DAILY PRN MC SEE COMMENTS Last administered on 02/12/17 13:40; Start 02/12/17 at 11:30 Atorvastatin Calcium (Lipitor) 40 mg QHS PO Last administered on 02/13/17 20:48 ; Start 02/12/17 at 21:00 Hydralazine HCl (Apresoline) 10 mg PRN Q4HRS PRN IVP ELEVATED BP, SEE COMMENTS Last administered on 02/13/17 06:21; Start 02/12/17 at 20:30; Stop 02/13/17 at 10: 48; Status DC Metoprolol Tartrate (Lopressor) 50 mg BID PO Last administered on 02/14/17 08: 53; Start 02/13/17 at 11:00 Amlodipine Besylate (Norvasc) 5 mg DAILY PO Last administered on 02/14/17 08:52 ; Start 02/13/17 at 11:00 Labetalol HCl (Normodyne) 20 mg PRN Q2HR PRN IVP HYPERTENSION, SEE COMMENTS Last administered on 02/14/17 08:54; Start 02/13/17 at 10:45 Ipratropium [place] (Atrovent) 0.5 mg RTQID NEB Last administered on 02/14/17 07:52; Start 02/13/17 at 12:00 Magnesium Sulfate/ Dextrose 50 ml @ 25 mls/hr 1X ONCE IV Last administered on 02/13/17 12:24; Start 02/13/17 at 12:00; Stop 02/13/17 at 13:59; Status DC Morphine Sulfate 1 mg PRN Q2HR PRN IV PAIN; Start 02/13/17 at 20:45; Stop at 21:12; Status DC Haloperidol Lactate (Haldol) 2.5 mg PRN Q6HRS PRN IVP AGITATION; Start 02/13/17 at 20:45 Prednisone (Prednisone) 40 mg DAILY PO ; Start 02/15/17 at 09:00 Active Scripts Active Prednisone 20 Mg Tablet 40 Mg PO DAILY Reported Omeprazole 20 Mg Capsule.dr 1 Cap PO DAILY Zinc Oxide 30 Gm Oint...g. 30 Gm TP Lyrica (Pregabalin) 75 Mg Capsule 1 Cap PO BID Xalatan (Latanoprost) 2.5 Ml Drops 1 Drop EACHEYE QHS Potassium Chloride Packet (Potassium Chloride) 20 Meq Packet 20 Meq PO BID Percocet 5-325 Mg Tablet (Oxycodone/Acetaminophen) 1 Each Tablet 1 Tab PO PRN Q6HRS PRN Zofran Odt (Ondansetron) 4 Mg Tab.rapdis 1 Tab SL BID Amlodipine Besylate 5 Mg Tablet 5 Mg PO DAILY Lasix (Furosemide) 20 Mg Tablet 1 Tab PO DAILY Ferrous Sulfate 325 Mg Tablet 1 Tab PO BID Coreg (Carvedilol) 12.5 Mg Tablet 1 Tab PO BID Budesonide 0.5 Mg/2 Ml Ampul.neb 1 Vial NEB BID Artificial Tears Eye Drops (Dextran 70/Hypromellose) 15 Ml Drops 1 Drop EACHEYE PRN QID PRN Xarelto (Rivaroxaban) 20 Mg Tablet 20 Mg PO DAILY Cetirizine Hcl 10 Mg Tablet 1 Tab PO HS Tessalon Perle (Benzonatate) 100 Mg Capsule 100 Mg PO TID PRN Multi-Day Vitamins (Multivitamin) 1 Each Tablet 1 Tab PO DAILY Milk Of Magnesia (Magnesium Hydroxide) 400 Mg/5 Ml Oral.susp 30 Ml PO Q2HR PRN Protonix (Pantoprazole Sodium) 40 Mg Tablet.dr 1 Tab PO DAILY Duoneb 0.5-3(2.5) Mg/3 Ml (Albuterol/Ipratropium) 3 Ml Ampul.neb 3 Ml IH Q4HRS PRN Nystatin 1 Each Powder.ea. 1 Each TOP BID to groin and inner thighs, apply barrier cream with zinc and nystatin powder after cleanse with warm water and pat dry Travatan Z (Travoprost) 5 Ml Drops 1 Drop EACHEYE QHS Synthroid (Levothyroxine Sodium) 150 Mcg Tablet 1 Tab PO DAILY Senna S Tablet (Sennosides/Docusate Sodium) 1 Each Tablet 1 Each PO BID Miralax (Polyethylene Glycol 3350) 17 Gm Powd.pack 1 Packet PO DAILY Methylphenidate Hcl 5 Mg Tablet 1 Tab PO BID Docusate Sodium 100 Mg Capsule 1 Cap PO BID Calcium Carbonate 200 Mg Tab.chew 200 Mg PO PRN Q4HRS PRN Tylenol (Acetaminophen) 325 Mg Tablet 2 Tab PO PRN Q4HRS PRN for headache, generalized pain or elevated temperature Vitals/I & O Vital Sign - Last 24 Hours 02/13/17 02/13/17 02/13/17 02/13/17 11:35 11:41 11:42 12:00 Temp 99.2 99.2 Pulse 114 114 88 Resp 33 B/P (MAP) 186/93 186/93 175/105 (128) Pulse Ox 94 94 O2 Delivery Nasal Cannula Nasal Cannula O2 Flow Rate 2.0 3.0 02/13/17 02/13/17 02/13/17 02/13/17 12:00 15:35 19:22 19:26 Temp 98.6 98.6 Pulse 100 Resp 26 B/P (MAP) 176/100 (125) Pulse Ox 98 O2 Delivery Nasal Cannula Nasal Cannula BiPAP/CPAP Bi-pap O2 Flow Rate 2.0 2.0 02/13/17 02/13/17 02/13/175/17 19:29 20:17 20:48 22:34 Temp 98.6 98.6 Pulse 100 85 Resp 20 B/P (MAP) 176/100 162/85 (110) Pulse Ox 98 98 O2 Delivery BiPAP/CPAP Nasal Cannula O2 Flow Rate 2.0 2.0 02/14/17 02/14/17 02/14/17 02/14/17 00:12 01:49 02:49 03:46 Temp 98.4 98.4 Pulse 87 Resp 26 B/P (MAP) 149/106 (120) Pulse Ox 96 96 97 98 O2 Delivery BiPAP/CPAP BiPAP/CPAP BiPAP/CPAP BiPAP/CPAP 02/14/17 02/14/17 02/14/17 02/14/17 07:28 07:52 08:52 08:53 Temp 99.2 99.2 Pulse 80 82 84 Resp 32 B/P (MAP) 194/86 (122) 209/95 209/85 Pulse Ox 95 98 O2 Delivery Nasal Cannula Nasal Cannula O2 Flow Rate 3.0 3.0 02/14/17 08:54 Pulse 85 B/P (MAP) 209/95 Intake and Output 02/13/17 02/13/17 02/14/17 14:59 22:59 06:59 Intake Total 210 ml 950 ml Output Total 400 ml 650 ml Balance -190 ml 300 ml MICHEAL DAVIS MD February 14, 2017 11:10
[2017-02-14 15:18] VITALS: BP 160/90
[2017-02-14] MEDS: RIVAROXABAN 10 MG TABLET. PO SCH (19:13)
[2017-02-14 19:52] VITALS: BP 156/74
[2017-02-14] MEDS: ATORVASTATIN CALCIUM 40 MG TABLET. PO SCH (21:18)
[2017-02-14 23:06] VITALS: BP 149/83
[2017-02-15 02:43] VITALS: BP 155/88
[2017-02-15] MEDS: IV 1/2 NORMAL SALINE 1,000 ML IV SCH (04:55)
[2017-02-15] MEDS ORDERED: ONDANSETRON PF 4 MG/2 ML VIAL. IV PRN (06:45)
[2017-02-15] MEDS: BUDESONIDE 0.5 MG/2 ML NEBU. NEB SCH ×2 (06:53→20:11)
[2017-02-15] MEDS: IPRATROPIUM BROMIDE 0.5 MG/2.5 ML NEBU. NEB SCH ×4 (06:53→20:11)
[2017-02-15 07:00] VITALS: BP 171/79
[2017-02-15] MEDS: METOPROLOL TART IMMED RELEASE 50 MG TABLET. PO SCH ×2 (08:32→20:43)
[2017-02-15] MEDS: predniSONE 10 MG TABLET PO SCH (08:32)
[2017-02-15] MEDS: amLODIPine BESYLATE 5 MG TABLET PO SCH (08:33)
--- NOTE | 2017-02-15 09:24 | PDOC ---
PULMONARY PROGRESS NOTES Subjective alert, answers most Qs, sob, better, has cough, no pain, refused bipap last night reinaldo 02 now. Vitals Vital Signs Date Time Temp Pulse Resp B/P (MAP) Pulse Ox O2 Delivery O2 Flow Rate FiO2 02/15/17 08:33 81 171/85 02/15/17 06:54 100 Nasal Cannula 3.0 02/15/17 02:43 98.2 24 98.2 General: Alert, No acute distress HEENT: Other Lungs: Crackles Cardiovascular: S1, S2 Abdomen: Soft, Non-tender, Other Extremities: Other Labs Laboratory Tests Test 02/14/17 05:46 02/15/17 05:00 Magnesium Level 2.2 mg/dL (1.8-2.4) 2.1 mg/dL (1.8-2.4) Laboratory Tests Test 02/15/17 05:00 Magnesium Level 2.1 mg/dL (1.8-2.4) Medications Active Scripts Medications Dose Route/Sig Max Daily Dose Days Date Category Dose Instructions Omeprazole 20 Mg Capsule.dr 1 Cap PO DAILY 02/12/17 Reported Prednisone 20 Mg Tablet 40 Mg PO DAILY 01/17/17 Rx Zinc Oxide 30 Gm Oint...g. 30 Gm TP 12/30/16 Reported Lyrica (Pregabalin) 75 Mg Capsule 1 Cap PO BID 12/30/16 Reported Xalatan (Latanoprost) 2.5 Ml Drops 1 Drop EACHEYE QHS 12/30/16 Reported Potassium Chloride Packet (Potassium Chloride) 20 Meq Packet 20 Meq PO BID 12/30/16 Reported Percocet 5-325 Mg Tablet (Oxycodone/Acetaminophen) 1 Each Tablet 1 Tab PO PRN Q6HRS PRN 12/30/16 Reported Zofran Odt (Ondansetron) 4 Mg Tab.rapdis 1 Tab SL BID 12/30/16 Reported Amlodipine Besylate 5 Mg Tablet 5 Mg PO DAILY 12/30/16 Reported Lasix (Furosemide) 20 Mg Tablet 1 Tab PO DAILY 12/30/16 Reported Ferrous Sulfate 325 Mg Tablet 1 Tab PO BID 12/30/16 Reported Coreg (Carvedilol) 12.5 Mg Tablet 1 Tab PO BID 12/30/16 Reported Budesonide 0.5 Mg/2 Ml Ampul.neb 1 Vial NEB BID 12/30/16 Reported Artificial Tears Eye Drops (Dextran 70/Hypromellose) 15 Ml Drops 1 Drop EACHEYE PRN QID PRN 12/30/16 Reported Xarelto (Rivaroxaban) 20 Mg Tablet 20 Mg PO DAILY 11/12/16 Reported Cetirizine Hcl 10 Mg Tablet 1 Tab PO HS 11/07/16 Reported Tessalon Perle (Benzonatate) 100 Mg Capsule 100 Mg PO TID PRN 11/07/16 Reported Multi-Day Vitamins (Multivitamin) 1 Each Tablet 1 Tab PO DAILY 11/07/16 Reported Milk Of Magnesia (Magnesium Hydroxide) 400 Mg/5 Ml Oral.susp 30 Ml PO Q2HR PRN 05/31/15 Reported Protonix (Pantoprazole Sodium) 40 Mg Tablet.dr 1 Tab PO DAILY 05/30/15 Reported Duoneb 0.5-3(2.5) Mg/3 Ml (Albuterol/Ipratropium) 3 Ml Ampul.neb 3 Ml IH Q4HRS PRN 05/30/15 Reported Nystatin 1 Each Powder.ea. 1 Each TOP BID 05/14/15 Reported to groin and inner thighs, apply barrier cream with zinc and nystatin powder after cleanse with warm water and pat dry Travatan Z (Travoprost) 5 Ml Drops 1 Drop EACHEYE QHS 05/01/15 Reported Synthroid (Levothyroxine Sodium) 150 Mcg Tablet 1 Tab PO DAILY 05/01/15 Reported Senna S Tablet (Sennosides/Docusate Sodium) 1 Each Tablet 1 Each PO BID 05/01/15 Reported Miralax (Polyethylene Glycol 3350) 17 Gm Powd.pack 1 Packet PO DAILY 05/01/15 Reported Methylphenidate Hcl 5 Mg Tablet 1 Tab PO BID 05/01/15 Reported Docusate Sodium 100 Mg Capsule 1 Cap PO BID 05/01/15 Reported Calcium Carbonate 200 Mg Tab.chew 200 Mg PO PRN Q4HRS PRN 05/01/15 Reported Tylenol (Acetaminophen) 325 Mg Tablet 2 Tab PO PRN Q4HRS PRN 05/01/15 Reported for headache, generalized pain or elevated temperature Comments cxr reviewed, atelectasis Impression . IMPRESSION: 1. Acute on chronic hypercapnic respiratory failure secondary to noncompliance to home CPAP and possible cor pulmonale. She has moderate basal atelectasis from poor inspiratory effort contributing to her symptoms as well. 2. History of obstructive sleep apnea/obesity hypoventilation syndrome. 3. History of chronic deep venous thrombosis and has been on Xarelto chronically. 4. Abnormal chest x-ray with bibasilar atelectasis due to poor inspiratory effort. 5. Acute encephalopathy secondary to hypercapnia. 6. h/o recurrent DVT,s . On chronic anticoagulation 7. copd w ae Plan . RECOMMENDATIONS: 1. Continue BiPAP prn during day, cont at night. she refused 2. abg reviewed 3. avoid over sedation 4. elevate hob 5. Continue Xarelto, monitor for bleeding. 6. Continue with levothyroxine. Her TSH was 0.978. 7. Nebulizer treatments. 8. Lasix, monitor k cr. 9. Empiric antibiotics 10. prednisone 40 mg daily. w taper by 10 mg q 3d 11. bronchodilator Atrovent only had arrhythmia Discussed with ALLYSON Jordan MD February 15, 2017 09:24
[2017-02-15 11:00] VITALS: BP 194/89
--- NOTE | 2017-02-15 11:22 | PDOC ---
PROGRESS NOTES Chief Complaint Chief Complaint acute hypercarbic respiratory failure acute metabolic encephalopathy, COPD, AE, CO2 narcosis noncompliant with bipap at [place] hyperkalemia, IV lasix, and NS iv fluid hypernatremia anemia moderate malnutrition , obesity, BMI 36 admitted to ICU, on BIPAP pt in DNR History of Present Illness History of Present Illness much improved mental status today, making demands of staff that her sister reports is normal for her. refused Bipap last night, palliative care consulted, pt aware of mortality risk, and does not want to wear Bipap, this makes her hospice appropriate, mortality < 6 mos if not wearing bipap, will likely CO2, hypercarbic failure in 1-2 weeks. cont current, consider hospice, this has been discussed with her sister. DC soon Vitals Vitals Vital Signs Date Time Temp Pulse Resp B/P (MAP) Pulse Ox O2 Delivery O2 Flow Rate FiO2 02/15/17 10:53 Nasal Cannula 2.0 02/15/17 08:33 81 171/85 02/15/17 07:00 98.1 20 98.1 02/15/17 06:54 100 Physical Exam General: Alert, Cooperative, No acute distress Heart: Regular rate (SR/ST), Other (3/6 systolic murmur to LUCIE border otherwise unable to fully appreciate heart sounds due to bipap use) Lungs: Crackles Abdomen: Normal bowel sounds, Soft, No tenderness Extremities: No cyanosis, Other (chronic LE lymphedema; Skin is warm and dry no pitting edema) Skin: No breakdown, No significant lesion Labs LABS Laboratory Tests Test 02/15/17 05:00 Magnesium Level 2.1 mg/dL (1.8-2.4) Assessment and Plan Assessmemt and Plan Problems Medical Problems: (1) Acute hypercapnic respiratory failure Status: Acute (2) Metabolic encephalopathy Status: Acute Problems: Comment Review of Relevant I have reviewed the following items vivian (where applicable) has been applied. Labs Laboratory Tests Test 02/14/17 05:46 02/15/17 05:00 Magnesium Level 2.2 mg/dL (1.8-2.4) 2.1 mg/dL (1.8-2.4) Laboratory Tests Test 02/15/17 05:00 Magnesium Level 2.1 mg/dL (1.8-2.4) Medications Current Medications Ondansetron HCl (Zofran) 4 mg PRN Q8HRS PRN IV NAUSEA/VOMITING; Start 02/11/17 at 23:30; Stop 02/12/17 at 23:29; Status DC Albuterol Sulfate (Ventolin Neb Soln) 2.5 mg PRN Q4HRS PRN NEB SHORTNESS OF BREATH; Start 02/12/17 at 02:00 Sodium Chloride 1,000 ml @ 125 mls/hr 1X ONCE IV ; Start 02/12/17 at 09:30; Stop 02/12/17 at 17:29; Status DC Furosemide (Lasix) 20 mg 1X ONCE IVP Last administered on 02/12/17 13:05; Start 02/12/17 at 09:30; Stop 02/12/17 at 09:31; Status DC Methylprednisolone Sodium Succinate (Solu-Medrol 40mg Vial) 40 mg Q12HR IV Last administered on 02/14/17 08:51; Start 02/12/17 at 09:30; Stop 02/14/17 at 09: 18; Status DC Budesonide (Pulmicort) 0.5 mg 1X ONCE NEB Last administered on 02/12/17 09:30 ; Start 02/12/17 at 09:30; Stop 02/12/17 at 09:31; Status DC Budesonide (Pulmicort) 0.5 mg RTBID NEB Last administered on 02/15/17 06:53; Start 02/12/17 at 20:00 Albuterol/ Ipratropium (Duoneb) 3 ml Q4HRS W/A NEB Last administered on 07:27; Start 02/12/17 at 10:00; Stop 02/13/17 at 11:13; Status DC Ceftriaxone Sodium 1 gm/ Sodium Chloride 50 ml @ 100 mls/hr Q24H IV Last administered on 02/14/17 12:47; Start 02/12/17 at 10:00 Doxycycline Hyclate 100 mg/ Dextrose 100 ml @ 50 mls/hr Q12HR IV ; Start at 09:30; Status UNV Furosemide (Lasix) 40 mg PRN Q6HRS PRN IVP if K > 5.3 on serial checks; Start 02/12/17 at 10:00 Sodium Chloride 1,000 ml @ 75 mls/hr [id number] IV Last administered on 02/14/17 12:48; Start 02/12/17 at 10:15 Rivaroxaban (Xarelto) 20 mg DAILYWSUP PO Last administered on 02/14/17 19:13; Start 02/12/17 at 17:00 Info (Anti-Coagulation Monitoring By Pharmacy) 1 each PRN DAILY PRN MC SEE COMMENTS Last administered on 02/12/17 13:40; Start 02/12/17 at 11:30 Atorvastatin Calcium (Lipitor) 40 mg QHS PO Last administered on 02/14/17 21:18 ; Start 02/12/17 at 21:00 Hydralazine HCl (Apresoline) 10 mg PRN Q4HRS PRN IVP ELEVATED BP, SEE COMMENTS Last administered on 02/13/17 06:21; Start 02/12/17 at 20:30; Stop 02/13/17 at 10: 48; Status DC Metoprolol Tartrate (Lopressor) 50 mg BID PO Last administered on 02/15/17 08: 32; Start 02/13/17 at 11:00 Amlodipine Besylate (Norvasc) 5 mg DAILY PO Last administered on 02/15/17 08:33 ; Start 02/13/17 at 11:00 Labetalol HCl (Normodyne) 20 mg PRN Q2HR PRN IVP HYPERTENSION, SEE COMMENTS Last administered on 02/14/17 08:54; Start 02/13/17 at 10:45 Ipratropium [place] (Atrovent) 0.5 mg RTQID NEB Last administered on 02/15/17 10:52; Start 02/13/17 at 12:00 Magnesium Sulfate/ Dextrose 50 ml @ 25 mls/hr 1X ONCE IV Last administered on 02/13/17 12:24; Start 02/13/17 at 12:00; Stop 02/13/17 at 13:59; Status DC Morphine Sulfate 1 mg PRN Q2HR PRN IV PAIN; Start 02/13/17 at 20:45; Stop at 21:12; Status DC Haloperidol Lactate (Haldol) 2.5 mg PRN Q6HRS PRN IVP AGITATION; Start 02/13/17 at 20:45 Prednisone (Prednisone) 40 mg DAILY PO Last administered on 5/7/17at 08:32; Start 02/15/17 at 09:00 Ondansetron HCl (Zofran) 4 mg PRN Q8HRS PRN IV NAUSEA/VOMITING; Start 02/15/17 at 06:45 Active Scripts Active Prednisone 20 Mg Tablet 40 Mg PO DAILY Reported Omeprazole 20 Mg Capsule.dr 1 Cap PO DAILY Zinc Oxide 30 Gm Oint...g. 30 Gm TP Lyrica (Pregabalin) 75 Mg Capsule 1 Cap PO BID Xalatan (Latanoprost) 2.5 Ml Drops 1 Drop EACHEYE QHS Potassium Chloride Packet (Potassium Chloride) 20 Meq Packet 20 Meq PO BID Percocet 5-325 Mg Tablet (Oxycodone/Acetaminophen) 1 Each Tablet 1 Tab PO PRN Q6HRS PRN Zofran Odt (Ondansetron) 4 Mg Tab.rapdis 1 Tab SL BID Amlodipine Besylate 5 Mg Tablet 5 Mg PO DAILY Lasix (Furosemide) 20 Mg Tablet 1 Tab PO DAILY Ferrous Sulfate 325 Mg Tablet 1 Tab PO BID Coreg (Carvedilol) 12.5 Mg Tablet 1 Tab PO BID Budesonide 0.5 Mg/2 Ml Ampul.neb 1 Vial NEB BID Artificial Tears Eye Drops (Dextran 70/Hypromellose) 15 Ml Drops 1 Drop EACHEYE PRN QID PRN Xarelto (Rivaroxaban) 20 Mg Tablet 20 Mg PO DAILY Cetirizine Hcl 10 Mg Tablet 1 Tab PO HS Tessalon Perle (Benzonatate) 100 Mg Capsule 100 Mg PO TID PRN Multi-Day Vitamins (Multivitamin) 1 Each Tablet 1 Tab PO DAILY Milk Of Magnesia (Magnesium Hydroxide) 400 Mg/5 Ml Oral.susp 30 Ml PO Q2HR PRN Protonix (Pantoprazole Sodium) 40 Mg Tablet.dr 1 Tab PO DAILY Duoneb 0.5-3(2.5) Mg/3 Ml (Albuterol/Ipratropium) 3 Ml Ampul.neb 3 Ml IH Q4HRS PRN Nystatin 1 Each Powder.ea. 1 Each TOP BID to groin and inner thighs, apply barrier cream with zinc and nystatin powder after cleanse with warm water and pat dry Travatan Z (Travoprost) 5 Ml Drops 1 Drop EACHEYE QHS Synthroid (Levothyroxine Sodium) 150 Mcg Tablet 1 Tab PO DAILY Senna S Tablet (Sennosides/Docusate Sodium) 1 Each Tablet 1 Each PO BID Miralax (Polyethylene Glycol 3350) 17 Gm Powd.pack 1 Packet PO DAILY Methylphenidate Hcl 5 Mg Tablet 1 Tab PO BID Docusate Sodium 100 Mg Capsule 1 Cap PO BID Calcium Carbonate 200 Mg Tab.chew 200 Mg PO PRN Q4HRS PRN Tylenol (Acetaminophen) 325 Mg Tablet 2 Tab PO PRN Q4HRS PRN for headache, generalized pain or elevated temperature Vitals/I & O Vital Sign - Last 24 Hours 02/14/17 02/14/17 02/14/17 02/14/17 15:18 15:48 19:39 19:39 Temp 99.0 99.0 Pulse 80 Resp 30 B/P (MAP) 160/90 (113) Pulse Ox 98 98 100 100 O2 Delivery Nasal Cannula Nasal Cannula Nasal Cannula Nasal Cannula O2 Flow Rate 3.0 3.0 3.0 3.0 02/14/17 02/14/17 02/14/17 02/14/17 19:52 19:54 19:57 21:00 Temp 99.1 99.1 Pulse 73 60 Resp 24 B/P (MAP) 156/74 (101) Pulse Ox 97 O2 Delivery Nasal Cannula Nasal Cannula O2 Flow Rate 3.0 3.0 3.0 02/14/17 02/15/17 02/15/17 02/15/17 23:06 02:43 06:54 07:00 Temp 98.2 98.2 98.1 98.2 98.2 98.1 Pulse 68 83 81 Resp 24 24 20 B/P (MAP) 149/83 (105) 155/88 (110) 171/79 (109) Pulse Ox 98 98 100 O2 Delivery Nasal Cannula Nasal Cannula Nasal Cannula Nasal Cannula O2 Flow Rate 2.0 2.0 3.0 3.0 02/15/17 02/15/17 02/15/17 08:32 08:33 10:53 Pulse 80 81 B/P (MAP) 171/79 171/85 O2 Delivery Nasal Cannula O2 Flow Rate 2.0 Intake and Output 02/14/17 02/14/17 02/15/17 15:00 23:00 07:00 Intake Total 150 ml 400 ml 450 ml Output Total 250 ml 1450 ml Balance 150 ml 150 ml -1000 ml MICHEAL DAVIS MD February 15, 2017 11:22
[2017-02-15] MEDS ORDERED: HYDROCORTISONE 1% TOPICAL OINTMENT 30GM TUBE. TP PRN (11:30)
[2017-02-15] MEDS: LABETALOL 20 MG/4 ML DISP.SYRIN. IVP PRN (12:15)
[2017-02-15 15:00] VITALS: BP 179/86
[2017-02-15] MEDS: RIVAROXABAN 10 MG TABLET. PO SCH (18:20)
[2017-02-15 19:30] VITALS: BP 174/84
[2017-02-15] MEDS: ATORVASTATIN CALCIUM 40 MG TABLET. PO SCH (20:43)
[2017-02-15 23:10] VITALS: BP 148/92
[2017-02-16 03:15] VITALS: BP 168/100
[2017-02-16 07:00] VITALS: BP 158/90
[2017-02-16] MEDS: IPRATROPIUM BROMIDE 0.5 MG/2.5 ML NEBU. NEB SCH ×3 (07:25→15:32)
[2017-02-16] MEDS: BUDESONIDE 0.5 MG/2 ML NEBU. NEB SCH (07:25)
[2017-02-16] MEDS: predniSONE 10 MG TABLET PO SCH (08:45)
[2017-02-16] MEDS: METOPROLOL TART IMMED RELEASE 50 MG TABLET. PO SCH (08:45)
[2017-02-16] MEDS: amLODIPine BESYLATE 5 MG TABLET PO SCH (08:46)
[2017-02-16] MEDS: ANTI-COAG MONITOR BY PHARMACY. MC PRN (10:09)
[2017-02-16 11:00] VITALS: BP 177/92
--- NOTE | 2017-02-16 11:11 | PDOC ---
PULMONARY PROGRESS NOTES Subjective alert, answers most Qs, sob, better, has cough, no pain, refused bipap last night reinaldo 02 now. Vitals Vital Signs Date Time Temp Pulse Resp B/P (MAP) Pulse Ox O2 Delivery O2 Flow Rate FiO2 02/16/17 11:00 98.8 73 20 177/92 (120) 95 Nasal Cannula 2.0 98.8 General: Alert, No acute distress HEENT: Other Lungs: Clear Cardiovascular: S1, S2 Abdomen: Soft, Non-tender, Other Extremities: Other (1+edema) Labs Laboratory Tests Test 02/15/17 05:00 02/16/17 03:55 Magnesium Level 2.1 mg/dL (1.8-2.4) 1.9 mg/dL (1.8-2.4) Laboratory Tests Test 02/16/17 03:55 Magnesium Level 1.9 mg/dL (1.8-2.4) Medications Active Scripts Medications Dose Route/Sig Max Daily Dose Days Date Category Dose Instructions Omeprazole 20 Mg Capsule.dr 1 Cap PO DAILY 02/12/17 Reported Prednisone 20 Mg Tablet 40 Mg PO DAILY 01/17/17 Rx Zinc Oxide 30 Gm Oint...g. 30 Gm TP 12/30/16 Reported Lyrica (Pregabalin) 75 Mg Capsule 1 Cap PO BID 12/30/16 Reported Xalatan (Latanoprost) 2.5 Ml Drops 1 Drop EACHEYE QHS 12/30/16 Reported Potassium Chloride Packet (Potassium Chloride) 20 Meq Packet 20 Meq PO BID 12/30/16 Reported Percocet 5-325 Mg Tablet (Oxycodone/Acetaminophen) 1 Each Tablet 1 Tab PO PRN Q6HRS PRN 12/30/16 Reported Zofran Odt (Ondansetron) 4 Mg Tab.rapdis 1 Tab SL BID 12/30/16 Reported Amlodipine Besylate 5 Mg Tablet 5 Mg PO DAILY 12/30/16 Reported Lasix (Furosemide) 20 Mg Tablet 1 Tab PO DAILY 12/30/16 Reported Ferrous Sulfate 325 Mg Tablet 1 Tab PO BID 12/30/16 Reported Coreg (Carvedilol) 12.5 Mg Tablet 1 Tab PO BID 12/30/16 Reported Budesonide 0.5 Mg/2 Ml Ampul.neb 1 Vial NEB BID 12/30/16 Reported Artificial Tears Eye Drops (Dextran 70/Hypromellose) 15 Ml Drops 1 Drop EACHEYE PRN QID PRN 12/30/16 Reported Xarelto (Rivaroxaban) 20 Mg Tablet 20 Mg PO DAILY 11/12/16 Reported Cetirizine Hcl 10 Mg Tablet 1 Tab PO HS 11/07/16 Reported Tessalon Perle (Benzonatate) 100 Mg Capsule 100 Mg PO TID PRN 11/07/16 Reported Multi-Day Vitamins (Multivitamin) 1 Each Tablet 1 Tab PO DAILY 11/07/16 Reported Milk Of Magnesia (Magnesium Hydroxide) 400 Mg/5 Ml Oral.susp 30 Ml PO Q2HR PRN 05/31/15 Reported Protonix (Pantoprazole Sodium) 40 Mg Tablet.dr 1 Tab PO DAILY 05/30/15 Reported Duoneb 0.5-3(2.5) Mg/3 Ml (Albuterol/Ipratropium) 3 Ml Ampul.neb 3 Ml IH Q4HRS PRN 05/30/15 Reported Nystatin 1 Each Powder.ea. 1 Each TOP BID 05/14/15 Reported to groin and inner thighs, apply barrier cream with zinc and nystatin powder after cleanse with warm water and pat dry Travatan Z (Travoprost) 5 Ml Drops 1 Drop EACHEYE QHS 05/01/15 Reported Synthroid (Levothyroxine Sodium) 150 Mcg Tablet 1 Tab PO DAILY 05/01/15 Reported Senna S Tablet (Sennosides/Docusate Sodium) 1 Each Tablet 1 Each PO BID 05/01/15 Reported Miralax (Polyethylene Glycol 3350) 17 Gm Powd.pack 1 Packet PO DAILY 05/01/15 Reported Methylphenidate Hcl 5 Mg Tablet 1 Tab PO BID 05/01/15 Reported Docusate Sodium 100 Mg Capsule 1 Cap PO BID 05/01/15 Reported Calcium Carbonate 200 Mg Tab.chew 200 Mg PO PRN Q4HRS PRN 05/01/15 Reported Tylenol (Acetaminophen) 325 Mg Tablet 2 Tab PO PRN Q4HRS PRN 05/01/15 Reported for headache, generalized pain or elevated temperature Comments cxr reviewed, atelectasis Impression . 1. Acute on chronic hypercapnic respiratory failure secondary to noncompliance to home CPAP and possible cor pulmonale. She has moderate basal atelectasis from poor inspiratory effort contributing to her symptoms as well. 2. History of obstructive sleep apnea/obesity hypoventilation syndrome. 3. History of chronic deep venous thrombosis and has been on Xarelto chronically. 4. Abnormal chest x-ray with bibasilar atelectasis due to poor inspiratory effort. 5. Acute encephalopathy secondary to hypercapnia.resolved 6. h/o recurrent DVT,s . On chronic anticoagulation 7. copd w ae Plan . 1. she absolutely refuses BiPAP 2. abg reviewed 3. avoid over sedation 4. elevate hob 5. Continue Xarelto, monitor for bleeding. 6. Continue with levothyroxine. Her TSH was 0.978. 7. Nebulizer treatments. 8. Lasix, monitor k cr. 9. Empiric antibiotics 10. prednisone 40 mg daily. w taper by 10 mg q 3d 11. bronchodilator Atrovent only had arrhythmia Discussed with EDUARDO Suero MD February 16, 2017 11:11
[2017-02-16] MEDS ORDERED: PRED-220 PO (11:45)
[2017-02-16] MEDS ORDERED: amLODIPine BESYLATE 5 MG TABLET PO ONE (14:15)
[2017-02-16 15:15] VITALS: BP 177/92
--- NOTE | 2017-02-16 16:47 | PDOC2 ---
PALLIATIVE CARE Palliative Care Note Palliative Care Consult requested by Dr. Rudolph to address goals of care. Patient seen at 0900. Reviewed current medical condition: Respiratory Failure- -refuses BiPap; sleep apnea. high CO2 --improved. Patient wants to go back to nursing facility with comfort care. Reviewed Hospice with the goals of keeping more health care coming to her and not returning to hospital and to allow a natural peaceful . She wishes to pursue Hospice Support. Reviewed Code Status; Patient confirmed DNR/DNI. Spoke with sister -- Camelia. She is supportive of patient's wishes. No preference in Hospice agency Spoke with Mirian TINAJERO. Order for information visit from hospice when patient returns to long term. SCOTT DGUGAN February 16, 2017 16:47
[2017-02-17] MEDS ORDERED: amLODIPine BESYLATE 10 MG TABLET PO SCH (09:00)
--- NOTE | 2017-02-21 02:18 | DS ---
DATE OF DISCHARGE: 02/16/2017 CHIEF COMPLAINT: Acute hypercarbic respiratory failure. HOSPITAL COURSE: The patient is a 71-year-old -[place] woman with known obstructive sleep apnea, obesity-hypoventilation syndrome, who has chronic hypercarbia worsened when not wearing BiPAP. She refused doing so at home and promptly was admitted for acute hypercarbic respiratory failure. She was started briefly on BiPAP while obtunded in the hospital, but upon regaining her consciousness, she declined any further BiPAP mask. She was on nasal cannula only. She refused to use BiPAP in the future and therefore was discharged to home. Discussions were held with her as well as her family that in untreated condition she had a life expectancy of less than 6 months. This did not dissuade her from her refusal. Palliative care consult was obtained and her status was discussed in detail. The patient preferred to go home with DNR/DNI and directives not to return to hospital. She was therefore returned to her previous long-term/assisted living situation with home hospice. DISCHARGE DIAGNOSES: Hypercarbic respiratory failure. DISCHARGE DISPOSITION: To assisted living with hospice. DISCHARGE CONDITION: Improved. DISCHARGE MEDICATIONS: Please refer to the transfer sheet. DISCHARGE INSTRUCTIONS: Hospice will follow up with the patient once returned to home. JORDAN SAGE MD DR: VINCENT/nts JOB#: [id number] / [id number] RACHEL Gutierrez
== END 2017-02-16 16:30 | disposition hospice, inpatient (51) | DRG 291 ==
LOC: ER 22:41 → 1 WEST ICU 23:09 → 2 SOUTH 02-13 15:51
PROVIDERS: ADMIT Internal Medicine; ATTEND Internal Medicine
PROC: 5A09457 Assistance with Respiratory Ventilation, 24-96 Consecutive Hours, Continuous Positive Airway Pressure (ICD-10-PCS; principal; 2017-02-11)
DX: I50.31 Acute diastolic (congestive) heart failure (principal); J96.21 Acute and chronic respiratory failure with hypoxia; G93.41 Metabolic encephalopathy; G82.50 Quadriplegia, unspecified; J96.22 Acute and chronic respiratory failure with hypercapnia; N17.9 Acute kidney failure, unspecified; E44.0 Moderate protein-calorie malnutrition; E87.0 Hyperosmolality and hypernatremia; G93.1 Anoxic brain damage, not elsewhere classified; I47.2 Ventricular tachycardia; E66.2 Morbid (severe) obesity with alveolar hypoventilation; J44.1 Chronic obstructive pulmonary disease with (acute) exacerbation; J98.11 Atelectasis; E03.9 Hypothyroidism, unspecified; Z66 Do not resuscitate; Z51.5 Encounter for palliative care; E78.5 Hyperlipidemia, unspecified; E87.5 Hyperkalemia; G30.9 Alzheimer's disease, unspecified; H40.9 Unspecified glaucoma; I11.0 Hypertensive heart disease with heart failure; I25.10 Atherosclerotic heart disease of native coronary artery without angina pectoris; I27.2 Other secondary pulmonary hypertension; I48.0 Paroxysmal atrial fibrillation; I89.0 Lymphedema, not elsewhere classified; Z96.649 Presence of unspecified artificial hip joint; Z96.659 Presence of unspecified artificial knee joint; D64.9 Anemia, unspecified; K21.9 Gastro-esophageal reflux disease without esophagitis; M79.7 Fibromyalgia; G62.9 Polyneuropathy, unspecified; K59.00 Constipation, unspecified; M19.90 Unspecified osteoarthritis, unspecified site; M06.9 Rheumatoid arthritis, unspecified; F41.9 Anxiety disorder, unspecified; F32.9 Major depressive disorder, single episode, unspecified; Z68.36 Body mass index [BMI] 36.0-36.9, adult; Z79.01 Long term (current) use of anticoagulants; Z81.8 Family history of other mental and behavioral disorders; Z82.49 Family history of ischemic heart disease and other diseases of the circulatory system; Z86.718 Personal history of other venous thrombosis and embolism; Z83.3 Family history of diabetes mellitus; Z86.73 Personal history of transient ischemic attack (TIA), and cerebral infarction without residual deficits; Z90.710 Acquired absence of both cervix and uterus; Z91.19 Patient's noncompliance with other medical treatment and regimen; Z99.3 Dependence on wheelchair; Z87.01 Personal history of pneumonia (recurrent); Z87.440 Personal history of urinary (tract) infections; Z88.1 Allergy status to other antibiotic agents; Z88.5 Allergy status to narcotic agent; Z91.013 Allergy to seafood; Z88.2 Allergy status to sulfonamides; Z88.8 Allergy status to other drugs, medicaments and biological substances; Z91.018 Allergy to other foods
CPT/HCPCS: 36415; 36600; 71010; 80048; 80053; 80061; 82550; 82805; 83605; 83690; 83735; 83880; 84132; 84443; 84484; 84550; 85027; 85610; 85730; 87641; 93005; 93306; 94640; 94660; 94760; G0480; J0360; J0696; J2920; J3490; J7060; J7512; J7620; J7644; 99291-25